=== PATIENT | male | born 1940 | race Caucasian/White ===

== ENCOUNTER 2020-03-17 08:19 | Outpatient (REF) | payer MEDICARE, SELFPAY ==
--- NOTE | 2020-03-17 08:36 | XR_ITS ---
EXAMINATION: XR CHEST CLINICAL INFORMATION: R06.02 - Shortness of breath COMPARISON: Chest radiographs 06/03/2009; CT chest noncontrast 06/09/2009 TECHNIQUE: 2 views of the chest were obtained. FINDINGS: There are interval new bilateral streaky opacities, scattered diffuse left and perihilar right. There is chronic right apical scarring similar to CT. Lung volumes are decreased. The heart is normal in size. The vascularity is normal. There is no definite effusion. There is no lobar or segmental airspace consolidation. Visualized bony structures are unremarkable. XR/XR chest 2V IMPRESSION: Bilateral streaky opacities, greater on left with decreased lung volumes. Findings likely related to interval chronic interstitial fibrotic change. Superimposed acute infectious/inflammatory airspace disease cannot be excluded. No lobar or segmental airspace consolidation or effusion.
[2020-03-17 09:02] LABS: Hematocrit 48.3 % (42-52); Hemoglobin 16.3 g/dl (14.0-18.0); Mean Corpuscular HGB Conc 33.7 g/dl (31.0-36.0); Mean Corpuscular Hemoglobin 29.9 pg (27.0-33.0); Mean Corpuscular Volume 88.5 fL (80-98); Mean Platelet Volume 10.8 fL (9.4-12.4); Platelet Count 189 X10*3/uL (160-400); Red Blood Count 5.46 X10*6/uL (4.60-5.80); Red Cell Distribution Width 13.9 % (11.0-16.0); White Blood Count 8.4 X10*3/uL (4.8-10.8)
[2020-03-17 09:30] LABS: Alanine Aminotransferase 50 U/L (0-40); Albumin Level 4.2 g/dL (3.5-5.0); Alkaline Phosphatase 114 U/L (39-117); Anion Gap 14 (12-20); Aspartate Amino Transferase 34 U/L (5-37); Bilirubin Total 2.5 mg/dL (0.0-1.0); Blood Urea Nitrogen 13 mg/dL (9-16); Calcium 8.9 mg/dL (8.4-10.2); Carbon Dioxide 24 mmol/L (22-29); Chloride 108 mmol/L (96-108); Cholesterol 186 mg/dL; Estimated Glomerular Filt Rate > 60; Glucose Fasting 172 mg/dL (60-99); HDL Cholesterol 33 mg/dL; LDL Cholesterol Calculated 132 mg/dl; Potassium 4.1 mmol/l (3.3-5.1); Sodium 142 mmol/L (135-145); Total Protein 6.7 g/dL (6.5-8.0); Triglycerides 108 mg/dL
[2020-03-17 09:37] LABS: Creatinine Urine 184.46 mg/dL; Microalbum/Creatinine Ratio Ur 11.3 ug/mg cr
[2020-03-17 10:56] LABS: Prostate Specific Antigen Scr 4.94 ng/mL (<0.05-4.0)
== END 2020-03-17 08:20 | disposition home or self-care (01) ==
LOC: HO.LAB 08:19
PROVIDERS: PCP Physician Assistant; Visit Provider Physician Assistant
DX: R06.02 Shortness of breath (principal); I25.10 Atherosclerotic heart disease of native coronary artery without angina pectoris; E78.5 Hyperlipidemia, unspecified; I10 Essential (primary) hypertension; Z79.82 Long term (current) use of aspirin; Z13.1 Encounter for screening for diabetes mellitus; Z12.5 Encounter for screening for malignant neoplasm of prostate
CPT/HCPCS: 36415; 71046; 80053; 80061; 82043; 84153; 85027; 93005; 99202

== ENCOUNTER → 2020-03-29 07:25 | Outpatient (REF) | payer MEDICARE, SELFPAY ==
--- NOTE | 2020-03-29 | CA_ITS ---
Transthoracic Echocardiogram Patient (Last, First, Middle): Marc Sandoval L Gender: Male Date of : 1940 Age: 79 Procedure Date: 03/29/2020 Procedure Type: Transthoracic Echocardiogram Location: OP Height: 175.26 cm Weight: 75.75 kg BSA: 1.91 m2 Heart Rate: bpm BP: 122 / 60 mmHg Lease Picker: [email or web address] Referring MD: Christopher Erwin MD Symptoms: R06.02 - Shortness of breath Study Quality: Fair ECG Rhythm: Sinus Conclusions: - The left ventricular systolic function is normal. The visually estimated ejection fraction is between 55-60%. - No obvious valvular pathology seen on this study. Findings Left Ventricle Normal left ventricular cavity size. There is mildly increased left ventricular wall thickness. The left ventricular systolic function is normal. The visually estimated ejection fraction is between 55-60%. There is no evidence of regional wall motion abnormalities. E/E prime ratio is between 8 and 15 consistent with indeterminate filling pressures. Evidence suggests grade I (mild) diastolic dysfunction. Right Ventricle Normal right ventricular cavity size and systolic function. Atria The left atrium is normal in size. The right atrium is normal in size. Aortic Valve There is a normal trileaflet aortic valve. There is mild calcification of the aortic valve. There is no aortic valve stenosis. There is trace (trivial) aortic valve regurgitation. Mitral Valve The mitral valve appears normal. There is trace mitral valve regurgitation. There is no mitral valve stenosis. Pulmonic Valve The pulmonic valve was not well visualized. There is trace pulmonic valve regurgitation. Tricuspid Valve Normal tricuspid valve structure. There is trace tricuspid valve regurgitation. The pulmonary artery systolic pressure is normal. Great Vessels The aortic annulus, sinuses of valsalva, and asc aorta are normal in size. Venous The inferior vena cava was not well visualized. Pericardium/Pleural There is no evidence of pericardial effusion. Prior Study Comparison No prior study available for comparison. Recommendations, Care & Conclusions No obvious valvular pathology seen on this study. Measurements 2D Linear Measurements IVSd: 1.23 0.6-0.9/0.6-1.0 cm LVIDd: 2.70 3.9-5.3/4.2-5.9 cm LVIDd Index: 1.41 2.4-3.2/2.2-3.1 cm/m2 LVIDs: 1.84 2.0-3.6 cm LVPWd: 1.25 0.7-1.1 cm Ao Root: 3.50 2.1-3.5 cm LA Diam: 3.30 2.7-3.8/3.0-4.0 cm LAIDs Index: 1.73 1.5-2.3 cm/m2 LV Mass: 124.08 67-162/88-224 g LV Mass Index: 64.96 43-95/49-115 g/m2 LVOT Diam: 2.10 3.0+(-)1.3 cm 2D Systolic Function EF 4C: 60.50 >55% EF 2C: 57.80 >55% EF BiP: 58.50 >55% Mitral Valve MV Pk E: 0.60 MV PK A: 1.11 MV Decel Time: 274.00 E/A: 0.50 E'Lateral: 4.84 E'Medial: 5.80 E/E' Med: 10.30 E/E' Lat: 12.30 PHT: 80.00 MVA PHT: 2.75 Decel Dare: 2.17 Aortic Valve AoV Pk Arnold: 1.26 AoV Mn Arnold: 0.84 AoV VTI: 0.28 AoV Pk Grad: 6.00 Aov Mn Grad: 3.00 SARAHY Cont.VTI: 2.60 LVOT LVOT Pk Arnold: 0.85 LVOT Mn Arnold: 0.62 LVOT VTI: 0.21 LVOT Pk Grad: 3.00 LVOT Mn Grad: 2.00 LVOT Diam: 2.10 LVOT Area: 3.46 Diastolic Function MV Pk E: 0.60 MV Pk A: 1.11 E/A: 0.50 E'Medial: 5.80 E/E' Med: 10.30 E' Laterial: 4.84 E/E' Lat: 12.30 Tricuspid Valve TR Pk Arnold: 1.58 TR Pk Grad: 10.00 RA Press: 3.00 RVSP: 13.00 Great Vessels Aorta Ao Root-2D: 3.50 2.0-3.7 cm Ao Asc: 3.30 2.1-3.4 cm Pulmonary Valve PV Pk Arnold: 0.84 Peak PV Grad: 3.00 Updated in Other Vendor System with Status of Final Abdulaziz Farley MD electronically signed on 03/30/2020 1:21:54 PM with status of Final
--- NOTE | ~2020-03-29 | NM_ITS ---
Exercise Myocardial perfusion study Indication: Atherosclerotic heart disease to evaluate for myocardial ischemia Technique: The patient was brought in for an exercise perfusion study on 03/29/2020. Patient performed exercise as per Garrick protocol and was injected 25 mCi of sestamibi was given intravenously one target HR was achieved. Images were obtained using the SPECT gamma camera interlaced with the gating device. Images were obtained in supine position. Resting perfusion study was performed on 03/30/2020. Patient was administered 25 mCi of sestamibi intravenously at rest. Images were then obtained in supine position. Images obtained with and without CT attenuation. Total DLP 69 mGy-cm. Images were processed with the software and compared side to side in short axis, horizontal long axis and vertical long axis views. Findings: The stress perfusion study showed non attenuated images show mildly reduced uptake in the basal inferior wall of the LV myocardium. Attenuation corrected images show normal uptake of radiotracer in all segments of LV myocardium. The gated study shows normal LV systolic function with calculated LVEF of greater than 70 %. LV cavity is normal in size. The gated study shows normal systolic wall thickening and contraction of all segments. There is no transient ischemic dilation. Resting study shows mildly reduced uptake in the distal anterior and apex of the LV myocardium on attenuation corrected images. Gating at rest reveals normal systolic wall motion with ejection fraction at 73%. The findings are consistent with normal myocardial perfusion. NM/NM cardiolite stress test Impression: 1. Normal myocardial perfusion 2. Gated LVEF is greater than 70% 3. Transient ischemic dilatation not present Stress EKG is equivocal for ischemia
--- NOTE | 2020-03-29 07:29 | CA_ITS ---
Acquisition Time: 2020-03-29 10:26:57 Total Exercise Time: 00:04:28 Test Indications: ASHD, SOB Medications: Protocol: SHEBA Max HR: 130 BPM 92% of Pred: 141 BPM Max BP: 184/078 mmHG Max Work Load: 4.6 METS Exercise nuclear stress test using Sheba protocol, with walking on treadmill for 3 min. 15 sec. Pt asked to terminate the test. TAPHR up to 87 %. Pt denies any anginal sx. EKG wiyh occ. PVC's , T wave inversions seen inferiorly and laterally. Nuclear images to follow. Hypertensive response to exercise. Test reviewed with Dr. Farley. Referred By: Royal Garcia Overread By: Betty Ramos
== END ==
LOC: HO.CARD 07:25
PROVIDERS: Visit Provider Internal Medicine Cardiovascular Disease
DX: I25.10 Atherosclerotic heart disease of native coronary artery without angina pectoris (principal); R06.02 Shortness of breath
CPT/HCPCS: 78452; 93017; 93306; A9500

== ENCOUNTER → 2020-04-14 11:13 | Outpatient (BNVA) | payer MEDICARE, SELFPAY | PROVIDERS: Visit Provider Nurse Practitioner Family | DX: R06.02 Shortness of breath (principal); I25.10 Atherosclerotic heart disease of native coronary artery without angina pectoris; E78.5 Hyperlipidemia, unspecified; Z95.5 Presence of coronary angioplasty implant and graft | CPT/HCPCS: 99212 ==

== ENCOUNTER 2020-04-19 09:48 | Outpatient (REF) | payer MEDICARE, SELFPAY ==
--- NOTE | 2020-04-19 17:06 | PFT_ITS ---
INDICATION: Shortness of breath. SPIROMETRY: The FEV1 to FVC 79% with an FEV1 of 2.2 L, which is 79% predicted; and FVC of 2.79 L which is 71% predicted. No significant response to bronchodilators noted. Maximum voluntary ventilation 84% predicted. LUNG VOLUMES: Total lung capacity 73% predicted with an expiratory reserve volume of 73% predicted. DIFFUSION CAPACITY: DLCO 19% predicted. COMPARISONS: None. INTERPRETATION: No obstructive ventilatory defect. No significant response to bronchodilators noted. Normal maximum voluntary ventilation; however, there is some mild restrictive ventilatory defect. In addition to that, the patient has a very severe diffusion impairment out of proportion to the restriction noted above. Therefore, need to consider underlying interstitial lung disease in addition to pulmonary vascular disease. The patient should have a 6-minute walk test and Pulmonary consultation. Clinical correlation warranted. MD SEAN Springer/URSULA / [id number]
== END 2020-04-19 09:49 | disposition home or self-care (01) ==
LOC: HO.RESP 09:48
PROVIDERS: Visit Provider Nurse Practitioner Family
DX: I25.10 Atherosclerotic heart disease of native coronary artery without angina pectoris (principal); R06.02 Shortness of breath; Z87.891 Personal history of nicotine dependence
CPT/HCPCS: 94060; 94727; 94729; 99202

== ENCOUNTER → 2020-04-26 09:45 | Outpatient (BNVA) | payer MEDICARE, SELFPAY | PROVIDERS: PCP Physician Assistant; Visit Provider Nurse Practitioner Family | DX: Z13.89 Encounter for screening for other disorder (principal) | CPT/HCPCS: 99212 ==

== ENCOUNTER 2020-05-04 08:19 | Outpatient (REF) | payer MEDICARE, SELFPAY ==
--- NOTE | ~2020-05-04 | CT_ITS ---
EXAMINATION: CT CHEST WITHOUT CONTRAST CLINICAL INFORMATION: Interstitial lung disease COMPARISON: Previous chest x-ray February [address] May 2009 and abdominal and pelvic CT scan from 2013 TECHNIQUE: Multidetector volumetric CT imaging of the chest was done. Axial MIP volume rendering provided. Sagittal and coronal reformatted images were obtained. This CT examination was performed using dose optimization techniques as appropriate, variously including the following: *Automated exposure control *Adjustment of mA and/or kV according to patient size (this includes techniques or standardized protocols for targeted exams where dose is matched to indication/reason for exam; i.e. extremities or head) *Use of iterative reconstruction technique DLP: 193 mGy-cm FINDINGS: SCREENING NURSE: Low lung volumes and increased interstitial markings suggestive of interstitial lung disease. LUNGS: There is biapical pleural and parenchymal scarring, left greater than right. This appears increased from previous CT scan. There is evidence of a emphysema. There is increasing volume loss to the left upper lobe. There is abnormal parenchymal density and traction bronchiectasis adjacent to a cystic area seen in the apical segment of the right upper lobe that is new, for example axial image 44 series 6. There is an abnormal parenchymal density and traction bronchiectasis adjacent to cystic area seen in the left upper lobe for example axial image 37 series 6 that is new. There is a 5 mm right upper lobe nodule axial image 72 series 6. This is increased from 2 mm on May 2009 exam. There are increased interstitial markings with increased peripheral reticulation, traction bronchiolectasis and extensive cystic change or honeycombing seen in the inferior segment of the lingula and the bilateral lower lobes that is new or increased from 2010. There is peripheral or subpleural triangular-shaped parenchymal consolidation seen in the left lateral lower lobe adjacent to the fissure axial image 120 series 6 that is new. There is a new peripheral or subpleural left lower lobe nodule adjacent to the fissure that measures 6 x 10 mm axial image 19 series 6 that is new. No endobronchial or endotracheal lesion is seen. MEDIASTINUM: There are small mediastinal lymph nodes. No enlarged lymph nodes are seen. The heart does not appear enlarged. There is moderate to severe coronary artery calcification. There is no pericardial effusion. The thoracic aorta is calcified but normal in caliber. The pulmonary arteries are upper normal in size, main pulmonary artery measuring 3 cm. PLEURA: There is mild bilateral pleural thickening at the lung bases. There is no pleural effusion. AXILLA: No lymphadenopathy. UPPER ABDOMEN: There are calcifications in the gallbladder questionable for gallbladder wall calcification versus gallstones. This is increased from previous exams. OSSEOUS STRUCTURES: There are degenerative changes of the spine. CT/CT chest wo con IMPRESSION: Severe emphysema. New interstitial lung disease with increased peripheral reticular markings, traction bronchiolectasis and honeycombing. This is seen diffusely throughout the lungs but greatest at the lung bases and inferior segment of the lingula. There is also progression of bilateral apical pleural and parenchymal scarring and abnormal bilateral apical parenchymal densities and associated traction bronchiectasis. There are also several new abnormal parenchymal densities in the left lower lobe, increasing right upper lobe nodule and new left lower lobe nodule. PET CT scan or continued chest CT scan follow-up should be considered. Moderate to severe coronary artery calcification. Gallbladder calcification questionable for gallbladder wall calcifications versus gallstones increased from previous exams.
== END 2020-05-04 08:20 | disposition home or self-care (01) ==
LOC: HO.CT 08:19
PROVIDERS: Visit Provider Internal Medicine Pulmonary Disease
DX: J84.9 Interstitial pulmonary disease, unspecified (principal)
CPT/HCPCS: 71250

== ENCOUNTER 2020-05-18 09:09 | Outpatient (REF) | payer MEDICARE, SELFPAY ==
[2020-05-18 09:55] LABS: PLT CLUMP 1
[2020-05-18 09:57] LABS: Hematocrit 39.6 % (42-52); Hemoglobin 12.9 g/dl (14.0-18.0); Mean Corpuscular HGB Conc 32.6 g/dl (31.0-36.0); Mean Corpuscular Hemoglobin 28.8 pg (27.0-33.0); Mean Corpuscular Volume 88.4 fL (80-98); Mean Platelet Volume 10.6 fL (9.4-12.4); Platelet Count 145 X10*3/uL (160-400); Red Blood Count 4.48 X10*6/uL (4.60-5.80); Red Cell Distribution Width 13.6 % (11.0-16.0)
[2020-05-18 10:15] LABS: Alanine Aminotransferase 18 U/L (0-40); Albumin Level 3.6 g/dL (3.5-5.0); Alkaline Phosphatase 112 U/L (39-117); Anion Gap 12 (12-20); Aspartate Amino Transferase 18 U/L (5-37); Blood Urea Nitrogen 11 mg/dL (9-16); Calcium 7.8 mg/dL (8.4-10.2); Carbon Dioxide 31 mmol/L (22-29); Chloride 108 mmol/L (96-108); Estimated Glomerular Filt Rate > 60; Glucose Fasting 160 mg/dL (60-99); Potassium 3.9 mmol/L (3.3-5.1); Sodium 147 mmol/L (135-145); Total Protein 5.9 g/dL (6.5-8.0)
[2020-05-18 10:29] LABS: Estimated Average Glucose 154 mg/dL
[2020-05-19 07:32] LABS: Immunoglobulin E 5 kU/L (<OR=114)
== END 2020-05-18 09:10 | disposition home or self-care (01) ==
LOC: HO.LAB 09:09
PROVIDERS: PCP Physician Assistant; Visit Provider Physician Assistant
DX: I10 Essential (primary) hypertension (principal); J30.9 Allergic rhinitis, unspecified; R73.09 Other abnormal glucose; Z95.5 Presence of coronary angioplasty implant and graft
CPT/HCPCS: 36415; 80053; 82785; 83036; 85027

== ENCOUNTER → 2020-06-11 11:04 | Outpatient (BNVA) | payer MEDICARE, SELFPAY | PROVIDERS: PCP Physician Assistant; Visit Provider Nurse Practitioner Family | DX: Z01.810 Encounter for preprocedural cardiovascular examination (principal); R06.02 Shortness of breath; I25.10 Atherosclerotic heart disease of native coronary artery without angina pectoris; E78.5 Hyperlipidemia, unspecified; Z95.5 Presence of coronary angioplasty implant and graft | CPT/HCPCS: 93005; 99212 ==

== ENCOUNTER 2020-07-07 08:57 | Outpatient (REF) | payer MEDICARE, SELFPAY ==
[2020-07-07 10:36] LABS: Hemoglobin 12.5 g/dl (14.0-18.0); Mean Corpuscular HGB Conc 32.9 g/dl (31.0-36.0); Mean Corpuscular Hemoglobin 28.7 pg (27.0-33.0); Mean Corpuscular Volume 87.4 fL (80-98); Mean Platelet Volume 10.9 fL (9.4-12.4); Platelet Count 177 X10*3/uL (160-400); Red Blood Count 4.35 X10*6/uL (4.60-5.80); Red Cell Distribution Width 14.1 % (11.0-16.0); White Blood Count 8.6 X10*3/uL (4.8-10.8)
== END 2020-07-07 08:58 | disposition home or self-care (01) ==
LOC: HO.LAB 08:57
PROVIDERS: PCP Physician Assistant; Visit Provider Physician Assistant
DX: D64.9 Anemia, unspecified (principal); I10 Essential (primary) hypertension
CPT/HCPCS: 36415; 85027

== ENCOUNTER → 2020-07-27 09:32 | Outpatient (BNVA) | payer MEDICARE, SELFPAY | PROVIDERS: PCP Physician Assistant; Visit Provider Internal Medicine Pulmonary Disease | DX: J44.9 Chronic obstructive pulmonary disease, unspecified (principal); J84.112 Idiopathic pulmonary fibrosis; R91.8 Other nonspecific abnormal finding of lung field; Z99.81 Dependence on supplemental oxygen | CPT/HCPCS: 99212 ==

== ENCOUNTER 2020-08-09 08:55 | Outpatient (REF) | payer MEDICARE, SELFPAY ==
--- NOTE | ~2020-08-09 | CT_ITS ---
EXAMINATION: CT CHEST WITHOUT CONTRAST CLINICAL INFORMATION: Interstitial lung disease COMPARISON: Previous chest CT scan most recent April 2020 and chest x-ray February 2020 TECHNIQUE: Multidetector volumetric CT imaging of the chest was done. Axial MIP volume rendering provided. Sagittal and coronal reformatted images were obtained. This CT examination was performed using dose optimization techniques as appropriate, variously including the following: *Automated exposure control *Adjustment of mA and/or kV according to patient size (this includes techniques or standardized protocols for targeted exams where dose is matched to indication/reason for exam; i.e. extremities or head) *Use of iterative reconstruction technique DLP: 194 mGy-cm FINDINGS: LUNGS: There is evidence of severe emphysema. There is biapical pleural thickening. There is some volume loss to the left hemithorax/left lower lobe with shift of the central mediastinal structures to the left. There is evidence of severe interstitial lung disease with increased peripheral reticulation, increased peripheral attenuation, traction bronchiolectasis and honeycombing. This is greatest in the lingula and left lower lobe. This does not appear appreciably changed from most recent exam April 2020. This is again significantly increased from older exam May 2009. There is a 4 mm right upper lobe nodule axial image 24 series 3 that is stable. There is a 3 mm left lower lobe nodule axial image 33 series 3 that is stable. There is a small 2 mm calcified left lower lobe nodule axial image 38 series 3. No new pulmonary nodule is seen. MEDIASTINUM: The visualized thyroid gland is unremarkable. There are small mediastinal lymph nodes. The heart does not appear enlarged. There is coronary artery calcification. There is no pericardial effusion. The thoracic aorta is normal in caliber. The esophagus is unremarkable. PLEURA: No pleural effusion. AXILLA: No chest wall mass or enlarged axillary nodes. UPPER ABDOMEN: There is irregular appearing gallbladder calcification questionable for gallbladder wall calcification as opposed to gallstones. Gallbladder wall calcification has increased risk of developing gallbladder cancer. Follow-up ultrasound recommended. There is diverticulosis of the colon. The spleen may be prominent. OSSEOUS STRUCTURES: There are degenerative changes of the spine. CT/CT chest wo con IMPRESSION: Severe emphysema and interstitial lung disease. This is not appear appreciably changed from most recent exam April 2020. Small stable pulmonary nodules. Coronary artery calcification. Gallbladder calcification, question related representing gallbladder wall calcification as opposed to stones which has increased risk of developing gallbladder cancer. Follow-up gallbladder ultrasound recommended.
== END 2020-08-09 08:56 | disposition home or self-care (01) ==
LOC: HO.CT 08:55
PROVIDERS: Visit Provider Internal Medicine Pulmonary Disease
DX: R91.8 Other nonspecific abnormal finding of lung field (principal)
CPT/HCPCS: 71250

== ENCOUNTER → 2020-08-26 15:05 | Outpatient (BNVA) | payer MEDICARE, SELFPAY | PROVIDERS: PCP Physician Assistant; Visit Provider Internal Medicine Pulmonary Disease | DX: J44.9 Chronic obstructive pulmonary disease, unspecified (principal); J84.112 Idiopathic pulmonary fibrosis; R91.8 Other nonspecific abnormal finding of lung field; I25.10 Atherosclerotic heart disease of native coronary artery without angina pectoris; E78.5 Hyperlipidemia, unspecified; R06.02 Shortness of breath; Z87.891 Personal history of nicotine dependence; Z99.81 Dependence on supplemental oxygen | CPT/HCPCS: 99212 ==

== ENCOUNTER 2020-09-06 09:07 | Outpatient (REF) | payer MEDICARE, SELFPAY ==
[2020-09-06 10:22] LABS: Estimated Average Glucose 160 mg/dL; Hemoglobin A1c % 7.2 %
[2020-09-06 10:39] LABS: B Type Natriuretic Peptide 20 pg/mL (<100)
[2020-09-06 10:41] LABS: Alanine Aminotransferase 22 U/L (0-40); Albumin Level 4.1 g/dL (3.5-5.0); Alkaline Phosphatase 106 U/L (39-117); Anion Gap 13 (12-20); Aspartate Amino Transferase 22 U/L (5-37); Bilirubin Total 2.3 mg/dL (0.0-1.0); Blood Urea Nitrogen 13 mg/dL (9-16); Calcium 9.1 mg/dL (8.4-10.2); Carbon Dioxide 27 mmol/L (22-29); Chloride 110 mmol/L (96-108); Cholesterol 114 mg/dL; Estimated Glomerular Filt Rate > 60; Glucose Fasting 191 mg/dL (60-99); HDL Cholesterol 36 mg/dL; Iron 61 mcg/dL (45-160); LDL Cholesterol Calculated 53 mg/dl; Percent Iron Saturation 21 % (15-50); Potassium 3.9 mmol/L (3.3-5.1); Sodium 146 mmol/L (135-145); Total Iron Binding Capacity 288 mcg/dL (228-428); Total Protein 6.7 g/dL (6.5-8.0); Triglycerides 126 mg/dL; Unsaturated Iron Binding 227 ug/dL
== END 2020-09-06 09:08 | disposition home or self-care (01) ==
LOC: HO.LAB 09:07
PROVIDERS: Nurse Practitioner Family; PCP Physician Assistant; Visit Provider Physician Assistant
DX: E78.5 Hyperlipidemia, unspecified (principal); I25.10 Atherosclerotic heart disease of native coronary artery without angina pectoris; R06.02 Shortness of breath; R73.09 Other abnormal glucose; D50.9 Iron deficiency anemia, unspecified; D64.9 Anemia, unspecified
CPT/HCPCS: 36415; 80053; 80061; 83036; 83540; 83880

== ENCOUNTER → 2020-12-07 09:00 | Outpatient (BNVA) | payer MEDICARE, SELFPAY | PROVIDERS: PCP Physician Assistant; Referring Provider Physician Assistant; Visit Provider Internal Medicine Cardiovascular Disease | DX: I25.10 Atherosclerotic heart disease of native coronary artery without angina pectoris (principal); E78.5 Hyperlipidemia, unspecified | CPT/HCPCS: 99212 ==

== ENCOUNTER 2020-12-15 11:12 | Emergency (ER) | payer MEDICARE, SELFPAY ==
--- NOTE | ~2020-12-15 | XR_ITS ---
EXAMINATION: XR CHEST CLINICAL INFORMATION: Cough with chest discomfort COMPARISON: CT scan of August 09, 2020 and studies dating back to June 03, 2009 TECHNIQUE: 2 views of the chest were obtained. FINDINGS: There are again noted to be chronic regions of scarring with more prominent interstitial disease seen within the left lung. No new focus of confluent parenchymal disease is identified. Heart normal size. No evidence of pulmonary edema. No pneumothorax or pleural effusion. XR/XR chest 2V IMPRESSION: No acute parenchymal disease. Chronic disease as described.
[2020-12-15 11:31] VITALS: BP 146/65; PULSE 78; RESP 19; TEMP 36.9; O2SAT 98
[2020-12-15 12:38] LABS: Influenza A PCR NEGATIVE (Negative); Influenza B PCR NEGATIVE (Negative); Resp Syncy Virus RNA Qual PCR POSITIVE (Negative); SARS COV2 PCR INHOUSE NEGATIVE (Negative)
--- NOTE | 2020-12-15 12:40 | ED_ITS ---
HPI - URI/Sore Throat General Chief Complaint: Upper Respiratory Symptoms Stated Complaint: covid symptoms Time Seen by Provider: 12/15/20 11:41 Source: patient Mode of arrival: ambulatory Limitations: no limitations History of Present Illness HPI Narrative: 80-year-old male with a past medical history of pulmonary fibrosis on 6 L of oxygen at baseline, diabetes, anemia, coronary artery disease, hyperlipidemia here with complaints of runny nose, sore throat and cough since yesterday. Daughter was sick at home with RSV this week. Patient denies any shortness of breath or chest pain from baseline. No fevers or leg swelling or pain. Has not required any increase in his supplemental oxygen Related Data Previous Rx's Medication Instructions Recorded aspirin 81 mg tablet,delayed 81 mg PO DAILY #30 tab 03/17/20 release (Ecotrin Low Strength) lisinopril 5 mg tablet 5 mg PO DAILY 90 Days #90 tab 07/14/20 loperamide 2 mg capsule (Imodium 2 mg PO QID PRN 10 Days #30 cap 07/15/20 A-D) albuterol sulfate 90 mcg/actuation 2 puff INHALATION Q4-6H PRN 30 07/27/20 aerosol inhaler Days #1 ea tiotropium 2.5 mcg-olodaterol 2.5 2 puff INHALATION DAILY 30 Days #1 08/26/20 mcg/actuation mist for inhalation ea (Stiolto Respimat) ipratropium bromide 21 mcg (0.03 2 spray INTRANASAL BID 90 Days #60 10/27/20 %) nasal spray ml pioglitazone 15 mg tablet (Actos) 15 mg PO DAILY 90 Days #90 tab 10/27/20 atorvastatin 40 mg tablet 40 mg PO DAILY #90 tab 12/06/20 metoprolol succinate 25 mg 25 mg PO DAILY #90 tab 12/06/20 tablet,extended release 24 hr Allergies Allergy/AdvReac Type Severity Reaction Status Date / Time No Known Allergies Allergy Verified 12/15/20 11:31 Review of Systems Review of Systems: Yes all other systems are reviewed and are negative Constitutional: Constitutional: Reports no additional constitutional complaints, Denies body ache(s), Denies chills, Denies fever(s), Denies headache(s) and Denies weakness Eyes: Eyes: Reports no additional eye complaints and Denies change in vision ENT: Reports system reviewed and no additional complaints, except as documented, Denies dizziness, Denies headache(s), Denies nasal congestion, Reports nasal discharge, Denies neck pain and Reports sore throat Cardiovascular: Cardiovascular: Reports no additional cardiovascular complaints, Denies chest pain, Denies leg edema and Denies dyspnea Respiratory: Respiratory: Reports no additional respiratory complaints, Reports cough and Denies dyspnea Gastrointestinal: Gastrointestinal: Reports no additional gastrointestinal complaints, Denies abdominal pain, Denies diarrhea, Denies nausea and Denies vomiting Genitourinary: Genitourinary: Denies urinary incontinence Musculoskeletal: Musculoskeletal: Reports no additional musculoskeletal complaints, Denies back pain, Denies arthralgias, Denies joint swelling, Denies neck pain, Denies numbness and Denies tingling Integumentary/Breasts: Skin/Breast: Reports system reviewed and no additional complaints, except as docu and Denies rash Neurologic: Reports system reviewed and no additional complaints, except as documented, Denies Abnormal speech present, Denies dizziness, Denies headache(s), Denies numbness, Denies tingling and Denies weakness PMFSH Past Medical History Attestation statement: The following information was validated with the patient. Source: old records reviewed and nursing notes reviewed Medical History CAD (coronary artery disease) Hyperlipidemia Impaired glucose metabolism SOB (shortness of breath) on exertion Surgical History S/P right coronary artery (RCA) stent placement Family History Family History Mother No problems noted. Father No problems noted. Social History Social History Housing: House Alcohol intake: current Alcohol intake frequency: a few times a month Patient Tobacco Use Status: Former Tobacco user Advance Directives: No Advance Directives Information Provided: No Current occupational status: retired Physical Exam Vital Signs: Vital Signs: Last Vital Signs Temp 98.5 F 12/15/20 11:31 Pulse 78 12/15/20 11:31 Resp 19 12/15/20 11:31 BP 146/65 H 10/27/21 11:31 Pulse Ox 98 12/15/20 11:31 Oxygen Flow Rate 4 12/15/20 11:31 Body Mass Index 0.2 Const: General: cooperative, healthy appearing, comfortable and no acute distress Orientation/consciousness: patient oriented x3 Limitations: no limitations HENMT: Head: Yes normal to inspection Ears: hearing grossly normal bilaterally General nose exam: Normal external nose present Face and sinus: Yes normal facial exam Mouth: Normal oral and palatal mucosa present Throat: Yes posterior oropharynx normal Eyes: General: appearance normal, both eyes and all related structures Pupi ls: Equal, round and reactive pupils present Neck: Neck: Yes normal visual inspection Chest: Chest palpation & inspection: normal inspection of the chest Resp: Other: Mild expiratory wheezing No tachypnea, accessory muscle use noted Effort & Inspection: normal respiratory effort Cardio: Rate: regular rate Rhythm: regular rhythm Peripheral pulses: Peripheral pulses 2+ throughout GI: Inspection: Yes normal to inspection Palpation (GI): Soft to palpation and nontender Auscultation: normal bowel sounds Back/Spine/Pelvis: Thoracic/Lumbar Spine: thoracic and lumbar spine normal to inspection Skin: General skin exam: no rashes or lesions noted Neuro: General: patient oriented x3, no focal motor deficits and normal sensation to monofilament Cranial nerves: Yes Equal, round and reactive pupils present Cognition (Neuro): normal cognition Speech: No Abnormal speech present Gait exam (Neuro): Normal gait present Motor exam (neuro): 5/5 motor strength present throughout Extrem: General: Yes normal to inspection, Yes no pedal edema and Yes no calf tenderness Course Course Course Narrative: 80-year-old male oxygen dependent here with complaints of sore throat, runny nose and cough with exposure to RSV this week. He is fully vaccinated for COVID. No shortness of breath or chest pain. Afebrile. Will check COVID/RSV swab. Check chest x-ray. 1250-chest x-ray shows no acute finding. RSV swab is positive. Patient is speaking full sentences. His vitals are stable. No increase in supplemental oxygen. I did discuss this with both him and his daughter. Plan is for discharge home with observation at home and return for any worrisome signs or symptoms. Comfortable with plan for discharge MDM - URI/Sore Throat Medical Records Attestation: I reviewed the patient's medical records. Lab Data Attestation: I reviewed the patient's lab results. Labs: Lab Results 12/15/20 Range/Units 11:50 Coronavirus (PCR) NEGATIVE (Negative) Influenza Type A (PCR) NEGATIVE (Negative) Influenza Type B (PCR) NEGATIVE (Negative) RSV RNA Qual (PCR) POSITIVE A (Negative) Imaging Data Chest x-ray: Attestation: I personally reviewed and interpreted this imaging study as follows: Radiologist's impression: INDINGS: There are again noted to be chronic regions of scarring with more prominent interstitial disease seen within the left lung. No new focus of confluent parenchymal disease is identified. Heart normal size. No evidence of pulmonary edema. No pneumothorax or pleural effusion. XR/XR chest 2V IMPRESSION: No acute parenchymal disease. ? Chronic disease as described. Discharge Plan Discharge Clinical Impression: Respiratory syncytial virus (RSV) Patient Disposition: Home, Self-Care Instructions: Respiratory Syncytial Virus (ED) Additional Instructions: Your COVID test is negative Your positive for RSV which is a virus which causes respiratory symptoms Seek care in the emergency department for shortness of breath, chest pain, fever greater than 100.4, weakness or increase in supplemental oxygen requirements. Take Motrin or Tylenol if able as needed Prescriptions: No Action atorvastatin 40 mg tablet 40 mg PO DAILY Qty: 90 RF: 3 metoprolol succinate 25 mg tablet extended release 24 hr 25 mg PO DAILY Qty: 90 RF: 3 pioglitazone [Actos] 15 mg tablet 15 mg PO DAILY 90 Days Qty: 90 RF: 1 ipratropium bromide 21 mcg (0.03 %) spray,non-aerosol 2 spray intranasal BID 90 Days Qty: 60 RF: 2 lisinopril 5 mg tablet 5 mg PO DAILY 90 Days Qty: 90 RF: 1 loperamide [Imodium A-D] 2 mg capsule 2 mg PO QID PRN (Reason: loose stool) 10 Days Qty: 30 RF: 0 Stiolto Respimat 2.5-2.5 mcg/actuation mist 2 puff inhalation DAILY 30 Days Qty: 1 RF: 6 aspirin [Ecotrin Low Strength] 81 mg tablet,delayed release (DR/EC) 81 mg PO DAILY Qty: 30 RF: 0 albuterol sulfate 90 mcg/actuation HFA aerosol inhaler 2 puff inhalation Q4-6H PRN (Reason: shortness of breath or wheezing) 30 Days Qty: 1 RF: 6 Referrals: Royal Garcia PA-C [Primary Care Provider] - 2 days
== END 2020-12-15 12:59 | disposition home or self-care (01) ==
PROVIDERS: Nurse Practitioner Family; Emergency Provider Emergency Medicine; PCP Physician Assistant
DX: J02.9 Acute pharyngitis, unspecified (principal); B97.4 Respiratory syncytial virus as the cause of diseases classified elsewhere; J84.10 Pulmonary fibrosis, unspecified; E11.9 Type 2 diabetes mellitus without complications; Z99.81 Dependence on supplemental oxygen; Z20.822 Contact with and (suspected) exposure to COVID-19
CPT/HCPCS: 0241U; 36415; 71046; 99283

== ENCOUNTER → 2020-12-21 13:45 | Outpatient (BNVA) | payer MEDICARE, SELFPAY | PROVIDERS: PCP Physician Assistant; Visit Provider Internal Medicine Pulmonary Disease | DX: J44.9 Chronic obstructive pulmonary disease, unspecified (principal); J84.112 Idiopathic pulmonary fibrosis; Z99.81 Dependence on supplemental oxygen | CPT/HCPCS: 99212 ==

== ENCOUNTER 2020-12-24 11:42 | Outpatient (REF) | payer MEDICARE, SELFPAY ==
[2020-12-24 12:24] LABS: Hematocrit 40.6 % (42.0-52.0); Hemoglobin 13.7 g/dl (14.0-18.0); Mean Corpuscular HGB Conc 33.7 g/dl (31.0-36.0); Mean Corpuscular Hemoglobin 28.7 pg (27.0-33.0); Mean Corpuscular Volume 84.9 fL (80.0-98.0); Mean Platelet Volume 11.3 fL (9.4-12.4); Platelet Count 243 X10*3/uL (160-400); Red Blood Count 4.78 X10*6/uL (4.60-5.80); Red Cell Distribution Width 13.7 % (11.0-16.0); White Blood Count 16.6 X10*3/uL (4.8-10.8)
[2020-12-24 13:09] LABS: Prostate Specific Antigen Scr 6.93 ng/mL (<0.05-4.0)
[2020-12-24 13:42] LABS: Estimated Average Glucose 163 mg/dL; Hemoglobin A1c % 7.3 %
[2020-12-24 14:03] LABS: Anion Gap 16 (12-20); Blood Urea Nitrogen 20 mg/dL (9-16); Calcium 8.5 mg/dL (8.4-10.2); Carbon Dioxide 27 mmol/L (22-29); Chloride 102 mmol/L (96-108); Estimated Glomerular Filt Rate > 60; Glucose Random 226 mg/dL (60-115); Iron 26 mcg/dL (45-160); Percent Iron Saturation 11 % (15-50); Potassium 2.7 mmol/L (3.3-5.1); Sodium 142 mmol/L (135-145); Total Iron Binding Capacity 241 mcg/dL (228-428); Unsaturated Iron Binding 215 ug/dL
== END 2020-12-24 11:43 | disposition home or self-care (01) ==
LOC: HO.LAB 11:42
PROVIDERS: PCP Physician Assistant; Visit Provider Physician Assistant
DX: R41.82 Altered mental status, unspecified (principal); E11.9 Type 2 diabetes mellitus without complications; D50.9 Iron deficiency anemia, unspecified; I25.10 Atherosclerotic heart disease of native coronary artery without angina pectoris; Z12.5 Encounter for screening for malignant neoplasm of prostate
CPT/HCPCS: 36415; 80048; 83036; 83540; 84153; 85027

== ENCOUNTER 2020-12-24 16:28 | Inpatient (IN) | payer MEDICARE, SELFPAY ==
--- NOTE | ~2020-12-24 | CT_ITS ---
EXAMINATION: CT HEAD WITHOUT CONTRAST CLINICAL INFORMATION: Confusion. Altered mental status. Evaluate for stroke, bleed. COMPARISON: None TECHNIQUE: Contiguous axial imaging was performed from the skull base to vertex without intravenous administration of contrast. This CT examination was performed using dose optimization techniques as appropriate, variously including the following: *Automated exposure control *Adjustment of mA and/or kV according to patient size (this includes techniques or standardized protocols for targeted exams where dose is matched to indication/reason for exam; i.e. extremities or head) *Use of iterative reconstruction technique DLP: 689 mGy-cm FINDINGS: There is no evidence of acute intracranial hemorrhage or territorial infarction. No abnormal mass effect or midline shift is seen. Mooney to white matter differentiation is well preserved. No extra-axial fluid collections are identified. The ventricles are normal in size. There is no abnormal attenuation within the brain parenchyma. The osseous structures and soft tissues are normal. Near-complete opacification of the maxillary sinuses, ethmoid air cells, and sphenoid sinuses, consistent with sinusitis. CT/CT head/brain wo con IMPRESSION: 1. No acute intracranial hemorrhage or mass effect. 2. Findings consistent with pansinusitis.
--- NOTE | ~2020-12-24 | CT_ITS ---
EXAMINATION: CT ANGIOGRAM OF THE CHEST WITH AND WITHOUT CONTRAST (CT PULMONARY ANGIOGRAM FOR PE) CLINICAL INFORMATION: Reason for Exam hypoxia COMPARISON: Previous chest x-ray from earlier the same day and chest CT most recent July 2020 TECHNIQUE: Prior to contrast administration, noncontrast localization images were obtained. Subsequently, multidetector volumetric imaging was performed from the thoracic inlet to below the diaphragms following the administration of 65 mL Omnipaque 350 intravenous contrast. No contrast reaction reported Sagittal, coronal, and MIP oblique sagittal reformatted images were obtained on the CT workstation, uploaded to PACS, and reviewed. This CT examination was performed using dose optimization techniques as appropriate, variously including the following: *Automated exposure control *Adjustment of mA and/or kV according to patient size (this includes techniques or standardized protocols for targeted exams where dose is matched to indication/reason for exam; i.e. extremities or head) *Use of iterative reconstruction technique Total exam dose-length product 1 7 mGy-cm FINDINGS: QUALITY OF STUDY/CONTRAST BOLUS: Satisfactory. PULMONARY ARTERIES: No central or segmental pulmonary emboli. Pulmonary arteries are slightly prominent. Main pulmonary artery measures 3.3 cm in diameter. THORACIC AORTA: No aneurysm or dissection. LUNG: There is evidence of emphysema. There is volume loss to the left hemithorax similar to previous exam. There is evidence of interstitial lung disease with increased peripheral reticulation. There is traction bronchiolectasis. There is interval increase in peripheral groundglass attenuation. This may represent acute alveolitis related interstitial lung disease. Differential would include pneumonia and pulmonary edema. The is identified small pulmonary nodules are difficult to visualize and compare. PLEURA: No pleural effusion or pneumothorax. MEDIASTINUM: Normal heart size. No pericardial effusion. Coronary artery calcification. Small mediastinal and bilateral hilar lymph nodes. No enlarged lymph nodes are seen. No evidence of septal bowing or right heart strain. CHEST WALL/AXILLA: No axillary or internal mammary lymphadenopathy. OSSEOUS STRUCTURES: No acute or suspicious osseous abnormality. There are degenerative changes of the spine. UPPER ABDOMEN: Stable gallbladder calcification, question gallbladder wall calcification versus gallstones. Prominent spleen. No reflux of contrast into the hepatic veins to suggest elevated right heart pressures. CT/CT angio chest PE protocol IMPRESSION: No evidence of pulmonary embolism. Pulmonary arteries are upper normal in size. Emphysema and interstitial lung disease. There is increased peripheral groundglass attenuation. This may represent acute alveolitis related interstitial lung disease. Differential would include pneumonia and pulmonary edema. Coronary artery calcification. Gallbladder calcification, question representing gallbladder wall calcification versus gallstone. VTE: negative
--- NOTE | ~2020-12-24 | XR_ITS ---
EXAMINATION: XR CHEST CLINICAL INFORMATION: Hypoxia COMPARISON: Previous chest x-ray 12/24/[address] most recent July 2020 TECHNIQUE: Frontal view of the chest was obtained. FINDINGS: The lung volumes are low. There is prominence of the left pulmonary hilum. This is unchanged from prior exams and is likely related to left lung volume loss and enlarged pulmonary arteries when compared with previous chest CT scan. Hilar and mediastinal contours are otherwise unremarkable. There are increased interstitial markings compatible with interstitial lung disease. There is increased attenuation at the left lung base and in the peripheral right mid lung that is new or increased from prior exams questionable for acute alveolitis or pneumonia or less likely pulmonary edema. There is no pleural effusion or pneumothorax. There are degenerative changes of the spine and left shoulder. XR/XR chest 1V IMPRESSION: Low lung volumes and evidence of chronic interstitial lung disease. There is increasing attenuation of the left lung base and right peripheral mid lung. Differential would include acute alveolitis related interstitial lung disease, pneumonia and less likely pulmonary edema.
--- NOTE | ~2020-12-24 | XR_ITS ---
EXAMINATION: XR CHEST CLINICAL INFORMATION: Hypoxem respiratory failure COMPARISON: Chest 01/04/2021 TECHNIQUE: Frontal view of the chest was obtained. FINDINGS: Lungs are hypoexpanded with patchy interstitial lung disease. In addition there are patchy bibasilar infiltrates. Heart size and pulmonary vascularity is normal. No gross bony abnormality seen. XR/XR chest 1V IMPRESSION: Hypoexpanded lungs with interstitial lung disease. Suspect bilateral lower lobe infiltrates, similar to previous study 01/04/2021.
--- NOTE | ~2020-12-24 | XR_ITS ---
EXAMINATION: XR CHEST CLINICAL INFORMATION: Shortness of breath, cough, confusion, rule out pneumonia. COMPARISON: Chest radiograph dated from 12/15/2020. TECHNIQUE: AP view of the chest was obtained. FINDINGS: There is redemonstration of extensive chronic parenchymal distortion and reticular opacities. However, there are new superimposed patchy opacities in the left lower lobe and periphery of the left lung. No large pleural effusion. No definite pneumothorax. Unchanged appearance of the cardiomediastinal silhouette. No acute osseous abnormalities. XR/XR chest 1V IMPRESSION: New patchy opacities in the left lung superimposed within a background of extensive chronic interstitial changes. Findings are concerning for an acute infection. Correlate clinically and follow-up to ensure resolution.
--- NOTE | ~2020-12-24 | XR_ITS ---
EXAMINATION: XR CHEST CLINICAL INFORMATION: Follow-up pneumonia COMPARISON: Previous chest x-ray and chest CTA 12/29/2020 TECHNIQUE: Frontal view of the chest was obtained. FINDINGS: The cardiac and mediastinal contours are stable. The lung volumes are low. There is evidence of interstitial lung disease. There are bilateral infiltrates, left greater than right. This is unchanged from 12/29/2020 exam. There is no pleural effusion or pneumothorax. There are degenerative changes of the spine. XR/XR chest 1V IMPRESSION: Low lung volumes and interstitial lung disease. Bilateral infiltrates, left greater than right. Findings are similar to 12/29/2020 chest x-ray.
--- NOTE | ~2020-12-24 | XR_ITS ---
EXAMINATION: XR CHEST CLINICAL INFORMATION: Pneumonia COMPARISON: 01/06/2021 and 12/29/2020 TECHNIQUE: Frontal view of the chest was obtained. FINDINGS: Chronic lung markings redemonstrated with biapical pleural-parenchymal scarring. There are stable patchy opacities at the left lung base. In correlating with the prior CT examination, subsegmental atelectasis was present in the lower lobes bilaterally and right upper lobe inferolaterally. No pleural effusion or pneumothorax. Normal heart size. Aorta is atherosclerotic. XR/XR chest 1V IMPRESSION: Stable exam demonstrating chronic interstitial lung disease. There are superimposed patchy opacities within the left lower lung and right midlung which corresponded to groundglass opacities on the prior CT from 12/29/2020. These patchy opacities could represent areas of represent atelectasis or mild alveolitis/pneumonitis.
--- NOTE | ~2020-12-24 | CT_ITS ---
EXAMINATION: CT CHEST WITHOUT CONTRAST CLINICAL INFORMATION: Hypoxia COMPARISON: 12/29/2020 TECHNIQUE: Multidetector volumetric CT imaging of the chest was done. Axial MIP volume rendering provided. Sagittal and coronal reformatted images were obtained. This CT examination was performed using dose optimization techniques as appropriate, variously including the following: *Automated exposure control *Adjustment of mA and/or kV according to patient size (this includes techniques or standardized protocols for targeted exams where dose is matched to indication/reason for exam; i.e. extremities or head) *Use of iterative reconstruction technique DLP: 303 mGy-cm FINDINGS: LUNGS/PLEURA: Severe emphysema. Scattered pneumatoceles. Biapical pleural-parenchymal scarring. Honeycombing present within the lower lungs bilaterally with accompanying architectural distortion and traction bronchiectasis. Platelike atelectasis present within the superior segment of the right lower lobe along the major fissure, and within the left lower lobe along major fissure. No evidence of superimposed pneumonitis. No pleural effusion. MEDIASTINUM: Normal heart size. Triple vessel coronary calcifications. No pericardial effusion. Esophagus is patulous. There is apparently edematous wall thickening of the distal thoracic esophagus. Mild stranding of the fat within the superior mediastinum and surrounding the esophagus. AXILLA: No lymphadenopathy. UPPER ABDOMEN: Cholelithiasis versus segmental porcelain gallbladder involving the fundus. OSSEOUS STRUCTURES: No acute or suspicious osseous abnormalities. CT/CT chest wo con IMPRESSION: * Severe combined pulmonary fibrosis and emphysema. * No evidence of superimposed pneumonitis or parenchymal consolidation. * Findings suggestive of esophagitis, which may be severe. This is suggested paraesophageal fat stranding. * Cholelithiasis and/or porcelain gallbladder.
[2020-12-24 16:46] VITALS: BP 154/70; PULSE 90; RESP 20; TEMP 36.9; O2SAT 97; BMI 24.3
[2020-12-24 19:35] LABS: Appearance Urine HAZY; Color Urine DK YELLOW; Glucose Urine UA 250 MG/DL (NEG); Leukocyte Esterase Urine NEG (NEG); Nitrite Urine NEG (NEG); Specific Gravity - Urine >= 1.030 (1.005-1.025); UACC Culture Trigger NO; Urine Blood NEG (NEG); Urine Ketones NEG (NEG); Urine Protein 2+ MG/DL (NEG-TRACE)
[2020-12-24 20:03] LABS: Hyaline Casts Urine 0-2 /LPF; RBC Urine 0-2 /HPF (0); WBC Urine 0-2 /HPF (0-4)
[2020-12-24 20:04] LABS: Granular Casts Urine 0-2 /LPF; Mucus Urine 1+ /LPF
[2020-12-24 20:29] VITALS: BP 186/76; PULSE 104; RESP 23; TEMP 36.4; O2SAT 68
--- NOTE | 2020-12-24 20:59 | ECG_ITS ---
Test Reason : SOB Blood Pressure : / mmHG Vent. Rate : 089 BPM Atrial Rate : 089 BPM P-R Int : 140 ms QRS Dur : 102 ms QT Int : 374 ms P-R-T Axes : 043 005 012 degrees QTc Int : 455 ms Sinus rhythm with Premature atrial complexes with Aberrant conduction Possible Left atrial enlargement Minimal voltage criteria for LVH, may be normal variant ( R in aVL ) Nonspecific ST abnormality Abnormal ECG When compared with ECG of 21-JAN-2014 09:21, Aberrant conduction is now Present Non-specific change in ST segment in Inferior leads Lateral leads ST now depressed in Anterior leads Referred By: Blaine Soto Electronically Signed By:TANNER ALARCON MD
--- NOTE | 2020-12-24 21:47 | ED.GENADULT ---
HPI - General Adult General Chief complaint: Altered Mental Status Stated complaint: dehydration,weakness,coughing Time Seen by Provider: 12/24/20 20:42 Source: patient and family (Daughter, Cathy) Mode of arrival: ambulatory Limitations: no limitations History of Present Illness HPI narrative: 80-year-old male who is brought emergency department by his daughter for evaluation of weakness, cough productive of thick yellow sputum, left-sided chest pain with coughing, rhinorrhea, fatigue, weakness, loss of appetite and intermittent episodes of confusion. The patient has been sick since 12/15/2020. He states that he developed rhinorrhea and a cough which is productive of thick sputum. He is also having intermittent left-sided pleuritic chest pain which is worse with coughing and worse with breathing. He states that he feels very fatigued in weak. He has had increased shortness of breath. The patient has idiopathic interstitial fibrosis and usually is on 6 L of oxygen via nasal cannula and he states that despite wearing this much oxygen he still feels more winded than usual especially when he walks around. He has had no appetite but he has been drinking fluid. He states he feels very fatigued and weak. Patient has been constipated with no diarrhea. He denied myalgias or arthralgias. He denied fever or shaking chills. The patient had a SARS screen on 12/15/2020 and he was positive for RSV virus. The screen was negative for influenza and COVID-19. He had blood work which was done today by his PCP [place] [address] and a low potassium of 2.2. Patient's glucose was elevated 226. The daughter states that his symptoms were getting worse, he was having intermittent episodes of confusion therefore she brought the patient to the emergency department for evaluation. The patient has received the COVID-19 visor 2 dose vaccine in he received his booster vaccine on 11/22/2020. He also received his influenza vaccine at this time as well. Related Data Home Medications Medication Instructions Recorded Confirmed umeclidinium 62.5 mcg-vilanterol 1 puff INHALATION DAILY 12/24/20 12/24/20 25 mcg/actuation powdr for inhalation (Anoro Ellipta) Previous Rx's Medication Instructions Recorded aspirin 81 mg tablet,delayed 81 mg PO DAILY #30 tab 03/17/20 release (Ecotrin Low Strength) lisinopril 5 mg tablet 5 mg PO DAILY 90 Days #90 tab 07/14/20 albuterol sulfate 90 mcg/actuation 2 puff INHALATION Q4-6H PRN 30 07/27/20 aerosol inhaler Days #1 ea ipratropium bromide 21 mcg (0.03 2 spray INTRANASAL BID 90 Days #60 10/27/20 %) nasal spray ml pioglitazone 15 mg tablet (Actos) 15 mg PO DAILY 90 Days #90 tab 10/27/20 atorvastatin 40 mg tablet 40 mg PO DAILY #90 tab 12/06/20 metoprolol succinate 25 mg 25 mg PO DAILY #90 tab 12/06/20 tablet,extended release 24 hr Allergies Allergy/AdvReac Type Severity Reaction Status Date / Time No Known Allergies Allergy Verified 12/21/20 13:52 Review of Systems Review of Systems: Yes all other systems are reviewed and are negative [facility] Past Medical History [facility] Narrative: Social history: The patient lives with his daughter Cathy who is here in the emergency department. The patient denies tobacco use he states that he was a former smoker but quit more than 20 years ago. He denies alcohol use. He denies drug use. Medical History CAD (coronary artery disease) Hyperlipidemia Impaired glucose metabolism SOB (shortness of breath) on exertion Surgical History S/P right coronary artery (RCA) stent placement Family History Family History Mother No problems noted. Father No problems noted. Social History Social History Housing: House Alcohol intake: never Patient Tobacco Use Status: Former Tobacco user Smoked in Last 30 Days: No Use of substances other than those prescribed or required for medical reasons: No Advance Directives: No Advance Directives Information Provided: No Current occupational status: retired Physical Exam Vital Signs: Vital Signs: Last Vital Signs Temp 97.6 F 12/24/20 20:29 Pulse 95 12/25/20 00:00 Resp 14 12/25/20 00:00 BP 186/76 H 12/24/20 20:29 Pulse Ox 95 12/25/20 00:00 Oxygen Flow Rate 6 12/24/20 16:46 Body Mass Index 24.3 Const: Other: Very pleasant and cooperative elderly male, answers all questions appropriately, does not appear to be confused, in no acute distress Orientation/consciousness: oriented to person and oriented to place Limitations: no limitations HENMT: Head: Yes normal to inspection, Yes normocephalic and Yes atraumatic Ears: external ears normal General nose exam: Normal external nose present Face and sinus: Yes normal facial exam Mouth: Normal oral and palatal mucosa present Throat: Yes posterior oropharynx normal Eyes: General: appearance normal, both eyes and all related structures Pupils: Equal, round and reactive pupils present Neck: Neck: Yes normal visual inspection, Yes no lymphadenopathy, Yes trachea midline and Yes supple Chest: Chest palpation & inspection: normal inspection of the chest and normal palpation of entire chest wall Resp: Other: Patient has diffuse expiratory wheezing and diffuse rales, the rales are increased at the left lung base compared to the right, breath sounds are symmetric bilaterally Cardio: Rate: tachycardic Rhythm: regular rhythm Heart sounds: S1 normal heart sound present, S2 normal heart sound present and no murmurs GI: Inspection: Yes normal to inspection Palpation (GI): Soft to palpation, nontender and no guarding Auscultation: normal bowel sounds : General: Yes no CVA tenderness Back/Spine/Pelvis: Back: no CVA tenderness Skin: General skin exam: no rashes or lesions noted Neuro: General: oriented to person and oriented to place Cranial nerves: Yes CN's II-XII intact bilaterally and Yes Equal, round and reactive pupils present Cognition (Neuro): normal cognition Motor exam (neuro): 5/5 motor strength present throughout Extrem: General: Yes normal to inspection Psych: Appearance: grossly normal Speech and movement: Normal speech and movement present Affect: normal affect Attitude: cooperative Thought process: Normal thought process present Thought content: Normal thought content present Course Course Course Narrative: 80-year-old male who presents emergency department for evaluation of increased shortness of breath above his baseline, left-sided pleuritic chest pain with productive cough, rhinorrhea, fatigue, decreased appetite intermittent confusion since 12/15/2020. The patient did have a SARS screen as an outpatient and he is positive for RSV virus which could explain some of his symptoms. The patient's however has been getting progressively worse, given his idiopathic pulmonary fibrosis of his lungs, I am concerned that he may now have bacterial pneumonia. Patient did have blood work earlier today and he was also found to be hypokalemic. I did order repeat blood work to include CBC, CMP, lipase, lactate, troponin, blood cultures x2, 12 EKG, chest x-ray one view, repeat SARS test. Patient was ordered to get potassium chloride 40 mEq orally, normal saline x1 L , ceftriaxone 1 g IV and azithromycin 500 mg IV. 2250: Laboratory evaluation: WBC was elevated 12,000, H&H was 12.6 and 36, slightly lower than values earlier in the day. Urinalysis and microscopic were unremarkable with no evidence for urinary tract infection. One-view chest x-ray reveals new left lower lobe infiltrate compared to previous x-ray on 12/14/2020 suggesting possible new bacterial pneumonia versus viral pneumonia. High sensitivity troponin I was detectable but not elevated at 12.5. Twelve EKG was unremarkable. I do not think that he has coronary artery disease is the cause was symptoms. The patient's repeat SARS testing revealed RSV positive only with negative influenza and COVID-19 similar to previous testing. CT of the head revealed no acute explanation for his confusion, most likely related to his hypoxia. Patient has pansinusitis but I do not think that this is acute. I will discuss this patient's presentation with the covering hospitalist, the patient will need to be admitted for IV antibiotics, potassium replaced and oxygen therapy. 2354: I did discuss the patient's presentation with the covering hospitalist, Dr. Lycnh and patient will be managed on the hospital service. Given his oxygen requirement, the patient will be managed [facility]. Medical Decision Making Lab Data Result diagrams: 12/24/20 22:17 12/24/20 22:17 Labs: Lab Results 12/24/20 12/24/20 12/24/20 Range/Units 19:21 20:39 21:20 WBC (4.8-10.8) X10*3/uL RBC (4.60-5.80) X10*6/uL Hgb (14.0-18.0) g/dl Hct (42.0-52.0) % MCV (80.0-98.0) fL MCH (27.0-33.0) pg MCHC (31.0-36.0) g/dl RDW (11.0-16.0) % Plt Count (160-400) X10*3/uL MPV (9.4-12.4) fL Immature Gran % (Auto) (0.0-0.4) % Neut % (Auto) (45-73) % Lymph % (Auto) (20-40) % [place] % (Auto) (2-11) % Eos % (Auto) (0-4) % Baso % (Auto) (0-2) % Lymph # (Auto) (1.2-4.9) X10*3/uL [place] # (Auto) (0.1-1.2) X10*3/uL Eos # (Auto) (0.0-0.4) X10*3/uL Baso # (Auto) (0.0-0.2) X10*3/uL Abs Immat Gran (auto) (0.00-0.03) X10*3/uL Absolute Neuts (auto) (2.0-8.3) x10*3/uL Absolute Nucleated RBC (0.0-0.012) X10*3/uL Nucleated RBC % (auto) (0.0-0.2) /100WBC Sodium (135-145) mmol/L Potassium (3.3-5.1) mmol/L Chloride (96-108) mmol/L Carbon Dioxide (22-29) mmol/L Anion Gap (12-20) BUN (9-16) mg/dL Creatinine (0.5-1.4) mg/dL Estim Creat Clear Calc Estimated GFR Random Glucose (60-115) mg/dL Lactic Acid 2.0 (0.5-2.0) mmol/L Calcium (8.4-10.2) mg/dL Total Bilirubin (0.0-1.0) mg/dL AST (5-37) U/L ALT (0-40) U/L Alkaline Phosphatase (39-117) U/L Troponin I High Sens (<3.5-35.0) ng/L Total Protein (6.5-8.0) g/dL Albumin (3.5-5.0) g/dL Lipase (8-78) U/L Urine Color DK YELLOW Urine Appearance HAZY Urine pH 6.0 (5.0-8.0) Ur Specific [place] >= 1.030 H (1.005-1.025) Urine Protein 2+ H (NEG-TRACE) MG/DL Urine Glucose (UA) 250 H (NEG) MG/DL Urine Ketones NEG (NEG) MG/DL Urine Blood NEG (NEG) Urine Nitrite NEG (NEG) Ur Leukocyte Esterase NEG (NEG) Urine RBC 0-2 (0) /HPF Urine WBC 0-2 (0-4) /HPF Ur Squamous Epith Cells NONE /LPF Urine Bacteria NONE /LPF Hyaline Casts 0-2 /LPF Granular Casts 0-2 /LPF Urine Mucus 1+ /LPF Influenza Type A (PCR) NEGATIVE (Negative) Influenza Type B (PCR) NEGATIVE (Negative) RSV RNA Qual (PCR) POSITIVE A (Negative) SARS-CoV-2 RNA (RT-PCR) NEGATIVE (Negative) 12/24/20 12/24/20 12/24/20 Range/Units 22:17 22:17 22:17 WBC 12.2 H (4.8-10.8) X10*3/uL RBC 4.31 L (4.60-5.80) X10*6/uL Hgb 12.6 L (14.0-18.0) g/dl Hct 36.8 L (42.0-52.0) % MCV 85.4 (80.0-98.0) fL MCH 29.2 (27.0-33.0) pg MCHC 34.2 (31.0-36.0) g/dl RDW 13.6 (11.0-16.0) % Plt Count 185 (160-400) X10*3/uL MPV 10.6 (9.4-12.4) fL Immature Gran % (Auto) 1.4 H (0.0-0.4) % Neut % (Auto) 80.1 H (45-73) % Lymph % (Auto) 13.8 L (20-40) % [place] % (Auto) 4.4 (2-11) % Eos % (Auto) 0.1 (0-4) % Baso % (Auto) 0.2 (0-2) % Lymph # (Auto) 1.7 (1.2-4.9) X10*3/uL [place] # (Auto) 0.5 (0.1-1.2) X10*3/uL Eos # (Auto) 0.0 (0.0-0.4) X10*3/uL Baso # (Auto) 0.0 (0.0-0.2) X10*3/uL Abs Immat Gran (auto) 0.17 H (0.00-0.03) X10*3/uL Absolute Neuts (auto) 9.8 H (2.0-8.3) x10*3/uL Absolute Nucleated RBC 0.000 (0.0-0.012) X10*3/uL Nucleated RBC % (auto) 0.0 (0.0-0.2) /100WBC Sodium 144 (135-145) mmol/L Potassium 2.9 L (3.3-5.1) mmol/L Chloride 105 (96-108) mmol/L Carbon Dioxide 28 (22-29) mmol/L Anion Gap 14 (12-20) BUN 22 H (9-16) mg/dL Creatinine 0.99 (0.5-1.4) mg/dL Estim Creat Clear Calc 59.5 Estimated GFR > 60 Random Glucose 206 H (60-115) mg/dL Lactic Acid (0.5-2.0) mmol/L Calcium 8.2 L (8.4-10.2) mg/dL Total Bilirubin 2.6 H (0.0-1.0) mg/dL AST 17 (5-37) U/L ALT 23 (0-40) U/L Alkaline Phosphatase 117 (39-117) U/L Troponin I High Sens 12.5 (<3.5-35.0) ng/L Total Protein 6.1 L (6.5-8.0) g/dL Albumin 3.4 L (3.5-5.0) g/dL Lipase 25 (8-78) U/L Urine Color Urine Appearance Urine pH (5.0-8.0) Ur Specific [place] (1.005-1.025) Urine Protein (NEG-TRACE) MG/DL Urine Glucose (UA) (NEG) MG/DL Urine Ketones (NEG) MG/DL Urine Blood (NEG) Urine Nitrite (NEG) Ur Leukocyte Esterase (NEG) Urine RBC (0) /HPF Urine WBC (0-4) /HPF Ur Squamous Epith Cells /LPF Urine Bacteria /LPF Hyaline Casts /LPF Granular Casts /LPF Urine Mucus /LPF Influenza Type A (PCR) (Negative) Influenza Type B (PCR) (Negative) RSV RNA Qual (PCR) (Negative) SARS-CoV-2 RNA (RT-PCR) (Negative) ECG Data Attestation: I personally reviewed and interpreted this ECG as follows: Interpretation: 03/10/2023: Sinus rhythm with a rate of 89, normal VT interval, prolonged QRS duration of 102 milliseconds, normal QTC interval 455, no ST segment elevation, no ST segment depression, occasional PVC, no significant T-wave abnormalities. Critical Care Time Critical Care Time Critical Care Time: Yes Total Critical Care Time: 30 Attestation: Critical Care: The patient was critically ill with a high probability of imminent or life threatening deterioration. I spent greater than 30 minutes of discontinuous time evaluating the patient,delivering critical care at the bedside, discussing and evaluating pertinent data with consultants. Critical care time does not include time spent performing separately billable procedures or teaching. Total time spent performing critical care was 30 minutes. Discharge Plan Discharge Clinical Impression: Hypoxia, Acute hypokalemia Pneumonia Qualifiers: Pneumonia type: due to unspecified organism Laterality: left Lung location: lower lobe of lung Qualified Code(s): J18.9 - Pneumonia, unspecified organism Patient Disposition: Admitted As Inpatient
[2020-12-24 22:00] VITALS: PULSE 93; RESP 20; O2SAT 96
[2020-12-24] MEDS: cefTRIAXone sodium 1 GM in 0.9 % Sodium Chloride 50 ML IV (22:18)
[2020-12-24] MEDS: Potassium Chloride Packet 20 MEQ PACKET 40 MEQ PO (22:18)
[2020-12-24] MEDS: 0.9 % Sodium Chloride 1,000 ML 999 ML IV (22:18)
[2020-12-24 22:24] LABS: Influenza A PCR NEGATIVE (Negative); Influenza B PCR NEGATIVE (Negative); Resp Syncy Virus RNA Qual PCR POSITIVE (Negative); SARS COV2 PCR INHOUSE NEGATIVE (Negative)
[2020-12-24 22:26] LABS: MANUAL DIFF FLAG NO
[2020-12-24 22:28] LABS: Basophils Percent Auto 0.2 % (0-2); Eosinophils Percent Auto 0.1 % (0-4); Hematocrit 36.8 % (42.0-52.0); Hemoglobin 12.6 g/dl (14.0-18.0); Imm Gran Abs Auto 0.17 X10*3/uL (0.00-0.03); Imm Gran Pct Auto 1.4 % (0.0-0.4); Lymphocytes Absolute Auto 1.7 X10*3/uL (1.2-4.9); Lymphocytes Percent Auto 13.8 % (20-40); Mean Corpuscular HGB Conc 34.2 g/dl (31.0-36.0); Mean Corpuscular Hemoglobin 29.2 pg (27.0-33.0); Mean Corpuscular Volume 85.4 fL (80.0-98.0); Mean Platelet Volume 10.6 fL (9.4-12.4); Monocytes Absolute Auto 0.5 X10*3/uL (0.1-1.2); Monocytes Percent Auto 4.4 % (2-11); Neutrophils Absolute Auto 9.8 x10*3/uL (2.0-8.3); Neutrophils Percent Auto 80.1 % (45-73); Platelet Count 185 X10*3/uL (160-400); Red Blood Count 4.31 X10*6/uL (4.60-5.80); Red Cell Distribution Width 13.6 % (11.0-16.0); White Blood Count 12.2 X10*3/uL (4.8-10.8)
[2020-12-24 22:48] LABS: Troponin-I High Sensitivity 12.5 ng/L (<3.5-35.0)
[2020-12-24 22:52] LABS: Alanine Aminotransferase 23 U/L (0-40); Albumin Level 3.4 g/dL (3.5-5.0); Alkaline Phosphatase 117 U/L (39-117); Anion Gap 14 (12-20); Aspartate Amino Transferase 17 U/L (5-37); Bilirubin Total 2.6 mg/dL (0.0-1.0); Blood Urea Nitrogen 22 mg/dL (9-16); Calcium 8.2 mg/dL (8.4-10.2); Carbon Dioxide 28 mmol/L (22-29); Chloride 105 mmol/L (96-108); Creatinine Clr Calc Pharmacy 59.5; Estimated Glomerular Filt Rate > 60; Glucose Random 206 mg/dL (60-115); Lipase 25 U/L (8-78); Potassium 2.9 mmol/L (3.3-5.1); Sodium 144 mmol/L (135-145); Total Protein 6.1 g/dL (6.5-8.0)
[2020-12-24] MEDS: Azithromycin 500 MG in 0.9 % Sodium Chloride 250 ML 125 MG IV (23:35)
[2020-12-25] VITALS (10 sets, daily range): BP systolic 159–176; BP diastolic 66–73; PULSE 80–95; RESP 14–24; TEMP 37.1–37.8; O2SAT 89–95
--- NOTE | 2020-12-25 00:03 | PC.NURSE ---
patient resting comfortably on stretcher asking for the lights to be dimmed. patient is alert and oriented x3 stating feeling better while on the venti mask. stating he normally is on 6l of o2 via nasal cannula at home. no distress noted at thjis time, breathing is even and unlabored. skin is dry and warm. patient is awaiting to be seen by hospitalist for admission.
--- NOTE | 2020-12-25 05:56 | P.HPHOSP_ITS ---
History of Present Illness Date of Service: 12/25/20 Chief Complaint: Shortness of breath This is an 80-year-old male past medical history of idiopathic pulmonary fibrosis, COPD on 6 L of oxygen at home, diabetes, CAD status post stent who presents to the hospital with complaints of shortness of breath. He reports that his symptoms started about 2 weeks ago, he is complaining of progressively worsening shortness of breath, cough, sputum production rhinorrhea, upper respiratory congestion, as well as left-sided pleuritic chest pain worse with coughing, and generalized fatigue. He was seen by his doctor no labs were drawn, he was found to have low potassium and therefore he was asked to come to the hospital. Patient was also tested for COVID-19 and other viral panels about 10 days ago and was found to have RSV with negative COVID-19. On arrival to the ED patient was found to be hypoxic satting 60% on 6 L of oxygen, currently on Venturi mask 10 L satting 94% Labs are significant for WBC count 12.2, hemoglobin of 12.6 with a hematocrit 36.8, potassium of 2.9, BUN of 22, total bili of 2.6 which is chronically elevated, UA negative, RVP positive for RSV Chest x-ray shows new patchy opacity in the left lung superimposed with a background of extensive chronic dose-will change Patient will be admitted for further management Review of Systems 2 Review of Systems: Yes all other systems are reviewed and are negative [facility] Medical History CAD (coronary artery disease) Hyperlipidemia Impaired glucose metabolism SOB (shortness of breath) on exertion Family History Mother No problems noted. Father No problems noted. Pertinent family history: A no other past medical history Surgical History S/P right coronary artery (RCA) stent placement Social History Housing: House Alcohol intake: never Patient Tobacco Use Status: Former Tobacco user Smoked in Last 30 Days: No Use of substances other than those prescribed or required for medical reasons: No Advance Directives: No Advance Directives Information Provided: No Current occupational status: retired [employer] Allergies Allergy/AdvReac Type Severity Reaction Status Date / Time No Known Allergies Allergy Verified 12/21/20 13:52 Active Medications: Current Medications Acetaminophen (Acetaminophen 325 Mg Tablet) 650 mg PO Q6H PRN PRN Reason: Pain, Mild (Pain Scale 1-3) Albuterol/Ipratropium (Albuterol/Iprat 2.5/0.5mg 3 Ml Ampul.Neb) 3 ml INHALE RQ4H PRN PRN Reason: Shortness of Breath/Wheezing Aspirin (Aspirin Enteric Coated 81 Mg Tablet.Dr) 81 mg PO DAILY [facility] Atorvastatin Calcium (Atorvastatin Calcium 40 Mg Tablet) 40 mg PO DAILY [facility] Dextrose (Dextrose 50 % 25 Gm/50 Ml Vial) 25 gm IVPUSH Q15M PRN; Protocol PRN Reason: per Hypoglycemia Standing Ord. Docusate Sodium (Docusate Sodium 100 Mg Capsule) 100 mg PO DAILY PRN PRN Reason: Constipation Enoxaparin Sodium (Enoxaparin Sodium 40 Mg/0.4 Ml Syringe) 40 mg SUBCUT Q24H [facility] Glucose (Glucose Gel 15 Gm Gel..Gram.) 15 gm PO Q15M PRN; Protocol PRN Reason: per Hypoglycemia Standing Ord. Ceftriaxone Sodium 1 gm/ (Sodium Chloride) 50 mls @ 100 mls/hr IV Q24H [facility] Azithromycin 500 mg/ Sodium (Chloride) 250 mls @ 125 mls/hr IV Q24H [facility] Insulin Human Lispro (Insulin Lispro 100 Unit/Ml 3 Ml Vial) 0 unit SUBCUT QIDACHS [facility]; Protocol Ipratropium [place] (Ipratropium [place] Marko 0.03 % 30 Ml [place]) 2 spray NOSTRIL-B BID [facility] Lisinopril (Lisinopril 5 Mg Tablet) 5 mg PO DAILY [facility]; Protocol Metoprolol Succinate (Metoprolol Succinate Er 25 Mg Tab.Er.24h) 25 mg PO DAILY [facility]; Protocol Non-Formulary Medication (Umeclidinium-Vilanterol [Anoro Ellipta]) 1 puff INHALE DAILY [facility] Ondansetron HCl (Ondansetron Hcl 4 Mg/2 Ml Vial) 4 mg IVPUSH Q8H PRN PRN Reason: Nausea and Vomiting Sodium Chloride (0.9 % Sodium Chloride Flush 3 Ml Syringe) 3 ml IVFLUSH QSHIFT [facility] Home Medications Medication Instructions Recorded Confirmed Last Taken Type umeclidinium 62.5 mcg-vilanterol 1 puff INHALATION DAILY 12/24/20 12/24/20 Unknown History 25 mcg/actuation powdr for inhalation (Anoro Ellipta) Physical Exam 2 Vital Signs and Narrative: Vital Signs: Last Vital Signs Temp 97.6 F 12/24/20 20:29 Pulse 88 12/25/20 03:13 Resp 24 H 12/25/20 03:13 BP 173/67 H 12/25/20 03:13 Pulse Ox 95 12/25/20 03:13 Oxygen Flow Rate 6 12/24/20 16:46 Body Mass Index 24.3 Const: General: cooperative and no acute distress Orientation/consciousness: patient oriented x3 Eyes: Other: Ill-appearing, coughing General: appearance normal, both eyes and all related structures Resp: Other: Rales throughout the lungs, worse at the left lower base Effort & Inspection: normal respiratory effort Auscultation: clear to auscultation bilaterally Cardio: Rate: regular rate Rhythm: regular rhythm GI: Palpation (GI): Soft to palpation Auscultation: normal bowel sounds Skin: General skin exam: no rashes or lesions noted Neuro: General: patient oriented x3 Cognition (Neuro): normal cognition Extrem: General: Yes normal to inspection and Yes no pedal edema Results Labs CBC and Chem 7: 12/24/20 22:17 12/24/20 22:17 Labs: Laboratory Results - last 24 hr 12/24/20 12/24/20 12/24/20 19:21 20:39 21:20 MCV MCH MCHC RDW Plt Count MPV Immature Gran % (Auto) Neut % (Auto) Lymph % (Auto) [place] % (Auto) Eos % (Auto) Baso % (Auto) Lymph # (Auto) [place] # (Auto) Eos # (Auto) Baso # (Auto) Abs Immat Gran (auto) Absolute Neuts (auto) Absolute Nucleated RBC Nucleated RBC % (auto) Anion Gap Estim Creat Clear Calc Estimated GFR Random Glucose Lactic Acid 2.0 Calcium Total Bilirubin AST ALT Alkaline Phosphatase Troponin I High Sens Total Protein Albumin Lipase Urine Color DK YELLOW Urine Appearance HAZY Urine pH 6.0 Ur Specific [place] >= 1.030 H Urine Protein 2+ H Urine Glucose (UA) 250 H Urine Ketones NEG Urine Blood NEG Urine Nitrite NEG Ur Leukocyte Esterase NEG Urine RBC 0-2 Urine WBC 0-2 Ur Squamous Epith Cells NONE Urine Bacteria NONE Hyaline Casts 0-2 Granular Casts 0-2 Urine Mucus 1+ Influenza Type A (PCR) NEGATIVE Influenza Type B (PCR) NEGATIVE RSV RNA Qual (PCR) POSITIVE A SARS-CoV-2 RNA (RT-PCR) NEGATIVE 12/24/20 12/24/20 12/24/20 22:17 22:17 22:17 MCV 85.4 MCH 29.2 MCHC 34.2 RDW 13.6 Plt Count 185 MPV 10.6 Immature Gran % (Auto) 1.4 H Neut % (Auto) 80.1 H Lymph % (Auto) 13.8 L [place] % (Auto) 4.4 Eos % (Auto) 0.1 Baso % (Auto) 0.2 Lymph # (Auto) 1.7 [place] # (Auto) 0.5 Eos # (Auto) 0.0 Baso # (Auto) 0.0 Abs Immat Gran (auto) 0.17 H Absolute Neuts (auto) 9.8 H Absolute Nucleated RBC 0.000 Nucleated RBC % (auto) 0.0 Anion Gap 14 Estim Creat Clear Calc 59.5 Estimated GFR > 60 Random Glucose 206 H Lactic Acid Calcium 8.2 L Total Bilirubin 2.6 H AST 17 ALT 23 Alkaline Phosphatase 117 Troponin I High Sens 12.5 Total Protein 6.1 L Albumin 3.4 L Lipase 25 Urine Color Urine Appearance Urine pH Ur Specific [place] Urine Protein Urine Glucose (UA) Urine Ketones Urine Blood Urine Nitrite Ur Leukocyte Esterase Urine RBC Urine WBC Ur Squamous Epith Cells Urine Bacteria Hyaline Casts Granular Casts Urine Mucus Influenza Type A (PCR) Influenza Type B (PCR) RSV RNA Qual (PCR) SARS-CoV-2 RNA (RT-PCR) Imaging Radiologist's Impressions: Impressions Head CT 12/24/20 20:59 IMPRESSION: 1. No acute intracranial hemorrhage or mass effect. 2. Findings consistent with pansinusitis. Chest X-Ray 12/24/20 21:08 IMPRESSION: New patchy opacities in the left lung superimposed within a background of extensive chronic interstitial changes. Findings are concerning for an acute infection. Correlate clinically and follow-up to ensure resolution. Assessment and Plan (1) Pneumonia: Qualifiers: Laterality: left Lung location: lower lobe of lung Pneumonia type: due to unspecified organism Qualified Code(s): J18.9 - Pneumonia, unspecified organism Status: Acute (2) Acute respiratory failure with hypoxia: Status: Acute (3) Acute hypokalemia: Status: Acute 80-year-old male with past medical history of idiopathic pulmonary fibrosis as well as COPD presents to the hospital with complaints of cough, and have progressively worsening shortness of breath found to have an O2 of 65% on his baseline 6 L of oxygen # acute hypoxic respiratory failure - most likely multifactorial secondary to pneumonia as well as COPD exacerbation - RSV positive, COVID-19 negative, most likely has superimposed infection as his symptoms started about 10 days ago and have only worsened - patient on baseline of 6 L of oxygen, increased to 10 L - whole treat pneumonia, COPD exacerbation - titrate oxygen down as tolerated # pneumonia - RSV positive, COVID-19 negative - most likely some component of superimposed bacterial infection - will start patient on IV antibiotics - follow cultures # acute hypokalemia - patient reports poor oral intake - repleted - follow BMP # diabetes - hold oral antihyperglycemics - will add low-dose sliding scale insulin - diabetic diet # history of coronary artery disease - complaining of pleuritic chest pain worse with coughing with no typical cardiac pain - initial troponin of 12.5 pending repeat - no EKG changes suggestive of ACS -continue metoprolol, aspirin, and statin # hypertension - stable - continue lisinopril DVT prophylaxis: Lovenox Quality Stroke Does the patient have a stroke diagnosis?: No VTE Prior VTE?: No VTE Risk Level:: Medical - moderate - high VTE Device Contraindication: Treatment Not Indicated VTE Drug Contraindication: N/A - Med Ordered
[2020-12-25 07:18] LABS: MANUAL DIFF FLAG NO
[2020-12-25 07:26] LABS: Basophils Percent Auto 0.1 % (0-2); Eosinophils Percent Auto 0.1 % (0-4); Hematocrit 32.3 % (42.0-52.0); Hemoglobin 11.2 g/dl (14.0-18.0); Imm Gran Abs Auto 0.12 X10*3/uL (0.00-0.03); Imm Gran Pct Auto 1.2 % (0.0-0.4); Lymphocytes Absolute Auto 1.7 X10*3/uL (1.2-4.9); Lymphocytes Percent Auto 16.4 % (20-40); Mean Corpuscular HGB Conc 34.7 g/dl (31.0-36.0); Mean Corpuscular Hemoglobin 29.3 pg (27.0-33.0); Mean Corpuscular Volume 84.6 fL (80.0-98.0); Mean Platelet Volume 11.2 fL (9.4-12.4); Monocytes Absolute Auto 0.5 X10*3/uL (0.1-1.2); Monocytes Percent Auto 4.7 % (2-11); Neutrophils Absolute Auto 7.9 x10*3/uL (2.0-8.3); Neutrophils Percent Auto 77.5 % (45-73); Platelet Count 170 X10*3/uL (160-400); Red Blood Count 3.82 X10*6/uL (4.60-5.80); Red Cell Distribution Width 13.5 % (11.0-16.0); White Blood Count 10.2 X10*3/uL (4.8-10.8)
[2020-12-25] MEDS: Insulin Lispro 100 UNIT/ML 3 ML VIAL SUBCUT ×3 (07:32→21:09)
[2020-12-25] MEDS: Enoxaparin Sodium 40 MG/0.4 ML SYRINGE SUBCUT (07:32)
[2020-12-25 07:35] LABS: Glucose, Whole Blood 172 mg/dL (60-115)
[2020-12-25 07:38] LABS: Anion Gap 13 (12-20); Blood Urea Nitrogen 17 mg/dL (9-16); Calcium 7.5 mg/dL (8.4-10.2); Carbon Dioxide 25 mmol/L (22-29); Chloride 109 mmol/L (96-108); Creatinine Clr Calc Pharmacy 73.6; Estimated Glomerular Filt Rate > 60; Glucose Random 185 mg/dL (60-115); Sodium 144 mmol/L (135-145)
[2020-12-25 07:48] LABS: Troponin-I High Sensitivity 21.1 ng/L (<3.5-35.0)
[2020-12-25] MEDS: 0.9 % Sodium Chloride Flush 3 ML SYRINGE IVFLUSH (08:24)
[2020-12-25] MEDS: lisinopriL 5 MG TABLET PO (10:09)
[2020-12-25] MEDS: Aspirin Enteric Coated 81 MG TABLET.DR PO (10:10)
[2020-12-25] MEDS: Metoprolol Succinate ER 25 MG TAB.ER.24H PO (10:10)
[2020-12-25] MEDS: Atorvastatin Calcium 40 MG TABLET PO (10:10)
[2020-12-25] MEDS: Albuterol/Iprat 2.5/0.5MG 3 ML AMPUL.NEB INHALE ×2 (10:23→15:38)
--- NOTE | 2020-12-25 11:00 | PC.NURSE ---
The pt is resting in bed, )2 at 11LPM and 35% FiO2 via venti mask. O2 sats are mostly in the vicinity of 90% on this oxygen therapy with regular episodes of desaturation to mid 80's that corrects when pt encouraged to take deep breaths. he remains alert and oriented x 3, has no complaints at this time, he is taking PO food and i without difficulty. He denies chest pain., RR 20-24, non-labored, no cyanosis, speaking in full sentences. Will continue to monitor.
[2020-12-25 12:44] LABS: Glucose, Whole Blood 130 mg/dL (60-115)
--- NOTE | 2020-12-25 15:05 | PM.EVENT ---
Event Note Date of Service: 12/25/20 Event Note: Chart reviewed patient examined. Agree with H&P is outlined exam unchanged. Will replete potassium and follow up labs in a.m.
[2020-12-25] MEDS: Potassium Chloride/H20 10 MEQ/100 ML PIGGYBACK 100 MEQ IV ×3 (16:20→22:18)
[2020-12-25 16:33] LABS: Glucose, Whole Blood 177 mg/dL (60-115)
[2020-12-25] MEDS: Potassium Chloride/H20 10 MEQ/100 ML PIGGYBACK 50 MEQ IV (18:14)
[2020-12-25 20:59] LABS: Glucose, Whole Blood 214 mg/dL (60-115)
--- NOTE | 2020-12-25 21:57 | PC.NURSE ---
Pharmacy contacted for nasal spray, pharmacy to bring to ED.
[2020-12-25] MEDS: Ipratropium Bromide Nas 0.03 % 30 ML SPRAY 2 SPRAY NOSTRIL-B (22:16)
[2020-12-25] MEDS: Acetaminophen 325 MG TABLET 650 MG PO (22:31)
--- NOTE | 2020-12-25 22:43 | PC.NURSE ---
PT medicated per APR. Resting comfortably in bed with no complaints. PT's vitals reassessed and found to have elevated temp at 100.1 orally. PT medictated with PRN Tylenol.
[2020-12-25] MEDS: cefTRIAXone sodium 1 GM in 0.9 % Sodium Chloride 50 ML IV (23:19)
[2020-12-25] MEDS: Azithromycin 500 MG in 0.9 % Sodium Chloride 250 ML 125 MG IV (23:38)
[2020-12-26] VITALS (11 sets, daily range): BP systolic 128–184; BP diastolic 47–89; PULSE 79–98; RESP 18–24; TEMP 36.6–37.3; O2SAT 85–96
--- NOTE | 2020-12-26 06:25 | PC.NURSE ---
Pt wakes in bed, while on venti @ 35%, satting @ 85. RT called for UPD. Pt denies SOB at this time, resting in bed, offers complaints.
[2020-12-26] MEDS: Albuterol/Iprat 2.5/0.5MG 3 ML AMPUL.NEB INHALE ×2 (06:26→18:34)
--- NOTE | 2020-12-26 06:29 | PC.NURSE ---
This RN entered PT room to find PT satting 79% on a venturi mask at 45%. PT denies SOB. PT assisted into upright postion. RT at bed side to administer UPD. VSS. PT aware of plan, awaiting room assignment.
[2020-12-26] MEDS: Enoxaparin Sodium 40 MG/0.4 ML SYRINGE SUBCUT (06:36)
[2020-12-26 07:00] LABS: Glucose, Whole Blood 141 mg/dL (60-115)
[2020-12-26 07:02] LABS: Hematocrit 33.1 % (42.0-52.0); Hemoglobin 11.6 g/dl (14.0-18.0); Imm Gran Abs Auto 0.05 X10*3/uL (0.00-0.03); Imm Gran Pct Auto 0.6 % (0.0-0.4); Lymphocytes Absolute Auto 2.6 X10*3/uL (1.2-4.9); Lymphocytes Percent Auto 30.2 % (20-40); MANUAL DIFF FLAG NO; Mean Corpuscular Hemoglobin 29.4 pg (27.0-33.0); Mean Platelet Volume 10.5 fL (9.4-12.4); Monocytes Absolute Auto 0.4 X10*3/uL (0.1-1.2); Neutrophils Absolute Auto 5.7 x10*3/uL (2.0-8.3); Neutrophils Percent Auto 65.2 % (45-73); Platelet Count 164 X10*3/uL (160-400); Red Blood Count 3.94 X10*6/uL (4.60-5.80); Red Cell Distribution Width 13.6 % (11.0-16.0); White Blood Count 8.7 X10*3/uL (4.8-10.8)
--- NOTE | 2020-12-26 07:19 | PC.NURSE ---
Alert, sitting upright. 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 sao2 drops as low as 84% on 10L with minimal exertion (sitting forward for LS). LS fine crackles in bases. moderate airmovement. pt able to speak in full sentences. moist hacking cough.
--- NOTE | 2020-12-26 08:23 | PC.NURSE ---
[place] [facility] [place] Victoria is RN. Will call back.
[2020-12-26] MEDS: Atorvastatin Calcium 40 MG TABLET PO (09:09)
[2020-12-26] MEDS: Metoprolol Succinate ER 25 MG TAB.ER.24H PO (09:09)
[2020-12-26] MEDS: Ipratropium Bromide Nas 0.03 % 30 ML SPRAY 2 SPRAY NOSTRIL-B ×2 (09:10→21:41)
[2020-12-26] MEDS: Aspirin Enteric Coated 81 MG TABLET.DR PO (09:10)
[2020-12-26] MEDS: lisinopriL 5 MG TABLET PO (09:10)
--- NOTE | 2020-12-26 09:38 | PC.NURSE ---
Rn to RN with Victoria on IMC. Pt just stood at the bedside for aprox 4-5 minutes. He did so safely w/o a great increase in work of breathing. NRB at 100% applied just before standing. SaO2 maintained at 100% throughout time standing. RR INCREASED slightly to 28. Once patient was seated on side of bed and RR was nearer to 20 NRB was removed. SaO2 dropped to 77% when getting legs up into bed. Pt back to mid 90's on 10L NC after aprox 7-8 minutes.
--- NOTE | 2020-12-26 10:42 | HO.PM.IMPN ---
Subjective Subjective Date of Service: 12/26/20 Interval History: Remains disproportionately short of breath as relates to his sats with any movement or talking. Sats maintained in the 90s without focal complaints Review of Systems Denies chest pain Admit to shortness of breath Denies nausea vomiting diarrhea Physical Exam Vital Signs: Vital Signs: Last Vital Signs Temp 98.0 F 12/26/20 07:18 Pulse 98 12/26/20 09:10 Resp 18 12/26/20 07:18 BP 148/61 H 12/26/20 09:10 Pulse Ox 95 12/26/20 07:18 Oxygen Flow Rate 6 12/24/20 16:46 Body Mass Index 24.3 Const: Other: Awake alert oriented x3 no acute distress when laying still. With minimal movement including conversation sats dropped to the 70s but to recover 1 still HENMT: Other: Membranes moist Resp: Other: Diminished all givens with end inspiratory crackles bilaterally at bases. There are scant background expiratory wheezes noted Cardio: Other: No S4; positive S1-S2; no S3 murmurs of gallops GI: Other: Soft nontender nondistended with normoactive bowel sounds. Neuro: Other: Cranial nerves 2-12 is grossly intact as tested. Motor is 5/5 all extremities. Sensation is intact. Cognition is appropriate Extrem: Other: No edema bilateral Objective Data Active Medications Acetaminophen (Acetaminophen 325 Mg Tablet) 650 mg PO Q6H PRN PRN Reason: Pain, Mild (Pain Scale 1-3) Last Admin: 12/25/20 22:31 Dose: 650 mg Documented by: CHRISTOPHER Albuterol/Ipratropium (Albuterol/Iprat 2.5/0.5mg 3 Ml Ampul.Neb) 3 ml INHALE RQ4H PRN PRN Reason: Shortness of Breath/Wheezing Last Admin: 12/26/20 06:26 Dose: 3 ml Documented by: ROME Aspirin (Aspirin Enteric Coated 81 Mg Tablet.) 81 mg PO DAILY [facility] Last Admin: 12/26/20 09:10 Dose: 81 mg Documented by: GRACIELA Atorvastatin Calcium (Atorvastatin Calcium 40 Mg Tablet) 40 mg PO DAILY [facility] Last Admin: 12/26/20 09:09 Dose: 40 mg Documented by: GRACIELA Dextrose (Dextrose 50 % 25 Gm/50 Ml Vial) 25 gm IVPUSH Q15M PRN; Protocol PRN Reason: per Hypoglycemia Standing Ord. Docusate Sodium (Docusate Sodium 100 Mg Capsule) 100 mg PO DAILY PRN PRN Reason: Constipation Enoxaparin Sodium (Enoxaparin Sodium 40 Mg/0.4 Ml Syringe) 40 mg SUBCUT Q24H [facility] Last Admin: 12/26/20 06:36 Dose: 40 mg Documented by: CHRISTOPHER Glucose (Glucose Gel 15 Gm Gel..Gram.) 15 gm PO Q15M PRN; Protocol PRN Reason: per Hypoglycemia Standing Ord. Ceftriaxone Sodium 1 gm/ (Sodium Chloride) 50 mls @ 100 mls/hr IV Q24H [facility] Last Infusion: 12/25/20 23:40 Dose: 0 mls/hr Documented by: CHRISTOPHER Azithromycin 500 mg/ Sodium (Chloride) 250 mls @ 125 mls/hr IV Q24H [facility] Last Infusion: 12/26/20 01:02 EST Dose: 0 mls/hr Documented by: CHRISTOPHER Insulin Human Lispro (Insulin Lispro 100 Unit/Ml 3 Ml Vial) 0 unit SUBCUT QIDACHS [facility]; Protocol Last Admin: 12/26/20 07:50 Dose: Not Given Documented by: GRACIELA Non-Admin Reason: No Insulin Coverage Ipratropium [place] (Ipratropium [place] Marko 0.03 % 30 Ml [place]) 2 spray NOSTRIL-B BID [facility] Last Admin: 12/26/20 09:10 Dose: 2 spray Documented by: GRACIELA Lisinopril (Lisinopril 5 Mg Tablet) 5 mg PO DAILY [facility]; Protocol Last Admin: 12/26/20 09:10 Dose: 5 mg Documented by: GRACIELA Metoprolol Succinate (Metoprolol Succinate Er 25 Mg Tab.Er.24h) 25 mg PO DAILY [facility]; Protocol Last Admin: 12/26/20 09:09 Dose: 25 mg Documented by: GRACIELA Non-Formulary Medication (Umeclidinium-Vilanterol [Anoro Ellipta]) 1 puff INHALE DAILY [facility] Ondansetron HCl (Ondansetron Hcl 4 Mg/2 Ml Vial) 4 mg IVPUSH Q8H PRN PRN Reason: Nausea and Vomiting Sodium Chloride (0.9 % Sodium Chloride Flush 3 Ml Syringe) 3 ml IVFLUSH QSHIFT [facility] Last Admin: 12/26/20 07:50 Dose: Not Given Documented by: GRACIELA Non-Admin Reason: Med Not Available Labs CBC & Chem 7: 12/26/20 06:53 12/25/20 06:55 Labs: Laboratory Results - last 24 hr 12/25/20 12/25/20 12/25/20 12:33 16:29 20:55 MCV MCH MCHC RDW Plt Count MPV Immature Gran % (Auto) Neut % (Auto) Lymph % (Auto) [place] % (Auto) Eos % (Auto) Baso % (Auto) Lymph # (Auto) [place] # (Auto) Eos # (Auto) Baso # (Auto) Abs Immat Gran (auto) Absolute Neuts (auto) Absolute Nucleated RBC Nucleated RBC % (auto) POC Glucose 130 H 177 H 214 H 12/26/20 12/26/20 06:50 06:53 MCV 84.0 MCH 29.4 MCHC 35.0 RDW 13.6 Plt Count 164 MPV 10.5 Immature Gran % (Auto) 0.6 H Neut % (Auto) 65.2 Lymph % (Auto) 30.2 [place] % (Auto) 4.0 Eos % (Auto) 0.0 Baso % (Auto) 0.0 Lymph # (Auto) 2.6 [place] # (Auto) 0.4 Eos # (Auto) 0.0 Baso # (Auto) 0.0 Abs Immat Gran (auto) 0.05 H Absolute Neuts (auto) 5.7 Absolute Nucleated RBC 0.000 Nucleated RBC % (auto) 0.0 POC Glucose 141 H Microbiology Microbiology Results: Microbiology 12/24/20 22:17 Blood Culture - Preliminary Blood - Venous No growth after 24 hours. 12/24/20 20:39 Blood Culture - Preliminary Blood - Venous No growth after 24 hours. Assessment and Plan (1) Acute respiratory failure with hypoxia: Status: Acute Assessment and Plan: 80-year-old male past medical history of idiopathic pulmonary fibrosis, COPD on 6 L of oxygen at home, diabetes, CAD status post stent who presents to the hospital with complaints of shortness of breath.? He reports that his symptoms started about 2 weeks ago, he is complaining of progressively worsening shortness of breath, cough, sputum production rhinorrhea, upper respiratory congestion, as well as left-sided pleuritic chest pain worse with coughing, and generalized fatigue.? ER workup Chest x-ray: New patchy opacities in the left lung superimposed within a background of extensive chronic interstitial changes Given ceftriaxone and azithromycin along with supplemental O2. 1.RSV Bronchiolitis Continue to to be acutely short of breath with minimal conversation; sats dropped to the 70s on 8-10 L on hunting cannula. Rhonchorous cough productive of clear sputum Will continue ceftriaxone and azithromycin to cover bacterial superinfection. Given exam today, will add Solu-Medrol t.i.d. to regimen Goal to titrate O2 to a level at patient can be bed to chair without acute desaturation. Of note during niece desaturations to the 70s patient is asymptomatic 2. CAD Will continue aspirin metoprolol as ordered. Continue telemetry 3. Hyperlipidemia Continue statin outpatient dosing; LFTs unremarkable .4. Impaired fasting glucose Will cover with sliding scale at present. Given the addition of steroids to his regimen, may need long-acting and or oral short term Adjust as indicated Full code/Lovenox (2) RSV (acute bronchiolitis due to respiratory syncytial virus): Status: Acute Quality Stroke Does the patient have a stroke diagnosis?: No VTE Prior VTE?: No VTE Risk Level:: Medical - moderate - high VTE Device Contraindication: Treatment Not Indicated VTE Drug Contraindication: N/A - Med Ordered
--- NOTE | 2020-12-26 11:00 | MHC.CM.PN ---
Attempted to interview patient in person- receiving care. Will connect with indicated NOK telephonically.
--- NOTE | 2020-12-26 11:19 | MHC.CM.PN ---
Patient lives with daughter Vita; previously fully independent (although just recently began using a cane D/T weakness), still drives, no prior VNA, is active with [employer] for home O2. Met with daughter outside patient's room (patient receiving care); plan is home (daughter interested in VNA-nursing and PT) and resumption of [employer]. For transportation home, daughter indicates she does have full tanks available for him when she picks him up. CM to follow.
[2020-12-26 11:37] LABS: Glucose, Whole Blood 162 mg/dL (60-115)
[2020-12-26] MEDS: Insulin Lispro 100 UNIT/ML 3 ML VIAL SUBCUT ×3 (11:51→20:20)
[2020-12-26] MEDS: 0.9 % Sodium Chloride Flush 3 ML SYRINGE IVFLUSH (12:22)
[2020-12-26] MEDS: methylPREDNISolone Sod Succ 125 MG/2 ML VIAL 60 MG IVPUSH ×2 (12:25→17:10)
[2020-12-26 15:59] LABS: Glucose, Whole Blood 217 mg/dL (60-115)
[2020-12-26 19:45] LABS: Glucose, Whole Blood 351 mg/dL (60-115)
[2020-12-26] MEDS: cefTRIAXone sodium 1 GM in 0.9 % Sodium Chloride 50 ML IV (21:10)
[2020-12-26] MEDS: Azithromycin 500 MG in 0.9 % Sodium Chloride 250 ML 125 MG IV (22:30)
[2020-12-27] VITALS (11 sets, daily range): BP systolic 142–168; BP diastolic 66–77; PULSE 80–99; RESP 14–20; TEMP 36.6–37.2; O2SAT 90–96
[2020-12-27] MEDS: methylPREDNISolone Sod Succ 125 MG/2 ML VIAL 60 MG IVPUSH ×3 (00:18→11:48)
[2020-12-27] MEDS: 0.9 % Sodium Chloride Flush 3 ML SYRINGE IVFLUSH ×4 (00:18→22:13)
[2020-12-27] MEDS: Albuterol/Iprat 2.5/0.5MG 3 ML AMPUL.NEB INHALE ×2 (05:02→21:16)
[2020-12-27] MEDS: Enoxaparin Sodium 40 MG/0.4 ML SYRINGE SUBCUT (05:19)
[2020-12-27 07:06] LABS: Glucose, Whole Blood 279 mg/dL (60-115)
[2020-12-27 07:23] LABS: Hematocrit 32.5 % (42.0-52.0); Hemoglobin 11.5 g/dl (14.0-18.0); Imm Gran Abs Auto 0.04 X10*3/uL (0.00-0.03); Imm Gran Pct Auto 0.7 % (0.0-0.4); Lymphocytes Absolute Auto 0.5 X10*3/uL (1.2-4.9); Lymphocytes Percent Auto 7.8 % (20-40); MANUAL DIFF FLAG SCAN; Mean Corpuscular HGB Conc 35.4 g/dl (31.0-36.0); Mean Corpuscular Volume 81.9 fL (80.0-98.0); Mean Platelet Volume 11.4 fL (9.4-12.4); Monocytes Absolute Auto 0.1 X10*3/uL (0.1-1.2); Neutrophils Absolute Auto 5.5 x10*3/uL (2.0-8.3); Neutrophils Percent Auto 90.5 % (45-73); Platelet Count 179 X10*3/uL (160-400); Red Blood Count 3.97 X10*6/uL (4.60-5.80); SCAN SMEAR FLAG 1; White Blood Count 6.1 X10*3/uL (4.8-10.8)
[2020-12-27] MEDS: lisinopriL 5 MG TABLET PO (07:35)
[2020-12-27] MEDS: Metoprolol Succinate ER 25 MG TAB.ER.24H PO (07:35)
[2020-12-27] MEDS: Atorvastatin Calcium 40 MG TABLET PO (07:35)
[2020-12-27] MEDS: Insulin Lispro 100 UNIT/ML 3 ML VIAL SUBCUT ×4 (07:35→20:44)
[2020-12-27] MEDS: Aspirin Enteric Coated 81 MG TABLET.DR PO (07:35)
[2020-12-27] MEDS: Ipratropium Bromide Nas 0.03 % 30 ML SPRAY 2 SPRAY NOSTRIL-B ×2 (07:37→20:47)
[2020-12-27 07:55] LABS: Alanine Aminotransferase 38 U/L (0-40); Albumin Level 2.9 g/dL (3.5-5.0); Alkaline Phosphatase 122 U/L (39-117); Anion Gap 15 (12-20); Aspartate Amino Transferase 26 U/L (5-37); Blood Urea Nitrogen 18 mg/dL (9-16); Calcium 7.9 mg/dL (8.4-10.2); Carbon Dioxide 25 mmol/L (22-29); Chloride 103 mmol/L (96-108); Creatinine Clr Calc Pharmacy 69.3; Estimated Glomerular Filt Rate > 60; Glucose Fasting 321 mg/dL (60-99); Sodium 140 mmol/L (135-145); Total Protein 5.7 g/dL (6.5-8.0)
[2020-12-27 08:18] LABS: SLIDE REVIEW VERIFIED
[2020-12-27 09:22] LABS: Magnesium 1.7 mg/dL (1.6-2.6)
[2020-12-27 10:19] LABS: Procalcitonin 0.12 ng/mL
[2020-12-27] MEDS: Potassium Chloride ER 20 MEQ TAB.ER.PRT 40 MEQ PO (10:32)
[2020-12-27 11:19] LABS: Glucose, Whole Blood 324 mg/dL (60-115)
--- NOTE | 2020-12-27 11:46 | MHC.CM.PN ---
Per [facility]OUNDS discussion, Patient is not yet medically cleared for dc (9L O2 (HOME O2 @ 6L), IV Solu Medrol, IV Azithromycin, IV Ceftriaxone). Home is the goal for dc and CM will follow for possible need to adjust the dc plan.
[2020-12-27] MEDS: Lidocaine 4 % Patch ADH..PATCH 1 PATCH TRANSDERMA (11:48)
--- NOTE | 2020-12-27 12:04 | HO.PM.IMPN ---
Subjective Subjective Date of Service: 12/27/20 Interval History: Feels slightly better, though still requiring O2 8-10L via NC and short of breath with exertion Some cough No fever L chest wall pain with coughing Review of Systems Review of Systems: Yes all other systems are reviewed and are negative Physical Exam Vital Signs: Vital Signs: Last Vital Signs Temp 98 F 12/27/20 11:16 Pulse 94 12/27/20 11:22 Resp 14 12/27/20 11:16 BP 142/68 H 12/27/20 11:22 Pulse Ox 90 L 12/27/20 11:22 Oxygen Flow Rate 6 12/24/20 16:46 Body Mass Index 24.3 Gen: dyspneic with exertion HEENT: sclera anicteric, moist mucus membranes Neck: supple Lungs: diminished throughout, inspiratory crackles, expiratory wheezes; tender L sternal border Heart: regular rate and rhythm, no murmurs Abd: soft, non-tender, non-distended Ext: no edema Skin: warm/well-perfused Neuro: alert and oriented x3, no focal findings Psych: appropriate affect Objective Data Active Medications Acetaminophen (Acetaminophen 325 Mg Tablet) 650 mg PO Q6H PRN PRN Reason: Pain, Mild (Pain Scale 1-3) Last Admin: 12/25/20 22:31 Dose: 650 mg Documented by: CHRISTOPHER Albuterol/Ipratropium (Albuterol/Iprat 2.5/0.5mg 3 Ml Ampul.Neb) 3 ml INHALE RQ4H PRN PRN Reason: Shortness of Breath/Wheezing Last Admin: 12/27/20 05:02 Dose: 3 ml Documented by: YUSUF Aspirin (Aspirin Enteric Coated 81 Mg Tablet.) 81 mg PO DAILY [facility] Last Admin: 12/27/20 07:35 Dose: 81 mg Documented by: JOANIE Atorvastatin Calcium (Atorvastatin Calcium 40 Mg Tablet) 40 mg PO DAILY [facility] Last Admin: 12/27/20 07:35 Dose: 40 mg Documented by: JOANIE Dextrose (Dextrose 50 % 25 Gm/50 Ml Vial) 25 gm IVPUSH Q15M PRN; Protocol PRN Reason: per Hypoglycemia Standing Ord. Docusate Sodium (Docusate Sodium 100 Mg Capsule) 100 mg PO DAILY PRN PRN Reason: Constipation Enoxaparin Sodium (Enoxaparin Sodium 40 Mg/0.4 Ml Syringe) 40 mg SUBCUT Q24H [facility] Last Admin: 12/27/20 05:19 Dose: 40 mg Documented by: CECILIO Glucose (Glucose Gel 15 Gm Gel..Gram.) 15 gm PO Q15M PRN; Protocol PRN Reason: per Hypoglycemia Standing Ord. Ceftriaxone Sodium 1 gm/ (Sodium Chloride) 50 mls @ 100 mls/hr IV Q24H [facility] Last Infusion: 12/26/20 21:41 Dose: 0 mls/hr Documented by: NUZHAT Azithromycin 500 mg/ Sodium (Chloride) 250 mls @ 125 mls/hr IV Q24H [facility] Last Infusion: 12/27/20 00:46 Dose: 0 mls/hr Documented by: CECILIO Insulin Human Lispro (Insulin Lispro 100 Unit/Ml 3 Ml Vial) 0 unit SUBCUT QIDACHS [facility]; Protocol Last Admin: 12/27/20 11:48 Dose: 8 unit Documented by: JOANIE Ipratropium [place] (Ipratropium [place] 0.03 % 30 Ml [place]) 2 spray NOSTRIL-B BID [facility] Last Admin: 12/27/20 07:37 Dose: 2 spray Documented by: JOANIE Lidocaine (Lidocaine 4 % Patch Adh..Patch) 1 patch TRANSDERMA DAILY [facility]; Protocol Last Admin: 12/27/20 11:48 Dose: 1 patch Documented by: JOANIE Lisinopril (Lisinopril 5 Mg Tablet) 5 mg PO DAILY [facility]; Protocol Last Admin: 12/27/20 07:35 Dose: 5 mg Documented by: JOANIE Methylprednisolone Sodium Succinate (Methylprednisolone Sod Succ 125 Mg/2 Ml Vial) 60 mg IVPUSH Q6H [facility] Last Admin: 12/27/20 11:48 Dose: 60 mg Documented by: JOANIE Metoprolol Succinate (Metoprolol Succinate Er 25 Mg Tab.Er.24h) 25 mg PO DAILY [facility]; Protocol Last Admin: 12/27/20 07:35 Dose: 25 mg Documented by: JOANIE Non-Formulary Medication (Umeclidinium-Vilanterol [Anoro Ellipta]) 1 puff INHALE RDAILY [facility] Last Admin: 12/27/20 11:02 Dose: 1 puff Documented by: JOANIE Ondansetron HCl (Ondansetron Hcl 4 Mg/2 Ml Vial) 4 mg IVPUSH Q8H PRN PRN Reason: Nausea and Vomiting Pioglitazone HCl (Pioglitazone Hcl 15 Mg Tablet) 15 mg PO DAILY [facility] Last Admin: 12/27/20 10:33 Dose: 15 mg Documented by: JOANIE Sodium Chloride (0.9 % Sodium Chloride Flush 3 Ml Syringe) 3 ml IVFLUSH QSHIFT [facility] Last Admin: 12/27/20 07:35 Dose: 3 ml Documented by: JOANIE Labs CBC & Chem 7: 12/27/20 06:25 12/27/20 06:25 Labs: Laboratory Results - last 24 hr 12/26/20 12/26/20 12/27/20 15:56 19:41 06:25 MCV 81.9 MCH 29.0 MCHC 35.4 RDW 13.0 Plt Count 179 MPV 11.4 Immature Gran % (Auto) 0.7 H Neut % (Auto) 90.5 H Lymph % (Auto) 7.8 L [place] % (Auto) 1.0 L Eos % (Auto) 0.0 Baso % (Auto) 0.0 Lymph # (Auto) 0.5 L [place] # (Auto) 0.1 Eos # (Auto) 0.0 Baso # (Auto) 0.0 Abs Immat Gran (auto) 0.04 H Absolute Neuts (auto) 5.5 Absolute Nucleated RBC 0.000 Nucleated RBC % (auto) 0.0 Smear Tech's Comments VERIFIED Anion Gap Estim Creat Clear Calc Estimated GFR POC Glucose 217 H 351 H* Fasting Glucose Calcium Magnesium Total Bilirubin AST ALT Alkaline Phosphatase Total Protein Albumin Procalcitonin 12/27/20 12/27/20 12/27/20 06:25 06:25 07:03 MCV MCH MCHC RDW Plt Count MPV Immature Gran % (Auto) Neut % (Auto) Lymph % (Auto) [place] % (Auto) Eos % (Auto) Baso % (Auto) Lymph # (Auto) [place] # (Auto) Eos # (Auto) Baso # (Auto) Abs Immat Gran (auto) Absolute Neuts (auto) Absolute Nucleated RBC Nucleated RBC % (auto) Smear Tech's Comments Anion Gap 15 Estim Creat Clear Calc 69.3 Estimated GFR > 60 POC Glucose 279 H Fasting Glucose 321 H D Calcium 7.9 L Magnesium 1.7 Total Bilirubin 2.0 H AST 26 D ALT 38 Alkaline Phosphatase 122 H Total Protein 5.7 L Albumin 2.9 L Procalcitonin 0.12 12/27/20 11:11 MCV MCH MCHC RDW Plt Count MPV Immature Gran % (Auto) Neut % (Auto) Lymph % (Auto) [place] % (Auto) Eos % (Auto) Baso % (Auto) Lymph # (Auto) [place] # (Auto) Eos # (Auto) Baso # (Auto) Abs Immat Gran (auto) Absolute Neuts (auto) Absolute Nucleated RBC Nucleated RBC % (auto) Smear Tech's Comments Anion Gap Estim Creat Clear Calc Estimated GFR POC Glucose 324 H Fasting Glucose Calcium Magnesium Total Bilirubin AST ALT Alkaline Phosphatase Total Protein Albumin Procalcitonin Microbiology Microbiology Results: Microbiology 12/24/20 22:17 Blood Culture - Preliminary Blood - Venous No growth after 48 hours. 12/24/20 20:39 Blood Culture - Preliminary Blood - Venous No growth after 48 hours. Assessment and Plan (1) Acute respiratory failure with hypoxia: Status: Acute Assessment and Plan: hospital d#3 80yo M with IPF, COPD, chronic hypoxic RF on 6L O2, DM2, CAD s/p PCI presenting with subacute progressive dyspnea + productive cough admitted for hypoxia with pneumonia, RSV positive # acute/chronic hypoxia - supplemental O2, wean as tolerated, baseline 6L O2 via NC # chest wall pain - from coughing; place lidocaine patch # CAP - continue ceftriaxone + azithromycin d#3. BCx negative. trend PCT. # RSV bronchiolitis/pneumonia - droplet isolation # COPD exacerbation - IV methylprednisolone- wean, nebs # hypoK - replete PO, recheck in am # CAD - continue ASA + metoprolol + statin + SAM-I # DM2, A1c 7.3 - correction-dose lispro, continue pioglitazone # VTE ppx - LMWH (2) RSV (acute bronchiolitis due to respiratory syncytial virus): Status: Acute Quality Stroke Does the patient have a stroke diagnosis?: No VTE Prior VTE?: No VTE Risk Level:: Medical - moderate - high VTE Device Contraindication: Treatment Not Indicated VTE Drug Contraindication: N/A - Med Ordered
[2020-12-27 16:23] LABS: Glucose, Whole Blood 344 mg/dL (60-115)
[2020-12-27] MEDS: methylPREDNISolone Sod Succ 40 MG/ML VIAL IVPUSH (16:29)
[2020-12-27 20:23] LABS: Glucose, Whole Blood 350 mg/dL (60-115)
[2020-12-27] MEDS: cefTRIAXone sodium 1 GM in 0.9 % Sodium Chloride 50 ML IV (20:43)
[2020-12-27] MEDS: Azithromycin 500 MG in 0.9 % Sodium Chloride 250 ML 125 MG IV (22:09)
[2020-12-28] VITALS (14 sets, daily range): BP systolic 135–171; BP diastolic 67–81; PULSE 68–91; RESP 16–20; TEMP 36.3–37.2; O2SAT 89–96
[2020-12-28] MEDS: methylPREDNISolone Sod Succ 40 MG/ML VIAL IVPUSH ×3 (03:58→16:31)
[2020-12-28] MEDS: Enoxaparin Sodium 40 MG/0.4 ML SYRINGE SUBCUT (06:27)
[2020-12-28 06:41] LABS: Basophils Percent Auto 0.1 % (0-2); Hematocrit 29.8 % (42.0-52.0); Hemoglobin 10.3 g/dl (14.0-18.0); Imm Gran Abs Auto 0.07 X10*3/uL (0.00-0.03); Imm Gran Pct Auto 0.6 % (0.0-0.4); Lymphocytes Absolute Auto 0.6 X10*3/uL (1.2-4.9); MANUAL DIFF FLAG SCAN; Mean Corpuscular HGB Conc 34.6 g/dl (31.0-36.0); Mean Corpuscular Hemoglobin 29.3 pg (27.0-33.0); Mean Corpuscular Volume 84.9 fL (80.0-98.0); Mean Platelet Volume 11.1 fL (9.4-12.4); Monocytes Absolute Auto 0.2 X10*3/uL (0.1-1.2); Monocytes Percent Auto 2.1 % (2-11); Neutrophils Absolute Auto 10.3 x10*3/uL (2.0-8.3); Neutrophils Percent Auto 92.2 % (45-73); Platelet Count 174 X10*3/uL (160-400); Red Blood Count 3.51 X10*6/uL (4.60-5.80); Red Cell Distribution Width 13.2 % (11.0-16.0); SCAN SMEAR FLAG 1; White Blood Count 11.2 X10*3/uL (4.8-10.8)
[2020-12-28 07:06] LABS: Alanine Aminotransferase 51 U/L (0-40); Albumin Level 2.9 g/dL (3.5-5.0); Alkaline Phosphatase 116 U/L (39-117); Anion Gap 9 (12-20); Aspartate Amino Transferase 31 U/L (5-37); Bilirubin Total 1.1 mg/dL (0.0-1.0); Blood Urea Nitrogen 25 mg/dL (9-16); Calcium 7.8 mg/dL (8.4-10.2); Carbon Dioxide 30 mmol/L (22-29); Chloride 106 mmol/L (96-108); Creatinine Clr Calc Pharmacy 59.5; Estimated Glomerular Filt Rate > 60; Glucose Fasting 339 mg/dL (60-99); Magnesium 1.9 mg/dL (1.6-2.6); Potassium 3.6 mmol/L (3.3-5.1); Sodium 141 mmol/L (135-145); Total Protein 5.3 g/dL (6.5-8.0)
[2020-12-28 07:19] LABS: SLIDE REVIEW VERIFIED
[2020-12-28 07:24] LABS: Glucose, Whole Blood 309 mg/dL (60-115)
[2020-12-28] MEDS: Insulin Lispro 100 UNIT/ML 3 ML VIAL SUBCUT ×4 (08:12→21:13)
[2020-12-28] MEDS: Atorvastatin Calcium 40 MG TABLET PO (08:14)
[2020-12-28] MEDS: Aspirin Enteric Coated 81 MG TABLET.DR PO (08:14)
[2020-12-28] MEDS: Metoprolol Succinate ER 25 MG TAB.ER.24H PO (08:14)
[2020-12-28] MEDS: lisinopriL 5 MG TABLET PO (08:15)
[2020-12-28] MEDS: Lidocaine 4 % Patch ADH..PATCH 1 PATCH TRANSDERMA (08:17)
[2020-12-28] MEDS: 0.9 % Sodium Chloride Flush 3 ML SYRINGE IVFLUSH ×2 (08:19→21:13)
[2020-12-28] MEDS: Ipratropium Bromide Nas 0.03 % 30 ML SPRAY 2 SPRAY NOSTRIL-B ×2 (08:22→21:15)
[2020-12-28] MEDS: Albuterol/Iprat 2.5/0.5MG 3 ML AMPUL.NEB INHALE (10:12)
[2020-12-28 11:20] LABS: Glucose, Whole Blood 325 mg/dL (60-115)
[2020-12-28] MEDS: Doxycycline Hyclate 100 MG in 0.9 % Sodium Chloride 250 ML 166.67 MG IV ×2 (11:34→21:55)
--- NOTE | 2020-12-28 13:45 | HO.PM.IMPN ---
Subjective Subjective Date of Service: 12/28/20 Interval History: Still quite dyspneic + requiring 11L O2 via [place] cannula. Chest wall pain improved with lidocaine patch. No fever. Review of Systems Review of Systems: Yes all other systems are reviewed and are negative Physical Exam Vital Signs: Vital Signs: Last Vital Signs Temp 97.7 F 12/28/20 11:17 Pulse 91 12/28/20 13:31 Resp 18 12/28/20 12:55 BP 152/67 H 12/28/20 13:31 Pulse Ox 90 L 12/28/20 13:31 Oxygen Flow Rate 6 12/24/20 16:46 Body Mass Index 24.3 Objective Data Active Medications Acetaminophen (Acetaminophen 325 Mg Tablet) 650 mg PO Q6H PRN PRN Reason: Pain, Mild (Pain Scale 1-3) Last Admin: 12/25/20 22:31 Dose: 650 mg Documented by: CHRISTOPHER Albuterol/Ipratropium (Albuterol/Iprat 2.5/0.5mg 3 Ml Ampul.Neb) 3 ml INHALE RQ4H PRN PRN Reason: Shortness of Breath/Wheezing Last Admin: 12/28/20 10:12 Dose: 3 ml Documented by: TOMMY Aspirin (Aspirin Enteric Coated 81 Mg Tablet.) 81 mg PO DAILY [facility] Last Admin: 12/28/20 08:14 Dose: 81 mg Documented by: JOANIE Atorvastatin Calcium (Atorvastatin Calcium 40 Mg Tablet) 40 mg PO DAILY [facility] Last Admin: 12/28/20 08:14 Dose: 40 mg Documented by: JOANIE Dextrose (Dextrose 50 % 25 Gm/50 Ml Vial) 25 gm IVPUSH Q15M PRN; Protocol PRN Reason: per Hypoglycemia Standing Ord. Docusate Sodium (Docusate Sodium 100 Mg Capsule) 100 mg PO DAILY PRN PRN Reason: Constipation Enoxaparin Sodium (Enoxaparin Sodium 40 Mg/0.4 Ml Syringe) 40 mg SUBCUT Q24H [facility] Last Admin: 12/28/20 06:27 Dose: 40 mg Documented by: CECILIO Glucose (Glucose Gel 15 Gm Gel..Gram.) 15 gm PO Q15M PRN; Protocol PRN Reason: per Hypoglycemia Standing Ord. Ceftriaxone Sodium 1 gm/ (Sodium Chloride) 50 mls @ 100 mls/hr IV Q24H [facility] Last Infusion: 12/27/20 21:33 Dose: 0 mls/hr Documented by: VIJAYA Azithromycin 500 mg/ Sodium (Chloride) 250 mls @ 125 mls/hr IV Q24H [facility] Last Infusion: 12/28/20 00:29 Dose: 0 mls/hr Documented by: CECILIO Doxycycline Hyclate 100 mg/ (Sodium Chloride) 250 mls @ 166.67 mls/hr IV Q12H [facility] Last Infusion: 12/28/20 13:07 Dose: 0 mls/hr Documented by: JOANIE Insulin Human Lispro (Insulin Lispro 100 Unit/Ml 3 Ml Vial) 0 unit SUBCUT QIDACHS [facility]; Protocol Last Admin: 12/28/20 11:34 Dose: 10 unit Documented by: JOANIE Ipratropium [place] (Ipratropium [place] Marko 0.03 % 30 Ml [place]) 2 spray NOSTRIL-B BID [facility] Last Admin: 12/28/20 08:22 Dose: 2 spray Documented by: JOANIE Lidocaine (Lidocaine 4 % Patch Adh..Patch) 1 patch TRANSDERMA DAILY [facility]; Protocol Last Admin: 12/28/20 08:17 Dose: 1 patch Documented by: JOANIE Lisinopril (Lisinopril 5 Mg Tablet) 5 mg PO DAILY [facility]; Protocol Last Admin: 12/28/20 08:15 Dose: 5 mg Documented by: JOANIE Methylprednisolone Sodium Succinate (Methylprednisolone Sod Succ 40 Mg/Ml Vial) 40 mg IVPUSH Q8H [facility] Last Admin: 12/28/20 08:18 Dose: 40 mg Documented by: JOANIE Metoprolol Succinate (Metoprolol Succinate Er 25 Mg Tab.Er.24h) 25 mg PO DAILY [facility]; Protocol Last Admin: 12/28/20 08:14 Dose: 25 mg Documented by: JOANIE Non-Formulary Medication (Umeclidinium-Vilanterol [Anoro Ellipta]) 1 puff INHALE RDAILY [facility] Last Admin: 12/28/20 08:22 Dose: 1 puff Documented by: JOANIE Ondansetron HCl (Ondansetron Hcl 4 Mg/2 Ml Vial) 4 mg IVPUSH Q8H PRN PRN Reason: Nausea and Vomiting Pioglitazone HCl (Pioglitazone Hcl 15 Mg Tablet) 15 mg PO DAILY [facility] Last Admin: 12/28/20 08:14 Dose: 15 mg Documented by: JOANIE Sodium Chloride (0.9 % Sodium Chloride Flush 3 Ml Syringe) 3 ml IVFLUSH QSHIFT [facility] Last Admin: 12/28/20 08:19 Dose: 3 ml Documented by: JOANIE Labs CBC & Chem 7: 12/28/20 06:04 12/28/20 06:04 Labs: Laboratory Results - last 24 hr 12/27/20 12/27/20 12/28/20 16:19 20:20 06:04 MCV 84.9 MCH 29.3 MCHC 34.6 RDW 13.2 Plt Count 174 MPV 11.1 Immature Gran % (Auto) 0.6 H Neut % (Auto) 92.2 H Lymph % (Auto) 5.0 L [place] % (Auto) 2.1 Eos % (Auto) 0.0 Baso % (Auto) 0.1 Lymph # (Auto) 0.6 L [place] # (Auto) 0.2 Eos # (Auto) 0.0 Baso # (Auto) 0.0 Abs Immat Gran (auto) 0.07 H Absolute Neuts (auto) 10.3 H Absolute Nucleated RBC 0.000 Nucleated RBC % (auto) 0.0 Smear Tech's Comments VERIFIED Anion Gap Estim Creat Clear Calc Estimated GFR POC Glucose 344 H 350 H* Random Glucose Fasting Glucose Calcium Magnesium Total Bilirubin AST ALT Alkaline Phosphatase Total Protein Albumin 12/28/20 12/28/20 12/28/20 06:04 07:14 11:11 MCV MCH MCHC RDW Plt Count MPV Immature Gran % (Auto) Neut % (Auto) Lymph % (Auto) [place] % (Auto) Eos % (Auto) Baso % (Auto) Lymph # (Auto) [place] # (Auto) Eos # (Auto) Baso # (Auto) Abs Immat Gran (auto) Absolute Neuts (auto) Absolute Nucleated RBC Nucleated RBC % (auto) Smear Tech's Comments Anion Gap 9 L Estim Creat Clear Calc 59.5 Estimated GFR > 60 POC Glucose 309 H 325 H Random Glucose TNP Fasting Glucose 339 H Calcium 7.8 L Magnesium 1.9 Total Bilirubin 1.1 H AST 31 ALT 51 H Alkaline Phosphatase 116 Total Protein 5.3 L Albumin 2.9 L Assessment and Plan (1) Acute respiratory failure with hypoxia: Status: Acute Assessment and Plan: hospital d#3\4 80yo M with IPF, COPD, 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 BCx negative. trend PCT. # RSV bronchiolitis/pneumonia - droplet isolation # COPD exacerbation # IPF - IV methylprednisolone- wean, nebs - will consult Pulmonology # hypoK - repleted # CAD - continue ASA + metoprolol + statin + SAM-I # DM2, A1c 7.3 - correction-dose lispro, continue pioglitazone # VTE ppx - LMWH (2) RSV (acute bronchiolitis due to respiratory syncytial virus): Status: Acute Quality Stroke Does the patient have a stroke diagnosis?: No VTE Prior VTE?: No VTE Risk Level:: Medical - moderate - high VTE Device Contraindication: Treatment Not Indicated VTE Drug Contraindication: N/A - Med Ordered
[2020-12-28 16:30] LABS: Glucose, Whole Blood 329 mg/dL (60-115)
--- NOTE | 2020-12-28 18:39 | P.CONPL_ITS ---
History of Present Illness History of Present Illness Consult date: 12/28/20 Chief complaint: Hypoxic Resp Failure, PNA Narrative: This is an inpatient pulmonary consultation. This is an 80-year-old male past medical history of idiopathic pulmonary fibrosis, COPD on 6 L of oxygen at home, diabetes, CAD status post stent who presents to the hospital with complaints of shortness of breath.? He reports that his symptoms started about 2 weeks ago, he is complaining of progressively worsening shortness of breath, cough, sputum production rhinorrhea, upper respiratory congestion, as well as left-sided pleuritic chest pain worse with coughing, and generalized fatigue.? He was seen by his doctor no labs were drawn, he was found to have low potassium and therefore he was asked to come to the hospital.? Patient was also tested for COVID-19 and other viral panels about 10 days ago and was found to have RSV with negative COVID-19. On arrival to the ED patient was on a Venturi mask 10 L satting 94% Labs are significant for WBC count 12.2, hemoglobin of 12.6 with a hematocrit 36.8, potassium of 2.9, BUN of 22, total bili of 2.6 which is chronically elevated, UA negative, RVP positive for RSV. Chest x-ray shows new patchy opacity in the left lung superimposed with a background of extensive chronic dose-will change. the patient is admitted to the hospital placed on IV antibiotics in addition to steroids. He continues to have increased oxygen requirements. He desaturates very quickly if he goes to a coughing spell. The patient was switched over to high-flow seems to be more effective for him. Hopefully help him expectorate more. Review of Systems Constitutional: Constitutional: Reports fatigue and Denies night sweats ENT: Denies change in voice, Denies lip swelling, Denies mouth pain, Reports nasal congestion, Reports nasal discharge and Denies tongue swelling Cardiovascular: Cardiovascular: Denies chest pain, Reports dyspnea and Reports dyspnea on exertion Respiratory: Respiratory: Reports cough, Denies excessive phlegm production, Denies pain on inspiration, Reports dyspnea and Reports dyspnea on exertion Gastrointestinal: Gastrointestinal: Denies abdominal pain Musculoskeletal: Musculoskeletal: Denies no additional musculoskeletal complaints Neurologic: Denies Neuro-related abnormal movements Psychiatric: Psychiatric: Denies no additional psychiatric complaints Endocrine: Endocrine: Reports fatigue Hematologic/Lymphatic: Hematologic/Lymphatic: Denies easy bleeding and Denies lymphadenopathy Allergic/Immunologic: Allergic/Immunologic: Denies lip swelling and Denies tongue swelling PMFSH Past Medical History Medical History CAD (coronary artery disease) Hyperlipidemia Impaired glucose metabolism SOB (shortness of breath) on exertion Family History Family History Mother No problems noted. Father No problems noted. Surgical History Surgical History S/P right coronary artery (RCA) stent placement Social History Social History Household Members: Children Housing: House Do you presently have visiting nurse or other home services: No Alcohol intake: never Patient Tobacco Use Status: Former Tobacco user Current occupational status: retired [employer] Allergies Allergy/AdvReac Type Severity Reaction Status Date / Time No Known Allergies Allergy Verified 12/21/20 13:52 Active Medications: Current Medications Acetaminophen (Acetaminophen 325 Mg Tablet) 650 mg PO Q6H PRN PRN Reason: Pain, Mild (Pain Scale 1-3) Last Admin: 12/25/20 22:31 Dose: 650 mg Documented by: Albuterol/Ipratropium (Albuterol/Iprat 2.5/0.5mg 3 Ml Ampul.Neb) 3 ml INHALE RQ4H PRN PRN Reason: Shortness of Breath/Wheezing Last Admin: 12/28/20 10:12 Dose: 3 ml Documented by: Aspirin (Aspirin Enteric Coated 81 Mg Tablet.) 81 mg PO DAILY [facility] Last Admin: 12/28/20 08:14 Dose: 81 mg Documented by: Atorvastatin Calcium (Atorvastatin Calcium 40 Mg Tablet) 40 mg PO DAILY [facility] Last Admin: 12/28/20 08:14 Dose: 40 mg Documented by: Dextrose (Dextrose 50 % 25 Gm/50 Ml Vial) 25 gm IVPUSH Q15M PRN; Protocol PRN Reason: per Hypoglycemia Standing Ord. Docusate Sodium (Docusate Sodium 100 Mg Capsule) 100 mg PO DAILY PRN PRN Reason: Constipation Enoxaparin Sodium (Enoxaparin Sodium 40 Mg/0.4 Ml Syringe) 40 mg SUBCUT Q24H [facility] Last Admin: 12/28/20 06:27 Dose: 40 mg Documented by: Glucose (Glucose Gel 15 Gm Gel..Gram.) 15 gm PO Q15M PRN; Protocol PRN Reason: per Hypoglycemia Standing Ord. Ceftriaxone Sodium 1 gm/ (Sodium Chloride) 50 mls @ 100 mls/hr IV Q24H [facility] Last Infusion: 12/27/20 21:33 Dose: Infused Documented by: Azithromycin 500 mg/ Sodium (Chloride) 250 mls @ 125 mls/hr IV Q24H [facility] Last Infusion: 12/28/20 00:29 Dose: Infused Documented by: Doxycycline Hyclate 100 mg/ (Sodium Chloride) 250 mls @ 166.67 mls/hr IV Q12H [facility] Last Infusion: 12/28/20 13:07 Dose: Infused Documented by: Insulin Human Lispro (Insulin Lispro 100 Unit/Ml 3 Ml Vial) 0 unit SUBCUT QIDACHS [facility]; Protocol Last Admin: 12/28/20 16:31 Dose: 10 unit Documented by: Ipratropium Adams (Ipratropium Adams Marko 0.03 % 30 Ml [place]) 2 spray NOSTRIL-B BID [facility] Last Admin: 12/28/20 08:22 Dose: 2 spray Documented by: Lidocaine (Lidocaine 4 % Patch Adh..Patch) 1 patch TRANSDERMA DAILY [facility]; Protocol Last Admin: 12/28/20 08:17 Dose: 1 patch Documented by: Lisinopril (Lisinopril 5 Mg Tablet) 5 mg PO DAILY [facility]; Protocol Last Admin: 12/28/20 08:15 Dose: 5 mg Documented by: Methylprednisolone Sodium Succinate (Methylprednisolone Sod Succ 40 Mg/Ml Vial) 40 mg IVPUSH Q8H [facility] Last Admin: 12/28/20 16:31 Dose: 40 mg Documented by: Metoprolol Succinate (Metoprolol Succinate Er 25 Mg Tab.Er.24h) 25 mg PO DAILY [facility]; Protocol Last Admin: 12/28/20 08:14 Dose: 25 mg Documented by: Non-Formulary Medication (Umeclidinium-Vilanterol [Anoro Ellipta]) 1 puff INHALE RDAILY [facility] Last Admin: 12/28/20 08:22 Dose: 1 puff Documented by: Ondansetron HCl (Ondansetron Hcl 4 Mg/2 Ml Vial) 4 mg IVPUSH Q8H PRN PRN Reason: Nausea and Vomiting Pioglitazone HCl (Pioglitazone Hcl 15 Mg Tablet) 15 mg PO DAILY [facility] Last Admin: 12/28/20 08:14 Dose: 15 mg Documented by: Sodium Chloride (0.9 % Sodium Chloride Flush 3 Ml Syringe) 3 ml IVFLUSH QSHIFT [facility] Last Admin: 12/28/20 17:33 Dose: Not Given Documented by: Home Medications Medication Instructions Recorded Confirmed Last Taken Type umeclidinium 62.5 mcg-vilanterol 1 puff INHALATION DAILY 12/24/20 12/24/20 Unknown History 25 mcg/actuation powdr for inhalation (Anoro Ellipta) Physical Exam Vital Signs: Vital Signs: Last Vital Signs Temp 99.0 F 12/28/20 15:09 Pulse 85 12/28/20 15:09 Resp 16 12/28/20 15:38 BP 154/70 H 12/28/20 15:09 Pulse Ox 92 12/28/20 15:09 Oxygen Flow Rate 6 12/24/20 16:46 Body Mass Index 24.3 Const: General: alert Neck: Neck: Yes normal visual inspection, Yes full ROM and Yes no lymphadenopathy Chest: Chest palpation & inspection: normal inspection of the chest Resp: Auscultation: rales bilateral 2/[address] up and diminished lung sounds Cardio: Rate: regular rate Rhythm: regular rhythm Heart sounds: S1 normal heart sound present and S2 normal heart sound present GI: Palpation (GI): Soft to palpation and nontender Auscultation: normal bowel sounds Skin: General skin exam: rashes and/or lesions noted Results Laboratory Findings CBC and BMP: 12/28/20 06:04 12/28/20 06:04 Abnormal lab findings: Abnormal Labs 12/24/20 12/24/20 12/24/20 19:21 21:20 22:17 WBC 12.2 H RBC 4.31 L Hgb 12.6 L Hct 36.8 L Immature Gran % (Auto) 1.4 H Neut % (Auto) 80.1 H Lymph % (Auto) 13.8 L [place] % (Auto) Lymph # (Auto) Abs Immat Gran (auto) 0.17 H Absolute Neuts (auto) 9.8 H Potassium Chloride Carbon Dioxide Anion Gap BUN POC Glucose Random Glucose Fasting Glucose Calcium Total Bilirubin ALT Alkaline Phosphatase Total Protein Albumin Ur Specific [place] >= 1.030 H Urine Protein 2+ H Urine Glucose (UA) 250 H RSV RNA Qual (PCR) POSITIVE A 12/24/20 12/25/20 12/25/20 22:17 06:55 06:56 WBC RBC 3.82 L Hgb 11.2 L Hct 32.3 L Immature Gran % (Auto) 1.2 H Neut % (Auto) 77.5 H Lymph % (Auto) 16.4 L [place] % (Auto) Lymph # (Auto) Abs Immat Gran (auto) 0.12 H Absolute Neuts (auto) Potassium 2.9 L 3.0 L Chloride 109 H Carbon Dioxide Anion Gap BUN 22 H 17 H POC Glucose Random Glucose 206 H 185 H Fasting Glucose Calcium 8.2 L 7.5 L D Total Bilirubin 2.6 H ALT Alkaline Phosphatase Total Protein 6.1 L Albumin 3.4 L Ur Specific [place] Urine Protein Urine Glucose (UA) RSV RNA Qual (PCR) 12/25/20 12/25/20 12/25/20 07:28 12:33 16:29 WBC RBC Hgb Hct Immature Gran % (Auto) Neut % (Auto) Lymph % (Auto) [place] % (Auto) Lymph # (Auto) Abs Immat Gran (auto) Absolute Neuts (auto) Potassium Chloride Carbon Dioxide Anion Gap BUN POC Glucose 172 H 130 H 177 H Random Glucose Fasting Glucose Calcium Total Bilirubin ALT Alkaline Phosphatase Total Protein Albumin Ur Specific [place] Urine Protein Urine Glucose (UA) RSV RNA Qual (PCR) 12/25/20 12/26/20 12/26/20 20:55 06:50 06:53 WBC RBC 3.94 L Hgb 11.6 L Hct 33.1 L Immature Gran % (Auto) 0.6 H Neut % (Auto) Lymph % (Auto) [place] % (Auto) Lymph # (Auto) Abs Immat Gran (auto) 0.05 H Absolute Neuts (auto) Potassium Chloride Carbon Dioxide Anion Gap BUN POC Glucose 214 H 141 H Random Glucose Fasting Glucose Calcium Total Bilirubin ALT Alkaline Phosphatase Total Protein Albumin Ur Specific [place] Urine Protein Urine Glucose (UA) RSV RNA Qual (PCR) 12/26/20 12/26/20 12/26/20 11:33 15:56 19:41 WBC RBC Hgb Hct Immature Gran % (Auto) Neut % (Auto) Lymph % (Auto) [place] % (Auto) Lymph # (Auto) Abs Immat Gran (auto) Absolute Neuts (auto) Potassium Chloride Carbon Dioxide Anion Gap BUN POC Glucose 162 H 217 H 351 H* Random Glucose Fasting Glucose Calcium Total Bilirubin ALT Alkaline Phosphatase Total Protein Albumin Ur Specific [place] Urine Protein Urine Glucose (UA) RSV RNA Qual (PCR) 12/27/20 12/27/20 12/27/20 06:25 06:25 07:03 WBC RBC 3.97 L Hgb 11.5 L Hct 32.5 L Immature Gran % (Auto) 0.7 H Neut % (Auto) 90.5 H Lymph % (Auto) 7.8 L [place] % (Auto) 1.0 L Lymph # (Auto) 0.5 L Abs Immat Gran (auto) 0.04 H Absolute Neuts (auto) Potassium 3.0 L Chloride Carbon Dioxide Anion Gap BUN 18 H POC Glucose 279 H Random Glucose Fasting Glucose 321 H D Calcium 7.9 L Total Bilirubin 2.0 H ALT Alkaline Phosphatase 122 H Total Protein 5.7 L Albumin 2.9 L Ur Specific [place] Urine Protein Urine Glucose (UA) RSV RNA Qual (PCR) 12/27/20 12/27/20 12/27/20 11:11 16:19 20:20 WBC RBC Hgb Hct Immature Gran % (Auto) Neut % (Auto) Lymph % (Auto) [place] % (Auto) Lymph # (Auto) Abs Immat Gran (auto) Absolute Neuts (auto) Potassium Chloride Carbon Dioxide Anion Gap BUN POC Glucose 324 H 344 H 350 H* Random Glucose Fasting Glucose Calcium Total Bilirubin ALT Alkaline Phosphatase Total Protein Albumin Ur Specific [place] Urine Protein Urine Glucose (UA) RSV RNA Qual (PCR) 12/28/20 12/28/20 12/28/20 06:04 06:04 07:14 WBC 11.2 H RBC 3.51 L Hgb 10.3 L Hct 29.8 L Immature Gran % (Auto) 0.6 H Neut % (Auto) 92.2 H Lymph % (Auto) 5.0 L [place] % (Auto) Lymph # (Auto) 0.6 L Abs Immat Gran (auto) 0.07 H Absolute Neuts (auto) 10.3 H Potassium Chloride Carbon Dioxide 30 H Anion Gap 9 L BUN 25 H POC Glucose 309 H Random Glucose Fasting Glucose 339 H Calcium 7.8 L Total Bilirubin 1.1 H ALT 51 H Alkaline Phosphatase Total Protein 5.3 L Albumin 2.9 L Ur Specific [place] Urine Protein Urine Glucose (UA) RSV RNA Qual (PCR) 12/28/20 12/28/20 11:11 16:15 WBC RBC Hgb Hct Immature Gran % (Auto) Neut % (Auto) Lymph % (Auto) [place] % (Auto) Lymph # (Auto) Abs Immat Gran (auto) Absolute Neuts (auto) Potassium Chloride Carbon Dioxide Anion Gap BUN POC Glucose 325 H 329 H Random Glucose Fasting Glucose Calcium Total Bilirubin ALT Alkaline Phosphatase Total Protein Albumin Ur Specific [place] Urine Protein Urine Glucose (UA) RSV RNA Qual (PCR) Microbiology: Microbiology 12/24/20 22:17 Blood - Venous Blood Culture - Preliminary No growth after 48 hours. 12/24/20 20:39 Blood - Venous Blood Culture - Preliminary No growth after 48 hours. Assessment and Plan (1) RSV (acute bronchiolitis due to respiratory syncytial virus): Status: Acute (2) Acute and chronic respiratory failure with hypoxia: Status: Acute (3) IPF (idiopathic pulmonary fibrosis): Status: Acute (4) COPD (chronic obstructive pulmonary disease): Status: Acute start doxycycline stop azithromycin continue ceftriaxone for total of 8 days continue Solu-Medrol switch over to high-flow CPT with incentive spirometer and Acapella valve start Mucinex out of bed to chair repeat chest x-ray in the morning guarded condition Procedures Date of Service Date of Service: 12/28/20
[2020-12-28 21:07] LABS: Glucose, Whole Blood 267 mg/dL (60-115)
[2020-12-28] MEDS: cefTRIAXone sodium 1 GM in 0.9 % Sodium Chloride 50 ML IV (21:13)
[2020-12-28] MEDS: Azithromycin 500 MG in 0.9 % Sodium Chloride 250 ML 125 MG IV (23:59)
[2020-12-29] VITALS (13 sets, daily range): BP systolic 145–180; BP diastolic 65–81; PULSE 67–101; RESP 18–20; TEMP 36.4–36.9; O2SAT 88–96
[2020-12-29] MEDS: methylPREDNISolone Sod Succ 40 MG/ML VIAL IVPUSH ×2 (02:05→08:41)
[2020-12-29] MEDS: Enoxaparin Sodium 40 MG/0.4 ML SYRINGE SUBCUT (05:28)
[2020-12-29 06:47] LABS: Basophils Percent Auto 0.1 % (0-2); Hematocrit 29.8 % (42.0-52.0); Hemoglobin 10.1 g/dl (14.0-18.0); Imm Gran Abs Auto 0.13 X10*3/uL (0.00-0.03); Imm Gran Pct Auto 1.4 % (0.0-0.4); Lymphocytes Absolute Auto 0.5 X10*3/uL (1.2-4.9); Lymphocytes Percent Auto 5.4 % (20-40); MANUAL DIFF FLAG SCAN; Mean Corpuscular HGB Conc 33.9 g/dl (31.0-36.0); Mean Corpuscular Hemoglobin 28.9 pg (27.0-33.0); Mean Corpuscular Volume 85.4 fL (80.0-98.0); Mean Platelet Volume 10.9 fL (9.4-12.4); Monocytes Absolute Auto 0.1 X10*3/uL (0.1-1.2); Monocytes Percent Auto 1.4 % (2-11); Neutrophils Absolute Auto 8.8 x10*3/uL (2.0-8.3); Neutrophils Percent Auto 91.7 % (45-73); Platelet Count 146 X10*3/uL (160-400); Red Blood Count 3.49 X10*6/uL (4.60-5.80); Red Cell Distribution Width 13.2 % (11.0-16.0); SCAN SMEAR FLAG 1; White Blood Count 9.6 X10*3/uL (4.8-10.8)
[2020-12-29 07:04] LABS: Alanine Aminotransferase 54 U/L (0-40); Albumin Level 2.8 g/dL (3.5-5.0); Alkaline Phosphatase 111 U/L (39-117); Anion Gap 11 (12-20); Aspartate Amino Transferase 27 U/L (5-37); Bilirubin Total 1.2 mg/dL (0.0-1.0); Blood Urea Nitrogen 27 mg/dL (9-16); Calcium 7.8 mg/dL (8.4-10.2); Carbon Dioxide 29 mmol/L (22-29); Chloride 107 mmol/L (96-108); Creatinine Clr Calc Pharmacy 64.7; Estimated Glomerular Filt Rate > 60; Glucose Fasting 282 mg/dL (60-99); Potassium 4.1 mmol/L (3.3-5.1); Sodium 143 mmol/L (135-145); Total Protein 5.1 g/dL (6.5-8.0)
[2020-12-29 07:22] LABS: Glucose, Whole Blood 266 mg/dL (60-115)
[2020-12-29 07:27] LABS: SLIDE REVIEW VERIFIED
[2020-12-29] MEDS: Lidocaine 4 % Patch ADH..PATCH 1 PATCH TRANSDERMA (08:33)
[2020-12-29] MEDS: Insulin Lispro 100 UNIT/ML 3 ML VIAL SUBCUT ×4 (08:34→20:45)
[2020-12-29] MEDS: Atorvastatin Calcium 40 MG TABLET PO (08:35)
[2020-12-29] MEDS: Metoprolol Succinate ER 25 MG TAB.ER.24H PO (08:35)
[2020-12-29] MEDS: Aspirin Enteric Coated 81 MG TABLET.DR PO (08:35)
[2020-12-29] MEDS: lisinopriL 5 MG TABLET PO (08:37)
[2020-12-29] MEDS: Ipratropium Bromide Nas 0.03 % 30 ML SPRAY 2 SPRAY NOSTRIL-B ×2 (08:40→20:46)
[2020-12-29 08:51] LABS: Procalcitonin 0.08 ng/mL
[2020-12-29] MEDS: 0.9 % Sodium Chloride Flush 3 ML SYRINGE IVFLUSH ×3 (09:02→19:48)
--- NOTE | 2020-12-29 09:34 | P.PNPL_ITS ---
Subjective Subjective Date of Service: 12/29/20 Interval history: Patient was seen on exam. He is currently on high-flow 55 L 60%. He still desaturates when talking. His lungs still demonstrates significant crackles and also increasing rhonchi. He is currently on ceftriaxone and doxycycline. Continues on Solu-Medrol. Objective Data Labs CBC & Chem 7: 12/29/20 06:12 12/29/20 06:12 Labs: Laboratory Results - last 24 hr 12/28/20 12/28/20 12/28/20 11:11 16:15 21:03 WBC RBC Hgb Hct MCV MCH MCHC RDW Plt Count MPV Immature Gran % (Auto) Neut % (Auto) Lymph % (Auto) [place] % (Auto) Eos % (Auto) Baso % (Auto) Lymph # (Auto) [place] # (Auto) Eos # (Auto) Baso # (Auto) Abs Immat Gran (auto) Absolute Neuts (auto) Absolute Nucleated RBC Nucleated RBC % (auto) Smear Tech's Comments Sodium Potassium Chloride Carbon Dioxide Anion Gap BUN Creatinine Estim Creat Clear Calc Estimated GFR POC Glucose 325 H 329 H 267 H Fasting Glucose Calcium Total Bilirubin AST ALT Alkaline Phosphatase Total Protein Albumin Procalcitonin 12/29/20 12/29/20 12/29/20 06:12 06:12 06:12 WBC 9.6 RBC 3.49 L Hgb 10.1 L Hct 29.8 L MCV 85.4 MCH 28.9 MCHC 33.9 RDW 13.2 Plt Count 146 L MPV 10.9 Immature Gran % (Auto) 1.4 H Neut % (Auto) 91.7 H Lymph % (Auto) 5.4 L [place] % (Auto) 1.4 L Eos % (Auto) 0.0 Baso % (Auto) 0.1 Lymph # (Auto) 0.5 L [place] # (Auto) 0.1 Eos # (Auto) 0.0 Baso # (Auto) 0.0 Abs Immat Gran (auto) 0.13 H Absolute Neuts (auto) 8.8 H Absolute Nucleated RBC 0.000 Nucleated RBC % (auto) 0.0 Smear Tech's Comments VERIFIED Sodium 143 Potassium 4.1 Chloride 107 Carbon Dioxide 29 Anion Gap 11 L BUN 27 H Creatinine 0.91 Estim Creat Clear Calc 64.7 Estimated GFR > 60 POC Glucose Fasting Glucose 282 H Calcium 7.8 L Total Bilirubin 1.2 H AST 27 ALT 54 H Alkaline Phosphatase 111 Total Protein 5.1 L Albumin 2.8 L Procalcitonin 0.08 12/29/20 07:12 WBC RBC Hgb Hct MCV MCH MCHC RDW Plt Count MPV Immature Gran % (Auto) Neut % (Auto) Lymph % (Auto) [place] % (Auto) Eos % (Auto) Baso % (Auto) Lymph # (Auto) [place] # (Auto) Eos # (Auto) Baso # (Auto) Abs Immat Gran (auto) Absolute Neuts (auto) Absolute Nucleated RBC Nucleated RBC % (auto) Smear Tech's Comments Sodium Potassium Chloride Carbon Dioxide Anion Gap BUN Creatinine Estim Creat Clear Calc Estimated GFR POC Glucose 266 H Fasting Glucose Calcium Total Bilirubin AST ALT Alkaline Phosphatase Total Protein Albumin Procalcitonin Microbiology Microbiology Results: Microbiology 12/24/20 22:17 Blood - Venous Blood Culture - Preliminary No growth after 48 hours. 12/24/20 20:39 Blood - Venous Blood Culture - Preliminary No growth after 48 hours. Review of Systems Constitutional: Reports fatigue and Denies night sweats Denies change in voice, Denies lip swelling, Denies mouth pain, Reports nasal congestion, Reports nasal discharge and Denies tongue swelling Cardiovascular: Denies chest pain, Reports dyspnea and Reports dyspnea on exertion Respiratory: Reports cough, Denies excessive phlegm production, Denies pain on inspiration, Reports dyspnea and Reports dyspnea on exertion Gastrointestinal: Denies abdominal pain Musculoskeletal: Denies no additional musculoskeletal complaints Denies Neuro-related abnormal movements Psychiatric: Denies no additional psychiatric complaints Endocrine: Reports fatigue Hematologic/Lymphatic: Denies easy bleeding and Denies lymphadenopathy Allergic/Immunologic: Denies lip swelling and Denies tongue swelling Physical Exam Vital Signs: Vital Signs: Last Vital Signs Temp 98.0 F 12/29/20 07:10 Pulse 74 12/29/20 08:37 Resp 20 12/29/20 07:37 BP 180/80 H 12/29/20 08:37 Pulse Ox 91 L 12/29/20 07:10 Oxygen Flow Rate 6 12/24/20 16:46 Body Mass Index 24.3 Const: General: alert Neck: Neck: Yes normal visual inspection, Yes full ROM and Yes no lymphadenopathy Chest: Chest palpation & inspection: normal inspection of the chest Resp: Auscultation: rales, rhonchi and diminished lung sounds Cardio: Rate: regular rate Rhythm: regular rhythm Heart sounds: S1 normal heart sound present and S2 normal heart sound present GI: Palpation (GI): Soft to palpation and nontender Auscultation: normal bowel sounds Procedures Date of Service Date of Service: 12/29/20 Assessment and Plan Assessment and plan (1) Acute and chronic respiratory failure with hypoxia: Status: Acute (2) RSV (acute bronchiolitis due to respiratory syncytial virus): Status: Acute (3) Acute respiratory failure with hypoxia: Status: Acute (4) IPF (idiopathic pulmonary fibrosis): Status: Acute (5) COPD (chronic obstructive pulmonary disease): Status: Acute Assessment and Plan: Continue ceftriaxone and doxycycline Continue high-flow to maintain a pulse ox above 88% Incentive spirometer and Acapella valve requested Start Mucinex Increase Solu-Medrol to 80 mg q.6 Guarded condition Time Spent With Patient Time: Total time spent is greater than 50% in coordination of care (as documented) at patient's floor/unit and/or counseling patient: Time with patient: 25 - 35 minutes Progress Note: Quality Stroke Does the patient have a stroke diagnosis?: No
[2020-12-29 11:13] LABS: Glucose, Whole Blood 339 mg/dL (60-115)
[2020-12-29] MEDS: Doxycycline Hyclate 100 MG in 0.9 % Sodium Chloride 250 ML 166.67 MG IV ×2 (11:41→23:18)
[2020-12-29] MEDS: methylPREDNISolone Sod Succ 40 MG/ML VIAL 80 MG IVPUSH ×2 (11:41→19:48)
[2020-12-29] MEDS: iohexoL 350 MG/ML 100 ML INFUS..BTL IV (13:00)
--- NOTE | 2020-12-29 13:20 | MHC.CM.PN ---
Per ROUNDS discussion, Patient is not yet medically cleared for dc (IV Ceftriaxone, IV Doxycycline, IV Solu Medrol,high flow O2). PT recommends STR and CM will follow for possible need to adjust the dc plan.
--- NOTE | 2020-12-29 14:43 | HO.PM.IMPN ---
Subjective Subjective Date of Service: 12/29/20 Interval History: Worsening hypoxia, now on HFNC No fever No chest pain Review of Systems Review of Systems: Yes all other systems are reviewed and are negative Physical Exam Vital Signs: Vital Signs: Last Vital Signs Temp 98.2 F 12/29/20 11:00 Pulse 79 12/29/20 11:00 Resp 18 12/29/20 11:38 BP 146/67 H 12/29/20 11:00 Pulse Ox 95 12/29/20 11:00 Oxygen Flow Rate 6 12/24/20 16:46 Body Mass Index 24.3 Gen: dyspneic, on HFNC fiO2 90% @ 55 Lpm HEENT: sclera anicteric, moist mucus membranes Neck: supple Lungs: diminished throughout, fine inspiratory crackles Heart: regular rate and rhythm, no murmurs Abd: soft, non-tender, non-distended Ext: no edema Skin: warm/well-perfused Neuro: alert and oriented x3, no focal findings Psych: appropriate affect Objective Data Active Medications Acetaminophen (Acetaminophen 325 Mg Tablet) 650 mg PO Q6H PRN PRN Reason: Pain, Mild (Pain Scale 1-3) Last Admin: 12/25/20 22:31 Dose: 650 mg Documented by: CHRISTOPHER Albuterol/Ipratropium (Albuterol/Iprat 2.5/0.5mg 3 Ml Ampul.Neb) 3 ml INHALE RQ4H PRN PRN Reason: Shortness of Breath/Wheezing Last Admin: 12/28/20 10:12 Dose: 3 ml Documented by: TOMMY Aspirin (Aspirin Enteric Coated 81 Mg Tablet.) 81 mg PO DAILY [facility] Last Admin: 12/29/20 08:35 Dose: 81 mg Documented by: VIKKI Atorvastatin Calcium (Atorvastatin Calcium 40 Mg Tablet) 40 mg PO DAILY [facility] Last Admin: 12/29/20 08:35 Dose: 40 mg Documented by: VIKKI Dextrose (Dextrose 50 % 25 Gm/50 Ml Vial) 25 gm IVPUSH Q15M PRN; Protocol PRN Reason: per Hypoglycemia Standing Ord. Docusate Sodium (Docusate Sodium 100 Mg Capsule) 100 mg PO DAILY PRN PRN Reason: Constipation Enoxaparin Sodium (Enoxaparin Sodium 40 Mg/0.4 Ml Syringe) 40 mg SUBCUT Q24H [facility] Last Admin: 12/29/20 05:28 Dose: 40 mg Documented by: MORRIS Glucose (Glucose Gel 15 Gm Gel..Gram.) 15 gm PO Q15M PRN; Protocol PRN Reason: per Hypoglycemia Standing Ord. Guaifenesin (Guaifenesin La 600 Mg Tab.Er.12h) 1,200 mg PO BID [facility] Ceftriaxone Sodium 1 gm/ (Sodium Chloride) 50 mls @ 100 mls/hr IV Q24H [facility] Last Infusion: 12/28/20 21:53 Dose: 0 mls/hr Documented by: MORRIS Doxycycline Hyclate 100 mg/ (Sodium Chloride) 250 mls @ 166.67 mls/hr IV Q12H [facility] Last Infusion: 12/29/20 14:42 Dose: 0 mls/hr Documented by: VIKKI Insulin Human Lispro (Insulin Lispro 100 Unit/Ml 3 Ml Vial) 0 unit SUBCUT QIDACHS [facility]; Protocol Last Admin: 12/29/20 13:24 Dose: 10 unit Documented by: VIKKI Ipratropium [place] (Ipratropium [place] Marko 0.03 % 30 Ml [place]) 2 spray NOSTRIL-B BID [facility] Last Admin: 12/29/20 08:40 Dose: 2 spray Documented by: VIKKI Lidocaine (Lidocaine 4 % Patch Adh..Patch) 1 patch TRANSDERMA DAILY [facility]; Protocol Last Admin: 12/29/20 08:33 Dose: 1 patch Documented by: VIKKI Lisinopril (Lisinopril 5 Mg Tablet) 5 mg PO DAILY [facility]; Protocol Last Admin: 12/29/20 08:37 Dose: 5 mg Documented by: VIKKI Methylprednisolone Sodium Succinate (Methylprednisolone Sod Succ 40 Mg/Ml Vial) 80 mg IVPUSH Q8H [facility] Last Admin: 12/29/20 11:41 Dose: 80 mg Documented by: VIKKI Metoprolol Succinate (Metoprolol Succinate Er 25 Mg Tab.Er.24h) 25 mg PO DAILY [facility]; Protocol Last Admin: 12/29/20 08:35 Dose: 25 mg Documented by: VIKKI Non-Formulary Medication (Umeclidinium-Vilanterol [Anoro Ellipta]) 1 puff INHALE RDAILY [facility] Last Admin: 12/29/20 08:40 Dose: 1 puff Documented by: VIKKI Ondansetron HCl (Ondansetron Hcl 4 Mg/2 Ml Vial) 4 mg IVPUSH Q8H PRN PRN Reason: Nausea and Vomiting Pioglitazone HCl (Pioglitazone Hcl 15 Mg Tablet) 15 mg PO DAILY [facility] Last Admin: 12/29/20 08:37 Dose: 15 mg Documented by: IVKKI Sodium Chloride (0.9 % Sodium Chloride Flush 3 Ml Syringe) 3 ml IVFLUSH QSHIFT [facility] Last Admin: 12/29/20 09:02 Dose: 3 ml Documented by: VIKKI Labs CBC & Chem 7: 12/29/20 06:12 12/29/20 06:12 Labs: Laboratory Results - last 24 hr 12/28/20 12/28/20 12/29/20 16:15 21:03 06:12 MCV 85.4 MCH 28.9 MCHC 33.9 RDW 13.2 Plt Count 146 L MPV 10.9 Immature Gran % (Auto) 1.4 H Neut % (Auto) 91.7 H Lymph % (Auto) 5.4 L [place] % (Auto) 1.4 L Eos % (Auto) 0.0 Baso % (Auto) 0.1 Lymph # (Auto) 0.5 L [place] # (Auto) 0.1 Eos # (Auto) 0.0 Baso # (Auto) 0.0 Abs Immat Gran (auto) 0.13 H Absolute Neuts (auto) 8.8 H Absolute Nucleated RBC 0.000 Nucleated RBC % (auto) 0.0 Smear Tech's Comments VERIFIED Anion Gap Estim Creat Clear Calc Estimated GFR POC Glucose 329 H 267 H Fasting Glucose Calcium Total Bilirubin AST ALT Alkaline Phosphatase Total Protein Albumin Procalcitonin Ur L.pneumophila Ag 12/29/20 12/29/20 12/29/20 06:12 06:12 07:12 MCV MCH MCHC RDW Plt Count MPV Immature Gran % (Auto) Neut % (Auto) Lymph % (Auto) [place] % (Auto) Eos % (Auto) Baso % (Auto) Lymph # (Auto) [place] # (Auto) Eos # (Auto) Baso # (Auto) Abs Immat Gran (auto) Absolute Neuts (auto) Absolute Nucleated RBC Nucleated RBC % (auto) Smear Tech's Comments Anion Gap 11 L Estim Creat Clear Calc 64.7 Estimated GFR > 60 POC Glucose 266 H Fasting Glucose 282 H Calcium 7.8 L Total Bilirubin 1.2 H AST 27 ALT 54 H Alkaline Phosphatase 111 Total Protein 5.1 L Albumin 2.8 L Procalcitonin 0.08 Ur L.pneumophila Ag 12/29/20 12/29/20 11:01 14:17 MCV MCH MCHC RDW Plt Count MPV Immature Gran % (Auto) Neut % (Auto) Lymph % (Auto) [place] % (Auto) Eos % (Auto) Baso % (Auto) Lymph # (Auto) [place] # (Auto) Eos # (Auto) Baso # (Auto) Abs Immat Gran (auto) Absolute Neuts (auto) Absolute Nucleated RBC Nucleated RBC % (auto) Smear Tech's Comments Anion Gap Estim Creat Clear Calc Estimated GFR POC Glucose 339 H Fasting Glucose Calcium Total Bilirubin AST ALT Alkaline Phosphatase Total Protein Albumin Procalcitonin Ur L.pneumophila Ag Cancelled Assessment and Plan (1) Acute and chronic respiratory failure with hypoxia: Status: Acute Assessment and Plan: hospital d#5 80yo M with IPF, COPD, chronic hypoxic RF on 6L O2, DM2, CAD s/p PCI presenting with subacute progressive dyspnea + productive cough admitted for hypoxia with pneumonia, RSV positive # acute/chronic hypoxia - now on HFNC. Pulm consulted- steroids increased. pt is full code- discussed with him and his daughter # chest wall pain - from coughing; continue lidocaine patch # CAP - continue ceftriaxone d#5, doxycycline d#2. ID consult. BCx negative. Legionella UAg pending. PCT low. # RSV bronchiolitis/pneumonia - droplet isolation # COPD exacerbation # IPF - high-dose IV methylprednisolone, nebs # hypoK - repleted # CAD - continue ASA + metoprolol + statin + SAM-I # DM2, A1c 7.3 - correction-dose lispro, continue pioglitazone # VTE ppx - LMWH Quality Stroke Does the patient have a stroke diagnosis?: No VTE Prior VTE?: No VTE Risk Level:: Medical - moderate - high VTE Device Contraindication: Treatment Not Indicated VTE Drug Contraindication: N/A - Med Ordered
[2020-12-29 16:06] LABS: Glucose, Whole Blood 285 mg/dL (60-115)
[2020-12-29] MEDS: Albuterol/Iprat 2.5/0.5MG 3 ML AMPUL.NEB INHALE (18:00)
[2020-12-29] MEDS: Furosemide 40 MG/4 ML VIAL IVPUSH (19:48)
[2020-12-29 20:12] LABS: Glucose, Whole Blood 298 mg/dL (60-115)
[2020-12-29] MEDS: cefTRIAXone sodium 1 GM in 0.9 % Sodium Chloride 50 ML IV (20:45)
[2020-12-29] MEDS: guaiFENesin LA 600 MG TAB.ER.12H 1200 MG PO (20:45)
--- NOTE | 2020-12-29 21:51 | W.PM.IDCN ---
History of Present Illness Data of Consult Service Date: 12/29/20 Requesting physician: Kat Gabriel Primary Care Provider: REE Foster Reason for consult: shortness of breath He presents with worsening shortness of breath for a week He reports diagnosed with RSV He has no productive sputum Review of Systems Review of Systems: Yes all other systems are reviewed and are negative PMFSH Past Medical History Medical History CAD (coronary artery disease) Hyperlipidemia Impaired glucose metabolism SOB (shortness of breath) on exertion Family History Family History Mother No problems noted. Father No problems noted. Family history: reviewed and not pertinent Surgical History Surgical History S/P right coronary artery (RCA) stent placement Social History Social History Household Members: Children Housing: House Do you presently have visiting nurse or other home services: No Alcohol intake: never Patient Tobacco Use Status: Former Tobacco user Current occupational status: retired [employer] Allergies Allergy/AdvReac Type Severity Reaction Status Date / Time No Known Allergies Allergy Verified 12/21/20 13:52 Active Medications: Current Medications Acetaminophen (Acetaminophen 325 Mg Tablet) 650 mg PO Q6H PRN PRN Reason: Pain, Mild (Pain Scale 1-3) Last Admin: 12/25/20 22:31 Dose: 650 mg Documented by: Albuterol/Ipratropium (Albuterol/Iprat 2.5/0.5mg 3 Ml Ampul.Neb) 3 ml INHALE RQ4H PRN PRN Reason: Shortness of Breath/Wheezing Last Admin: 12/29/20 18:00 Dose: 3 ml Documented by: Aspirin (Aspirin Enteric Coated 81 Mg Tablet.) 81 mg PO DAILY [facility] Last Admin: 12/29/20 08:35 Dose: 81 mg Documented by: Atorvastatin Calcium (Atorvastatin Calcium 40 Mg Tablet) 40 mg PO DAILY [facility] Last Admin: 12/29/20 08:35 Dose: 40 mg Documented by: Dextrose (Dextrose 50 % 25 Gm/50 Ml Vial) 25 gm IVPUSH Q15M PRN; Protocol PRN Reason: per Hypoglycemia Standing Ord. Docusate Sodium (Docusate Sodium 100 Mg Capsule) 100 mg PO DAILY PRN PRN Reason: Constipation Enoxaparin Sodium (Enoxaparin Sodium 40 Mg/0.4 Ml Syringe) 40 mg SUBCUT Q24H [facility] Last Admin: 12/29/20 05:28 Dose: 40 mg Documented by: Furosemide (Furosemide 40 Mg/4 Ml Vial) 40 mg IVPUSH DAILY [facility]; Protocol Glucose (Glucose Gel 15 Gm Gel..Gram.) 15 gm PO Q15M PRN; Protocol PRN Reason: per Hypoglycemia Standing Ord. Guaifenesin (Guaifenesin La 600 Mg Tab.Er.12h) 1,200 mg PO BID [facility] Last Admin: 12/29/20 20:45 Dose: 1,200 mg Documented by: Ceftriaxone Sodium 1 gm/ (Sodium Chloride) 50 mls @ 100 mls/hr IV Q24H [facility] Last Infusion: 12/29/20 21:25 Dose: Infused Documented by: Doxycycline Hyclate 100 mg/ (Sodium Chloride) 250 mls @ 166.67 mls/hr IV Q12H [facility] Last Infusion: 12/29/20 14:42 Dose: Infused Documented by: Insulin Human Lispro (Insulin Lispro 100 Unit/Ml 3 Ml Vial) 0 unit SUBCUT QIDACHS [facility]; Protocol Last Admin: 12/29/20 20:45 Dose: 8 unit Documented by: Ipratropium [place] (Ipratropium [place] Marko 0.03 % 30 Ml [place]) 2 spray NOSTRIL-B BID [facility] Last Admin: 12/29/20 20:46 Dose: 2 spray Documented by: Lidocaine (Lidocaine 4 % Patch Adh..Patch) 1 patch TRANSDERMA DAILY [facility]; Protocol Last Admin: 12/29/20 08:33 Dose: 1 patch Documented by: Lisinopril (Lisinopril 5 Mg Tablet) 5 mg PO DAILY [facility]; Protocol Last Admin: 12/29/20 08:37 Dose: 5 mg Documented by: Methylprednisolone Sodium Succinate (Methylprednisolone Sod Succ 40 Mg/Ml Vial) 80 mg IVPUSH Q8H [facility] Last Admin: 12/29/20 19:48 Dose: 80 mg Documented by: Metoprolol Succinate (Metoprolol Succinate Er 25 Mg Tab.Er.24h) 25 mg PO DAILY [facility]; Protocol Last Admin: 12/29/20 08:35 Dose: 25 mg Documented by: Non-Formulary Medication (Umeclidinium-Vilanterol [Anoro Ellipta]) 1 puff INHALE RDAILY [facility] Last Admin: 12/29/20 08:40 Dose: 1 puff Documented by: Ondansetron HCl (Ondansetron Hcl 4 Mg/2 Ml Vial) 4 mg IVPUSH Q8H PRN PRN Reason: Nausea and Vomiting Pioglitazone HCl (Pioglitazone Hcl 15 Mg Tablet) 15 mg PO DAILY [facility] Last Admin: 12/29/20 08:37 Dose: 15 mg Documented by: Sodium Chloride (0.9 % Sodium Chloride Flush 3 Ml Syringe) 3 ml IVFLUSH QSHIFT [facility] Last Admin: 12/29/20 19:48 Dose: 3 ml Documented by: Home Medications Medication Instructions Recorded Confirmed Last Taken Type umeclidinium 62.5 mcg-vilanterol 1 puff INHALATION DAILY 12/24/20 12/24/20 Unknown History 25 mcg/actuation powdr for inhalation (Anoro Ellipta) Physical Exam Vital Signs: Vital Signs: Last Vital Signs Temp 97.5 F 12/29/20 19:08 Pulse 89 12/29/20 19:08 Resp 20 12/29/20 20:17 BP 160/69 H 12/29/20 19:08 Pulse Ox 91 L 12/29/20 19:08 Oxygen Flow Rate 6 12/24/20 16:46 Body Mass Index 24.3 Const: General: cooperative Eyes: General: appearance normal, both eyes and all related structures Resp: Effort & Inspection: normal respiratory effort Cardio: Rate: regular rate Rhythm: regular rhythm GI: Palpation (GI): Soft to palpation and nontender Skin: General skin exam: no rashes or lesions noted Results Labs CBC & Chem 7: 12/29/20 06:12 12/29/20 06:12 Labs: Short CBC 12/29/20 Range/Units 06:12 WBC 9.6 (4.8-10.8) X10*3/uL Hgb 10.1 L (14.0-18.0) g/dl Hct 29.8 L (42.0-52.0) % Plt Count 146 L (160-400) X10*3/uL BMP 12/29/20 06:12 Sodium 143 Potassium 4.1 Chloride 107 Carbon Dioxide 29 BUN 27 H Creatinine 0.91 Calcium 7.8 L Liver Function 12/29/20 Range/Units 06:12 Total Bilirubin 1.2 H (0.0-1.0) mg/dL AST 27 (5-37) U/L ALT 54 H (0-40) U/L Alkaline Phosphatase 111 (39-117) U/L Albumin 2.8 L (3.5-5.0) g/dL Microbiology Microbiology Results: Microbiology 12/24/20 22:17 Blood - Venous Blood Culture - Preliminary No growth after 48 hours. 12/24/20 20:39 Blood - Venous Blood Culture - Preliminary No growth after 48 hours. Assessment and Plan (1) Acute and chronic respiratory failure with hypoxia: Status: Acute He has some post infectious pneumonia likely after RSV There is possible MRSA or strep pneumonia Suggest Would give Doxycycline and Ceftriaxone 3-5 d IV likely and then po Doxycycline and Ceftin for 10 day (2) RSV (acute bronchiolitis due to respiratory syncytial virus): Status: Acute (3) Pneumonia: Qualifiers: Laterality: left Lung location: lower lobe of lung Pneumonia type: due to unspecified organism Qualified Code(s): J18.9 - Pneumonia, unspecified organism Status: Acute (4) Acute respiratory failure with hypoxia: Status: Acute
[2020-12-30] VITALS (18 sets, daily range): BP systolic 140–180; BP diastolic 65–78; PULSE 69–104; RESP 18–24; TEMP 35.5–36.6; O2SAT 90–99
[2020-12-30] MEDS: methylPREDNISolone Sod Succ 40 MG/ML VIAL 80 MG IVPUSH ×3 (03:35→20:10)
[2020-12-30] MEDS: Enoxaparin Sodium 40 MG/0.4 ML SYRINGE SUBCUT (06:07)
[2020-12-30 07:21] LABS: Glucose, Whole Blood 347 mg/dL (60-115)
[2020-12-30] MEDS: Insulin Lispro 100 UNIT/ML 3 ML VIAL SUBCUT ×4 (07:41→21:31)
[2020-12-30] MEDS: Furosemide 40 MG/4 ML VIAL IVPUSH (07:42)
[2020-12-30] MEDS: lisinopriL 5 MG TABLET PO (07:43)
[2020-12-30] MEDS: Metoprolol Succinate ER 25 MG TAB.ER.24H PO (07:44)
[2020-12-30] MEDS: guaiFENesin LA 600 MG TAB.ER.12H 1200 MG PO ×2 (07:44→20:10)
[2020-12-30] MEDS: Atorvastatin Calcium 40 MG TABLET PO (07:45)
[2020-12-30] MEDS: Aspirin Enteric Coated 81 MG TABLET.DR PO (07:45)
[2020-12-30] MEDS: 0.9 % Sodium Chloride Flush 3 ML SYRINGE IVFLUSH ×3 (07:46→21:32)
[2020-12-30] MEDS: Lidocaine 4 % Patch ADH..PATCH 1 PATCH TRANSDERMA (07:46)
[2020-12-30 08:27] LABS: Hematocrit 33.2 % (42.0-52.0); Hemoglobin 11.5 g/dl (14.0-18.0); Mean Corpuscular HGB Conc 34.6 g/dl (31.0-36.0); Mean Corpuscular Hemoglobin 29.2 pg (27.0-33.0); Mean Corpuscular Volume 84.3 fL (80.0-98.0); Mean Platelet Volume 10.9 fL (9.4-12.4); Platelet Count 180 X10*3/uL (160-400); Red Blood Count 3.94 X10*6/uL (4.60-5.80); Red Cell Distribution Width 13.1 % (11.0-16.0); White Blood Count 11.1 X10*3/uL (4.8-10.8)
--- NOTE | 2020-12-30 08:30 | CA_ITS ---
Transthoracic Echocardiogram Patient (Last, First, Middle): Marc Sandoval L Gender: Male Date of : 1940 Age: 80 Procedure Date: 12/30/2020 Procedure Type: Transthoracic Echocardiogram Location: [facility] [place] Height: 175.26 cm Weight: 74.84 kg BSA: 1.90 m2 Heart Rate: bpm BP: 155 / 70 mmHg Direct Service Worker: AGNEL Referring MD: Kat Gabriel MD Symptoms: hypoxia, r/o CHF Study Quality: Fair ECG Rhythm: Sinus Conclusions: - The left ventricular systolic function is normal. The calculated ejection fraction is 55% by biplane method. - The basal inferior segment is hypokinetic. - There is mild calcification of the aortic valve. - There is mild mitral valve regurgitation. Findings Left Ventricle Normal left ventricular cavity size. There is normal left ventricular wall thickness. The left ventricular systolic function is normal. The calculated ejection fraction is 55% by biplane method. E/E prime ratio is between 8 and 15 consistent with indeterminate filling pressures. Evidence suggests grade I (mild) diastolic dysfunction. Wall Motion Rest Echo Findings The basal inferior segment is hypokinetic. Right Ventricle Normal right ventricular cavity size and systolic function. Atria Both atria are normal in size. Aortic Valve There is a normal trileaflet aortic valve. There is mild calcification of the aortic valve. There is no aortic valve stenosis. There is trace (trivial) aortic valve regurgitation. Mitral Valve The mitral valve appears normal. There is mild mitral valve regurgitation. There is no mitral valve stenosis. Pulmonic Valve The pulmonic valve was not well visualized. Tricuspid Valve Normal tricuspid valve structure. There is no tricuspid valve regurgitation. The pulmonary artery systolic pressure is normal. Great Vessels The aortic annulus, sinuses of valsalva, and asc aorta are normal in size. Venous The inferior vena cava was not well visualized. Pericardium/Pleural There is no evidence of pericardial effusion. Prior Study Comparison No significant change compared to prior study dated: 03/29/2020. Inferior wall motion abnormality noted previously, but image quality suboptimal in that study. Measurements 2D Linear Measurements IVSd: 0.90 0.6-0.9/0.6-1.0 cm LVIDd: 3.37 3.9-5.3/4.2-5.9 cm LVIDd Index: 1.77 2.4-3.2/2.2-3.1 cm/m2 LVIDs: 2.11 2.0-3.6 cm LVPWd: 0.95 0.7-1.1 cm Ao Root: 3.40 2.1-3.5 cm LA Diam: 3.10 2.7-3.8/3.0-4.0 cm LAIDs Index: 1.63 1.5-2.3 cm/m2 LV Mass: 107.78 67-162/88-224 g LV Mass Index: 56.73 43-95/49-115 g/m2 LVOT Diam: 2.10 3.0+(-)1.3 cm 2D Systolic Function EF 4C: 54.60 >55% EF 2C: 55.10 >55% EF BiP: 54.50 >55% Mitral Valve MV Pk E: 0.76 MV PK A: 1.15 MV Decel Time: 204.00 E/A: 0.70 E'Lateral: 5.33 E'Medial: 5.33 E/E' Med: 14.20 E/E' Lat: 14.20 PHT: 60.00 MVA PHT: 3.67 Decel Gentry: 3.70 Aortic Valve AoV Pk Arnold: 1.40 AoV Mn Arnold: 0.88 AoV VTI: 0.28 AoV Pk Grad: 8.00 Aov Mn Grad: 4.00 SARAHY Cont.VTI: 2.20 LVOT LVOT Pk Arnold: 0.86 LVOT Mn Arnold: 0.59 LVOT VTI: 0.18 LVOT Pk Grad: 3.00 LVOT Mn Grad: 2.00 LVOT Diam: 2.10 LVOT Area: 3.46 Diastolic Function MV Pk E: 0.76 MV Pk A: 1.15 E/A: 0.70 E'Medial: 5.33 E/E' Med: 14.20 E' Laterial: 5.33 E/E' Lat: 14.20 Right Ventricle TAPSE (mm): 1.78 TVS' Arnold: 9.79 Tricuspid Valve TR Pk Arnold: 1.85 TR Pk Grad: 14.00 RA Press: 3.00 RVSP: 17.00 Great Vessels Aorta Ao Root-2D: 3.40 2.0-3.7 cm Ao Asc: 3.10 2.1-3.4 cm Updated in Other Vendor System with Status of Final Abdulaziz Farley MD electronically signed on 12/30/2020 4:17:47 PM with status of Final
[2020-12-30 08:39] LABS: MRSA Nasal PCR NEGATIVE (Negative); SA Nasal PCR NEGATIVE (Negative)
[2020-12-30 08:52] LABS: Anion Gap 11 (12-20); Blood Urea Nitrogen 31 mg/dL (9-16); Calcium 8.1 mg/dL (8.4-10.2); Carbon Dioxide 31 mmol/L (22-29); Chloride 99 mmol/L (96-108); Creatinine Clr Calc Pharmacy 52.1; Estimated Average Glucose 171 mg/dL; Estimated Glomerular Filt Rate > 60; Glucose Random 370 mg/dL (60-115); Hemoglobin A1c % 7.6 %; Potassium 4.1 mmol/L (3.3-5.1); Sodium 137 mmol/L (135-145)
[2020-12-30 08:56] LABS: B Type Natriuretic Peptide 87 pg/mL (<100)
[2020-12-30] MEDS: Insulin Glargine,Hum.rec.anlog 100 UNIT/ML 10 ML VIAL 10 UNIT SUBCUT (09:16)
[2020-12-30 11:28] LABS: Glucose, Whole Blood 409 mg/dL (60-115)
[2020-12-30] MEDS: Albuterol/Iprat 2.5/0.5MG 3 ML AMPUL.NEB INHALE ×3 (11:30→19:39)
[2020-12-30] MEDS: Ipratropium Bromide Nas 0.03 % 30 ML SPRAY 2 SPRAY NOSTRIL-B (12:18)
[2020-12-30] MEDS: Doxycycline Hyclate 100 MG in 0.9 % Sodium Chloride 250 ML 166.67 MG IV ×2 (12:21→21:31)
--- NOTE | 2020-12-30 13:18 | P.PNIM_ITS ---
Subjective Subjective Date of Service: 12/30/20 Interval History: feels a little better breathing-licona still on HFNC with fiO2 75% @ 55 Lpm no fever good appetite slept well Review of Systems Review of Systems: Yes all other systems are reviewed and are negative Physical Exam Vital Signs: Vital Signs: Last Vital Signs Temp 98 F 12/30/20 10:57 Pulse 81 12/30/20 10:57 Resp 20 12/30/20 11:19 BP 143/67 H 12/30/20 10:57 Pulse Ox 96 12/30/20 11:27 Oxygen Flow Rate 6 12/24/20 16:46 Body Mass Index 24.3 Gen: comfortable at rest but dyspneic with moving or talking, on HFNC fiO2 75% @ 55 Lpm HEENT: sclera anicteric, moist mucus membranes Neck: supple Lungs: diminished throughout, fine inspiratory crackles Heart: regular rate and rhythm, no murmurs Abd: soft, non-tender, non-distended Ext: no edema Skin: warm/well-perfused Neuro: alert and oriented x3, no focal findings Psych: appropriate affect Objective Data Active Medications Acetaminophen (Acetaminophen 325 Mg Tablet) 650 mg PO Q6H PRN PRN Reason: Pain, Mild (Pain Scale 1-3) Last Admin: 12/25/20 22:31 Dose: 650 mg Documented by: CHRISTOPHER Albuterol Sulfate (Albuterol Sulfate (0.083%) 2.5 Mg/3 Ml Vial.Neb) 2.5 mg INHALE Q2H PRN PRN Reason: shortness of breath/wheezing Albuterol/Ipratropium (Albuterol/Iprat 2.5/0.5mg 3 Ml Ampul.Neb) 3 ml INHALE R Q4H WHILE AWAKE [facility] Last Admin: 12/30/20 11:30 Dose: 3 ml Documented by: REGINALD Aspirin (Aspirin Enteric Coated 81 Mg Tablet.) 81 mg PO DAILY [facility] Last Admin: 12/30/20 07:45 Dose: 81 mg Documented by: DARON Atorvastatin Calcium (Atorvastatin Calcium 40 Mg Tablet) 40 mg PO DAILY [facility] Last Admin: 12/30/20 07:45 Dose: 40 mg Documented by: DARON Dextrose (Dextrose 50 % 25 Gm/50 Ml Vial) 25 gm IVPUSH Q15M PRN; Protocol PRN Reason: per Hypoglycemia Standing Ord. Docusate Sodium (Docusate Sodium 100 Mg Capsule) 100 mg PO DAILY PRN PRN Reason: Constipation Enoxaparin Sodium (Enoxaparin Sodium 40 Mg/0.4 Ml Syringe) 40 mg SUBCUT Q24H [facility] Last Admin: 12/30/20 06:07 Dose: 40 mg Documented by: MORRIS Furosemide (Furosemide 40 Mg/4 Ml Vial) 40 mg IVPUSH DAILY [facility]; Protocol Last Admin: 12/30/20 07:42 Dose: 40 mg Documented by: DARON Glucose (Glucose Gel 15 Gm Gel..Gram.) 15 gm PO Q15M PRN; Protocol PRN Reason: per Hypoglycemia Standing Ord. Guaifenesin (Guaifenesin La 600 Mg Tab.Er.12h) 1,200 mg PO BID [facility] Last Admin: 12/30/20 07:44 Dose: 1,200 mg Documented by: DARON Ceftriaxone Sodium 1 gm/ (Sodium Chloride) 50 mls @ 100 mls/hr IV Q24H [facility] Last Infusion: 12/29/20 21:25 Dose: 0 mls/hr Documented by: MORRIS Doxycycline Hyclate 100 mg/ (Sodium Chloride) 250 mls @ 166.67 mls/hr IV Q12H [facility] Last Admin: 12/30/20 12:21 Dose: 166.67 mls/hr Documented by: DARON Insulin Glargine (Insulin Glargine,Hum.Rec.Anlog 100 Unit/Ml 10 Ml Vial) 10 unit SUBCUT DAILY [facility] Last Admin: 12/30/20 09:16 Dose: 10 unit Documented by: DARON Insulin Human Lispro (Insulin Lispro 100 Unit/Ml 3 Ml Vial) 0 unit SUBCUT QIDACHS [facility]; Protocol Last Admin: 12/30/20 12:22 Dose: 12 unit Documented by: DARON Ipratropium [place] (Ipratropium [place] Marko 0.03 % 30 Ml [place]) 2 spray NOSTRIL-B BID [facility] Last Admin: 12/30/20 12:18 Dose: 2 spray Documented by: DARON Lidocaine (Lidocaine 4 % Patch Adh..Patch) 1 patch TRANSDERMA DAILY [facility]; Protocol Last Admin: 12/30/20 07:46 Dose: 1 patch Documented by: DARON Lisinopril (Lisinopril 5 Mg Tablet) 5 mg PO DAILY [facility]; Protocol Last Admin: 12/30/20 07:43 Dose: 5 mg Documented by: DARON Methylprednisolone Sodium Succinate (Methylprednisolone Sod Succ 40 Mg/Ml Vial) 80 mg IVPUSH Q8H [facility] Last Admin: 12/30/20 12:18 Dose: 80 mg Documented by: DARON Metoprolol Succinate (Metoprolol Succinate Er 25 Mg Tab.Er.24h) 25 mg PO DAILY [facility]; Protocol Last Admin: 12/30/20 07:44 Dose: 25 mg Documented by: DARON Non-Formulary Medication (Umeclidinium-Vilanterol [Anoro Ellipta]) 1 puff INHALE RDAILY [facility] Last Admin: 12/30/20 09:16 Dose: 1 puff Documented by: DARON Ondansetron HCl (Ondansetron Hcl 4 Mg/2 Ml Vial) 4 mg IVPUSH Q8H PRN PRN Reason: Nausea and Vomiting Pioglitazone HCl (Pioglitazone Hcl 15 Mg Tablet) 15 mg PO DAILY [facility] Last Admin: 12/30/20 07:45 Dose: 15 mg Documented by: DARON Sodium Chloride (0.9 % Sodium Chloride Flush 3 Ml Syringe) 3 ml IVFLUSH QSHIFT [facility] Last Admin: 12/30/20 07:46 Dose: 3 ml Documented by: DARON Labs CBC & Chem 7: 12/30/20 08:14 12/30/20 08:14 Labs: Laboratory Results - last 24 hr 12/29/20 12/29/20 12/29/20 14:17 15:55 20:04 MCV MCH MCHC RDW Plt Count MPV Absolute Nucleated RBC Nucleated RBC % (auto) Anion Gap Estim Creat Clear Calc Estimated GFR POC Glucose 285 H 298 H Random Glucose Estimat Average Glucose Hemoglobin A1c % Calcium B-Natriuretic Peptide Nasal Screen MRSA (PCR) Nasal S. aureus Screen Nasal MRSA/S.aureus Interp Ur L.pneumophila Ag Cancelled 12/29/20 12/30/20 12/30/20 20:54 07:06 08:14 MCV 84.3 MCH 29.2 MCHC 34.6 RDW 13.1 Plt Count 180 MPV 10.9 Absolute Nucleated RBC 0.000 Nucleated RBC % (auto) 0.0 Anion Gap Estim Creat Clear Calc Estimated GFR POC Glucose 347 H Random Glucose Estimat Average Glucose Hemoglobin A1c % Calcium B-Natriuretic Peptide Nasal Screen MRSA (PCR) NEGATIVE Nasal S. aureus Screen NEGATIVE Nasal MRSA/S.aureus Interp SEE NOTE Ur L.pneumophila Ag 12/30/20 12/30/20 12/30/20 08:14 08:14 08:14 MCV MCH MCHC RDW Plt Count MPV Absolute Nucleated RBC Nucleated RBC % (auto) Anion Gap 11 L Estim Creat Clear Calc 52.1 Estimated GFR > 60 POC Glucose Random Glucose 370 H* Estimat Average Glucose 171 Hemoglobin A1c % 7.6 Calcium 8.1 L B-Natriuretic Peptide 87 Nasal Screen MRSA (PCR) Nasal S. aureus Screen Nasal MRSA/S.aureus Interp Ur L.pneumophila Ag 12/30/20 10:56 MCV MCH MCHC RDW Plt Count MPV Absolute Nucleated RBC Nucleated RBC % (auto) Anion Gap Estim Creat Clear Calc Estimated GFR POC Glucose 409 H* Random Glucose Estimat Average Glucose Hemoglobin A1c % Calcium B-Natriuretic Peptide Nasal Screen MRSA (PCR) Nasal S. aureus Screen Nasal MRSA/S.aureus Interp Ur L.pneumophila Ag Microbiology Microbiology Results: Microbiology 12/24/20 22:17 Blood Culture - Final Blood - Venous No growth after 5 days. 12/24/20 20:39 Blood Culture - Final Blood - Venous No growth after 5 days. Assessment and Plan (1) Acute and chronic respiratory failure with hypoxia: Status: Acute Assessment and Plan: hospital d#6 80yo M with IPF, COPD, chronic hypoxic RF on 6L O2, DM2, CAD s/p PCI presenting with subacute progressive dyspnea + productive cough admitted for hypoxia with pneumonia, RSV positive # acute/chronic hypoxia - continue HFNC. Pulm consulted- steroids increased. - treat COPD as below - empiric diuresis with furosemide; TTE pending - CTA negative for PE # COPD exacerbation # IPF - high-dose IV methylprednisolone, nebs # RSV bronchiolitis/pneumonia - droplet isolation # CAP - continue ceftriaxone d#6, doxycycline d#3. ID consulted. BCx negative. Legionella UAg pending. PCT low. # chest wall pain - from coughing; continue lidocaine patch # hypoK - repleted # CAD - continue ASA + metoprolol + statin + SAM-I # DM2, A1c 7.3, with steroid-induced hyperglycemia - correction-dose lispro, continue pioglitazone - add Lantus due to hyperglycemia # VTE ppx - LMWH Quality Stroke Does the patient have a stroke diagnosis?: No VTE Prior VTE?: No VTE Risk Level:: Medical - moderate - high VTE Device Contraindication: Treatment Not Indicated VTE Drug Contraindication: N/A - Med Ordered
--- NOTE | 2020-12-30 13:30 | PC.NURSE ---
O2 changed to 55L/60% O2 from 55L/74%. Currently tolerating at 93%
--- NOTE | 2020-12-30 14:51 | PC.NURSE ---
RT decreased o2 to 55L/55%o2. will continue to monitor
[2020-12-30 16:00] LABS: Glucose, Whole Blood 317 mg/dL (60-115)
[2020-12-30 20:33] LABS: Glucose, Whole Blood 336 mg/dL (60-115)
[2020-12-30] MEDS: cefTRIAXone sodium 1 GM in 0.9 % Sodium Chloride 50 ML IV (21:31)
[2020-12-31] VITALS (17 sets, daily range): BP systolic 126–173; BP diastolic 59–72; PULSE 66–97; RESP 17–24; TEMP 36.1–36.7; O2SAT 90–96
[2020-12-31] MEDS: methylPREDNISolone Sod Succ 40 MG/ML VIAL 80 MG IVPUSH ×3 (03:55→20:03)
[2020-12-31] MEDS: Enoxaparin Sodium 40 MG/0.4 ML SYRINGE SUBCUT (04:58)
[2020-12-31 07:13] LABS: Hematocrit 31.5 % (42.0-52.0); Hemoglobin 10.7 g/dl (14.0-18.0); Mean Corpuscular Hemoglobin 28.7 pg (27.0-33.0); Mean Corpuscular Volume 84.5 fL (80.0-98.0); Mean Platelet Volume 11.3 fL (9.4-12.4); Platelet Count 163 X10*3/uL (160-400); Red Blood Count 3.73 X10*6/uL (4.60-5.80); Red Cell Distribution Width 13.1 % (11.0-16.0); White Blood Count 11.2 X10*3/uL (4.8-10.8)
[2020-12-31 07:19] LABS: Glucose, Whole Blood 301 mg/dL (60-115)
[2020-12-31 07:28] LABS: Anion Gap 11 (12-20); Blood Urea Nitrogen 29 mg/dL (9-16); Calcium 7.9 mg/dL (8.4-10.2); Carbon Dioxide 29 mmol/L (22-29); Chloride 100 mmol/L (96-108); Creatinine Clr Calc Pharmacy 67.7; Estimated Glomerular Filt Rate > 60; Glucose Random 307 mg/dL (60-115); Magnesium 1.9 mg/dL (1.6-2.6); Potassium 4.3 mmol/L (3.3-5.1); Sodium 136 mmol/L (135-145)
[2020-12-31 07:35] LABS: B Type Natriuretic Peptide 34 pg/mL (<100)
[2020-12-31] MEDS: Albuterol/Iprat 2.5/0.5MG 3 ML AMPUL.NEB INHALE ×4 (07:47→19:11)
[2020-12-31 07:52] LABS: Procalcitonin 0.05 ng/mL
[2020-12-31] MEDS: Insulin Glargine,Hum.rec.anlog 100 UNIT/ML 10 ML VIAL 14 UNIT SUBCUT (08:50)
[2020-12-31] MEDS: Insulin Lispro 100 UNIT/ML 3 ML VIAL SUBCUT ×4 (08:50→20:04)
[2020-12-31] MEDS: Furosemide 40 MG/4 ML VIAL IVPUSH (08:50)
[2020-12-31] MEDS: guaiFENesin LA 600 MG TAB.ER.12H 1200 MG PO ×2 (08:51→20:04)
[2020-12-31] MEDS: Metoprolol Succinate ER 25 MG TAB.ER.24H PO (08:51)
[2020-12-31] MEDS: lisinopriL 5 MG TABLET PO (08:51)
[2020-12-31] MEDS: Aspirin Enteric Coated 81 MG TABLET.DR PO (08:51)
[2020-12-31] MEDS: Atorvastatin Calcium 40 MG TABLET PO (08:51)
[2020-12-31] MEDS: Doxycycline Hyclate 100 MG in 0.9 % Sodium Chloride 250 ML 166.67 MG IV (08:52)
[2020-12-31] MEDS: 0.9 % Sodium Chloride Flush 3 ML SYRINGE IVFLUSH ×3 (08:52→20:05)
--- NOTE | 2020-12-31 09:46 | P.PNPL_ITS ---
Subjective Subjective Date of Service: 12/31/20 Interval history: The patient was seen on exam. The patient continues to be on high-flow. His oxygen requirements have decreased which is reassuring. He is feeling a little better. Objective Data Labs CBC & Chem 7: 12/31/20 06:33 12/31/20 06:33 Labs: Laboratory Results - last 24 hr 12/30/20 12/30/20 12/30/20 10:56 15:53 20:28 WBC RBC Hgb Hct MCV MCH MCHC RDW Plt Count MPV Absolute Nucleated RBC Nucleated RBC % (auto) Sodium Potassium Chloride Carbon Dioxide Anion Gap BUN Creatinine Estim Creat Clear Calc Estimated GFR POC Glucose 409 H* 317 H 336 H Random Glucose Calcium Magnesium B-Natriuretic Peptide Procalcitonin 12/31/20 12/31/20 12/31/20 06:33 06:33 06:33 WBC 11.2 H RBC 3.73 L Hgb 10.7 L Hct 31.5 L MCV 84.5 MCH 28.7 MCHC 34.0 RDW 13.1 Plt Count 163 MPV 11.3 Absolute Nucleated RBC 0.000 Nucleated RBC % (auto) 0.0 Sodium 136 Potassium 4.3 Chloride 100 Carbon Dioxide 29 Anion Gap 11 L BUN 29 H Creatinine 0.87 Estim Creat Clear Calc 67.7 Estimated GFR > 60 POC Glucose Random Glucose 307 H Calcium 7.9 L Magnesium 1.9 B-Natriuretic Peptide 34 Procalcitonin 12/31/20 12/31/20 06:33 07:15 WBC RBC Hgb Hct MCV MCH MCHC RDW Plt Count MPV Absolute Nucleated RBC Nucleated RBC % (auto) Sodium Potassium Chloride Carbon Dioxide Anion Gap BUN Creatinine Estim Creat Clear Calc Estimated GFR POC Glucose 301 H Random Glucose Calcium Magnesium B-Natriuretic Peptide Procalcitonin 0.05 Microbiology Microbiology Results: Microbiology 12/24/20 22:17 Blood - Venous Blood Culture - Final No growth after 5 days. 12/24/20 20:39 Blood - Venous Blood Culture - Final No growth after 5 days. Review of Systems Constitutional: Reports fatigue and Denies night sweats Denies change in voice, Denies lip swelling, Denies mouth pain, Reports nasal congestion, Reports nasal discharge and Denies tongue swelling Cardiovascular: Denies chest pain, Reports dyspnea and Reports dyspnea on exer tion Respiratory: Reports cough, Denies excessive phlegm production, Denies pain on inspiration, Reports dyspnea and Reports dyspnea on exertion Gastrointestinal: Denies abdominal pain Musculoskeletal: Denies no additional musculoskeletal complaints Denies Neuro-related abnormal movements Psychiatric: Denies no additional psychiatric complaints Endocrine: Reports fatigue Hematologic/Lymphatic: Denies easy bleeding and Denies lymphadenopathy Allergic/Immunologic: Denies lip swelling and Denies tongue swelling Physical Exam Vital Signs: Vital Signs: Last Vital Signs Temp 97.6 F 12/31/20 07:54 Pulse 74 12/31/20 09:36 Resp 18 12/31/20 07:55 BP 149/59 H 12/31/20 09:36 Pulse Ox 93 12/31/20 07:54 Oxygen Flow Rate 6 12/24/20 16:46 Body Mass Index 24.3 Const: General: alert Neck: Neck: Yes normal visual inspection, Yes full ROM and Yes no lymphadenopathy Chest: Chest palpation & inspection: normal inspection of the chest Resp: Auscultation: rales, rhonchi and diminished lung sounds Cardio: Rate: regular rate Rhythm: regular rhythm Heart sounds: S1 normal heart sound present and S2 normal heart sound present GI: Palpation (GI): Soft to palpation and nontender Auscultation: normal bowel sounds Skin: General skin exam: rashes and/or lesions noted Procedures Date of Service Date of Service: 12/31/20 Assessment and Plan Assessment and plan (1) RSV (acute bronchiolitis due to respiratory syncytial virus): Status: Acute (2) Acute and chronic respiratory failure with hypoxia: Status: Acute (3) Pneumonia: Status: Acute (4) Interstitial lung disease: Status: Acute (5) IPF (idiopathic pulmonary fibrosis): Status: Acute (6) COPD (chronic obstructive pulmonary disease): Status: Acute Assessment and Plan: Continue high-flow to maintain a pulse ox above 90% Start decreasing Solu-Medrol tomorrow Start ceftriaxone after 8 days of therapy Okay to switch to oral doxycycline complete 14 days Out of bed to chair CPT with symptoms spirometer and Acapella Time Spent With Patient Time: Total time spent is greater than 50% in coordination of care (as documented) at patient's floor/unit and/or counseling patient: Time with patient: 15 - 24 minutes Progress Note: Quality Stroke Does the patient have a stroke diagnosis?: No
[2020-12-31] MEDS: Ipratropium Bromide Nas 0.03 % 30 ML SPRAY 2 SPRAY NOSTRIL-B ×2 (10:24→22:14)
[2020-12-31 11:27] LABS: Glucose, Whole Blood 394 mg/dL (60-115)
[2020-12-31 12:59] LABS: Glucose, Whole Blood 399 mg/dL (60-115)
--- NOTE | 2020-12-31 13:31 | P.PNIM_ITS ---
Subjective Subjective Date of Service: 12/31/20 Interval History: breathing slightly better FiO2 down from 75 to 55% no fever Review of Systems Review of Systems: Yes all other systems are reviewed and are negative Physical Exam Vital Signs: Vital Signs: Last Vital Signs Temp 97.0 F 12/31/20 11:38 Pulse 95 12/31/20 13:27 Resp 22 H 12/31/20 11:38 BP 128/59 L 12/31/20 13:27 Pulse Ox 91 L 12/31/20 13:27 Oxygen Flow Rate 6 12/24/20 16:46 Body Mass Index 24.3 Gen: comfortable at rest but dyspneic with moving or talking, on HFNC fiO2 55% @ 55 Lpm HEENT: sclera anicteric, moist mucus membranes Neck: supple Lungs: diminished throughout, fine inspiratory crackles Heart: regular rate and rhythm, no murmurs Abd: soft, non-tender, non-distended Ext: no edema Skin: warm/well-perfused Neuro: alert and oriented x3, no focal findings Psych: appropriate affect Objective Data Active Medications Acetaminophen (Acetaminophen 325 Mg Tablet) 650 mg PO Q6H PRN PRN Reason: Pain, Mild (Pain Scale 1-3) Last Admin: 12/25/20 22:31 Dose: 650 mg Documented by: CHRISTOPHER Albuterol Sulfate (Albuterol Sulfate (0.083%) 2.5 Mg/3 Ml Vial.Neb) 2.5 mg INHALE Q2H PRN PRN Reason: shortness of breath/wheezing Albuterol/Ipratropium (Albuterol/Iprat 2.5/0.5mg 3 Ml Ampul.Neb) 3 ml INHALE RQ4H WHILE AWAKE [facility] Last Admin: 12/31/20 11:08 Dose: 3 ml Documented by: ELVIN Aspirin (Aspirin Enteric Coated 81 Mg Tablet.Dr) 81 mg PO DAILY [facility] Last Admin: 12/31/20 08:51 Dose: 81 mg Documented by: RENE Atorvastatin Calcium (Atorvastatin Calcium 40 Mg Tablet) 40 mg PO DAILY [facility] Last Admin: 12/31/20 08:51 Dose: 40 mg Documented by: RENE Dextrose (Dextrose 50 % 25 Gm/50 Ml Vial) 25 gm IVPUSH Q15M PRN; Protocol PRN Reason: per Hypoglycemia Standing Ord. Docusate Sodium (Docusate Sodium 100 Mg Capsule) 100 mg PO DAILY PRN PRN Reason: Constipation Enoxaparin Sodium (Enoxaparin Sodium 40 Mg/0.4 Ml Syringe) 40 mg SUBCUT Q24H [facility] Last Admin: 12/31/20 04:58 Dose: 40 mg Documented by: EMELINA Glucose (Glucose Gel 15 Gm Gel..Gram.) 15 gm PO Q15M PRN; Protocol PRN Reason: per Hypoglycemia Standing Ord. Guaifenesin (Guaifenesin La 600 Mg Tab.Er.12h) 1,200 mg PO BID [facility] Last Admin: 12/31/20 08:51 Dose: 1,200 mg Documented by: RENE Ceftriaxone Sodium 1 gm/ (Sodium Chloride) 50 mls @ 100 mls/hr IV Q24H [facility] Last Infusion: 12/30/20 22:07 Dose: 0 mls/hr Documented by: FREDI Doxycycline Hyclate 100 mg/ (Sodium Chloride) 250 mls @ 166.67 mls/hr IV Q12H [facility] Last Infusion: 12/31/20 10:35 Dose: 0 mls/hr Documented by: RENE Insulin Human Lispro (Insulin Lispro 100 Unit/Ml 3 Ml Vial) 0 unit SUBCUT QIDACHS [facility]; Protocol Last Admin: 12/31/20 12:05 Dose: 12 unit Documented by: RENE Ipratropium [place] (Ipratropium [place] Marko 0.03 % 30 Ml [place]) 2 spray NOSTRIL-B BID [facility] Last Admin: 12/31/20 10:24 Dose: 2 spray Documented by: RENE Lidocaine (Lidocaine 4 % Patch Adh..Patch) 1 patch TRANSDERMA DAILY [facility]; Protocol Last Admin: 12/31/20 08:52 Dose: Not Given Documented by: RENE Non-Admin Reason: Patient Refused Lisinopril (Lisinopril 5 Mg Tablet) 5 mg PO DAILY [facility]; Protocol Last Admin: 12/31/20 08:51 Dose: 5 mg Documented by: RENE Methylprednisolone Sodium Succinate (Methylprednisolone Sod Succ 40 Mg/Ml Vial) 80 mg IVPUSH Q8H [facility] Last Admin: 12/31/20 10:31 Dose: 80 mg Documented by: RENE Metoprolol Succinate (Metoprolol Succinate Er 25 Mg Tab.Er.24h) 25 mg PO DAILY [facility]; Protocol Last Admin: 12/31/20 08:51 Dose: 25 mg Documented by: RENE Non-Formulary Medication (Umeclidinium-Vilanterol [Anoro Ellipta]) 1 puff INHALE RDAILY [facility] Last Admin: 12/31/20 07:47 Dose: 1 puff Documented by: ELVIN Ondansetron HCl (Ondansetron Hcl 4 Mg/2 Ml Vial) 4 mg IVPUSH Q8H PRN PRN Reason: Nausea and Vomiting Pioglitazone HCl (Pioglitazone Hcl 15 Mg Tablet) 15 mg PO DAILY [facility] Last Admin: 12/31/20 08:51 Dose: 15 mg Documented by: RENE Sodium Chloride (0.9 % Sodium Chloride Flush 3 Ml Syringe) 3 ml IVFLUSH QSHIFT [facility] Last Admin: 12/31/20 08:52 Dose: 3 ml Documented by: RENE Labs CBC & Chem 7: 12/31/20 06:33 12/31/20 06:33 Labs: Laboratory Results - last 24 hr 12/30/20 12/30/20 12/31/20 15:53 20:28 06:33 MCV 84.5 MCH 28.7 MCHC 34.0 RDW 13.1 Plt Count 163 MPV 11.3 Absolute Nucleated RBC 0.000 Nucleated RBC % (auto) 0.0 Anion Gap Estim Creat Clear Calc Estimated GFR POC Glucose 317 H 336 H Random Glucose Calcium Magnesium B-Natriuretic Peptide Procalcitonin 12/31/20 12/31/20 12/31/20 06:33 06:33 06:33 MCV MCH MCHC RDW Plt Count MPV Absolute Nucleated RBC Nucleated RBC % (auto) Anion Gap 11 L Estim Creat Clear Calc 67.7 Estimated GFR > 60 POC Glucose Random Glucose 307 H Calcium 7.9 L Magnesium 1.9 B-Natriuretic Peptide 34 Procalcitonin 0.05 12/31/20 12/31/20 12/31/20 07:15 11:12 12:55 MCV MCH MCHC RDW Plt Count MPV Absolute Nucleated RBC Nucleated RBC % (auto) Anion Gap Estim Creat Clear Calc Estimated GFR POC Glucose 301 H 394 H* 399 H* Random Glucose Calcium Magnesium B-Natriuretic Peptide Procalcitonin TTE 12/30/20 - The left ventricular systolic function is normal.? The ? calculated ejection fraction is 55% by biplane method. ? - The basal inferior segment is hypokinetic. ? - There is mild calcification of the aortic valve. ? - There is mild mitral valve regurgitation.? ? Assessment and Plan (1) Acute and chronic respiratory failure with hypoxia: Status: Acute Assessment and Plan: hospital d#7 80yo M with IPF, COPD, chronic hypoxic RF on 6L O2, DM2, CAD s/p PCI presenting with subacute progressive dyspnea + productive cough admitted for hypoxia with pneumonia, RSV positive # acute/chronic hypoxia - continue HFNC, wean as tolerated - CTA negative for PE - treat COPD as below - d/c diuretics; does not appear fluid overloaded # COPD exacerbation # IPF - high-dose IV methylprednisolone- start tapering tomorrow, nebs # RSV bronchiolitis/pneumonia - droplet isolation # CAP - continue ceftriaxone d#08/26, doxycycline d#05/02 [IV to PO]. ID consulted. BCx negative. Legionella UAg pending. PCT low. # chest wall pain - from coughing; continue lidocaine patch # hypoK - repleted # CAD - continue ASA + metoprolol + statin + SAM-I # DM2, A1c 7.3, with steroid-induced hyperglycemia - increase correction-dose lispro, continue pioglitazone - increase Lantus # VTE ppx - LMWH Quality Stroke Does the patient have a stroke diagnosis?: No VTE Prior VTE?: No VTE Risk Level:: Medical - moderate - high VTE Device Contraindication: Treatment Not Indicated VTE Drug Contraindication: N/A - Med Ordered
[2020-12-31 15:59] LABS: Glucose, Whole Blood 413 mg/dL (60-115)
--- NOTE | 2020-12-31 16:32 | MHC.CM.PN ---
DP STR. Per MD rounds pt is not ready to dc today. He has several facilities following. He will transport via BLS.
[2020-12-31 19:30] LABS: Glucose, Whole Blood 381 mg/dL (60-115)
[2020-12-31] MEDS: Nystatin Powder 15 GM BOTTLE 1 APPL TOPICAL (22:14)
[2020-12-31] MEDS: cefTRIAXone sodium 1 GM in 0.9 % Sodium Chloride 50 ML IV (22:14)
[2021-01-01] VITALS (17 sets, daily range): BP systolic 104–132; BP diastolic 53–63; PULSE 70–103; RESP 19–25; TEMP 36.1–36.8; O2SAT 88–97
[2021-01-01] MEDS: methylPREDNISolone Sod Succ 40 MG/ML VIAL 80 MG IVPUSH (02:31)
[2021-01-01] MEDS: Enoxaparin Sodium 40 MG/0.4 ML SYRINGE SUBCUT (06:10)
[2021-01-01 07:40] LABS: Glucose, Whole Blood 421 mg/dL (60-115)
[2021-01-01] MEDS: Albuterol/Iprat 2.5/0.5MG 3 ML AMPUL.NEB INHALE ×4 (07:57→19:30)
[2021-01-01] MEDS: 0.9 % Sodium Chloride Flush 3 ML SYRINGE IVFLUSH ×3 (08:24→21:06)
[2021-01-01] MEDS: Insulin Lispro 100 UNIT/ML 3 ML VIAL SUBCUT ×4 (08:24→20:59)
[2021-01-01] MEDS: methylPREDNISolone Sod Succ 40 MG/ML VIAL 60 MG IVPUSH ×2 (08:24→16:40)
[2021-01-01] MEDS: Insulin Glargine,Hum.rec.anlog 100 UNIT/ML 10 ML VIAL 22 UNIT SUBCUT (08:24)
[2021-01-01] MEDS: Lidocaine 4 % Patch ADH..PATCH 1 PATCH TRANSDERMA (08:25)
[2021-01-01] MEDS: lisinopriL 5 MG TABLET PO (08:25)
[2021-01-01] MEDS: Aspirin Enteric Coated 81 MG TABLET.DR PO (08:25)
[2021-01-01] MEDS: Metoprolol Succinate ER 25 MG TAB.ER.24H PO (08:26)
[2021-01-01] MEDS: guaiFENesin LA 600 MG TAB.ER.12H 1200 MG PO ×2 (08:26→20:58)
[2021-01-01] MEDS: Ipratropium Bromide Nas 0.03 % 30 ML SPRAY 2 SPRAY NOSTRIL-B ×2 (08:26→21:07)
[2021-01-01] MEDS: Nystatin Powder 15 GM BOTTLE 1 APPL TOPICAL ×2 (08:30→21:07)
[2021-01-01] MEDS: Atorvastatin Calcium 40 MG TABLET PO (08:32)
[2021-01-01 11:21] LABS: Glucose, Whole Blood 430 mg/dL (60-115)
--- NOTE | 2021-01-01 12:04 | HO.PM.IMPN ---
Subjective Subjective Date of Service: 01/01/21 Interval History: Breathing slightly better, FiO2 down to 50% Gets very dyspneic with any movement or talking Insomnia Review of Systems Review of Systems: Yes all other systems are reviewed and are negative Physical Exam Vital Signs: Vital Signs: Last Vital Signs Temp 98.2 F 01/01/21 11:23 Pulse 70 01/01/21 11:23 Resp 20 01/01/21 11:23 BP 104/53 L 01/01/21 11:23 Pulse Ox 93 01/01/21 11:23 Oxygen Flow Rate 6 12/24/20 16:46 Body Mass Index 24.3 Gen: comfortable at rest but dyspneic with moving or talking, on HFNC fiO2 50% @ 55 Lpm HEENT: sclera anicteric, moist mucus membranes Neck: supple Lungs: diminished throughout, fine inspiratory crackles Heart: regular rate and rhythm, no murmurs Abd: soft, non-tender, non-distended Ext: no edema Skin: warm/well-perfused Neuro: alert and oriented x3, no focal findings Psych: appropriate affect Objective Data Active Medications Acetaminophen (Acetaminophen 325 Mg Tablet) 650 mg PO Q6H PRN PRN Reason: Pain, Mild (Pain Scale 1-3) Last Admin: 12/25/20 22:31 Dose: 650 mg Documented by: CHRISTOPHER Albuterol Sulfate (Albuterol Sulfate (0.083%) 2.5 Mg/3 Ml Vial.Neb) 2.5 mg INHALE Q2H PRN PRN Reason: shortness of breath/wheezing Albuterol/Ipratropium (Albuterol/Iprat 2.5/0.5mg 3 Ml Ampul.Neb) 3 ml INHALE RQ4H WHILE AWAKE [facility] Last Admin: 01/01/21 07:57 Dose: 3 ml Documented by: TOMMY Aspirin (Aspirin Enteric Coated 81 Mg Tablet.) 81 mg PO DAILY [facility] Last Admin: 01/01/21 08:25 Dose: 81 mg Documented by: JOANIE Atorvastatin Calcium (Atorvastatin Calcium 40 Mg Tablet) 40 mg PO DAILY [facility] Last Admin: 01/01/21 08:32 Dose: 40 mg Documented by: JOANIE Dextrose (Dextrose 50 % 25 Gm/50 Ml Vial) 25 gm IVPUSH Q15M PRN; Protocol PRN Reason: per Hypoglycemia Standing Ord. Docusate Sodium (Docusate Sodium 100 Mg Capsule) 100 mg PO DAILY PRN PRN Reason: Constipation Doxycycline Hyclate (Doxycycline Hyclate 100 Mg Tablet) 100 mg PO Q12H [facility] Last Admin: 01/01/21 08:25 Dose: 100 mg Documented by: JOANIE Enoxaparin Sodium (Enoxaparin Sodium 40 Mg/0.4 Ml Syringe) 40 mg SUBCUT Q24H [facility] Last Admin: 01/01/21 06:10 Dose: 40 mg Documented by: GARRET Glucose (Glucose Gel 15 Gm Gel..Gram.) 15 gm PO Q15M PRN; Protocol PRN Reason: per Hypoglycemia Standing Ord. Guaifenesin (Guaifenesin La 600 Mg Tab.Er.12h) 1,200 mg PO BID [facility] Last Admin: 01/01/21 08:26 Dose: 1,200 mg Documented by: JOANIE Ceftriaxone Sodium 1 gm/ (Sodium Chloride) 50 mls @ 100 mls/hr IV Q24H [facility] Last Infusion: 12/31/20 23:23 Dose: 0 mls/hr Documented by: GARRET Insulin Glargine (Insulin Glargine,Hum.Rec.Anlog 100 Unit/Ml 10 Ml Vial) 22 unit SUBCUT DAILY [facility] Last Admin: 01/01/21 08:24 Dose: 22 unit Documented by: JOANIE Insulin Human Lispro (Insulin Lispro 100 Unit/Ml 3 Ml Vial) 0 unit SUBCUT QIDACHS [facility]; Protocol Last Admin: 01/01/21 08:24 Dose: 20 unit Documented by: JOANIE Ipratropium [place] (Ipratropium [place] Marko 0.03 % 30 Ml [place]) 2 spray NOSTRIL-B BID [facility] Last Admin: 01/01/21 08:26 Dose: 2 spray Documented by: JOANIE Lidocaine (Lidocaine 4 % Patch Adh..Patch) 1 patch TRANSDERMA DAILY [facility]; Protocol Last Admin: 01/01/21 08:25 Dose: 1 patch Documented by: JOANIE Lisinopril (Lisinopril 5 Mg Tablet) 5 mg PO DAILY [facility]; Protocol Last Admin: 01/01/21 08:25 Dose: 5 mg Documented by: JOANIE Methylprednisolone Sodium Succinate (Methylprednisolone Sod Succ 40 Mg/Ml Vial) 60 mg IVPUSH Q8H [facility] Last Admin: 01/01/21 08:24 Dose: 60 mg Documented by: JOANIE Metoprolol Succinate (Metoprolol Succinate Er 25 Mg Tab.Er.24h) 25 mg PO DAILY [facility]; Protocol Last Admin: 01/01/21 08:26 Dose: 25 mg Documented by: JOANIE Non-Formulary Medication (Umeclidinium-Vilanterol [Anoro Ellipta]) 1 puff INHALE RDAILY [facility] Last Admin: 01/01/21 08:30 Dose: 1 puff Documented by: JOANIE Nystatin (Nystatin Powder 15 Gm Bottle) 1 appl TOPICAL BID [facility]; Protocol Last Admin: 01/01/21 08:30 Dose: 1 appl Documented by: JOANIE Ondansetron HCl (Ondansetron Hcl 4 Mg/2 Ml Vial) 4 mg IVPUSH Q8H PRN PRN Reason: Nausea and Vomiting Pioglitazone HCl (Pioglitazone Hcl 15 Mg Tablet) 15 mg PO DAILY [facility] Last Admin: 01/01/21 08:25 Dose: 15 mg Documented by: JOANIE Sodium Chloride (0.9 % Sodium Chloride Flush 3 Ml Syringe) 3 ml IVFLUSH QSHIFT [facility] Last Admin: 01/01/21 08:24 Dose: 3 ml Documented by: JOANIE Labs CBC & Chem 7: 12/31/20 06:33 12/31/20 06:33 Labs: Laboratory Results - last 24 hr 12/31/20 12/31/20 12/31/20 12:55 15:54 19:26 POC Glucose 399 H* 413 H* 381 H* 01/01/21 01/01/21 07:33 11:15 POC Glucose 421 H* 430 H* Assessment and Plan (1) Acute and chronic respiratory failure with hypoxia: Status: Acute Assessment and Plan: hospital d#8 80yo M with IPF, COPD, chronic hypoxic RF on 6L O2, DM2, CAD s/p PCI presenting with subacute progressive dyspnea + productive cough admitted for hypoxia with pneumonia, RSV positive # acute/chronic hypoxia - continue HFNC, wean as tolerated - CTA negative for PE - treat COPD as below - d/c'ed diuretics; does not appear fluid overloaded # COPD exacerbation # IPF - high-dose IV methylprednisolone- start tapering today - standing/prn nebs # RSV bronchiolitis/pneumonia - droplet isolation # CAP - complete ceftriaxone d#09/26, doxycycline d#06/02 [IV to PO]. ID consulted. BCx negative. Legionella + pneumococcal UAg pending. PCT low. # chest wall pain - from coughing; continue lidocaine patch # hypoK - repleted # CAD - continue ASA + metoprolol + statin + SAM-I # DM2, A1c 7.3, with steroid-induced hyperglycemia - increase correction-dose lispro further, continue pioglitazone - increase Lantus further # VTE ppx - LMWH Quality Stroke Does the patient have a stroke diagnosis?: No VTE Prior VTE?: No VTE Risk Level:: Medical - moderate - high VTE Device Contraindication: Treatment Not Indicated VTE Drug Contraindication: N/A - Med Ordered
[2021-01-01 16:14] LABS: Glucose, Whole Blood 444 mg/dL (60-115)
[2021-01-01 19:47] LABS: Glucose, Whole Blood 382 mg/dL (60-115)
[2021-01-01] MEDS: Famotidine 20 MG TABLET PO (20:58)
[2021-01-01] MEDS: cefTRIAXone sodium 1 GM in 0.9 % Sodium Chloride 50 ML IV (20:59)
[2021-01-01] MEDS: Melatonin 3 MG TABLET 6 MG PO (20:59)
[2021-01-02] VITALS (15 sets, daily range): BP systolic 102–147; BP diastolic 47–67; PULSE 76–102; RESP 18–20; TEMP 36.1–36.7; O2SAT 83–98
[2021-01-02] MEDS: methylPREDNISolone Sod Succ 40 MG/ML VIAL 60 MG IVPUSH ×3 (00:17→23:39)
[2021-01-02] MEDS: Enoxaparin Sodium 40 MG/0.4 ML SYRINGE SUBCUT (06:16)
[2021-01-02 07:10] LABS: Hematocrit 32.7 % (42.0-52.0); Hemoglobin 11.2 g/dl (14.0-18.0); Mean Corpuscular HGB Conc 34.3 g/dl (31.0-36.0); Mean Corpuscular Hemoglobin 29.9 pg (27.0-33.0); Mean Corpuscular Volume 87.4 fL (80.0-98.0); Platelet Count 154 X10*3/uL (160-400); Red Blood Count 3.74 X10*6/uL (4.60-5.80); Red Cell Distribution Width 14.2 % (11.0-16.0)
[2021-01-02 08:00] LABS: Glucose, Whole Blood 395 mg/dL (60-115)
[2021-01-02] MEDS: Albuterol/Iprat 2.5/0.5MG 3 ML AMPUL.NEB INHALE ×4 (08:11→19:37)
[2021-01-02] MEDS: Insulin Glargine,Hum.rec.anlog 100 UNIT/ML 10 ML VIAL 25 UNIT SUBCUT (08:26)
[2021-01-02] MEDS: Insulin Lispro 100 UNIT/ML 3 ML VIAL SUBCUT ×4 (08:26→19:48)
[2021-01-02] MEDS: Atorvastatin Calcium 40 MG TABLET PO (08:33)
[2021-01-02] MEDS: lisinopriL 5 MG TABLET PO (08:33)
[2021-01-02] MEDS: Aspirin Enteric Coated 81 MG TABLET.DR PO (08:33)
[2021-01-02] MEDS: guaiFENesin LA 600 MG TAB.ER.12H 1200 MG PO ×2 (08:33→19:48)
[2021-01-02] MEDS: Metoprolol Succinate ER 25 MG TAB.ER.24H PO (08:35)
[2021-01-02] MEDS: Famotidine 20 MG TABLET PO ×2 (08:35→19:48)
[2021-01-02] MEDS: Ipratropium Bromide Nas 0.03 % 30 ML SPRAY 2 SPRAY NOSTRIL-B ×2 (08:37→21:36)
[2021-01-02] MEDS: Nystatin Powder 15 GM BOTTLE 1 APPL TOPICAL ×2 (08:37→21:37)
[2021-01-02 08:38] LABS: Procalcitonin 0.09 ng/mL
[2021-01-02] MEDS: 0.9 % Sodium Chloride Flush 3 ML SYRINGE IVFLUSH ×3 (08:38→19:49)
[2021-01-02 09:07] LABS: Anion Gap 12 (12-20); Blood Urea Nitrogen 39 mg/dL (9-16); C Reactive Protein 0.46 mg/dL (< or = 0.50); Calcium 7.8 mg/dL (8.4-10.2); Carbon Dioxide 30 mmol/L (22-29); Creatinine Clr Calc Pharmacy 49.9; Estimated Glomerular Filt Rate 59; Glucose Random 407 mg/dL (60-115); Potassium 4.3 mmol/L (3.3-5.1); Sodium 138 mmol/L (135-145)
[2021-01-02 10:57] LABS: Legionella Ag Urine Not Detected (Not Detected)
[2021-01-02 11:09] LABS: Glucose, Whole Blood 410 mg/dL (60-115)
--- NOTE | 2021-01-02 11:15 | HO.PM.IMPN ---
Subjective Subjective Date of Service: 01/02/21 Interval History: slightly improved but still gets quite dyspneic with eating/talking/activity no chest pain no fever Review of Systems Review of Systems: Yes all other systems are reviewed and are negative Physical Exam Vital Signs: Vital Signs: Last Vital Signs Temp 98 F 01/02/21 08:00 Pulse 91 01/02/21 08:35 Resp 20 01/02/21 08:14 BP 108/62 01/02/21 08:35 Pulse Ox 93 01/02/21 02:53 Oxygen Flow Rate 6 12/24/20 16:46 Body Mass Index 24.3 Gen: comfortable at rest but dyspneic with moving or talking, on HFNC fiO2 50% @ 45 Lpm HEENT: sclera anicteric, moist mucus membranes Neck: supple Lungs: diminished throughout, fine inspiratory crackles Heart: regular rate and rhythm, no murmurs Abd: soft, non-tender, non-distended Ext: no edema Skin: warm/well-perfused Neuro: alert and oriented x3, no focal findings Psych: appropriate affect Objective Data Active Medications Acetaminophen (Acetaminophen 325 Mg Tablet) 650 mg PO Q6H PRN PRN Reason: Pain, Mild (Pain Scale 1-3) Last Admin: 12/25/20 22:31 Dose: 650 mg Documented by: CHRISTOPHER Albuterol Sulfate (Albuterol Sulfate (0.083%) 2.5 Mg/3 Ml Vial.Neb) 2.5 mg INHALE Q2H PRN PRN Reason: shortness of breath/wheezing Albuterol/Ipratropium (Albuterol/Iprat 2.5/0.5mg 3 Ml Ampul.Neb) 3 ml INHALE RQ4H WHILE AWAKE [facility] Last Admin: 01/02/21 11:15 Dose: 3 ml Documented by: ELVIN Aspirin (Aspirin Enteric Coated 81 Mg Tablet.) 81 mg PO DAILY [facility] Last Admin: 01/02/21 08:33 Dose: 81 mg Documented by: JOANIE Atorvastatin Calcium (Atorvastatin Calcium 40 Mg Tablet) 40 mg PO DAILY [facility] Last Admin: 01/02/21 08:33 Dose: 40 mg Documented by: JOANIE Dextrose (Dextrose 50 % 25 Gm/50 Ml Vial) 25 gm IVPUSH Q15M PRN; Protocol PRN Reason: per Hypoglycemia Standing Ord. Docusate Sodium (Docusate Sodium 100 Mg Capsule) 100 mg PO DAILY PRN PRN Reason: Constipation Doxycycline Hyclate (Doxycycline Hyclate 100 Mg Tablet) 100 mg PO Q12H [facility] Last Admin: 01/02/21 08:35 Dose: 100 mg Documented by: JOANIE Enoxaparin Sodium (Enoxaparin Sodium 40 Mg/0.4 Ml Syringe) 40 mg SUBCUT Q24H [facility] Last Admin: 01/02/21 06:16 Dose: 40 mg Documented by: CECILIO Famotidine (Famotidine 20 Mg Tablet) 20 mg PO BID [facility] Last Admin: 01/02/21 08:35 Dose: 20 mg Documented by: JOANIE Glucose (Glucose Gel 15 Gm Gel..Gram.) 15 gm PO Q15M PRN; Protocol PRN Reason: per Hypoglycemia Standing Ord. Guaifenesin (Guaifenesin [place] 600 Mg Tab.Er.12h) 1,200 mg PO BID [facility] Last Admin: 01/02/21 08:33 Dose: 1,200 mg Documented by: JOANIE Insulin Glargine (Insulin Glargine,Hum.Rec.Anlog 100 Unit/Ml 10 Ml Vial) 25 unit SUBCUT DAILY [facility] Last Admin: 01/02/21 08:26 Dose: 25 unit Documented by: JOANIE Insulin Human Lispro (Insulin Lispro 100 Unit/Ml 3 Ml Vial) 0 unit SUBCUT QIDACHS [facility]; Protocol Last Admin: 01/02/21 08:26 Dose: 22 unit Documented by: JOANIE Ipratropium [place] (Ipratropium [place] 0.03 % 30 Ml [place]) 2 spray NOSTRIL-B BID [facility] Last Admin: 01/02/21 08:37 Dose: 2 spray Documented by: JOANIE Lidocaine (Lidocaine 4 % Patch Adh..Patch) 1 patch TRANSDERMA DAILY [facility]; Protocol Last Admin: 01/02/21 08:38 Dose: Not Given Documented by: JOANIE Non-Admin Reason: Patient Refused Lisinopril (Lisinopril 5 Mg Tablet) 5 mg PO DAILY [facility]; Protocol Last Admin: 01/02/21 08:33 Dose: 5 mg Documented by: JOANIE Melatonin (Melatonin 3 Mg Tablet) 6 mg PO BEDTIME [facility] Last Admin: 01/01/21 20:59 Dose: 6 mg Documented by: CHASTITY Methylprednisolone Sodium Succinate (Methylprednisolone Sod Succ 40 Mg/Ml Vial) 60 mg IVPUSH Q12H [facility] Metoprolol Succinate (Metoprolol Succinate Er 25 Mg Tab.Er.24h) 25 mg PO DAILY [facility]; Protocol Last Admin: 01/02/21 08:35 Dose: 25 mg Documented by: JOANIE Non-Formulary Medication (Umeclidinium-Vilanterol [Anoro Ellipta]) 1 puff INHALE RDAILY [facility] Last Admin: 01/02/21 08:35 Dose: 1 puff Documented by: JOANIE Nystatin (Nystatin Powder 15 Gm Bottle) 1 appl TOPICAL BID [facility]; Protocol Last Admin: 01/02/21 08:37 Dose: 1 appl Documented by: JOANIE Ondansetron HCl (Ondansetron Hcl 4 Mg/2 Ml Vial) 4 mg IVPUSH Q8H PRN PRN Reason: Nausea and Vomiting Pioglitazone HCl (Pioglitazone Hcl 15 Mg Tablet) 15 mg PO DAILY [facility] Last Admin: 01/02/21 08:33 Dose: 15 mg Documented by: JOANIE Sodium Chloride (0.9 % Sodium Chloride Flush 3 Ml Syringe) 3 ml IVFLUSH QSHIFT [facility] Last Admin: 01/02/21 08:38 Dose: 3 ml Documented by: JOANIE Labs CBC & Chem 7: 01/02/21 06:03 01/02/21 06:03 Labs: Laboratory Results - last 24 hr 12/29/20 01/01/21 01/01/21 14:17 11:15 16:09 MCV MCH MCHC RDW Plt Count MPV Absolute Nucleated RBC Nucleated RBC % (auto) Anion Gap Estim Creat Clear Calc Estimated GFR POC Glucose 430 H* 444 H* Random Glucose Calcium C-Reactive Protein Procalcitonin Ur L.pneumophila Ag Not Detected Ur Strep pneumoniae Ag SEE NOTE 01/01/21 01/02/21 01/02/21 19:41 06:03 06:03 MCV 87.4 MCH 29.9 MCHC 34.3 RDW 14.2 Plt Count 154 L MPV 12.0 Absolute Nucleated RBC 0.000 Nucleated RBC % (auto) 0.0 Anion Gap 12 Estim Creat Clear Calc 49.9 Estimated GFR 59 POC Glucose 382 H* Random Glucose 407 H* Calcium 7.8 L C-Reactive Protein 0.46 Procalcitonin Ur L.pneumophila Ag Ur Strep pneumoniae Ag 01/02/21 01/02/21 01/02/21 06:03 07:46 10:55 MCV MCH MCHC RDW Plt Count MPV Absolute Nucleated RBC Nucleated RBC % (auto) Anion Gap Estim Creat Clear Calc Estimated GFR POC Glucose 395 H* 410 H* Random Glucose Calcium C-Reactive Protein Procalcitonin 0.09 Ur L.pneumophila Ag Ur Strep pneumoniae Ag Assessment and Plan (1) Acute and chronic respiratory failure with hypoxia: Status: Acute Assessment and Plan: hospital d#9 80yo M with IPF, COPD, chronic hypoxic RF on 6L O2, DM2, CAD s/p PCI presenting with subacute progressive dyspnea + productive cough admitted for hypoxia with pneumonia, RSV positive # acute/chronic hypoxia - continue HFNC, wean as tolerated - CTA negative for PE - treat COPD as below - d/c'ed diuretics; does not appear fluid overloaded # COPD exacerbation # IPF - high-dose IV methylprednisolone- continue tapering - standing/prn nebs # RSV bronchiolitis/pneumonia - droplet isolation # CAP - completed ceftriaxone d#09/26, continue doxycycline d#07/02 [IV to PO]. ID consulted. BCx negative. Legionella + pneumococcal UAg negative. PCT low. # chest wall pain - from coughing; continue lidocaine patch # hypoK - repleted # CAD - continue ASA + metoprolol + statin + SAM-I # DM2, A1c 7.3, with steroid-induced hyperglycemia - increase correction-dose lispro further, continue pioglitazone - increase Lantus further # VTE ppx - LMWH Quality Stroke Does the patient have a stroke diagnosis?: No VTE Prior VTE?: No VTE Risk Level:: Medical - moderate - high VTE Device Contraindication: Treatment Not Indicated VTE Drug Contraindication: N/A - Med Ordered
[2021-01-02 16:09] LABS: Glucose, Whole Blood 265 mg/dL (60-115)
[2021-01-02 19:39] LABS: Glucose, Whole Blood 352 mg/dL (60-115)
[2021-01-02] MEDS: Melatonin 3 MG TABLET 6 MG PO (19:48)
[2021-01-02 23:19] LABS: Glucose, Whole Blood 271 mg/dL (60-115)
[2021-01-02] MEDS: Albuterol Sulfate (0.083%) 2.5 MG/3 ML VIAL.NEB INHALE (23:57)
[2021-01-03] VITALS (12 sets, daily range): BP systolic 101–143; BP diastolic 39–58; PULSE 78–100; RESP 17–20; TEMP 36.2–36.6; O2SAT 88–97
[2021-01-03] MEDS: Enoxaparin Sodium 40 MG/0.4 ML SYRINGE SUBCUT (05:02)
[2021-01-03 07:16] LABS: Glucose, Whole Blood 401 mg/dL (60-115)
[2021-01-03] MEDS: lisinopriL 5 MG TABLET PO (08:07)
[2021-01-03] MEDS: Atorvastatin Calcium 40 MG TABLET PO (08:07)
[2021-01-03] MEDS: guaiFENesin LA 600 MG TAB.ER.12H 1200 MG PO ×2 (08:07→21:22)
[2021-01-03] MEDS: Aspirin Enteric Coated 81 MG TABLET.DR PO (08:08)
[2021-01-03] MEDS: Metoprolol Succinate ER 25 MG TAB.ER.24H PO (08:08)
[2021-01-03] MEDS: Famotidine 20 MG TABLET PO ×2 (08:08→21:22)
[2021-01-03] MEDS: Insulin Glargine,Hum.rec.anlog 100 UNIT/ML 10 ML VIAL 30 UNIT SUBCUT (08:09)
[2021-01-03] MEDS: Insulin Lispro 100 UNIT/ML 3 ML VIAL SUBCUT ×4 (08:10→21:23)
[2021-01-03] MEDS: Insulin Regular, Human 100 UNIT/ML 3 ML VIAL 10 UNIT IVPUSH (08:11)
[2021-01-03] MEDS: 0.9 % Sodium Chloride Flush 3 ML SYRINGE IVFLUSH ×3 (08:11→22:46)
[2021-01-03] MEDS: Albuterol/Iprat 2.5/0.5MG 3 ML AMPUL.NEB INHALE ×4 (08:15→19:34)
[2021-01-03] MEDS: Ipratropium Bromide Nas 0.03 % 30 ML SPRAY 2 SPRAY NOSTRIL-B ×2 (10:48→21:25)
[2021-01-03] MEDS: Nystatin Powder 15 GM BOTTLE 1 APPL TOPICAL ×2 (10:48→21:25)
[2021-01-03] MEDS: methylPREDNISolone Sod Succ 40 MG/ML VIAL IVPUSH ×2 (10:49→21:23)
--- NOTE | 2021-01-03 10:54 | HO.PM.IMPN ---
Subjective Subjective Date of Service: 01/03/21 Interval History: taken off HFNC yesterday, now on [place] 14L cannula still quite dyspneic with talking/minimal activity urine pneumococcal antigen returned positive Review of Systems Review of Systems: Yes all other systems are reviewed and are negative Physical Exam Vital Signs: Vital Signs: Last Vital Signs Temp 97.8 F 01/03/21 07:40 Pulse 100 01/03/21 08:08 Resp 20 01/03/21 07:40 BP 143/55 H 01/03/21 08:08 Pulse Ox 92 01/03/21 07:40 Oxygen Flow Rate 6 12/24/20 16:46 Body Mass Index 24.3 Gen: comfortable at rest but dyspneic with moving or talking, on 14L O2 via [place] canula HEENT: sclera anicteric, moist mucus membranes Neck: supple Lungs: diminished throughout, fine inspiratory crackles Heart: regular rate and rhythm, no murmurs Abd: soft, non-tender, non-distended Ext: no edema Skin: warm/well-perfused Neuro: alert and oriented x3, no focal findings Psych: appropriate affect Objective Data Active Medications Acetaminophen (Acetaminophen 325 Mg Tablet) 650 mg PO Q6H PRN PRN Reason: Pain, Mild (Pain Scale 1-3) Last Admin: 12/25/20 22:31 Dose: 650 mg Documented by: CHRISTOPHER Albuterol Sulfate (Albuterol Sulfate (0.083%) 2.5 Mg/3 Ml Vial.Neb) 2.5 mg INHALE Q2H PRN PRN Reason: shortness of breath/wheezing Last Admin: 01/02/21 23:57 Dose: 2.5 mg Documented by: NNEKA Albuterol/Ipratropium (Albuterol/Iprat 2.5/0.5mg 3 Ml Ampul.Neb) 3 ml INHALE RQ4H WHILE AWAKE [facility] Last Admin: 01/03/21 08:15 Dose: 3 ml Documented by: TOMMY Aspirin (Aspirin Enteric Coated 81 Mg Tablet.) 81 mg PO DAILY [facility] Last Admin: 01/03/21 08:08 Dose: 81 mg Documented by: TAVO Atorvastatin Calcium (Atorvastatin Calcium 40 Mg Tablet) 40 mg PO DAILY [facility] Last Admin: 01/03/21 08:07 Dose: 40 mg Documented by: TAVO Dextrose (Dextrose 50 % 25 Gm/50 Ml Vial) 25 gm IVPUSH Q15M PRN; Protocol PRN Reason: per Hypoglycemia Standing Ord. Docusate Sodium (Docusate Sodium 100 Mg Capsule) 100 mg PO DAILY PRN PRN Reason: Constipation Doxycycline Hyclate (Doxycycline Hyclate 100 Mg Tablet) 100 mg PO Q12H [facility] Last Admin: 01/03/21 08:07 Dose: 100 mg Documented by: TAVO Enoxaparin Sodium (Enoxaparin Sodium 40 Mg/0.4 Ml Syringe) 40 mg SUBCUT Q24H [facility] Last Admin: 01/03/21 05:02 Dose: 40 mg Documented by: KRISTEN Famotidine (Famotidine 20 Mg Tablet) 20 mg PO BID [facility] Last Admin: 01/03/21 08:08 Dose: 20 mg Documented by: TAVO Glucose (Glucose Gel 15 Gm Gel..Gram.) 15 gm PO Q15M PRN; Protocol PRN Reason: per Hypoglycemia Standing Ord. Guaifenesin (Guaifenesin [place] 600 Mg Tab.Er.12h) 1,200 mg PO BID [facility] Last Admin: 01/03/21 08:07 Dose: 1,200 mg Documented by: TAVO Insulin Glargine (Insulin Glargine,Hum.Rec.Anlog 100 Unit/Ml 10 Ml Vial) 30 unit SUBCUT DAILY [facility] Last Admin: 01/03/21 08:09 Dose: 30 unit Documented by: TAVO Insulin Human Lispro (Insulin Lispro 100 Unit/Ml 3 Ml Vial) 0 unit SUBCUT QIDACHS [facility]; Protocol Last Admin: 01/03/21 08:10 Dose: 22 unit Documented by: TAVO Ipratropium [place] (Ipratropium [place] Marko 0.03 % 30 Ml [place]) 2 spray NOSTRIL-B BID [facility] Last Admin: 01/03/21 10:48 Dose: 2 spray Documented by: TAVO Lidocaine (Lidocaine 4 % Patch Adh..Patch) 1 patch TRANSDERMA DAILY [facility]; Protocol Last Admin: 01/03/21 08:15 Dose: Not Given Documented by: TAVO Non-Admin Reason: Patient Refused Lisinopril (Lisinopril 5 Mg Tablet) 5 mg PO DAILY [facility]; Protocol Last Admin: 01/03/21 08:07 Dose: 5 mg Documented by: TAVO Melatonin (Melatonin 3 Mg Tablet) 6 mg PO BEDTIME [facility] Last Admin: 01/02/21 19:48 Dose: 6 mg Documented by: KRISTEN Methylprednisolone Sodium Succinate (Methylprednisolone Sod Succ 40 Mg/Ml Vial) 40 mg IVPUSH Q12H [facility] Last Admin: 01/03/21 10:49 Dose: 40 mg Documented by: TAVO Metoprolol Succinate (Metoprolol Succinate Er 25 Mg Tab.Er.24h) 25 mg PO DAILY [facility]; Protocol Last Admin: 01/03/21 08:08 Dose: 25 mg Documented by: TAVO Non-Formulary Medication (Umeclidinium-Vilanterol [Anoro Ellipta]) 1 puff INHALE RDAILY [facility] Last Admin: 01/02/21 08:35 Dose: 1 puff Documented by: JOANIE Nystatin (Nystatin Powder 15 Gm Bottle) 1 appl TOPICAL BID [facility]; Protocol Last Admin: 01/03/21 10:48 Dose: 1 appl Documented by: TAVO Ondansetron HCl (Ondansetron Hcl 4 Mg/2 Ml Vial) 4 mg IVPUSH Q8H PRN PRN Reason: Nausea and Vomiting Pioglitazone HCl (Pioglitazone Hcl 15 Mg Tablet) 15 mg PO DAILY [facility] Last Admin: 01/03/21 08:06 Dose: 15 mg Documented by: TAVO Sodium Chloride (0.9 % Sodium Chloride Flush 3 Ml Syringe) 3 ml IVFLUSH QSHIFT [facility] Last Admin: 01/03/21 08:11 Dose: 3 ml Documented by: TAVO Labs CBC & Chem 7: 01/02/21 06:03 01/02/21 06:03 Labs: Laboratory Results - last 24 hr 12/29/20 01/02/21 01/02/21 14:17 10:55 16:04 POC Glucose 410 H* 265 H Ur L.pneumophila Ag Not Detected Ur Strep pneumoniae Ag SEE NOTE 01/02/21 01/02/21 01/03/21 19:35 23:15 07:09 POC Glucose 352 H* 271 H 401 H* Ur L.pneumophila Ag Ur Strep pneumoniae Ag Assessment and Plan (1) Acute and chronic respiratory failure with hypoxia: Status: Acute Assessment and Plan: hospital d#10 80yo M with IPF, COPD, chronic hypoxic RF on 6L O2, DM2, CAD s/p PCI presenting with subacute progressive dyspnea + productive cough admitted for hypoxia with pneumonia, RSV positive # acute/chronic hypoxia - continue supplemental O2, wean as tolerated - CTA negative for PE - treat COPD as below - d/c'ed diuretics; does not appear fluid overloaded # COPD exacerbation # IPF - high-dose IV methylprednisolone- continue tapering daily - standing/prn nebs # RSV bronchiolitis/pneumonia - droplet isolation # CAP - completed ceftriaxone d#09/26, continue doxycycline d#08/02 [IV to PO]. ID consulted. BCx negative. Legionella UAg negative, pneumococcal UAgs positive but already got 8d of ceftriaxone and PCT low. # chest wall pain - from coughing; continue lidocaine patch # hypoK - repleted # CAD - continue ASA + metoprolol + statin + SAM-I # DM2, A1c 7.3, with steroid-induced hyperglycemia - increase correction-dose lispro further, continue pioglitazone - increase Lantus further - will give 1 dose IV insulin # VTE ppx - LMWH Quality Stroke Does the patient have a stroke diagnosis?: No VTE Prior VTE?: No VTE Risk Level:: Medical - moderate - high VTE Device Contraindication: Treatment Not Indicated VTE Drug Contraindication: N/A - Med Ordered
[2021-01-03 11:00] LABS: Glucose, Whole Blood 343 mg/dL (60-115)
--- NOTE | 2021-01-03 11:20 | MHC.CM.PN ---
Per ROUNDS discussion, Patient is not yet medically cleared for dc (taken off HFNC yesterday, on [place] 14L now,IV Solu Medrol);INPATIENT PULMONARY SNF is the goal for dc and CM will continue to follow.
[2021-01-03 16:10] LABS: Glucose, Whole Blood 195 mg/dL (60-115)
[2021-01-03 19:59] LABS: Glucose, Whole Blood 354 mg/dL (60-115)
--- NOTE | 2021-01-03 21:05 | MHC.PIE ---
p; poc 354. i; dr hutchinson notified per protocol. give humalog 24u per sliding scale e; will cont to moniotor
[2021-01-03] MEDS: Melatonin 3 MG TABLET 6 MG PO (21:22)
[2021-01-04] VITALS (14 sets, daily range): BP systolic 100–149; BP diastolic 48–65; PULSE 86–110; RESP 16–22; TEMP 36.1–36.9; O2SAT 88–98
[2021-01-04] MEDS: Albuterol/Iprat 2.5/0.5MG 3 ML AMPUL.NEB INHALE ×5 (02:38→20:21)
--- NOTE | 2021-01-04 02:38 | MHC.PIE ---
p; pt O2 sat 70%. note; pt in bed resting. i; non rebreaather applied. respiratory notifed. O2 adjusted to 8L NC p; O2 sat 84 while pt asleep. i; O2 adjusted to 11 L. pt c/o sob, resp notified, prn upd given e; will cont to monitor
[2021-01-04] MEDS: Enoxaparin Sodium 40 MG/0.4 ML SYRINGE SUBCUT (05:06)
[2021-01-04 06:39] LABS: Hematocrit 31.2 % (42.0-52.0); Hemoglobin 10.3 g/dl (14.0-18.0); Mean Corpuscular Hemoglobin 28.8 pg (27.0-33.0); Mean Corpuscular Volume 87.2 fL (80.0-98.0); Mean Platelet Volume 11.9 fL (9.4-12.4); Platelet Count 137 X10*3/uL (160-400); Red Blood Count 3.58 X10*6/uL (4.60-5.80); Red Cell Distribution Width 14.4 % (11.0-16.0)
[2021-01-04 07:01] LABS: Anion Gap 8 (12-20); Blood Urea Nitrogen 38 mg/dL (9-16); Calcium 7.9 mg/dL (8.4-10.2); Carbon Dioxide 31 mmol/L (22-29); Chloride 101 mmol/L (96-108); Creatinine Clr Calc Pharmacy 60.1; Estimated Glomerular Filt Rate > 60; Glucose Random 356 mg/dL (60-115); Potassium 4.4 mmol/L (3.3-5.1); Sodium 136 mmol/L (135-145)
[2021-01-04 07:40] LABS: Glucose, Whole Blood 301 mg/dL (60-115)
[2021-01-04] MEDS: lisinopriL 5 MG TABLET PO (08:57)
[2021-01-04] MEDS: Atorvastatin Calcium 40 MG TABLET PO (08:57)
[2021-01-04] MEDS: Famotidine 20 MG TABLET PO ×2 (08:58→20:32)
[2021-01-04] MEDS: Metoprolol Succinate ER 25 MG TAB.ER.24H PO (08:58)
[2021-01-04] MEDS: Aspirin Enteric Coated 81 MG TABLET.DR PO (08:58)
[2021-01-04] MEDS: guaiFENesin LA 600 MG TAB.ER.12H 1200 MG PO ×2 (08:58→20:33)
[2021-01-04] MEDS: 0.9 % Sodium Chloride Flush 3 ML SYRINGE IVFLUSH ×2 (08:59→15:35)
[2021-01-04] MEDS: Nystatin Powder 15 GM BOTTLE 1 APPL TOPICAL ×2 (09:00→20:33)
[2021-01-04] MEDS: Ipratropium Bromide Nas 0.03 % 30 ML SPRAY 2 SPRAY NOSTRIL-B ×2 (09:00→20:32)
[2021-01-04] MEDS: Insulin Glargine,Hum.rec.anlog 100 UNIT/ML 10 ML VIAL 30 UNIT SUBCUT (09:02)
[2021-01-04] MEDS: Insulin Lispro 100 UNIT/ML 3 ML VIAL SUBCUT ×4 (09:02→20:33)
[2021-01-04] MEDS: methylPREDNISolone Sod Succ 40 MG/ML VIAL IVPUSH (09:15)
[2021-01-04 11:17] LABS: Glucose, Whole Blood 241 mg/dL (60-115)
[2021-01-04 16:00] LABS: Glucose, Whole Blood 249 mg/dL (60-115)
--- NOTE | 2021-01-04 18:05 | HO.PM.IMPN ---
Subjective Subjective Date of Service: 01/04/21 Interval History: Hypoxia Review of Systems Shortness of breath seems improving as per patient but still has oxygen demand. Denies any chest pain or abdominal pain or nausea or vomiting Leg swelling seems improving Physical Exam Vital Signs: Vital Signs: Last Vital Signs Temp 97.5 F 01/04/21 15:01 Pulse 110 H 01/04/21 15:01 Resp 20 01/04/21 15:01 BP 112/63 01/04/21 15:01 Pulse Ox 90 L 01/04/21 15:01 Oxygen Flow Rate 6 12/24/20 16:46 Body Mass Index 24.3 Gen: comfortable at rest but dyspneic with moving ,flactuatiung 5-7 L O2 via [place] HEENT: sclera anicteric, moist mucus membranes Neck: supple Lungs: diminished throughout, fine inspiratory crackles Heart: regular rate and rhythm, no murmurs Abd: soft, non-tender, non-distended Ext: no edema Skin: warm/well-perfused Neuro: alert and oriented x3, no focal findings Psych: appropriate affect ? Objective Data Active Medications Acetaminophen (Acetaminophen 325 Mg Tablet) 650 mg PO Q6H PRN PRN Reason: Pain, Mild (Pain Scale 1-3) Last Admin: 12/25/20 22:31 Dose: 650 mg Documented by: CHRISTOPHER Albuterol Sulfate (Albuterol Sulfate (0.083%) 2.5 Mg/3 Ml Vial.Neb) 2.5 mg INHALE Q2H PRN PRN Reason: shortness of breath/wheezing Last Admin: 01/02/21 23:57 Dose: 2.5 mg Documented by: NNEKA Albuterol/Ipratropium (Albuterol/Iprat 2.5/0.5mg 3 Ml Ampul.Neb) 3 ml INHALE RQ4H WHILE AWAKE [facility] Last Admin: 01/04/21 14:40 Dose: 3 ml Documented by: CAMILLA Aspirin (Aspirin Enteric Coated 81 Mg Tablet.) 81 mg PO DAILY [facility] Last Admin: 01/04/21 08:58 Dose: 81 mg Documented by: DARON Atorvastatin Calcium (Atorvastatin Calcium 40 Mg Tablet) 40 mg PO DAILY [facility] Last Admin: 01/04/21 08:57 Dose: 40 mg Documented by: DARON Dextrose (Dextrose 50 % 25 Gm/50 Ml Vial) 25 gm IVPUSH Q15M PRN; Protocol PRN Reason: per Hypoglycemia Standing Ord. Docusate Sodium (Docusate Sodium 100 Mg Capsule) 100 mg PO DAILY PRN PRN Reason: Constipation Doxycycline Hyclate (Doxycycline Hyclate 100 Mg Tablet) 100 mg PO Q12H [facility] Last Admin: 01/04/21 08:57 Dose: 100 mg Documented by: DARON Enoxaparin Sodium (Enoxaparin Sodium 40 Mg/0.4 Ml Syringe) 40 mg SUBCUT Q24H [facility] Last Admin: 01/04/21 05:06 Dose: 40 mg Documented by: STEPHANIE Famotidine (Famotidine 20 Mg Tablet) 20 mg PO BID [facility] Last Admin: 01/04/21 08:58 Dose: 20 mg Documented by: DARON Glucose (Glucose Gel 15 Gm Gel..Gram.) 15 gm PO Q15M PRN; Protocol PRN Reason: per Hypoglycemia Standing Ord. Guaifenesin (Guaifenesin [place] 600 Mg Tab.Er.12h) 1,200 mg PO BID [facility] Last Admin: 01/04/21 08:58 Dose: 1,200 mg Documented by: DARON Insulin Glargine (Insulin Glargine,Hum.Rec.Anlog 100 Unit/Ml 10 Ml Vial) 30 unit SUBCUT DAILY [facility] Last Admin: 01/04/21 09:02 Dose: 30 unit Documented by: DARON Insulin Human Lispro (Insulin Lispro 100 Unit/Ml 3 Ml Vial) 0 unit SUBCUT QIDACHS [facility]; Protocol Last Admin: 01/04/21 16:23 Dose: 12 unit Documented by: NUZHAT Ipratropium [place] (Ipratropium [place] 0.03 % 30 Ml [place]) 2 spray NOSTRIL-B BID [facility] Last Admin: 01/04/21 09:00 Dose: 2 spray Documented by: DARON Lidocaine (Lidocaine 4 % Patch Adh..Patch) 1 patch TRANSDERMA DAILY [facility]; Protocol Last Admin: 01/04/21 09:04 Dose: Not Given Documented by: DARON Non-Admin Reason: Patient Refused Lisinopril (Lisinopril 5 Mg Tablet) 5 mg PO DAILY [facility]; Protocol Last Admin: 01/04/21 08:57 Dose: 5 mg Documented by: DARON Melatonin (Melatonin 3 Mg Tablet) 6 mg PO BEDTIME [facility] Last Admin: 01/03/21 21:22 Dose: 6 mg Documented by: STEPHANIE Methylprednisolone Sodium Succinate (Methylprednisolone Sod Succ 40 Mg/Ml Vial) 40 mg IVPUSH DAILY [facility] Last Admin: 01/04/21 09:15 Dose: 40 mg Documented by: DARON Metoprolol Succinate (Metoprolol Succinate Er 25 Mg Tab.Er.24h) 25 mg PO DAILY [facility]; Protocol Last Admin: 01/04/21 08:58 Dose: 25 mg Documented by: DARON Non-Formulary Medication (Umeclidinium-Vilanterol [Anoro Ellipta]) 1 puff INHALE RDAILY [facility] Last Admin: 01/04/21 09:01 Dose: 1 puff Documented by: DARON Nystatin (Nystatin Powder 15 Gm Bottle) 1 appl TOPICAL BID [facility]; Protocol Last Admin: 01/04/21 09:00 Dose: 1 appl Documented by: DARON Ondansetron HCl (Ondansetron Hcl 4 Mg/2 Ml Vial) 4 mg IVPUSH Q8H PRN PRN Reason: Nausea and Vomiting Pioglitazone HCl (Pioglitazone Hcl 15 Mg Tablet) 15 mg PO DAILY [facility] Last Admin: 01/04/21 08:57 Dose: 15 mg Documented by: DARON Sodium Chloride (0.9 % Sodium Chloride Flush 3 Ml Syringe) 3 ml IVFLUSH QSHIFT [facility] Last Admin: 01/04/21 15:35 Dose: 3 ml Documented by: NUZHAT Labs CBC & Chem 7: 01/04/21 06:24 01/04/21 06:24 Labs: Laboratory Results - last 24 hr 01/03/21 01/04/21 01/04/21 19:53 06:24 06:24 MCV 87.2 MCH 28.8 MCHC 33.0 RDW 14.4 Plt Count 137 L MPV 11.9 Absolute Nucleated RBC 0.000 Nucleated RBC % (auto) 0.0 Anion Gap 8 L Estim Creat Clear Calc 60.1 Estimated GFR > 60 POC Glucose 354 H* Random Glucose 356 H* Calcium 7.9 L 01/04/21 01/04/21 01/04/21 07:35 11:13 15:56 MCV MCH MCHC RDW Plt Count MPV Absolute Nucleated RBC Nucleated RBC % (auto) Anion Gap Estim Creat Clear Calc Estimated GFR POC Glucose 301 H 241 H 249 H Random Glucose Calcium Assessment and Plan (1) Acute and chronic respiratory failure with hypoxia: Status: Acute (2) RSV (acute bronchiolitis due to respiratory syncytial virus): Status: Acute (3) Pneumonia: Status: Acute Assessment and Plan: 80yo M with IPF, COPD, chronic hypoxic RF on 6L O2, DM2, CAD s/p PCI presenting with subacute progressive dyspnea + productive cough admitted for hypoxia with pneumonia, RSV positive 1. acute/chronic hypoxia: continue supplemental O2, wean as tolerated,CTA negative for PE, treat COPD as below d/c'ed diuretics; does not appear fluid overloaded 2.COPD exacerbation # IPF - high-dose IV methylprednisolone- continue tapering daily - standing/prn nebs #3.RSV bronchiolitis/pneumonia - droplet isolation 4. CAP - completed ceftriaxone d#09/26, discussed with ID: continue doxycycline d#08/02 [IV to PO].? ID consulted.? BCx negative.? Legionella UAg negative, pneumococcal UAgs positive but already got 8d of ceftriaxone and? PCT low. 5. chest wall pain - from coughing; continue lidocaine patch 6. hypoK - repleted 7. CAD- continue ASA + metoprolol + statin + SAM-I 9.DM2, A1c 7.3, with steroid-induced hyperglycemia - increase correction-dose lispro further, continue pioglitazone - increase Lantus further - will give 1 dose IV insulin # VTE ppx - LMWH ? Quality Stroke Does the patient have a stroke diagnosis?: No VTE Prior VTE?: No VTE Risk Level:: Medical - moderate - high VTE Device Contraindication: Treatment Not Indicated VTE Drug Contraindication: N/A - Med Ordered
[2021-01-04 19:33] LABS: Glucose, Whole Blood 207 mg/dL (60-115)
[2021-01-04] MEDS: Melatonin 3 MG TABLET 6 MG PO (20:33)
[2021-01-05] VITALS (12 sets, daily range): BP systolic 109–168; BP diastolic 50–82; PULSE 78–98; RESP 18–22; TEMP 36.4–36.9; O2SAT 90–100
[2021-01-05] MEDS: 0.9 % Sodium Chloride Flush 3 ML SYRINGE IVFLUSH ×4 (00:42→21:01)
[2021-01-05] MEDS: Enoxaparin Sodium 40 MG/0.4 ML SYRINGE SUBCUT (06:16)
[2021-01-05 07:47] LABS: Glucose, Whole Blood 94 mg/dL (60-115)
[2021-01-05] MEDS: Albuterol/Iprat 2.5/0.5MG 3 ML AMPUL.NEB INHALE ×4 (08:02→19:21)
[2021-01-05] MEDS: Aspirin Enteric Coated 81 MG TABLET.DR PO (10:03)
[2021-01-05] MEDS: lisinopriL 5 MG TABLET PO (10:03)
[2021-01-05] MEDS: methylPREDNISolone Sod Succ 40 MG/ML VIAL IVPUSH ×2 (10:03→21:00)
[2021-01-05] MEDS: guaiFENesin LA 600 MG TAB.ER.12H 1200 MG PO ×2 (10:04→21:01)
[2021-01-05] MEDS: Metoprolol Succinate ER 25 MG TAB.ER.24H PO (10:04)
[2021-01-05] MEDS: Atorvastatin Calcium 40 MG TABLET PO (10:04)
[2021-01-05] MEDS: Insulin Glargine,Hum.rec.anlog 100 UNIT/ML 10 ML VIAL 30 UNIT SUBCUT (10:04)
[2021-01-05] MEDS: Famotidine 20 MG TABLET PO ×2 (10:12→21:01)
[2021-01-05] MEDS: Nystatin Powder 15 GM BOTTLE 1 APPL TOPICAL ×2 (10:26→21:00)
[2021-01-05 11:20] LABS: Glucose, Whole Blood 187 mg/dL (60-115)
[2021-01-05] MEDS: Insulin Lispro 100 UNIT/ML 3 ML VIAL SUBCUT ×3 (11:59→21:00)
--- NOTE | 2021-01-05 12:27 | MHC.CM.PN ---
Per ROUNDS discussion, Patient is not yet medically cleared for dc (responding slowly but stil lSOB).IP Pulmonary Rehab/STR is the goal and CM will continue to follow for possible need to adjust the dc plan.
[2021-01-05 13:07] LABS: VBG Base Excess 4.5 mmol/L; VBG HCO3 31 mmol/L (22-26); VBG pCO2 56 mmHg; VBG pH 7.35 (7.32-7.43); VBG pO2 54 mmHg
[2021-01-05 13:10] LABS: Venous Blood Gas Refer to POC result
[2021-01-05 13:32] LABS: Anion Gap 13 (12-20); Blood Urea Nitrogen 26 mg/dL (9-16); C Reactive Protein 0.48 mg/dL (< or = 0.50); Calcium 8.5 mg/dL (8.4-10.2); Carbon Dioxide 28 mmol/L (22-29); Chloride 104 mmol/L (96-108); Creatinine Clr Calc Pharmacy 60.1; Estimated Glomerular Filt Rate > 60; Glucose Random 167 mg/dL (60-115); Magnesium 1.9 mg/dL (1.6-2.6); Potassium 4.9 mmol/L (3.3-5.1); Sodium 140 mmol/L (135-145)
[2021-01-05 13:50] LABS: Ferritin 525 ng/mL (20-250)
[2021-01-05 16:28] LABS: Glucose, Whole Blood 219 mg/dL (60-115)
--- NOTE | 2021-01-05 16:31 | HO.PM.IMPN ---
Subjective Subjective Date of Service: 01/05/21 Interval History: sob, weak in morningh Review of Systems When seen in the afternoon her his shortness of breath is better in the afternoon Weakness licona also seems better Denies any nausea vomiting Denies any fever or chills. Physical Exam Vital Signs: Vital Signs: Last Vital Signs Temp 97.5 F 01/05/21 15:29 Pulse 85 01/05/21 15:29 Resp 20 01/05/21 15:29 BP 114/50 L 01/05/21 15:29 Pulse Ox 100 01/05/21 15:29 Oxygen Flow Rate 6 12/24/20 16:46 Body Mass Index 24.3 Gen: comfortable at rest but dyspneic with moving ,flactuatiung 7-9 L O2 via [place] HEENT: sclera anicteric, moist mucus membranes Neck: supple Lungs: diminished throughout, fine inspiratory crackles Heart: regular rate and rhythm, no murmurs Abd: soft, non-tender, non-distended Ext: no edema Skin: warm/well-perfused Neuro: alert and oriented x3, no focal findings Psych: appropriate affect Objective Data Active Medications Acetaminophen (Acetaminophen 325 Mg Tablet) 650 mg PO Q6H PRN PRN Reason: Pain, Mild (Pain Scale 1-3) Last Admin: 12/25/20 22:31 Dose: 650 mg Documented by: CHRISTOPHER Albuterol Sulfate (Albuterol Sulfate (0.083%) 2.5 Mg/3 Ml Vial.Neb) 2.5 mg INHALE Q2H PRN PRN Reason: shortness of breath/wheezing Last Admin: 01/02/21 23:57 Dose: 2.5 mg Documented by: NNEKA Albuterol/Ipratropium (Albuterol/Iprat 2.5/0.5mg 3 Ml Ampul.Neb) 3 ml INHALE RQ4H WHILE AWAKE [facility] Last Admin: 01/05/21 15:20 Dose: 3 ml Documented by: ELVIN Aspirin (Aspirin Enteric Coated 81 Mg Tablet.) 81 mg PO DAILY [facility] Last Admin: 01/05/21 10:03 Dose: 81 mg Documented by: HUMBERTO Atorvastatin Calcium (Atorvastatin Calcium 40 Mg Tablet) 40 mg PO DAILY [facility] Last Admin: 01/05/21 10:04 Dose: 40 mg Documented by: HUMBERTO Dextrose (Dextrose 50 % 25 Gm/50 Ml Vial) 25 gm IVPUSH Q15M PRN; Protocol PRN Reason: per Hypoglycemia Standing Ord. Docusate Sodium (Docusate Sodium 100 Mg Capsule) 100 mg PO DAILY PRN PRN Reason: Constipation Doxycycline Hyclate (Doxycycline Hyclate 100 Mg Tablet) 100 mg PO Q12H [facility] Last Admin: 01/05/21 10:04 Dose: 100 mg Documented by: HUMBERTO Enoxaparin Sodium (Enoxaparin Sodium 40 Mg/0.4 Ml Syringe) 40 mg SUBCUT Q24H [facility] Last Admin: 01/05/21 06:16 Dose: 40 mg Documented by: MOISES Famotidine (Famotidine 20 Mg Tablet) 20 mg PO BID [facility] Last Admin: 01/05/21 10:12 Dose: 20 mg Documented by: HUMBERTO Glucose (Glucose Gel 15 Gm Gel..Gram.) 15 gm PO Q15M PRN; Protocol PRN Reason: per Hypoglycemia Standing Ord. Guaifenesin (Guaifenesin La 600 Mg Tab.Er.12h) 1,200 mg PO BID [facility] Last Admin: 01/05/21 10:04 Dose: 1,200 mg Documented by: HUMBERTO Insulin Glargine (Insulin Glargine,Hum.Rec.Anlog 100 Unit/Ml 10 Ml Vial) 30 unit SUBCUT DAILY [facility] Last Admin: 01/05/21 10:04 Dose: 30 unit Documented by: HUMBERTO Insulin Human Lispro (Insulin Lispro 100 Unit/Ml 3 Ml Vial) 0 unit SUBCUT QIDACHS [facility]; Protocol Last Admin: 01/05/21 11:59 Dose: 8 unit Documented by: HUMBERTO Ipratropium [place] (Ipratropium [place] Marko 0.03 % 30 Ml [place]) 2 spray NOSTRIL-B BID [facility] Last Admin: 01/05/21 10:15 Dose: Not Given Documented by: HUMBERTO Non-Admin Reason: n/a Lidocaine (Lidocaine 4 % Patch Adh..Patch) 1 patch TRANSDERMA DAILY [facility]; Protocol Last Admin: 01/05/21 10:27 Dose: Not Given Documented by: HUMBERTO Non-Admin Reason: Patient Refused Lisinopril (Lisinopril 5 Mg Tablet) 5 mg PO DAILY [facility]; Protocol Last Admin: 01/05/21 10:03 Dose: 5 mg Documented by: HUMBERTO Melatonin (Melatonin 3 Mg Tablet) 6 mg PO BEDTIME [facility] Last Admin: 01/04/21 20:33 Dose: 6 mg Documented by: NUZHAT Methylprednisolone Sodium Succinate (Methylprednisolone Sod Succ 40 Mg/Ml Vial) 40 mg IVPUSH BID [facility] Metoprolol Succinate (Metoprolol Succinate Er 25 Mg Tab.Er.24h) 25 mg PO DAILY [facility]; Protocol Last Admin: 01/05/21 10:04 Dose: 25 mg Documented by: HUMBERTO Non-Formulary Medication (Umeclidinium-Vilanterol [Anoro Ellipta]) 1 puff INHALE RDAILY [facility] Last Admin: 01/05/21 08:08 Dose: 1 puff Documented by: ELVIN Nystatin (Nystatin Powder 15 Gm Bottle) 1 appl TOPICAL BID [facility]; Protocol Last Admin: 01/05/21 10:26 Dose: 1 appl Documented by: HUMBERTO Ondansetron HCl (Ondansetron Hcl 4 Mg/2 Ml Vial) 4 mg IVPUSH Q8H PRN PRN Reason: Nausea and Vomiting Pioglitazone HCl (Pioglitazone Hcl 15 Mg Tablet) 15 mg PO DAILY [facility] Last Admin: 01/05/21 10:05 Dose: Not Given Documented by: HUMBERTO Non-Admin Reason: blood suagr low Sodium Chloride (0.9 % Sodium Chloride Flush 3 Ml Syringe) 3 ml IVFLUSH QSHIFT [facility] Last Admin: 01/05/21 10:06 Dose: 3 ml Documented by: HUMBERTO Labs CBC & Chem 7: 01/04/21 06:24 01/05/21 12:54 Labs: Laboratory Results - last 24 hr 01/04/21 01/05/21 01/05/21 19:28 07:35 11:13 VBG pH VBG pCO2 VBG pO2 VBG HCO3 VBG O2 Saturation VBG Base Excess Anion Gap Estim Creat Clear Calc Estimated GFR POC Glucose 207 H 94 187 H Random Glucose Calcium Magnesium Ferritin C-Reactive Protein 01/05/21 01/05/21 01/05/21 12:54 12:54 13:01 VBG pH 7.35 VBG pCO2 56 VBG pO2 54 VBG HCO3 31 H VBG O2 Saturation 80.0 VBG Base Excess 4.5 Anion Gap 13 Estim Creat Clear Calc 60.1 Estimated GFR > 60 POC Glucose Random Glucose 167 H D Calcium 8.5 D Magnesium 1.9 Ferritin 525 H C-Reactive Protein 0.48 01/05/21 16:22 VBG pH VBG pCO2 VBG pO2 VBG HCO3 VBG O2 Saturation VBG Base Excess Anion Gap Estim Creat Clear Calc Estimated GFR POC Glucose 219 H Random Glucose Calcium Magnesium Ferritin C-Reactive Protein Assessment and Plan (1) Acute and chronic respiratory failure with hypoxia: Status: Acute Assessment and Plan: 80yo M with IPF, COPD, chronic hypoxic RF on 6L O2, DM2, CAD s/p PCI presenting with subacute progressive dyspnea + productive cough admitted for hypoxia with pneumonia, RSV positive 1. acute/chronic hypoxia: continue supplemental O2, wean as tolerated,CTA negative for PE, treat COPD as below ?d/c'ed diuretics; does not appear fluid overloaded 2.COPD exacerbatio/ IPF slow response, oxygen demand fluctuating and titrating slightly up Will continue nebs, will adjust steroids back to IV Solu-Medrol b.i.d. s VBG noted-pH is compensated, patient is feeling better in the afternoon. 3.RSV bronchiolitis/pneumonia - droplet isolation 4. CAP - completed ceftriaxone, discussed with ID:? continue doxycycline d#7 [IV to PO].?? BCx negative.? Legionella UAg negative, pneumococcal UAgs positive but already got 8d of ceftriaxone and? PCT low. 5. chest wall pain - from coughing; continue lidocaine patch 6. hypoK - repleted 7. CAD- continue ASA + metoprolol + statin + SAM-I 8.DM2, A1c 7.3, with steroid-induced hyperglycemia continue current insulin regimen. # VTE ppx - LMWH Quality Stroke Does the patient have a stroke diagnosis?: No VTE Prior VTE?: No VTE Risk Level:: Medical - moderate - high VTE Device Contraindication: Treatment Not Indicated VTE Drug Contraindication: N/A - Med Ordered
[2021-01-05] MEDS: Magnesium Oxide 400 MG TABLET 800 MG PO (17:34)
[2021-01-05 20:05] LABS: Glucose, Whole Blood 270 mg/dL (60-115)
[2021-01-05] MEDS: Melatonin 3 MG TABLET 6 MG PO (21:01)
[2021-01-06] VITALS (11 sets, daily range): BP systolic 102–169; BP diastolic 52–70; PULSE 64–91; RESP 15–20; TEMP 36.5–37.2; O2SAT 87–100
[2021-01-06] MEDS: Enoxaparin Sodium 40 MG/0.4 ML SYRINGE SUBCUT (05:55)
[2021-01-06 07:35] LABS: Glucose, Whole Blood 170 mg/dL (60-115)
[2021-01-06] MEDS: methylPREDNISolone Sod Succ 40 MG/ML VIAL IVPUSH ×3 (08:32→20:54)
[2021-01-06] MEDS: Insulin Lispro 100 UNIT/ML 3 ML VIAL SUBCUT ×4 (08:32→21:03)
[2021-01-06] MEDS: Insulin Glargine,Hum.rec.anlog 100 UNIT/ML 10 ML VIAL 30 UNIT SUBCUT (08:33)
[2021-01-06] MEDS: guaiFENesin LA 600 MG TAB.ER.12H 1200 MG PO ×2 (08:35→20:54)
[2021-01-06] MEDS: Metoprolol Succinate ER 25 MG TAB.ER.24H PO (08:35)
[2021-01-06] MEDS: Famotidine 20 MG TABLET PO ×2 (08:36→20:54)
[2021-01-06] MEDS: Albuterol/Iprat 2.5/0.5MG 3 ML AMPUL.NEB INHALE ×3 (08:36→19:39)
[2021-01-06] MEDS: Atorvastatin Calcium 40 MG TABLET PO (08:36)
[2021-01-06] MEDS: Aspirin Enteric Coated 81 MG TABLET.DR PO (08:36)
[2021-01-06] MEDS: lisinopriL 5 MG TABLET PO (08:36)
[2021-01-06] MEDS: 0.9 % Sodium Chloride Flush 3 ML SYRINGE IVFLUSH ×3 (08:36→20:54)
[2021-01-06] MEDS: Magnesium Oxide 400 MG TABLET 800 MG PO (08:36)
[2021-01-06 09:38] LABS: VBG Base Excess 2.5 mmol/L; VBG HCO3 26 mmol/L (22-26); VBG pCO2 39 mmHg; VBG pH 7.44 (7.32-7.43); VBG pO2 45 mmHg
[2021-01-06 09:41] LABS: Venous Blood Gas Refer to POC result
[2021-01-06] MEDS: Nystatin Powder 15 GM BOTTLE 1 APPL TOPICAL ×2 (11:12→21:06)
[2021-01-06] MEDS: Furosemide 20 MG/2 ML VIAL IVPUSH (11:12)
[2021-01-06] MEDS: Ipratropium Bromide Nas 0.03 % 30 ML SPRAY 2 SPRAY NOSTRIL-B ×2 (11:12→21:06)
[2021-01-06 11:23] LABS: Glucose, Whole Blood 250 mg/dL (60-115)
--- NOTE | 2021-01-06 11:31 | PC.NURSE ---
Skin assessment completed today. Patient has rash to bilateral groin and buttocks, nystatin cream applied. Scattered bruising on arms. No other skin issues noted at this time.
--- NOTE | 2021-01-06 13:54 | P.PNPL_ITS ---
Subjective Subjective Date of Service: 01/06/21 Interval history: 80-year-old gentleman with underlying combination of advanced COPD and pulmonary fibrosis on supplemental oxygen 4-6 L admitted with worsening dyspnea secondary to exacerbation of his underlying pulmonary disease secondary to RSV. Now with, hospitalization and slow recovery. Supplemental oxygen now down to 7 L. Objective Data Labs CBC & Chem 7: 01/04/21 06:24 01/05/21 12:54 Labs: Laboratory Results - last 24 hr 01/05/21 01/05/21 01/06/21 16:22 19:55 07:12 VBG pH VBG pCO2 VBG pO2 VBG HCO3 VBG O2 Saturation VBG Base Excess POC Glucose 219 H 270 H 170 H 01/06/21 01/06/21 09:31 11:15 VBG pH 7.44 H VBG pCO2 39 VBG pO2 45 VBG HCO3 26 VBG O2 Saturation 70.0 VBG Base Excess 2.5 POC Glucose 250 H Microbiology Microbiology Results: Microbiology 12/24/20 22:17 Blood - Venous Blood Culture - Final No growth after 5 days. 12/24/20 20:39 Blood - Venous Blood Culture - Final No growth after 5 days. Review of Systems Constitutional: Reports malaise and Reports weakness Cardiovascular: Denies chest pain and Reports dyspnea Respiratory: Reports dyspnea Reports weakness Physical Exam Vital Signs: Vital Signs: Last Vital Signs Temp 98.0 F 01/06/21 11:27 Pulse 64 01/06/21 11:47 Resp 19 01/06/21 11:27 BP 122/60 01/06/21 11:27 Pulse Ox 93 01/06/21 11:27 Oxygen Flow Rate 6 12/24/20 16:46 Body Mass Index 24.3 Const: General: no acute distress, alert, awake and tired appearing Eyes: Sclerae: sclerae normal EOM: EOMs intact bilaterally Neck: Neck: Yes no lymphadenopathy, Yes trachea midline and Yes supple Resp: Effort & Inspection: normal respiratory effort and no respiratory distress Auscultation: clear to auscultation bilaterally Cardio: Rate: regular rate Rhythm: regular rhythm Heart sounds: no gallops, no murmurs and no rubs GI: Palpation (GI): Soft to palpation and Other GI palpation findings present ( Nontender) Auscultation: normal bowel sounds Extrem: General: No clubbing, No cyanosis and Yes pedal edema ( trace bilateral) Procedures Date of Service Date of Service: 01/06/21 Assessment and Plan Assessment and plan (1) Acute and chronic respiratory failure with hypoxia: Status: Acute (2) RSV (acute bronchiolitis due to respiratory syncytial virus): Status: Acute (3) IPF (idiopathic pulmonary fibrosis): Status: Acute (4) COPD (chronic obstructive pulmonary disease): Status: Acute (5) Supplemental oxygen dependent: Status: Acute Assessment and Plan: Impression: Acute on chronic hypoxic respiratory failure secondary to exacerbation of underlying COPD and IPF with RSV. With slow, but incremental recovery. Recommendation: Titrate prednisone down to 40 mg daily. continue with nebulized bronchodilators. No evidence of pneumonia, consider discontinuation of doxycycline. Patient has significant deconditioning, consider aggressive physical therapy. Time Spent With Patient Time: Total time spent is greater than 50% in coordination of care (as document ed) at patient's floor/unit and/or counseling patient: Time with patient: 25 - 35 minutes Progress Note: Quality Stroke Does the patient have a stroke diagnosis?: No
--- NOTE | 2021-01-06 14:00 | HO.PM.IMPN ---
Subjective Subjective Date of Service: 01/06/21 Interval History: sob Review of Systems Shortness of breath seems slightly better than yesterday, still weak but says feels slightly better His sats are is fluctuating Denies any nausea vomiting or abdominal pain or fever chills. Physical Exam Vital Signs: Vital Signs: Last Vital Signs Temp 98.0 F 01/06/21 11:27 Pulse 64 01/06/21 11:47 Resp 19 01/06/21 11:27 BP 122/60 01/06/21 11:27 Pulse Ox 93 01/06/21 11:27 Oxygen Flow Rate 6 12/24/20 16:46 Body Mass Index 24.3 Gen: comfortable at rest but dyspneic with moving ,flactuatiung 7-9 L O2 via [place] canula HEENT: sclera anicteric, moist mucus membranes Neck: supple Lungs: diminished similar to yesterday, few scattered rhonchii Heart: regular rate and rhythm, no murmurs Abd: soft, non-tender, non-distended Ext: no edema Skin: warm/well-perfused Neuro: alert and oriented x3, no focal findings Psych: appropriate affect Objective Data Active Medications Acetaminophen (Acetaminophen 325 Mg Tablet) 650 mg PO Q6H PRN PRN Reason: Pain, Mild (Pain Scale 1-3) Last Admin: 12/25/20 22:31 Dose: 650 mg Documented by: CHRISTOPHER Albuterol Sulfate (Albuterol Sulfate (0.083%) 2.5 Mg/3 Ml Vial.Neb) 2.5 mg INHALE Q2H PRN PRN Reason: shortness of breath/wheezing Last Admin: 01/02/21 23:57 Dose: 2.5 mg Documented by: NNEKA Albuterol/Ipratropium (Albuterol/Iprat 2.5/0.5mg 3 Ml Ampul.Neb) 3 ml INHALE RQ4H WHILE AWAKE [facility] Last Admin: 01/06/21 11:46 Dose: 3 ml Documented by: ANGELA Aspirin (Aspirin Enteric Coated 81 Mg Tablet.) 81 mg PO DAILY [facility] Last Admin: 01/06/21 08:36 Dose: 81 mg Documented by: RENE Atorvastatin Calcium (Atorvastatin Calcium 40 Mg Tablet) 40 mg PO DAILY [facility] Last Admin: 01/06/21 08:36 Dose: 40 mg Documented by: RENE Dextrose (Dextrose 50 % 25 Gm/50 Ml Vial) 25 gm IVPUSH Q15M PRN; Protocol PRN Reason: per Hypoglycemia Standing Ord. Docusate Sodium (Docusate Sodium 100 Mg Capsule) 100 mg PO DAILY PRN PRN Reason: Constipation Doxycycline Hyclate (Doxycycline Hyclate 100 Mg Tablet) 100 mg PO Q12H [facility] Last Admin: 01/06/21 08:35 Dose: 100 mg Documented by: RENE Enoxaparin Sodium (Enoxaparin Sodium 40 Mg/0.4 Ml Syringe) 40 mg SUBCUT Q24H [facility] Last Admin: 01/06/21 05:55 Dose: 40 mg Documented by: NANIKKIEOC Famotidine (Famotidine 20 Mg Tablet) 20 mg PO BID [facility] Last Admin: 01/06/21 08:36 Dose: 20 mg Documented by: RENE Glucose (Glucose Gel 15 Gm Gel..Gram.) 15 gm PO Q15M PRN; Protocol PRN Reason: per Hypoglycemia Standing Ord. Guaifenesin (Guaifenesin La 600 Mg Tab.Er.12h) 1,200 mg PO BID [facility] Last Admin: 01/06/21 08:35 Dose: 1,200 mg Documented by: RENE Insulin Glargine (Insulin Glargine,Hum.Rec.Anlog 100 Unit/Ml 10 Ml Vial) 30 unit SUBCUT DAILY [facility] Last Admin: 01/06/21 08:33 Dose: 30 unit Documented by: RENE Insulin Human Lispro (Insulin Lispro 100 Unit/Ml 3 Ml Vial) 0 unit SUBCUT QIDACHS [facility]; Protocol Last Admin: 01/06/21 12:25 Dose: 12 unit Documented by: RENE Ipratropium Jay (Ipratropium [place] Marko 0.03 % 30 Ml [place]) 2 spray NOSTRIL-B BID [facility] Last Admin: 01/06/21 11:12 Dose: 2 spray Documented by: RENE Lidocaine (Lidocaine 4 % Patch Adh..Patch) 1 patch TRANSDERMA DAILY [facility]; Protocol Last Admin: 01/06/21 08:38 Dose: Not Given Documented by: RENE Non-Admin Reason: Patient Refused Lisinopril (Lisinopril 5 Mg Tablet) 5 mg PO DAILY [facility]; Protocol Last Admin: 01/06/21 08:36 Dose: 5 mg Documented by: RENE Magnesium Oxide (Magnesium Oxide 400 Mg Tablet) 800 mg PO DAILY [facility] Last Admin: 01/06/21 08:36 Dose: 800 mg Documented by: RENE Melatonin (Melatonin 3 Mg Tablet) 6 mg PO BEDTIME [facility] Last Admin: 01/05/21 21:01 Dose: 6 mg Documented by: JOSHUAOC Methylprednisolone Sodium Succinate (Methylprednisolone Sod Succ 40 Mg/Ml Vial) 40 mg IVPUSH TID [facility] Metoprolol Succinate (Metoprolol Succinate Er 25 Mg Tab.Er.24h) 25 mg PO DAILY [facility]; Protocol Last Admin: 01/06/21 08:35 Dose: 25 mg Documented by: RENE Non-Formulary Medication (Umeclidinium-Vilanterol [Anoro Ellipta]) 1 puff INHALE RDAILY [facility] Last Admin: 01/06/21 11:12 Dose: 1 puff Documented by: RENE Nystatin (Nystatin Powder 15 Gm Bottle) 1 appl TOPICAL BID [facility]; Protocol Last Admin: 01/06/21 11:12 Dose: 1 appl Documented by: RENE Ondansetron HCl (Ondansetron Hcl 4 Mg/2 Ml Vial) 4 mg IVPUSH Q8H PRN PRN Reason: Nausea and Vomiting Pioglitazone HCl (Pioglitazone Hcl 15 Mg Tablet) 15 mg PO DAILY [facility] Last Admin: 01/06/21 08:36 Dose: 15 mg Documented by: RENE Sodium Chloride (0.9 % Sodium Chloride Flush 3 Ml Syringe) 3 ml IVFLUSH QSHIFT [facility] Last Admin: 01/06/21 08:36 Dose: 3 ml Documented by: RENE Labs CBC & Chem 7: 01/04/21 06:24 01/05/21 12:54 Labs: Laboratory Results - last 24 hr 01/05/21 01/05/21 01/06/21 16:22 19:55 07:12 VBG pH VBG pCO2 VBG pO2 VBG HCO3 VBG O2 Saturation VBG Base Excess POC Glucose 219 H 270 H 170 H 01/06/21 01/06/21 09:31 11:15 VBG pH 7.44 H VBG pCO2 39 VBG pO2 45 VBG HCO3 26 VBG O2 Saturation 70.0 VBG Base Excess 2.5 POC Glucose 250 H Assessment and Plan (1) Acute and chronic respiratory failure with hypoxia: Status: Acute (2) RSV (acute bronchiolitis due to respiratory syncytial virus): Status: Acute Assessment and Plan: 80yo M with IPF, COPD, chronic hypoxic RF on 6L O2, DM2, CAD s/p PCI presenting with subacute progressive dyspnea + productive cough admitted for hypoxia with pneumonia, RSV positive 1. acute/chronic hypoxia: continue supplemental O2, wean as tolerated,CTA negative for PE, treat COPD as below. echo:on 11/29: left ventricular systolic function is normal.? The ? calculated ejection fraction is 55% by biplane method. ? - The basal inferior segment is hypokinetic. ? - There is mild calcification of the aortic valve. ? - There is mild mitral valve regurgitation.?d/c'ed diuretics; does not appear fluid overloaded 2.COPD exacerbatio/ IPF slow response, oxygen demand fluctuating and titrating slightly up Will continue nebs, will adjust steroids back to IV Solu-Medrol tid VBG noted-pH is compensated, patient is feeling slightly better than yesterday cxr and pulm eval added . 3.RSV bronchiolitis/pneumonia - droplet isolation 4. CAP - completed ceftriaxone, discussed with ID:? continue doxycycline d#11/02 [IV to PO].?? BCx negative.? Legionella UAg negative, pneumococcal UAgs positive but already got 8d of ceftriaxone and? PCT low. 5. chest wall pain - from coughing; continue lidocaine patch 6. hypoK - repleted 7. CAD- continue ASA + metoprolol + statin + SAM-I 8.DM2, A1c 7.3, with steroid-induced hyperglycemia continue current insulin regimen. VTE ppx- LMWH Quality Stroke Does the patient have a stroke diagnosis?: No VTE Prior VTE?: No VTE Risk Level:: Medical - moderate - high VTE Device Contraindication: Treatment Not Indicated VTE Drug Contraindication: N/A - Med Ordered
[2021-01-06 16:47] LABS: Glucose, Whole Blood 235 mg/dL (60-115)
[2021-01-06] MEDS: Melatonin 3 MG TABLET 6 MG PO (20:54)
[2021-01-06 21:11] LABS: Glucose, Whole Blood 197 mg/dL (60-115)
[2021-01-07] VITALS (10 sets, daily range): BP systolic 113–159; BP diastolic 58–89; PULSE 77–101; RESP 18–20; TEMP 36.5–37.2; O2SAT 88–100
[2021-01-07] MEDS: Enoxaparin Sodium 40 MG/0.4 ML SYRINGE SUBCUT (05:19)
[2021-01-07 06:51] LABS: Anion Gap 11 (12-20); Blood Urea Nitrogen 27 mg/dL (9-16); Calcium 8.2 mg/dL (8.4-10.2); Carbon Dioxide 29 mmol/L (22-29); Chloride 101 mmol/L (96-108); Estimated Glomerular Filt Rate > 60; Glucose Random 263 mg/dL (60-115); Potassium 5.5 mmol/L (3.3-5.1); Sodium 135 mmol/L (135-145)
[2021-01-07 07:25] LABS: Glucose, Whole Blood 217 mg/dL (60-115)
[2021-01-07] MEDS: Magnesium Oxide 400 MG TABLET 800 MG PO (07:49)
[2021-01-07] MEDS: Metoprolol Succinate ER 25 MG TAB.ER.24H PO (07:49)
[2021-01-07] MEDS: Famotidine 20 MG TABLET PO ×2 (07:49→19:27)
[2021-01-07] MEDS: Aspirin Enteric Coated 81 MG TABLET.DR PO (07:50)
[2021-01-07] MEDS: Atorvastatin Calcium 40 MG TABLET PO (07:50)
[2021-01-07] MEDS: guaiFENesin LA 600 MG TAB.ER.12H 1200 MG PO ×2 (07:50→19:27)
[2021-01-07] MEDS: lisinopriL 5 MG TABLET PO (07:50)
[2021-01-07] MEDS: Insulin Lispro 100 UNIT/ML 3 ML VIAL SUBCUT ×4 (07:51→20:21)
[2021-01-07] MEDS: Insulin Glargine,Hum.rec.anlog 100 UNIT/ML 10 ML VIAL 30 UNIT SUBCUT (07:51)
[2021-01-07] MEDS: methylPREDNISolone Sod Succ 40 MG/ML VIAL IVPUSH ×3 (07:51→19:27)
[2021-01-07] MEDS: Nystatin Powder 15 GM BOTTLE 1 APPL TOPICAL ×2 (07:53→20:22)
[2021-01-07] MEDS: 0.9 % Sodium Chloride Flush 3 ML SYRINGE IVFLUSH ×3 (07:53→19:27)
[2021-01-07] MEDS: Albuterol/Iprat 2.5/0.5MG 3 ML AMPUL.NEB INHALE ×3 (07:59→15:37)
[2021-01-07] MEDS: Sodium Zirconium Cyclosilicate 10 GM POWD.PACK PO ×2 (09:32→18:24)
--- NOTE | 2021-01-07 11:16 | MHC.CM.PN ---
Per ROUNDS discussion,Patient is not yet medically cleared for dc (11L O2,IV Solu Medrol).STR/IP Pulmonary Rehab is the goal and CM will follow for possible need to adjust the dc plan.
[2021-01-07 11:35] LABS: Glucose, Whole Blood 259 mg/dL (60-115)
[2021-01-07] MEDS: Ipratropium Bromide Nas 0.03 % 30 ML SPRAY 2 SPRAY NOSTRIL-B ×2 (13:04→20:22)
--- NOTE | 2021-01-07 16:19 | HO.PM.IMPN ---
Subjective Subjective Date of Service: 01/07/21 Interval History: Acute hypoxic respiratory failure secondary to copd/ipf/RSV. Review of Systems Shortness of breath seems to be improving slowly he is also put feeling more stent licona better today Denies any nausea vomiting or abdominal pain or cough or phlegm Physical Exam Vital Signs: Vital Signs: Last Vital Signs Temp 98.9 F 01/07/21 15:44 Pulse 94 01/07/21 15:44 Resp 19 01/07/21 15:44 BP 130/89 01/07/21 15:44 Pulse Ox 98 01/07/21 15:44 Oxygen Flow Rate 6 12/24/20 16:46 Body Mass Index 24.3 Gen: comfortable at rest but dyspneic with moving ,7l O2 oxygen HEENT: sclera anicteric, moist mucus membranes Neck: supple Lungs: diminished similar to yesterday, few scattered rhonchii Heart: regular rate and rhythm, no murmurs Abd: soft, non-tender, non-distended Ext: no edema Skin: warm/well-perfused Neuro: alert and oriented x3, no focal findings Psych: appropriate affect Objective Data Active Medications Acetaminophen (Acetaminophen 325 Mg Tablet) 650 mg PO Q6H PRN PRN Reason: Pain, Mild (Pain Scale 1-3) Last Admin: 12/25/20 22:31 Dose: 650 mg Documented by: CHRISTOPHER Albuterol Sulfate (Albuterol Sulfate (0.083%) 2.5 Mg/3 Ml Vial.Neb) 2.5 mg INHALE Q2H PRN PRN Reason: shortness of breath/wheezing Last Admin: 01/02/21 23:57 Dose: 2.5 mg Documented by: NNEKA Albuterol/Ipratropium (Albuterol/Iprat 2.5/0.5mg 3 Ml Ampul.Neb) 3 ml INHALE RQ4H WHILE AWAKE [facility] Last Admin: 01/07/21 15:37 Dose: 3 ml Documented by: REGINALD Aspirin (Aspirin Enteric Coated 81 Mg Tablet.) 81 mg PO DAILY [facility] Last Admin: 01/07/21 07:50 Dose: 81 mg Documented by: SARA Atorvastatin Calcium (Atorvastatin Calcium 40 Mg Tablet) 40 mg PO DAILY [facility] Last Admin: 01/07/21 07:50 Dose: 40 mg Documented by: SARA Dextrose (Dextrose 50 % 25 Gm/50 Ml Vial) 25 gm IVPUSH Q15M PRN; Protocol PRN Reason: per Hypoglycemia Standing Ord. Docusate Sodium (Docusate Sodium 100 Mg Capsule) 100 mg PO DAILY PRN PRN Reason: Constipation Doxycycline Hyclate (Doxycycline Hyclate 100 Mg Tablet) 100 mg PO Q12H [facility] Last Admin: 01/07/21 07:49 Dose: 100 mg Documented by: SARA Enoxaparin Sodium (Enoxaparin Sodium 40 Mg/0.4 Ml Syringe) 40 mg SUBCUT Q24H [facility] Last Admin: 01/07/21 05:19 Dose: 40 mg Documented by: NANIKKIEOC Famotidine (Famotidine 20 Mg Tablet) 20 mg PO BID [facility] Last Admin: 01/07/21 07:49 Dose: 20 mg Documented by: SARA Glucose (Glucose Gel 15 Gm Gel..Gram.) 15 gm PO Q15M PRN; Protocol PRN Reason: per Hypoglycemia Standing Ord. Guaifenesin (Guaifenesin La 600 Mg Tab.Er.12h) 1,200 mg PO BID [facility] Last Admin: 01/07/21 07:50 Dose: 1,200 mg Documented by: SARA Insulin Glargine (Insulin Glargine,Hum.Rec.Anlog 100 Unit/Ml 10 Ml Vial) 30 unit SUBCUT DAILY [facility] Last Admin: 01/07/21 07:51 Dose: 30 unit Documented by: SARA Insulin Human Lispro (Insulin Lispro 100 Unit/Ml 3 Ml Vial) 0 unit SUBCUT QIDACHS [facility]; Protocol Last Admin: 01/07/21 12:28 Dose: 16 unit Documented by: SARA Ipratropium [place] (Ipratropium [place] Marko 0.03 % 30 Ml [place]) 2 spray NOSTRIL-B BID [facility] Last Admin: 01/07/21 13:04 Dose: 2 spray Documented by: SARA Lidocaine (Lidocaine 4 % Patch Adh..Patch) 1 patch TRANSDERMA DAILY [facility]; Protocol Last Admin: 01/07/21 07:53 Dose: Not Given Documented by: SARA Non-Admin Reason: Patient Refused Lisinopril (Lisinopril 5 Mg Tablet) 5 mg PO DAILY [facility]; Protocol Last Admin: 01/07/21 07:50 Dose: 5 mg Documented by: SARA Magnesium Oxide (Magnesium Oxide 400 Mg Tablet) 800 mg PO DAILY [facility] Last Admin: 01/07/21 07:49 Dose: 800 mg Documented by: SARA Melatonin (Melatonin 3 Mg Tablet) 6 mg PO BEDTIME [facility] Last Admin: 01/06/21 20:54 Dose: 6 mg Documented by: GARRET Methylprednisolone Sodium Succinate (Methylprednisolone Sod Succ 40 Mg/Ml Vial) 40 mg IVPUSH TID [facility] Last Admin: 01/07/21 15:49 Dose: 40 mg Documented by: SARA Metoprolol Succinate (Metoprolol Succinate Er 25 Mg Tab.Er.24h) 25 mg PO DAILY [facility]; Protocol Last Admin: 01/07/21 07:49 Dose: 25 mg Documented by: SARA Non-Formulary Medication (Umeclidinium-Vilanterol [Anoro Ellipta]) 1 puff INHALE RDAILY [facility] Last Admin: 01/07/21 13:04 Dose: 1 puff Documented by: SARA Nystatin (Nystatin Powder 15 Gm Bottle) 1 appl TOPICAL BID [facility]; Protocol Last Admin: 01/07/21 07:53 Dose: 1 appl Documented by: SARA Ondansetron HCl (Ondansetron Hcl 4 Mg/2 Ml Vial) 4 mg IVPUSH Q8H PRN PRN Reason: Nausea and Vomiting Pioglitazone HCl (Pioglitazone Hcl 15 Mg Tablet) 15 mg PO DAILY [facility] Last Admin: 01/07/21 07:50 Dose: 15 mg Documented by: SARA Sodium Chloride (0.9 % Sodium Chloride Flush 3 Ml Syringe) 3 ml IVFLUSH QSHIFT [facility] Last Admin: 01/07/21 15:49 Dose: 3 ml Documented by: SARA Labs CBC & Chem 7: 01/04/21 06:24 01/07/21 06:19 Labs: Laboratory Results - last 24 hr 01/06/21 01/06/21 01/07/21 16:29 20:57 06:19 Anion Gap 11 L Estim Creat Clear Calc 62.0 Estimated GFR > 60 POC Glucose 235 H 197 H Random Glucose 263 H D Calcium 8.2 L 01/07/21 01/07/21 07:13 11:22 Anion Gap Estim Creat Clear Calc Estimated GFR POC Glucose 217 H 259 H Random Glucose Calcium Assessment and Plan (1) Acute and chronic respiratory failure with hypoxia: Status: Acute (2) RSV (acute bronchiolitis due to respiratory syncytial virus): Status: Acute (3) Acute respiratory failure with hypoxia: Status: Acute Assessment and Plan: 80yo M with IPF, COPD, chronic hypoxic RF on 6L O2, DM2, CAD s/p PCI presenting with subacute progressive dyspnea + productive cough admitted for hypoxia with pneumonia, RSV positive 1. acute/chronic hypoxia: continue supplemental O2, wean as tolerated,CTA negative for PE, treat COPD as below. echo:on 11/29: left ventricular systolic function is normal.? The ? calculated ejection fraction is 55% by biplane method. ? - The basal inferior segment is hypokinetic. ? - There is mild calcification of the aortic valve. ? - There is mild mitral valve regurgitation.?d/c'ed diuretics; does not appear fluid overloaded 2.COPD exacerbatio/ IPF slow response, oxygen demand fluctuating and titrating slightly up Will continue nebs, will adjust steroids back to IV Solu-Medrol taper slowly VBG noted-pH is compensated, patient is feelingimprovin pulm -taper steriods . 3.RSV bronchiolitis/pneumonia- droplet isolation 4. CAP- completed ceftriaxone, discussed with ID:? continue doxycycline d#/ [IV to PO].?? BCx negative.? Legionella UAg negative, pneumococcal UAgs positive but already got 8d of ceftriaxone and? PCT low. 5. chest wall pain- from coughing; continue lidocaine patch 6. hypoK- repleted 7. CAD- continue ASA + metoprolol + statin + SAM-I. 8.DM2, A1c 7.3, with steroid-induced hyperglycemia continue current insulin regimen. 9. Hyperkalemia :added [facility] Stroke Does the patient have a stroke diagnosis?: No VTE Prior VTE?: No VTE Risk Level:: Medical - moderate - high VTE Device Contraindication: Treatment Not Indicated VTE Drug Contraindication: N/A - Med Ordered
[2021-01-07 16:25] LABS: Glucose, Whole Blood 264 mg/dL (60-115)
[2021-01-07] MEDS: Melatonin 3 MG TABLET 6 MG PO (20:22)
[2021-01-07 20:37] LABS: Glucose, Whole Blood 161 mg/dL (60-115)
[2021-01-07] MEDS: ondansetron HCL 4 MG/2 ML VIAL IVPUSH (20:58)
[2021-01-08] VITALS (14 sets, daily range): BP systolic 120–179; BP diastolic 55–82; PULSE 61–106; RESP 15–20; TEMP 36.6–36.9; O2SAT 90–100
--- NOTE | 2021-01-08 | ECG_ITS ---
Test Reason : chest pain Blood Pressure : / mmHG Vent. Rate : 102 BPM Atrial Rate : 102 BPM P-R Int : 118 ms QRS Dur : 092 ms QT Int : 356 ms P-R-T Axes : 051 008 029 degrees QTc Int : 463 ms Sinus tachycardia Moderate voltage criteria for LVH, may be normal variant Borderline ECG Premature ventricular complexes are no longer Present Referred By: Josef Asif Electronically Signed By:TANNER ALARCON MD
[2021-01-08] MEDS: Enoxaparin Sodium 40 MG/0.4 ML SYRINGE SUBCUT (05:39)
[2021-01-08] MEDS: ondansetron HCL 4 MG/2 ML VIAL IVPUSH ×2 (05:39→09:12)
[2021-01-08] MEDS: Magnesium Hydrox/Alum Hydrox 30 ML ORAL.SUSP 15 ML PO (05:53)
[2021-01-08 07:26] LABS: Glucose, Whole Blood 184 mg/dL (60-115)
[2021-01-08] MEDS: methylPREDNISolone Sod Succ 40 MG/ML VIAL IVPUSH (08:07)
[2021-01-08] MEDS: Insulin Glargine,Hum.rec.anlog 100 UNIT/ML 10 ML VIAL 30 UNIT SUBCUT (08:08)
[2021-01-08] MEDS: 0.9 % Sodium Chloride Flush 3 ML SYRINGE IVFLUSH ×2 (08:08→17:36)
[2021-01-08 08:12] LABS: Anion Gap 11 (12-20); Blood Urea Nitrogen 36 mg/dL (9-16); Calcium 8.4 mg/dL (8.4-10.2); Carbon Dioxide 34 mmol/L (22-29); Chloride 96 mmol/L (96-108); Creatinine Clr Calc Pharmacy 57.2; Estimated Glomerular Filt Rate > 60; Glucose Random 190 mg/dL (60-115); Potassium 4.9 mmol/L (3.3-5.1); Sodium 136 mmol/L (135-145)
[2021-01-08] MEDS: Albuterol/Iprat 2.5/0.5MG 3 ML AMPUL.NEB INHALE ×4 (08:32→19:55)
[2021-01-08] MEDS: Nitroglycerin 0.4 MG TAB.SUBL SUBLINGUAL (09:08)
[2021-01-08] MEDS: Aspirin Enteric Coated 81 MG TABLET.DR PO (09:12)
[2021-01-08 09:13] LABS: Venous Blood Gas Refer to POC result
[2021-01-08 09:13] LABS: VBG Base Excess 9.1 mmol/L; VBG HCO3 33 mmol/L (22-26); VBG pCO2 43 mmHg; VBG pH 7.49 (7.32-7.43); VBG pO2 50 mmHg
[2021-01-08 09:32] LABS: Troponin-I High Sensitivity 10.9 ng/L (<3.5-35.0)
[2021-01-08 11:26] LABS: Glucose, Whole Blood 175 mg/dL (60-115)
--- NOTE | 2021-01-08 11:40 | P.PNIM_ITS ---
Subjective Subjective Date of Service: 01/08/21 Interval History: Worsening acute hypoxemic failure sec to ipf/rsv/copd. Review of Systems Shortness of breath is worsening overnight, patient also nausea vomiting over night Continue on high-flow because of desaturating. Also complained in the morning for some chest tightness. No fever or chills has oral thrush Physical Exam Vital Signs: Vital Signs: Last Vital Signs Temp 98.0 F 01/08/21 11:11 Pulse 100 01/08/21 11:11 Resp 20 01/08/21 11:32 BP 120/55 L 01/08/21 11:11 Pulse Ox 90 L 01/08/21 11:11 Oxygen Flow Rate 6 12/24/20 16:46 Body Mass Index 24.3 Physical exam: Gen: sob -somewhat comfortable on high flow, HEENT: sclera anicteric, moist mucus membranes oral thrush Neck: supple Lungs:still diminshed , few scattered rhonchii Heart: regular rate and rhythm, no murmurs Abd: soft, non-tender, non-distended Ext: no edema Skin: warm/well-perfused Neuro: alert and oriented x3, moves all ext. Psych: appropriate affect Objective Data Active Medications Acetaminophen (Acetaminophen 325 Mg Tablet) 650 mg PO Q6H PRN PRN Reason: Pain, Mild (Pain Scale 1-3) Last Admin: 12/25/20 22:31 Dose: 650 mg Documented by: CHRISTOPHER Al Hydroxide/Mg Hydroxide (Magnesium Hydrox/Alum Hydrox 30 Ml Oral.Susp) 15 ml PO Q6H PRN PRN Reason: Heartburn Last Admin: 01/08/21 05:53 Dose: 15 ml Documented by: BO Albuterol Sulfate (Albuterol Sulfate (0.083%) 2.5 Mg/3 Ml Vial.Neb) 2.5 mg INHALE Q2H PRN PRN Reason: shortness of breath/wheezing Last Admin: 01/02/21 23:57 Dose: 2.5 mg Documented by: NNEKA Albuterol/Ipratropium (Albuterol/Iprat 2.5/0.5mg 3 Ml Ampul.Neb) 3 ml INHALE RQ4H WHILE AWAKE [place] Last Admin: 01/08/21 11:25 Dose: 3 ml Documented by: REGINALD Aspirin (Aspirin Enteric Coated 81 Mg Tablet.) 81 mg PO DAILY [facility] Last Admin: 01/08/21 09:12 Dose: 81 mg Documented by: RENE Atorvastatin Calcium (Atorvastatin Calcium 40 Mg Tablet) 40 mg PO DAILY [facility] Last Admin: 01/07/21 07:50 Dose: 40 mg Documented by: DOBROB Dextrose (Dextrose 50 % 25 Gm/50 Ml Vial) 25 gm IVPUSH Q15M PRN; Protocol PRN Reason: per Hypoglycemia Standing Ord. Docusate Sodium (Docusate Sodium 100 Mg Capsule) 100 mg PO DAILY PRN PRN Reason: Constipation Enoxaparin Sodium (Enoxaparin Sodium 40 Mg/0.4 Ml Syringe) 40 mg SUBCUT Q24H [facility] Last Admin: 01/08/21 05:39 Dose: 40 mg Documented by: BO Famotidine (Famotidine 20 Mg Tablet) 20 mg PO BID [facility] Last Admin: 01/07/21 20:21 Dose: Not Given Documented by: ANTCRISTINA Non-Admin Reason: heartburn resolved from prev dose Glucose (Glucose Gel 15 Gm Gel..Gram.) 15 gm PO Q15M PRN; Protocol PRN Reason: per Hypoglycemia Standing Ord. Guaifenesin (Guaifenesin La 600 Mg Tab.Er.12h) 1,200 mg PO BID [facility] Last Admin: 01/07/21 19:27 Dose: 1,200 mg Documented by: BO Insulin Glargine (Insulin Glargine,Hum.Rec.Anlog 100 Unit/Ml 10 Ml Vial) 30 unit SUBCUT DAILY [facility] Last Admin: 01/08/21 08:08 Dose: 30 unit Documented by: RENE Insulin Human Lispro (Insulin Lispro 100 Unit/Ml 3 Ml Vial) 0 unit SUBCUT QIDACHS [facility]; Protocol Last Admin: 01/08/21 10:12 Dose: Not Given Documented by: RENE Non-Admin Reason: poor PO intake Ipratropium [place] (Ipratropium [place] Marko 0.03 % 30 Ml [place]) 2 spray NOSTRIL-B BID [facility] Last Admin: 01/07/21 20:22 Dose: 2 spray Documented by: BO Lidocaine (Lidocaine 4 % Patch Adh..Patch) 1 patch TRANSDERMA DAILY [facility]; Protocol Last Admin: 01/07/21 07:53 Dose: Not Given Documented by: SARA Non-Admin Reason: Patient Refused Lisinopril (Lisinopril 5 Mg Tablet) 5 mg PO DAILY [facility]; Protocol Last Admin: 01/07/21 07:50 Dose: 5 mg Documented by: SARA Magnesium Oxide (Magnesium Oxide 400 Mg Tablet) 800 mg PO DAILY [facility] Last Admin: 01/07/21 07:49 Dose: 800 mg Documented by: SARA Melatonin (Melatonin 3 Mg Tablet) 6 mg PO BEDTIME [facility] Last Admin: 01/07/21 20:22 Dose: 6 mg Documented by: BO Methylprednisolone Sodium Succinate (Methylprednisolone Sod Succ 40 Mg/Ml Vial) 40 mg IVPUSH DAILY [facility] Metoprolol Succinate (Metoprolol Succinate Er 25 Mg Tab.Er.24h) 25 mg PO DAILY [facility]; Protocol Last Admin: 01/07/21 07:49 Dose: 25 mg Documented by: SARA Nitroglycerin (Nitroglycerin 0.4 Mg Tab.Subl) 0.4 mg SUBLINGUAL Q5MX3 PRN PRN Reason: Chest Pain Last Admin: 01/08/21 09:08 Dose: 0.4 mg Documented by: RENE Non-Formulary Medication (Umeclidinium-Vilanterol [Anoro Ellipta]) 1 puff INHALE RDAILY [facility] Last Admin: 01/08/21 11:24 Dose: Not Given Documented by: REGINALD Non-Admin Reason: Med Not Available Nystatin (Nystatin Powder 15 Gm Bottle) 1 appl TOPICAL BID [facility]; Protocol Last Admin: 01/07/21 20:22 Dose: 1 appl Documented by: ANTCRISTINA Ondansetron HCl (Ondansetron Hcl 4 Mg/2 Ml Vial) 4 mg IVPUSH Q8H PRN PRN Reason: Nausea and Vomiting Last Admin: 01/08/21 05:39 Dose: 4 mg Documented by: ANTCRISTINA Ondansetron HCl (Ondansetron Hcl 4 Mg/2 Ml Vial) 4 mg IVPUSH Q4H PRN PRN Reason: Nausea Last Admin: 01/08/21 09:12 Dose: 4 mg Documented by: RENE Pioglitazone HCl (Pioglitazone Hcl 15 Mg Tablet) 15 mg PO DAILY [facility] Last Admin: 01/07/21 07:50 Dose: 15 mg Documented by: SARA Sodium Chloride (0.9 % Sodium Chloride Flush 3 Ml Syringe) 3 ml IVFLUSH QSHIFT [facility] Last Admin: 01/08/21 08:08 Dose: 3 ml Documented by: RENE Sodium Zirconium Cyclosilicate (Sodium Zirconium Cyclosilicate 10 Gm Powd.Pack) 10 gm PO DAILY [facility] Last Admin: 01/08/21 08:50 Dose: Not Given Documented by: RENE Non-Admin Reason: MD held Labs CBC & Chem 7: 01/04/21 06:24 01/08/21 07:20 Labs: Laboratory Results - last 24 hr 01/07/21 01/07/21 01/08/21 15:42 20:13 07:20 VBG pH VBG pCO2 VBG pO2 VBG HCO3 VBG O2 Saturation VBG Base Excess Anion Gap 11 L Estim Creat Clear Calc 57.2 Estimated GFR > 60 POC Glucose 264 H 161 H Random Glucose 190 H Calcium 8.4 Troponin I High Sens 01/08/21 01/08/21 01/08/21 07:23 08:56 09:07 VBG pH 7.49 H VBG pCO2 43 VBG pO2 50 VBG HCO3 33 H VBG O2 Saturation 77.0 VBG Base Excess 9.1 Anion Gap Estim Creat Clear Calc Estimated GFR POC Glucose 184 H Random Glucose Calcium Troponin I High Sens 10.9 01/08/21 11:10 VBG pH VBG pCO2 VBG pO2 VBG HCO3 VBG O2 Saturation VBG Base Excess Anion Gap Estim Creat Clear Calc Estimated GFR POC Glucose 175 H Random Glucose Calcium Troponin I High Sens Assessment and Plan (1) Acute and chronic respiratory failure with hypoxia: Status: Acute (2) RSV (acute bronchiolitis due to respiratory syncytial virus): Status: Acute (3) Esophagitis: Status: Acute Assessment and Plan: 80yo M with IPF, COPD, chronic hypoxic RF on 6L O2, DM2, CAD s/p PCI presenting with subacute progressive dyspnea + productive cough admitted for hypoxia with pneumonia, RSV positive 1. acute/chronic hypoxia: seems worsening overnight during this admission:CTA negative for PE, echo:on 11/29: left ventricular systolic function is normal.? The ? calculated ejection fraction is 55% by biplane method. ? - The basal inferior segment is hypokinetic. ? - There is mild calcification of the aortic valve. ? - There is mild mitral valve regurgitation.? today checked vbg:seems compensated ,cxr:ild/superimposed patchy opacities within the left lower lung and right midlung which corresponded to groundglass opacities? chest ct: Seems similar pulmonary fibrosis/emphysema, no evidence of for superimposed pneumonitis. Severe esophagitis. Patient currently high-flow adversely hypoxemic respiratory failure d/w ICU-currently patient shortness of breath improving , keep on current high- flow, not candidate for ICU currently. If patient condition worsen -may need ICu.. 2.COPD exacerbatio/ IPF slow response, oxygen demand fluctuating and titrating slightly up continue nebs, IV Solu-Medrol VBG noted-pH is compensated,as above. pulm -continue steriods? . 3.RSV bronchiolitis/pneumonia- droplet isolation 4. CAP- completed ceftriaxone, discussed with ID:received ceftriaxone and doxycycline.?? BCx negative. 5. chest wall pain- from coughing; continue lidocaine patch 6. hypoK- repleted 7. CAD- continue ASA + metoprolol + statin , hold SAM-I since has low po intake. 8.DM2: fs flactuating A1c 7.3, with steroid-induced hyperglycemia adjusted insulin regimen. 9. Hyperkalemia :imrpoved , stop loklema due to nausea/vomiting. Added IV Zofran, and famotidine also switched to IV. 10: Severe esophagitis: Discussed with GI-started IV PPI, since has oral thrush so empiric fluconazole and treatment also recommended by GI. Above management discussed with patient's daughter and patient in detail length Quality Stroke Does the patient have a stroke diagnosis?: No VTE Prior VTE?: No VTE Risk Level:: Medical - moderate - high VTE Device Contraindication: Treatment Not Indicated VTE Drug Contraindication: N/A - Med Ordered
[2021-01-08] MEDS: Magnesium Oxide 400 MG TABLET 800 MG PO (12:25)
[2021-01-08] MEDS: Insulin Lispro 100 UNIT/ML 3 ML VIAL SUBCUT ×2 (12:25→17:35)
[2021-01-08] MEDS: Atorvastatin Calcium 40 MG TABLET PO (12:26)
[2021-01-08] MEDS: guaiFENesin LA 600 MG TAB.ER.12H 1200 MG PO ×2 (12:26→21:53)
[2021-01-08] MEDS: Metoprolol Succinate ER 25 MG TAB.ER.24H PO (12:26)
[2021-01-08] MEDS: Ipratropium Bromide Nas 0.03 % 30 ML SPRAY 2 SPRAY NOSTRIL-B ×2 (12:27→21:54)
[2021-01-08] MEDS: Nystatin Powder 15 GM BOTTLE 1 APPL TOPICAL ×2 (12:27→21:54)
[2021-01-08 12:33] LABS: C Reactive Protein 0.36 mg/dL (< or = 0.50)
[2021-01-08] MEDS: Dextrose 5 % and 0.9 % NaCl 1,000 ML 80 ML IVCONT (12:42)
--- NOTE | 2021-01-08 12:43 | PM.CNCAR ---
History of Present Illness History of Present Illness Date of Service: 01/08/21 Requesting physician: Josef Asif Chief complaint: RSV, CP Narrative: 80-year-old gentleman with background history of COPD and interstitial lung disease as well as coronary disease with right coronary artery stenting at [facility] in 2009 when he presented with dyspnea on exertion. He is presenting now with shortness of breath and RSV infection. Yesterday he developed indigestion like feeling which was persistent. He said this happened after he was given some medication. He had CT chest which is showing changes consistent with esophagitis. His recent echocardiogram from December 30 has shown basal inferior wall motion abnormality with EF of 55%. Discussing with him his symptom for coronary disease were shortness of breath. He did not get any chest discomfort in particular no indigestion like feeling in the past specifically when he presented to [facility] for coronary stenting. [facility] Past Medical History Medical History CAD (coronary artery disease) Hyperlipidemia Impaired glucose metabolism SOB (shortness of breath) on exertion Family History Family History Mother No problems noted. Father No problems noted. Family history: reviewed and not pertinent Surgical History Surgical History S/P right coronary artery (RCA) stent placement Social History Social History Household Members: Children Housing: House Do you presently have visiting nurse or other home services: No Alcohol intake: never Patient Tobacco Use Status: Former Tobacco user Current occupational status: retired [employer] Allergies Allergy/AdvReac Type Severity Reaction Status Date / Time No Known Allergies Allergy Verified 12/21/20 13:52 Active Medications: Current Medications Acetaminophen (Acetaminophen 325 Mg Tablet) 650 mg PO Q6H PRN PRN Reason: Pain, Mild (Pain Scale 1-3) Last Admin: 12/25/20 22:31 Dose: 650 mg Documented by: Al Hydroxide/Mg Hydroxide (Magnesium Hydrox/Alum Hydrox 30 Ml Oral.Susp) 15 ml PO Q6H PRN PRN Reason: Heartburn Last Admin: 01/08/21 05:53 Dose: 15 ml Documented by: Albuterol Sulfate (Albuterol Sulfate (0.083%) 2.5 Mg/3 Ml Vial.Neb) 2.5 mg INHALE Q2H PRN PRN Reason: shortness of breath/wheezing Last Admin: 01/02/21 23:57 Dose: 2.5 mg Documented by: Albuterol/Ipratropium (Albuterol/Iprat 2.5/0.5mg 3 Ml Ampul.Neb) 3 ml INHALE RQ4H WHILE AWAKE COUNTS [facility]CLUDE 234 BEDS AT [facility] Last Admin: 01/08/21 11:25 Dose: 3 ml Documented by: Aspirin (Aspirin Enteric Coated 81 Mg Tablet.) 81 mg PO DAILY [facility] 234 BEDS AT [facility] Last Admin: 01/08/21 09:12 Dose: 81 mg Documented by: Atorvastatin Calcium (Atorvastatin Calcium 40 Mg Tablet) 40 mg PO DAILY [facility]CLUDE 234 BEDS AT [facility] Last Admin: 01/08/21 12:26 Dose: 40 mg Documented by: Dextrose (Dextrose 50 % 25 Gm/50 Ml Vial) 25 gm IVPUSH Q15M PRN; Protocol PRN Reason: per Hypoglycemia Standing Ord. Docusate Sodium (Docusate Sodium 100 Mg Capsule) 100 mg PO DAILY PRN PRN Reason: Constipation Enoxaparin Sodium (Enoxaparin Sodium 40 Mg/0.4 Ml Syringe) 40 mg SUBCUT Q24H [facility]S [facility]CLUDE 234 BEDS AT [facility] Last Admin: 01/08/21 05:39 Dose: 40 mg Documented by: Glucose (Glucose Gel 15 Gm Gel..Gram.) 15 gm PO Q15M PRN; Protocol PRN Reason: per Hypoglycemia Standing Ord. Guaifenesin (Guaifenesin La 600 Mg Tab.Er.12h) 1,200 mg PO BID [facility] 234 BEDS AT [facility] Last Admin: 01/08/21 12:26 Dose: 1,200 mg Documented by: Dextrose/Sodium Chloride (D5ns) 1,000 mls @ 80 mls/hr IVCONT .[id number] COUNTS INCLUDE 234 BEDS AT THE [facility] Last Admin: 01/08/21 12:42 Dose: 80 mls/hr Documented by: Fluconazole (Diflucan) 400 mg in 200 mls @ 100 mls/hr IV ONCE ONE Stop: 01/08/21 14:22 Fluconazole (Diflucan) 200 mg in 100 mls @ 100 mls/hr IV Q24H COUNTS INCLUDE 234 BEDS AT THE [facility] Insulin Glargine (Insulin Glargine,Hum.Rec.Anlog 100 Unit/Ml 10 Ml Vial) 15 unit SUBCUT BEDTIME [facility]S INCLUDE 234 BEDS AT [facility] Insulin Human Lispro (Insulin Lispro 100 Unit/Ml 3 Ml Vial) 0 unit SUBCUT QIDACHS [facility]S [facility]CLUDE 234 BEDS AT [facility]; Protocol Last Admin: 01/08/21 12:25 Dose: 8 unit Documented by: Ipratropium [place] (Ipratropium [place] Marko 0.03 % 30 Ml [place]) 2 spray NOSTRIL-B BID [facility]S [facility]CLUDE 234 BEDS AT [facility] Last Admin: 01/08/21 12:27 Dose: 2 spray Documented by: Lidocaine (Lidocaine 4 % Patch Adh..Patch) 1 patch TRANSDERMA DAILY [facility]CLUDE 234 BEDS AT [facility]; Protocol Last Admin: 01/08/21 12:26 Dose: Not Given Documented by: Lisinopril (Lisinopril 5 Mg Tablet) 5 mg PO DAILY [facility]CLUDE 234 BEDS AT [facility]; Protocol Last Admin: 01/07/21 07:50 Dose: 5 mg Documented by: Magnesium Oxide (Magnesium Oxide 400 Mg Tablet) 800 mg PO DAILY [facility]CLUDE 234 BEDS AT [facility] Last Admin: 01/08/21 12:25 Dose: 800 mg Documented by: Melatonin (Melatonin 3 Mg Tablet) 6 mg PO BEDTIME [facility]S [facility]CLUDE 234 BEDS AT [facility] Last Admin: 01/07/21 20:22 Dose: 6 mg Documented by: Methylprednisolone Sodium Succinate (Methylprednisolone Sod Succ 40 Mg/Ml Vial) 40 mg IVPUSH DAILY [facility]CLUDE 234 BEDS AT [facility] Metoprolol Succinate (Metoprolol Succinate Er 25 Mg Tab.Er.24h) 25 mg PO DAILY [facility]CLUDE 234 BEDS AT [facility]; Protocol Last Admin: 01/08/21 12:26 Dose: 25 mg Documented by: Nitroglycerin (Nitroglycerin 0.4 Mg Tab.Subl) 0.4 mg SUBLINGUAL Q5MX3 PRN PRN Reason: Chest Pain Last Admin: 01/08/21 09:08 Dose: 0.4 mg Documented by: Non-Formulary Medication (Umeclidinium-Vilanterol [Anoro Ellipta]) 1 puff INHALE RDAILY [facility]S [facility]CLUDE 234 BEDS AT [facility] Last Admin: 01/08/21 12:27 Dose: 1 puff Documented by: Nystatin (Nystatin Powder 15 Gm Bottle) 1 appl TOPICAL BID [facility]S INCLUDE 234 BEDS AT [facility]; Protocol Last Admin: 01/08/21 12:27 Dose: 1 appl Documented by: Ondansetron HCl (Ondansetron Hcl 4 Mg/2 Ml Vial) 4 mg IVPUSH Q8H PRN PRN Reason: Nausea and Vomiting Last Admin: 01/08/21 05:39 Dose: 4 mg Documented by: Ondansetron HCl (Ondansetron Hcl 4 Mg/2 Ml Vial) 4 mg IVPUSH Q4H PRN PRN Reason: Nausea Last Admin: 01/08/21 09:12 Dose: 4 mg Documented by: Pantoprazole Sodium (Pantoprazole Sodium 40 Mg/10 Ml Vial) 40 mg IVPUSH BID@0630,1630 COUNTS INCLUDE 234 BEDS AT [facility] Pioglitazone HCl (Pioglitazone Hcl 15 Mg Tablet) 15 mg PO DAILY [facility]CLUDE 234 BEDS AT [facility] Last Admin: 01/08/21 12:26 Dose: 15 mg Documented by: Sodium Chloride (0.9 % Sodium Chloride Flush 3 Ml Syringe) 3 ml IVFLUSH QSHIFT COUNTS INCLUDE 234 BEDS AT THE [facility] Last Admin: 01/08/21 08:08 Dose: 3 ml Documented by: Home Medications Medication Instructions Recorded Confirmed Last Taken Type umeclidinium 62.5 mcg-vilanterol 1 puff INHALATION DAILY 12/24/20 12/24/20 Unknown History 25 mcg/actuation powdr for inhalation (Anoro Ellipta) Physical Exam Vital Signs: Vital Signs: Last Vital Signs Temp 98.0 F 01/08/21 11:11 Pulse 100 01/08/21 12:26 Resp 20 01/08/21 11:32 BP 120/55 L 01/08/21 12:26 Pulse Ox 90 L 01/08/21 11:11 Oxygen Flow Rate 6 12/24/20 16:46 Body Mass Index 24.3 GENERAL APPEARANCE: in no acute distress, pleasant. NECK: no carotid bruit, no obvious jugular venous distention. SKIN: no suspicious lesions, warm and dry. HEART: no murmurs, regular rate and rhythm. LUNGS: Bilateral coarse crackles all over the lung givens. ABDOMEN: soft, nontender. EXTREMITIES: no edema. PERIPHERAL PULSES: equal. NEUROLOGIC: No gross deficits, AAO X 3 Objective Labs and Meds Result diagrams: 01/04/21 06:24 01/08/21 07:20 Lab results: Laboratory Results - last 24 hr 01/07/21 01/07/21 01/08/21 15:42 20:13 07:20 VBG pH VBG pCO2 VBG pO2 VBG HCO3 VBG O2 Saturation VBG Base Excess Sodium 136 Potassium 4.9 Chloride 96 Carbon Dioxide 34 H Anion Gap 11 L BUN 36 H Creatinine 1.03 Estim Creat Clear Calc 57.2 Estimated GFR > 60 POC Glucose 264 H 161 H Random Glucose 190 H Calcium 8.4 Troponin I High Sens C-Reactive Protein 0.36 01/08/21 01/08/21 01/08/21 07:23 08:56 09:07 VBG pH 7.49 H VBG pCO2 43 VBG pO2 50 VBG HCO3 33 H VBG O2 Saturation 77.0 VBG Base Excess 9.1 Sodium Potassium Chloride Carbon Dioxide Anion Gap BUN Creatinine Estim Creat Clear Calc Estimated GFR POC Glucose 184 H Random Glucose Calcium Troponin I High Sens 10.9 C-Reactive Protein 01/08/21 11:10 VBG pH VBG pCO2 VBG pO2 VBG HCO3 VBG O2 Saturation VBG Base Excess Sodium Potassium Chloride Carbon Dioxide Anion Gap BUN Creatinine Estim Creat Clear Calc Estimated GFR POC Glucose 175 H Random Glucose Calcium Troponin I High Sens C-Reactive Protein Imaging Radiologist's impression: Impressions Chest X-Ray 01/08/21 08:50 IMPRESSION: Stable exam demonstrating chronic interstitial lung disease. There are superimposed patchy opacities within the left lower lung and right midlung which corresponded to groundglass opacities on the prior CT from 12/29/2020. These patchy opacities could represent areas of represent atelectasis or mild alveolitis/pneumonitis. Chest CT 01/08/21 10:46 IMPRESSION: * Severe combined pulmonary fibrosis and emphysema. * No evidence of superimposed pneumonitis or parenchymal consolidation. * Findings suggestive of esophagitis, which may be severe. This is suggested paraesophageal fat stranding. * Cholelithiasis and/or porcelain gallbladder. Assessment and Plan (1) Acute and chronic respiratory failure with hypoxia: Status: Acute (2) CAD (coronary artery disease): Qualifiers: Coronary Disease-Associated Artery/Lesion type: [place] artery [place] vs. transplanted heart: [place] heart Associated angina: without angina Qualified Code(s): I25.10 - Atherosclerotic heart disease of [place] coronary artery without angina pectoris Status: Acute (3) Chest pain: Status: Acute 80-year-old gentleman who is presenting for RSV infection and acute on chronic respiratory failure. He has background history of COPD. He had chest discomfort which is likely due to esophagitis. He did not have any chest discomfort in the past from coronary disease. His symptoms were mostly shortness of breath. Right now his shortness of breath is due to hypoxic respiratory failure due to infection. There are no dynamic changes on the EKG. I think right now is presentation is due to respiratory issues and not due to coronary artery disease. No further workup is required inpatient. Thank you for allowing me to participate in the care of your patient. Please feel free to contact me if you have any questions. Procedures Date of Service Date of Service: 01/08/21
[2021-01-08 12:56] LABS: Ferritin 481 ng/mL (20-250)
[2021-01-08 13:04] LABS: Procalcitonin 0.07 ng/mL
--- NOTE | 2021-01-08 13:23 | PC.NURSE ---
This AM, patient was reporting heart burn and intermittent sharp chest pain. Dr. Asif was notified and came to patient room to assess. Two EKG's were obtained during two separate instances of chest pain. EKG WNL. Chest x-ray and chest CT were ordered. VBG's and trop obtained. This nurse administered PRN nitro sublingual. Patient denied chest pain thereafter. Patient also reported nausea this AM and PRN zofran was administered with good effect.
--- NOTE | 2021-01-08 13:41 | PM.GICN ---
History of Present Illness Data of Consult Service Date: 01/08/21 Requesting physician: Josef Asif Primary Care Provider: Royal Garcia PA-C HPI Reason for consult: Abnormal CT scan of esophagus 80 YM with IPF, COPD on 6 L of oxygen at home, diabetes, CAD status post stent admitted to [facility] [place] on 12/25/20 with complaints of shortness of breath, cough, sputum production rhinorrhea, upper respiratory congestion and left-sided pleuritic chest pain and generalized fatigue.? Patient was also tested for COVID-19 and other viral panels few days prior to admission and was found to have RSV with negative COVID-19. Hospital Course: Pt completed ceftriaxone for CAP.?? BCx negative. Pt is being treated with nebs and IV solumedrol for COPD/IPF with a slow response, oxygen demand fluctuating and titrating slightly up He is on high-flow oxygen due to desaturation. Pt gives a hx of heartburn. He states he was given a medication in a powder form yesterday morning and evening followed by nausea and vomiting. He feels better today. He complains of constipation due to decreased PO intake. Patient denies known family history GI malignancy. IMAGING STUDIES: 01/08/[address] SCAN SHOWED: *? Severe combined pulmonary fibrosis and emphysema. *? No evidence of superimposed pneumonitis or parenchymal consolidation. *? Findings suggestive of esophagitis, which may be severe. This is suggested paraesophageal fat stranding. *? Cholelithiasis and/or porcelain gallbladder. PMFSH Past Medical History Medical History Acute and chronic respiratory failure with hypoxia CAD (coronary artery disease) Chest pain COPD (chronic obstructive pulmonary disease) Esophagitis Hyperlipidemia Hypoxia Impaired glucose metabolism Interstitial lung disease IPF (idiopathic pulmonary fibrosis) Pneumonia RSV (acute bronchiolitis due to respiratory syncytial virus) SOB (shortness of breath) on exertion Supplemental oxygen dependent Family History Family History Mother No problems noted. Father No problems noted. Family history: reviewed and not pertinent Surgical History Surgical History S/P right coronary artery (RCA) stent placement Social History Social History Household Members: Children Housing: House Do you presently have visiting nurse or other home services: No Alcohol intake: never Patient Tobacco Use Status: Former Tobacco user Years Smoked: 43 yrs e-Cigarette/Vaping Use: Never Used Current occupational status: retired [employer] Allergies Allergy/AdvReac Type Severity Reaction Status Date / Time No Known Allergies Allergy Verified 05/05/21 13:06 Active Medications: Current Medications Acetaminophen (Acetaminophen 325 Mg Tablet) 650 mg PO Q6H PRN PRN Reason: Pain, Mild (Pain Scale 1-3) Last Admin: 12/25/20 22:31 Dose: 650 mg Documented by: Al Hydroxide/Mg Hydroxide (Magnesium Hydrox/Alum Hydrox 30 Ml Oral.Susp) 15 ml PO Q6H PRN PRN Reason: Heartburn Last Admin: 01/08/21 05:53 Dose: 15 ml Documented by: Albuterol Sulfate (Albuterol Sulfate (0.083%) 2.5 Mg/3 Ml Vial.Neb) 2.5 mg INHALE Q2H PRN PRN Reason: shortness of breath/wheezing Last Admin: 01/02/21 23:57 Dose: 2.5 mg Documented by: Albuterol/Ipratropium (Albuterol/Iprat 2.5/0.5mg 3 Ml Ampul.Neb) 3 ml INHALE RQ4H WHILE AWAKE [facility] Last Admin: 01/08/21 11:25 Dose: 3 ml Documented by: Aspirin (Aspirin Enteric Coated 81 Mg Tablet.) 81 mg PO DAILY [facility] Last Admin: 01/08/21 09:12 Dose: 81 mg Documented by: Atorvastatin Calcium (Atorvastatin Calcium 40 Mg Tablet) 40 mg PO DAILY [facility] Last Admin: 01/08/21 12:26 Dose: 40 mg Documented by: Dextrose (Dextrose 50 % 25 Gm/50 Ml Vial) 25 gm IVPUSH Q15M PRN; Protocol PRN Reason: per Hypoglycemia Standing Ord. Docusate Sodium (Docusate Sodium 100 Mg Capsule) 100 mg PO DAILY PRN PRN Reason: Constipation Enoxaparin Sodium (Enoxaparin Sodium 40 Mg/0.4 Ml Syringe) 40 mg SUBCUT Q24H [facility] Last Admin: 01/08/21 05:39 Dose: 40 mg Documented by: Glucose (Glucose Gel 15 Gm Gel..Gram.) 15 gm PO Q15M PRN; Protocol PRN Reason: per Hypoglycemia Standing Ord. Guaifenesin (Guaifenesin La 600 Mg Tab.Er.12h) 1,200 mg PO BID [facility] Last Admin: 01/08/21 12:26 Dose: 1,200 mg Documented by: Dextrose/Sodium Chloride (D5ns) 1,000 mls @ 80 mls/hr IVCONT .[id number] [facility] Last Admin: 01/08/21 12:42 Dose: 80 mls/hr Documented by: Fluconazole (Diflucan) 400 mg in 200 mls @ 100 mls/hr IV ONCE ONE Stop: 01/08/21 14:22 Fluconazole (Diflucan) 200 mg in 100 mls @ 100 mls/hr IV Q24H [facility] Insulin Glargine (Insulin Glargine,Hum.Rec.Anlog 100 Unit/Ml 10 Ml Vial) 15 unit SUBCUT BEDTIME [place] Insulin Human Lispro (Insulin Lispro 100 Unit/Ml 3 Ml Vial) 0 unit SUBCUT QIDACHS [facility]; Protocol Last Admin: 01/08/21 12:25 Dose: 8 unit Documented by: Ipratropium [place] (Ipratropium [place] Marko 0.03 % 30 Ml [place]) 2 spray NOSTRIL-B BID [facility] Last Admin: 01/08/21 12:27 Dose: 2 spray Documented by: Lidocaine (Lidocaine 4 % Patch Adh..Patch) 1 patch TRANSDERMA DAILY [facility]; Protocol Last Admin: 01/08/21 12:26 Dose: Not Given Documented by: Lisinopril (Lisinopril 5 Mg Tablet) 5 mg PO DAILY [facility]; Protocol Last Admin: 01/07/21 07:50 Dose: 5 mg Documented by: Magnesium Oxide (Magnesium Oxide 400 Mg Tablet) 800 mg PO DAILY [facility] Last Admin: 01/08/21 12:25 Dose: 800 mg Documented by: Melatonin (Melatonin 3 Mg Tablet) 6 mg PO BEDTIME [facility] Last Admin: 01/07/21 20:22 Dose: 6 mg Documented by: Methylprednisolone Sodium Succinate (Methylprednisolone Sod Succ 40 Mg/Ml Vial) 40 mg IVPUSH DAILY [facility] Metoprolol Succinate (Metoprolol Succinate Er 25 Mg Tab.Er.24h) 25 mg PO DAILY [facility]; Protocol Last Admin: 01/08/21 12:26 Dose: 25 mg Documented by: Nitroglycerin (Nitroglycerin 0.4 Mg Tab.Subl) 0.4 mg SUBLINGUAL Q5MX3 PRN PRN Reason: Chest Pain Last Admin: 01/08/21 09:08 Dose: 0.4 mg Documented by: Non-Formulary Medication (Umeclidinium-Vilanterol [Anoro Ellipta]) 1 puff INHALE RDAILY [facility] Last Admin: 01/08/21 12:27 Dose: 1 puff Documented by: Nystatin (Nystatin Powder 15 Gm Bottle) 1 appl TOPICAL BID [facility]; Protocol Last Admin: 01/08/21 12:27 Dose: 1 appl Documented by: Ondansetron HCl (Ondansetron Hcl 4 Mg/2 Ml Vial) 4 mg IVPUSH Q8H PRN PRN Reason: Nausea and Vomiting Last Admin: 01/08/21 05:39 Dose: 4 mg Documented by: Ondansetron HCl (Ondansetron Hcl 4 Mg/2 Ml Vial) 4 mg IVPUSH Q4H PRN PRN Reason: Nausea Last Admin: 01/08/21 09:12 Dose: 4 mg Documented by: Pantoprazole Sodium (Pantoprazole Sodium 40 Mg/10 Ml Vial) 40 mg IVPUSH BID@0630,1630 [facility] Pioglitazone HCl (Pioglitazone Hcl 15 Mg Tablet) 15 mg PO DAILY [facility] Last Admin: 01/08/21 12:26 Dose: 15 mg Documented by: Sodium Chloride (0.9 % Sodium Chloride Flush 3 Ml Syringe) 3 ml IVFLUSH QSHIFT [facility] Last Admin: 01/08/21 08:08 Dose: 3 ml Documented by: Physical Exam Vital Signs: Vital Signs: Last Vital Signs Temp 98.0 F 01/08/21 11:11 Pulse 100 01/08/21 12:26 Resp 20 01/08/21 11:32 BP 120/55 L 01/08/21 12:26 Pulse Ox 90 L 01/08/21 11:11 Oxygen Flow Rate 6 12/24/20 16:46 Body Mass Index 24.3 Const: General: healthy appearing and no acute distress Nutritional Appearance: average body habitus Orientation/consciousness: patient oriented x3 Limitations: no limitations HENMT: Head: Yes normal to inspection Ears: hearing grossly normal bilaterally Mouth: Normal oral and palatal mucosa present Eyes: Sclerae: sclerae normal Pupils: Equal, round and reactive pupils present Neck: Neck: Yes normal visual inspection Chest: Chest palpation & inspection: normal inspection of the chest Resp: Effort & Inspection: uses accessory muscles Auscultation: rhonchi (scattered) and diminished lung sounds Cardio: Palpation: normal PMI Rate: regular rate Rhythm: regular rhythm Heart sounds: S1 normal heart sound present, S2 normal heart sound present and no murmurs GI: Palpation (GI): Soft to palpation, nontender and No hepatosplenomegaly present Auscultation: normal bowel sounds Rectal Exam - Male: Yes deferred Skin: General skin exam: no rashes or lesions noted Neuro: General: patient oriented x3, gait normal and moves all extremities Cranial nerves: Yes Equal, round and reactive pupils present Psych: Appearance: grossly normal Mental Status: mental status grossly normal Results Labs CBC & Chem 7: 01/04/21 06:24 01/09/21 08:23 Labs: BMP 01/08/21 07:20 Sodium 136 Potassium 4.9 Chloride 96 Carbon Dioxide 34 H BUN 36 H Creatinine 1.03 Calcium 8.4 Microbiology Microbiology Results: Microbiology 12/24/20 22:17 Blood - Venous Blood Culture - Final No growth after 5 days. 12/24/20 20:39 Blood - Venous Blood Culture - Final No growth after 5 days. Assessment and Plan (1) Esophagitis: (2) Acute and chronic respiratory failure with hypoxia: (3) IPF (idiopathic pulmonary fibrosis): Status: Acute Plan 80 YM with IPF, COPD on 6 L of oxygen at home, diabetes, CAD status post stent admitted to [facility] [place] on 12/25/20 with complaints of shortness of breath, cough, sputum production rhinorrhea, upper respiratory congestion and left-sided pleuritic chest pain and generalized fatigue and found to have RSV with negative COVID-19. Pt is being treated with nebs and IV solumedrol for COPD/IPF with a slow response, oxygen demand fluctuating and titrating slightly up. He is on high-flow oxygen due to desaturation. Chest CT scan showed findings suggestive of esophagitis, which may be severe and paraesophageal fat stranding. Pt has a hx of chronic heartburn and likely has erosive esophagitis. Given treatment with IV steroids, he is at increased risk for Sheryl esophagitis. Other possiblities include pseudomembranous esophagitis which has been reported in association with severe systemic illness and involves full-thickness ulceration with acute or chronic inflammation. Pt is not a candidate for endoscopic evaluation at present due to respiratory compromise RECOMMENDATIONS: 1. Start IV PPI and empiric Fluconazole for presumptive esophageal candidiasis 2. If no improvement, add sucralfate suspension 1 gram TID. 3. A FU chest CT scan can be obtained in 7 to 10 days to FU on esophagitis if symptoms persist. Procedures Date of Service Date of Service: 01/08/21
[2021-01-08 16:35] LABS: Glucose, Whole Blood 160 mg/dL (60-115)
[2021-01-08] MEDS: Pantoprazole Sodium 40 MG/10 ML VIAL IVPUSH (17:34)
[2021-01-08] MEDS: Fluconazole in NaCl,Iso-Osm 400 MG/200 ML PIGGYBACK 100 MG IV (17:36)
[2021-01-08 20:50] LABS: Glucose, Whole Blood 102 mg/dL (60-115)
[2021-01-08] MEDS: Melatonin 3 MG TABLET 6 MG PO (21:53)
[2021-01-09] VITALS (16 sets, daily range): BP systolic 108–142; BP diastolic 54–65; PULSE 60–114; RESP 18–20; TEMP 36.1–37; O2SAT 92–99
[2021-01-09] MEDS: Dextrose 5 % and 0.9 % NaCl 1,000 ML 80 ML IVCONT ×3 (00:49→21:41)
[2021-01-09] MEDS: Enoxaparin Sodium 40 MG/0.4 ML SYRINGE SUBCUT (05:29)
[2021-01-09] MEDS: Pantoprazole Sodium 40 MG/10 ML VIAL IVPUSH ×2 (05:29→16:43)
[2021-01-09] MEDS: Albuterol/Iprat 2.5/0.5MG 3 ML AMPUL.NEB INHALE ×4 (07:07→19:15)
[2021-01-09 07:54] LABS: Glucose, Whole Blood 99 mg/dL (60-115)
[2021-01-09] MEDS: 0.9 % Sodium Chloride Flush 3 ML SYRINGE IVFLUSH ×3 (08:45→20:08)
[2021-01-09] MEDS: Aspirin Enteric Coated 81 MG TABLET.DR PO (08:45)
[2021-01-09] MEDS: Atorvastatin Calcium 40 MG TABLET PO (08:45)
[2021-01-09] MEDS: methylPREDNISolone Sod Succ 40 MG/ML VIAL IVPUSH (08:45)
[2021-01-09] MEDS: guaiFENesin LA 600 MG TAB.ER.12H 1200 MG PO ×2 (08:45→20:08)
[2021-01-09] MEDS: Metoprolol Succinate ER 25 MG TAB.ER.24H PO (08:45)
[2021-01-09] MEDS: Magnesium Oxide 400 MG TABLET 800 MG PO (08:45)
[2021-01-09] MEDS: Ipratropium Bromide Nas 0.03 % 30 ML SPRAY 2 SPRAY NOSTRIL-B (08:46)
[2021-01-09] MEDS: Nystatin Powder 15 GM BOTTLE 1 APPL TOPICAL ×2 (08:46→20:09)
[2021-01-09 08:50] LABS: Anion Gap 9 (12-20); Blood Urea Nitrogen 23 mg/dL (9-16); Calcium 7.7 mg/dL (8.4-10.2); Carbon Dioxide 30 mmol/L (22-29); Chloride 104 mmol/L (96-108); Creatinine Clr Calc Pharmacy 67.7; Estimated Glomerular Filt Rate > 60; Glucose Random 109 mg/dL (60-115); Sodium 138 mmol/L (135-145)
[2021-01-09 11:31] LABS: Glucose, Whole Blood 185 mg/dL (60-115)
[2021-01-09] MEDS: Insulin Lispro 100 UNIT/ML 3 ML VIAL SUBCUT ×3 (12:34→20:25)
[2021-01-09] MEDS: Fluconazole in NaCl,Iso-Osm 200 MG/100 ML PIGGYBACK 100 MG IV (12:41)
--- NOTE | 2021-01-09 13:03 | P.PNIM_ITS ---
Subjective Subjective Date of Service: 01/09/21 Interval History: Acute hypoxemic respiratory failure secondary to RSV/ILD/ COPD Review of Systems Patient still short of breath but slightly better than yesterday feeling more comfortable nausea licona also. Still has some burning sensation. Physical Exam Vital Signs: Vital Signs: Last Vital Signs Temp 98.2 F 01/09/21 10:48 Pulse 76 01/09/21 10:48 Resp 20 01/09/21 11:47 BP 110/54 L 01/09/21 10:48 Pulse Ox 97 01/09/21 10:48 Oxygen Flow Rate 6 12/24/20 16:46 Body Mass Index 24.3 Gen: sob -somewhat comfortable on high flow, HEENT: sclera anicteric, moist mucus membranes oral thrush Neck: supple Lungs:still diminshed , few scattered rhonchii Heart: regular rate and rhythm, no murmurs Abd: soft, non-tender, non-distended Ext: no edema Skin: warm/well-perfused Neuro: alert and oriented x3, moves all ext. Psych: appropriate affect Objective Data Active Medications Acetaminophen (Acetaminophen 325 Mg Tablet) 650 mg PO Q6H PRN PRN Reason: Pain, Mild (Pain Scale 1-3) Last Admin: 12/25/20 22:31 Dose: 650 mg Documented by: CHRISTOPHER Al Hydroxide/Mg Hydroxide (Magnesium Hydrox/Alum Hydrox 30 Ml Oral.Susp) 15 ml PO Q6H PRN PRN Reason: Heartburn Last Admin: 01/08/21 05:53 Dose: 15 ml Documented by: ANTCRISTINA Albuterol Sulfate (Albuterol Sulfate (0.083%) 2.5 Mg/3 Ml Vial.Neb) 2.5 mg INHALE Q2H PRN PRN Reason: shortness of breath/wheezing Last Admin: 01/02/21 23:57 Dose: 2.5 mg Documented by: CASTBOB Albuterol/Ipratropium (Albuterol/Iprat 2.5/0.5mg 3 Ml Ampul.Neb) 3 ml INHALE RQ4H WHILE AWAKE [facility] Last Admin: 01/09/21 11:46 Dose: 3 ml Documented by: ULRICC Aspirin (Aspirin Enteric Coated 81 Mg Tablet.) 81 mg PO DAILY [facility] Last Admin: 01/09/21 08:45 Dose: 81 mg Documented by: RENE Atorvastatin Calcium (Atorvastatin Calcium 40 Mg Tablet) 40 mg PO DAILY [facility] Last Admin: 01/09/21 08:45 Dose: 40 mg Documented by: RENE Dextrose (Dextrose 50 % 25 Gm/50 Ml Vial) 25 gm IVPUSH Q15M PRN; Protocol PRN Reason: per Hypoglycemia Standing Ord. Docusate Sodium (Docusate Sodium 100 Mg Capsule) 100 mg PO DAILY PRN PRN Reason: Constipation Enoxaparin Sodium (Enoxaparin Sodium 40 Mg/0.4 Ml Syringe) 40 mg SUBCUT Q24H [facility] Last Admin: 01/09/21 05:29 Dose: 40 mg Documented by: FREDI Glucose (Glucose Gel 15 Gm Gel..Gram.) 15 gm PO Q15M PRN; Protocol PRN Reason: per Hypoglycemia Standing Ord. Guaifenesin (Guaifenesin La 600 Mg Tab.Er.12h) 1,200 mg PO BID [facility] Last Admin: 01/09/21 08:45 Dose: 1,200 mg Documented by: RENE Dextrose/Sodium Chloride (D5ns) 1,000 mls @ 80 mls/hr IVCONT .[id number] [facility] Last Admin: 01/09/21 00:49 Dose: 80 mls/hr Documented by: FREDI Fluconazole (Diflucan) 200 mg in 100 mls @ 100 mls/hr IV Q24H [facility] Last Admin: 01/09/21 12:41 Dose: 100 mls/hr Documented by: RENE Insulin Glargine (Insulin Glargine,Hum.Rec.Anlog 100 Unit/Ml 10 Ml Vial) 15 unit SUBCUT BEDTIME [facility] Insulin Human Lispro (Insulin Lispro 100 Unit/Ml 3 Ml Vial) 0 unit SUBCUT QIDACHS [facility]; Protocol Last Admin: 01/09/21 12:34 Dose: 2 unit Documented by: RENE Ipratropium [place] (Ipratropium [place] Marko 0.03 % 30 Ml [place]) 2 spray NOSTRI L-B BID [facility] Last Admin: 01/09/21 08:46 Dose: 2 spray Documented by: RENE Lidocaine (Lidocaine 4 % Patch Adh..Patch) 1 patch TRANSDERMA DAILY [facility]; Protocol Last Admin: 01/09/21 08:46 Dose: Not Given Documented by: RENE Non-Admin Reason: Patient Refused Lisinopril (Lisinopril 5 Mg Tablet) 5 mg PO DAILY [facility]; Protocol Last Admin: 01/07/21 07:50 Dose: 5 mg Documented by: SARA Magnesium Oxide (Magnesium Oxide 400 Mg Tablet) 800 mg PO DAILY [facility] Last Admin: 01/09/21 08:45 Dose: 800 mg Documented by: RENE Melatonin (Melatonin 3 Mg Tablet) 6 mg PO BEDTIME [facility] Last Admin: 01/08/21 21:53 Dose: 6 mg Documented by: NUZHAT Methylprednisolone Sodium Succinate (Methylprednisolone Sod Succ 40 Mg/Ml Vial) 40 mg IVPUSH DAILY [facility] [place] Last Admin: 01/09/21 08:45 Dose: 40 mg Documented by: RENE Metoprolol Succinate (Metoprolol Succinate Er 25 Mg Tab.Er.24h) 25 mg PO DAILY [facility]; Protocol Last Admin: 01/09/21 08:45 Dose: 25 mg Documented by: RENE Nitroglycerin (Nitroglycerin 0.4 Mg Tab.Subl) 0.4 mg SUBLINGUAL Q5MX3 PRN PRN Reason: Chest Pain Last Admin: 01/08/21 09:08 Dose: 0.4 mg Documented by: RENE Non-Formulary Medication (Umeclidinium-Vilanterol [Anoro Ellipta]) 1 puff INHALE RDAILY [facility] Last Admin: 01/09/21 08:46 Dose: 1 puff Documented by: RENE Nystatin (Nystatin Powder 15 Gm Bottle) 1 appl TOPICAL BID [facility]; Protocol Last Admin: 01/09/21 08:46 Dose: 1 appl Documented by: RENE Ondansetron HCl (Ondansetron Hcl 4 Mg/2 Ml Vial) 4 mg IVPUSH Q8H PRN PRN Reason: Nausea and Vomiting Last Admin: 01/08/21 05:39 Dose: 4 mg Documented by: ANTCRISTINA Ondansetron HCl (Ondansetron Hcl 4 Mg/2 Ml Vial) 4 mg IVPUSH Q4H PRN PRN Reason: Nausea Last Admin: 01/08/21 09:12 Dose: 4 mg Documented by: RENE Pantoprazole Sodium (Pantoprazole Sodium 40 Mg/10 Ml Vial) 40 mg IVPUSH BI D@0630,1630 [facility] Last Admin: 01/09/21 05:29 Dose: 40 mg Documented by: FREDI Pioglitazone HCl (Pioglitazone Hcl 15 Mg Tablet) 15 mg PO DAILY [facility] Last Admin: 01/09/21 08:45 Dose: 15 mg Documented by: RENE Sodium Chloride (0.9 % Sodium Chloride Flush 3 Ml Syringe) 3 ml IVFLUSH QSHIFT [facility] Last Admin: 01/09/21 08:45 Dose: 3 ml Documented by: RENE Labs CBC & Chem 7: 01/04/21 06:24 01/09/21 08:23 Labs: Laboratory Results - last 24 hr 01/08/21 01/08/21 01/08/21 07:20 16:30 20:47 Anion Gap Estim Creat Clear Calc Estimated GFR POC Glucose 160 H 102 Random Glucose Calcium Procalcitonin 0.07 01/09/21 01/09/21 01/09/21 07:14 08:23 11:16 Anion Gap 9 L Estim Creat Clear Calc 67.7 Estimated GFR > 60 POC Glucose 99 185 H Random Glucose 109 D Calcium 7.7 L D Procalcitonin Assessment and Plan (1) Esophagitis: Status: Acute (2) Acute and chronic respiratory failure with hypoxia: Status: Acute (3) RSV (acute bronchiolitis due to respiratory syncytial virus): Status: Acute Assessment and Plan: 80yo M with IPF, COPD, chronic hypoxic RF on 6L O2, DM2, CAD s/p PCI presenting with subacute progressive dyspnea + productive cough admitted for hypoxia with pneumonia, RSV positive 1. acute/chronic hypoxia: seems worsening overnight during this admission:CTA negative for PE, echo:on 11/29: left ventricular systolic function is normal.? The ? calculated ejection fraction is 55% by biplane method. ? - The basal inferior segment is hypokinetic. ? - There is mild calcification of the aortic valve. ? - There is mild mitral valve regurgitation.? vbg 03/10/20:seems compensated ,cxr:ild/superimposed patchy opacities within the left lower lung and right midlung which corresponded to groundglass opacities? chest ct:? Seems similar pulmonary fibrosis/emphysema, no evidence of for superimposed pneumonitis. Severe esophagitis. Patient currently high-flow adversely hypoxemic respiratory failure sob seems improving,adjust high-flow, not candidate for ICU currently. If patient condition worsen -may need ICu.. 2.COPD exacerbatio/ IPF slow response, oxygen demand fluctuating and titrating slightly up continue nebs, IV Solu-Medrol VBG noted-pH is compensated,as above. pulm -continue steriods? . 3.RSV bronchiolitis/pneumonia- droplet isolation 4. CAP- completed ceftriaxone, discussed with ID:received ceftriaxone and doxycycline.?? BCx negative. 5. chest wall pain- from coughing; continue lidocaine patch 6. hypoK- repleted 7. CAD- continue ASA + metoprolol + statin , hold? SAM-I since has low po intake. 8.DM2: fs flactuating A1c 7.3, with steroid-induced hyperglycemia adjusted insulin regimen. 9. Hyperkalemia :imrpoved , stop loklema due to nausea/vomiting. Added IV Zofran, and famotidine also switched to IV. 10:? Severe esophagitis:? Discussed with GI-started IV PPI, since has oral thrush so empiric fluconazole and treatment also recommended by GI. Above management discussed with patient's daughter and patient in detail length Quality Stroke Does the patient have a stroke diagnosis?: No VTE Prior VTE?: No VTE Risk Level:: Medical - moderate - high VTE Device Contraindication: Treatment Not Indicated VTE Drug Contraindication: N/A - Med Ordered
[2021-01-09 16:18] LABS: Glucose, Whole Blood 357 mg/dL (60-115)
[2021-01-09] MEDS: Melatonin 3 MG TABLET 6 MG PO (20:08)
[2021-01-09 20:16] LABS: Glucose, Whole Blood 270 mg/dL (60-115)
[2021-01-09] MEDS: Insulin Glargine,Hum.rec.anlog 100 UNIT/ML 10 ML VIAL 25 UNIT SUBCUT (20:25)
[2021-01-10] VITALS (14 sets, daily range): BP systolic 101–159; BP diastolic 47–73; PULSE 67–96; RESP 18–24; TEMP 36.2–36.7; O2SAT 90–99
[2021-01-10] MEDS: Pantoprazole Sodium 40 MG/10 ML VIAL IVPUSH ×2 (05:36→17:08)
[2021-01-10] MEDS: Enoxaparin Sodium 40 MG/0.4 ML SYRINGE SUBCUT (05:36)
[2021-01-10 07:37] LABS: Glucose, Whole Blood 124 mg/dL (60-115)
[2021-01-10] MEDS: Albuterol/Iprat 2.5/0.5MG 3 ML AMPUL.NEB INHALE ×4 (08:06→19:10)
[2021-01-10] MEDS: Atorvastatin Calcium 40 MG TABLET PO (10:51)
[2021-01-10] MEDS: Aspirin Enteric Coated 81 MG TABLET.DR PO (10:51)
[2021-01-10] MEDS: methylPREDNISolone Sod Succ 40 MG/ML VIAL IVPUSH (10:51)
[2021-01-10] MEDS: Metoprolol Succinate ER 25 MG TAB.ER.24H PO (10:51)
[2021-01-10] MEDS: guaiFENesin LA 600 MG TAB.ER.12H 1200 MG PO ×2 (10:51→22:18)
[2021-01-10] MEDS: Magnesium Oxide 400 MG TABLET 800 MG PO (10:51)
[2021-01-10] MEDS: Ipratropium Bromide Nas 0.03 % 30 ML SPRAY 2 SPRAY NOSTRIL-B ×2 (10:52→22:21)
[2021-01-10] MEDS: Nystatin Powder 15 GM BOTTLE 1 APPL TOPICAL ×2 (10:52→22:22)
[2021-01-10] MEDS: Dextrose 5 % and 0.9 % NaCl 1,000 ML 80 ML IVCONT (10:55)
[2021-01-10] MEDS: 0.9 % Sodium Chloride Flush 3 ML SYRINGE IVFLUSH ×2 (10:55→17:08)
--- NOTE | 2021-01-10 11:00 | P.PNIM_ITS ---
Subjective Subjective Date of Service: 01/10/21 Interval History: Acute hypoxemic respiratory failure secondary to COVID pneumonia. Review of Systems Pain still is short of breath but improving in comparison to yesterday Denies any cough Still has some is a physical burning but says that getting better Denies any nausea or vomiting Physical Exam Vital Signs: Vital Signs: Last Vital Signs Temp 97.6 F 01/10/21 07:53 Pulse 70 01/10/21 10:51 Resp 20 01/10/21 08:08 BP 138/63 01/10/21 10:51 Pulse Ox 99 01/10/21 07:53 Oxygen Flow Rate 6 12/24/20 16:46 Body Mass Index 24.3 Gen: sob imrpoviing , emily djust high flow to barry if possible. HEENT: sclera anicteric, moist mucus membranes oral thrush Neck: supple Lungs:still diminshed , few scattered rhonchii Heart: regular rate and rhythm, no murmurs Abd: soft, non-tender, non-distended Ext: no edema Skin: warm/well-perfused Neuro: alert and oriented x3, moves all ext. Psych: appropriate affect Objective Data Active Medications Acetaminophen (Acetaminophen 325 Mg Tablet) 650 mg PO Q6H PRN PRN Reason: Pain, Mild (Pain Scale 1-3) Last Admin: 12/25/20 22:31 Dose: 650 mg Documented by: CHRISTOPHER Al Hydroxide/Mg Hydroxide (Magnesium Hydrox/Alum Hydrox 30 Ml Oral.Susp) 15 ml PO Q6H PRN PRN Reason: Heartburn Last Admin: 01/08/21 05:53 Dose: 15 ml Documented by: BO Albuterol Sulfate (Albuterol Sulfate (0.083%) 2.5 Mg/3 Ml Vial.Neb) 2.5 mg INHALE Q2H PRN PRN Reason: shortness of breath/wheezing Last Admin: 01/02/21 23:57 Dose: 2.5 mg Documented by: NNEKA Albuterol/Ipratropium (Albuterol/Iprat 2.5/0.5mg 3 Ml Ampul.Neb) 3 ml INHALE RQ4H WHILE AWAKE [facility] Last Admin: 01/10/21 08:06 Dose: 3 ml Documented by: REGINALD Aspirin (Aspirin Enteric Coated 81 Mg Tablet.Dr) 81 mg PO DAILY [facility] Last Admin: 01/10/21 10:51 Dose: 81 mg Documented by: JOANIE Atorvastatin Calcium (Atorvastatin Calcium 40 Mg Tablet) 40 mg PO DAILY [facility] Last Admin: 01/10/21 10:51 Dose: 40 mg Documented by: JOANIE Dextrose (Dextrose 50 % 25 Gm/50 Ml Vial) 25 gm IVPUSH Q15M PRN; Protocol PRN Reason: per Hypoglycemia Standing Ord. Docusate Sodium (Docusate Sodium 100 Mg Capsule) 100 mg PO DAILY PRN PRN Reason: Constipation Enoxaparin Sodium (Enoxaparin Sodium 40 Mg/0.4 Ml Syringe) 40 mg SUBCUT Q24H [facility] Last Admin: 01/10/21 05:36 Dose: 40 mg Documented by: JERALD Glucose (Glucose Gel 15 Gm Gel..Gram.) 15 gm PO Q15M PRN; Protocol PRN Reason: per Hypoglycemia Standing Ord. Guaifenesin (Guaifenesin La 600 Mg Tab.Er.12h) 1,200 mg PO BID [facility] Last Admin: 01/10/21 10:51 Dose: 1,200 mg Documented by: JOANIE Dextrose/Sodium Chloride (D5ns) 1,000 mls @ 80 mls/hr IVCONT .[id number] [facility] Last Admin: 01/10/21 10:55 Dose: 80 mls/hr Documented by: JOANIE Fluconazole (Diflucan) 200 mg in 100 mls @ 100 mls/hr IV Q24H [facility] Last Infusion: 01/09/21 14:10 Dose: 0 mls/hr Documented by: RENE Insulin Glargine (Insulin Glargine,Hum.Rec.Anlog 100 Unit/Ml 10 Ml Vial) 25 unit SUBCUT BEDTIME [facility] Last Admin: 01/09/21 20:25 Dose: 25 unit Documented by: JERALD Insulin Human Lispro (Insulin Lispro 100 Unit/Ml 3 Ml Vial) 0 unit SUBCUT QIDACHS [facility]; Protocol Last Admin: 01/10/21 07:38 Dose: Not Given Documented by: JOANIE Non-Admin Reason: No Insulin Coverage Ipratropium [place] (Ipratropium [place] Marko 0.03 % 30 Ml [place]) 2 spray NOSTRIL-B BID [facility] Last Admin: 01/10/21 10:52 Dose: 2 spray Documented by: JOANIE Lidocaine (Lidocaine 4 % Patch Adh..Patch) 1 patch TRANSDERMA DAILY [facility]; Protocol Last Admin: 01/10/21 10:52 Dose: Not Given Documented by: JOANIE Non-Admin Reason: Patient Refused Lisinopril (Lisinopril 5 Mg Tablet) 5 mg PO DAILY [facility]; Protocol Last Admin: 01/07/21 07:50 Dose: 5 mg Documented by: SARA Magnesium Oxide (Magnesium Oxide 400 Mg Tablet) 800 mg PO DAILY [facility] Last Admin: 01/10/21 10:51 Dose: 800 mg Documented by: JOANIE Melatonin (Melatonin 3 Mg Tablet) 6 mg PO BEDTIME [facility] Last Admin: 01/09/21 20:08 Dose: 6 mg Documented by: JERALD Methylprednisolone Sodium Succinate (Methylprednisolone Sod Succ 40 Mg/Ml Vial) 40 mg IVPUSH DAILY [facility] Last Admin: 01/10/21 10:51 Dose: 40 mg Documented by: JOANIE Metoprolol Succinate (Metoprolol Succinate Er 25 Mg Tab.Er.24h) 25 mg PO DAILY [facility]; Protocol Last Admin: 01/10/21 10:51 Dose: 25 mg Documented by: JOANIE Nitroglycerin (Nitroglycerin 0.4 Mg Tab.Subl) 0.4 mg SUBLINGUAL Q5MX3 PRN PRN Reason: Chest Pain Last Admin: 01/08/21 09:08 Dose: 0.4 mg Documented by: RENE Non-Formulary Medication (Umeclidinium-Vilanterol [Anoro Ellipta]) 1 puff INHALE RDAILY [facility] Last Admin: 01/09/21 08:46 Dose: 1 puff Documented by: RENE Nystatin (Nystatin Powder 15 Gm Bottle) 1 appl TOPICAL BID [facility]; Protocol Last Admin: 01/10/21 10:52 Dose: 1 appl Documented by: JOANIE Ondansetron HCl (Ondansetron Hcl 4 Mg/2 Ml Vial) 4 mg IVPUSH Q8H PRN PRN Reason: Nausea and Vomiting Last Admin: 01/08/21 05:39 Dose: 4 mg Documented by: BO Ondansetron HCl (Ondansetron Hcl 4 Mg/2 Ml Vial) 4 mg IVPUSH Q4H PRN PRN Reason: Nausea Last Admin: 01/08/21 09:12 Dose: 4 mg Documented by: RENE Pantoprazole Sodium (Pantoprazole Sodium 40 Mg/10 Ml Vial) 40 mg IVPUSH BID@0630,1630 [facility] Last Admin: 01/10/21 05:36 Dose: 40 mg Documented by: JERALD Pioglitazone HCl (Pioglitazone Hcl 15 Mg Tablet) 15 mg PO DAILY [facility] Last Admin: 01/09/21 08:45 Dose: 15 mg Documented by: RENE Sodium Chloride (0.9 % Sodium Chloride Flush 3 Ml Syringe) 3 ml IVFLUSH QSHIFT [facility] Last Admin: 01/10/21 10:55 Dose: 3 ml Documented by: JOANIE Labs CBC & Chem 7: 01/04/21 06:24 01/09/21 08:23 Labs: Laboratory Results - last 24 hr 01/09/21 01/09/21 01/09/21 11:16 15:38 19:33 POC Glucose 185 H 357 H* 270 H 01/10/21 07:16 POC Glucose 124 H Assessment and Plan (1) Esophagitis: Status: Acute (2) Acute and chronic respiratory failure with hypoxia: Status: Acute (3) RSV (acute bronchiolitis due to respiratory syncytial virus): Status: Acute Assessment and Plan: 80yo M with IPF, COPD, chronic hypoxic RF on 6L O2, DM2, CAD s/p PCI presenting with subacute progressive dyspnea + productive cough admitted for hypoxia with pneumonia, RSV positive 1. acute/chronic hypoxia: seems worsening overnight during this admission:CTA negative for PE, echo:on 11/29: left ventricular systolic function is normal.? The ? calculated ejection fraction is 55% by biplane method. ? - The basal inferior segment is hypokinetic. ? - There is mild calcification of the aortic valve. ? - There is mild mitral valve regurgitation.? vbg 03/10/20:seems compensated ,cxr:ild/superimposed patchy opacities within the left lower lung and right midlung which corresponded to groundglass opacities? chest ct01/08:? Seems similar pulmonary fibrosis/emphysema, no evidence of for superimposed pneumonitis. Severe esophagitis. Patient shortness of breath is improving with oxygen supportplan to switch to [place],, steroids, nebs. Continue tapering also steroids. Switched to p.o. prednisone whenSevere esophagitis.gets better. 2.COPD exacerbatio/ IPF slow response, oxygen demand fluctuating and titrating slightly up continue nebs, IV Solu-Medrol VBG noted-pH is compensated,as above. pulm -may switch to po steriods?as per pulm . 3.RSV bronchiolitis/pneumonia- droplet isolation. 4. CAP- completed ceftriaxone, discussed with ID:received ceftriaxone and doxycycline.off as per pulm.?? BCx negative. 5. chest wall pain- from coughing; continue lidocaine patch 6. hypoK- repleted 7. CAD- continue ASA + metoprolol + statin , hold? SAM-I since has low po intake. 8.DM2: fs flactuating A1c 7.3, with steroid-induced hyperglycemia adjusted insulin regimen. 9. Hyperkalemia :imrpoved , stop loklema due to nausea/vomiting. Added IV Zofran, and famotidine also switched to IV. 10:? Severe esophagitis:? Discussed with GI-started IV PPI, since has oral thrush so empiric fluconazole day5 and treatment also recommended by GI. Above management discussed with patient's daughter and patient in detail length Quality Stroke Does the patient have a stroke diagnosis?: No VTE Prior VTE?: No VTE Risk Level:: Medical - moderate - high VTE Device Contraindication: Treatment Not Indicated VTE Drug Contraindication: N/A - Med Ordered
[2021-01-10 11:18] LABS: Glucose, Whole Blood 232 mg/dL (60-115)
[2021-01-10] MEDS: Insulin Lispro 100 UNIT/ML 3 ML VIAL SUBCUT ×3 (12:10→22:18)
[2021-01-10] MEDS: Fluconazole in NaCl,Iso-Osm 200 MG/100 ML PIGGYBACK 100 MG IV (12:15)
[2021-01-10 16:43] LABS: Glucose, Whole Blood 371 mg/dL (60-115)
[2021-01-10 20:30] LABS: Glucose, Whole Blood 386 mg/dL (60-115)
[2021-01-10] MEDS: Insulin Glargine,Hum.rec.anlog 100 UNIT/ML 10 ML VIAL 25 UNIT SUBCUT (22:17)
[2021-01-10] MEDS: Melatonin 3 MG TABLET 6 MG PO (22:19)
--- NOTE | 2021-01-10 22:56 | PC.NURSE ---
P: Elevated HS blood sugar 386. Patient denies any symptoms. I: medicated with 14 unit lispro per protocol & [address] Hunter made aware - order to retest blood sugar in 3-4 hours.
[2021-01-11] VITALS (14 sets, daily range): BP systolic 102–165; BP diastolic 50–70; PULSE 73–88; RESP 15–20; TEMP 36.2–36.8; O2SAT 90–100
[2021-01-11] MEDS: Dextrose 5 % and 0.9 % NaCl 1,000 ML 80 ML IVCONT (00:25)
--- NOTE | 2021-01-11 05:21 | PC.NURSE ---
POC RECHECK AT APPROX., 0515 SHOWS A VALUE OF 184. PT OFFERS NO COMPLAINTS .
[2021-01-11 05:22] LABS: Glucose, Whole Blood 184 mg/dL (60-115)
[2021-01-11] MEDS: Pantoprazole Sodium 40 MG/10 ML VIAL IVPUSH (05:51)
[2021-01-11] MEDS: Enoxaparin Sodium 40 MG/0.4 ML SYRINGE SUBCUT (05:51)
[2021-01-11 07:28] LABS: Glucose, Whole Blood 177 mg/dL (60-115)
[2021-01-11] MEDS: Albuterol/Iprat 2.5/0.5MG 3 ML AMPUL.NEB INHALE ×4 (07:50→19:44)
--- NOTE | 2021-01-11 08:40 | MHC.CM.PN ---
at this time dc plan is for patient to go to pulmonary rehab. cm to cont. to follow.
[2021-01-11] MEDS: Insulin Lispro 100 UNIT/ML 3 ML VIAL SUBCUT ×4 (08:54→20:54)
[2021-01-11] MEDS: Aspirin Enteric Coated 81 MG TABLET.DR PO (08:55)
[2021-01-11] MEDS: Ipratropium Bromide Nas 0.03 % 30 ML SPRAY 2 SPRAY NOSTRIL-B ×2 (08:55→20:55)
[2021-01-11] MEDS: Magnesium Oxide 400 MG TABLET 800 MG PO (08:55)
[2021-01-11] MEDS: predniSONE 20 MG TABLET PO (08:55)
[2021-01-11] MEDS: Metoprolol Succinate ER 25 MG TAB.ER.24H PO (08:55)
[2021-01-11] MEDS: guaiFENesin LA 600 MG TAB.ER.12H 1200 MG PO ×2 (08:55→20:54)
[2021-01-11] MEDS: Nystatin Powder 15 GM BOTTLE 1 APPL TOPICAL ×2 (08:55→20:55)
[2021-01-11] MEDS: Atorvastatin Calcium 40 MG TABLET PO (08:55)
[2021-01-11] MEDS: 0.9 % Sodium Chloride Flush 3 ML SYRINGE IVFLUSH ×3 (08:57→20:55)
[2021-01-11 11:46] LABS: Glucose, Whole Blood 277 mg/dL (60-115)
[2021-01-11] MEDS: Fluconazole in NaCl,Iso-Osm 200 MG/100 ML PIGGYBACK 100 MG IV (12:58)
--- NOTE | 2021-01-11 14:33 | HO.PM.IMPN ---
Subjective Subjective Date of Service: 01/11/21 Interval History: seen in f/u for acute on chronic hypoxic resp failure, persistent high O2 requirement on high flow Review of Systems feels comfortable, denies sob, no fever Physical Exam Vital Signs: Vital Signs: Last Vital Signs Temp 97.7 F 01/11/21 11:11 Pulse 75 01/11/21 11:22 Resp 18 01/11/21 11:11 BP 102/65 01/11/21 11:11 Pulse Ox 97 01/11/21 11:11 Oxygen Flow Rate 6 12/24/20 16:46 Body Mass Index 24.3 Const: Other: General: AO X 3, no acute distress Resp: CTA bilateral CVS: S1,S2,RRR GI: +BS, NT, no distention Skin: No rash Neuro: motor grossly intact Psych: appropriate affect Objective Data Active Medications Acetaminophen (Acetaminophen 325 Mg Tablet) 650 mg PO Q6H PRN PRN Reason: Pain, Mild (Pain Scale 1-3) Last Admin: 12/25/20 22:31 Dose: 650 mg Documented by: CHRISTOPHER Al Hydroxide/Mg Hydroxide (Magnesium Hydrox/Alum Hydrox 30 Ml Oral.Susp) 15 ml PO Q6H PRN PRN Reason: Heartburn Last Admin: 01/08/21 05:53 Dose: 15 ml Documented by: ANTCRISTINA Albuterol Sulfate (Albuterol Sulfate (0.083%) 2.5 Mg/3 Ml Vial.Neb) 2.5 mg INHALE Q2H PRN PRN Reason: shortness of breath/wheezing Last Admin: 01/02/21 23:57 Dose: 2.5 mg Documented by: NNEKA Albuterol/Ipratropium (Albuterol/Iprat 2.5/0.5mg 3 Ml Ampul.Neb) 3 ml INHALE RQ4H WHILE AWAKE [facility] Last Admin: 01/11/21 11:21 Dose: 3 ml Documented by: ELVIN Aspirin (Aspirin Enteric Coated 81 Mg Tablet.) 81 mg PO DAILY [facility] Last Admin: 01/11/21 08:55 Dose: 81 mg Documented by: JOANIE Atorvastatin Calcium (Atorvastatin Calcium 40 Mg Tablet) 40 mg PO DAILY [facility] Last Admin: 01/11/21 08:55 Dose: 40 mg Documented by: JOANIE Dextrose (Dextrose 50 % 25 Gm/50 Ml Vial) 25 gm IVPUSH Q15M PRN; Protocol PRN Reason: per Hypoglycemia Standing Ord. Docusate Sodium (Docusate Sodium 100 Mg Capsule) 100 mg PO DAILY PRN PRN Reason: Constipation Enoxaparin Sodium (Enoxaparin Sodium 40 Mg/0.4 Ml Syringe) 40 mg SUBCUT Q24H [facility] Last Admin: 01/11/21 05:51 Dose: 40 mg Documented by: CORBIN Glucose (Glucose Gel 15 Gm Gel..Gram.) 15 gm PO Q15M PRN; Protocol PRN Reason: per Hypoglycemia Standing Ord. Guaifenesin (Guaifenesin [place] 600 Mg Tab.Er.12h) 1,200 mg PO BID [facility] Last Admin: 01/11/21 08:55 Dose: 1,200 mg Documented by: JOANIE Fluconazole (Diflucan) 200 mg in 100 mls @ 100 mls/hr IV Q24H [facility] Last Admin: 01/11/21 12:58 Dose: 100 mls/hr Documented by: JOANIE Insulin Glargine (Insulin Glargine,Hum.Rec.Anlog 100 Unit/Ml 10 Ml Vial) 25 unit SUBCUT BEDTIME [facility] Last Admin: 01/10/21 22:17 Dose: 25 unit Documented by: EMELINA Insulin Human Lispro (Insulin Lispro 100 Unit/Ml 3 Ml Vial) 0 unit SUBCUT QIDACHS [facility]; Protocol Last Admin: 01/11/21 12:57 Dose: 6 unit Documented by: JOANIE Ipratropium [place] (Ipratropium [place] Marko 0.03 % 30 Ml [place]) 2 spray NOSTRIL-B BID [facility] Last Admin: 01/11/21 08:55 Dose: 2 spray Documented by: JOANIE Lidocaine (Lidocaine 4 % Patch Adh..Patch) 1 patch TRANSDERMA DAILY [facility]; Protocol Last Admin: 01/11/21 08:58 Dose: Not Given Documented by: JOANIE Non-Admin Reason: Patient Refused Lisinopril (Lisinopril 5 Mg Tablet) 5 mg PO DAILY [facility]; Protocol Last Admin: 01/07/21 07:50 Dose: 5 mg Documented by: BROJose Magnesium Oxide (Magnesium Oxide 400 Mg Tablet) 800 mg PO DAILY [facility] Last Admin: 01/11/21 08:55 Dose: 800 mg Documented by: JOANIE Melatonin (Melatonin 3 Mg Tablet) 6 mg PO BEDTIME [facility] Last Admin: 01/10/21 22:19 Dose: 6 mg Documented by: EMELINA Metoprolol Succinate (Metoprolol Succinate Er 25 Mg Tab.Er.24h) 25 mg PO DAILY [facility]; Protocol Last Admin: 01/11/21 08:55 Dose: 25 mg Documented by: JOANIE Nitroglycerin (Nitroglycerin 0.4 Mg Tab.Subl) 0.4 mg SUBLINGUAL Q5MX3 PRN PRN Reason: Chest Pain Last Admin: 01/08/21 09:08 Dose: 0.4 mg Documented by: RENE Non-Formulary Medication (Umeclidinium-Vilanterol [Anoro Ellipta]) 1 puff INHALE RDAILY [facility] Last Admin: 01/11/21 12:58 Dose: 1 puff Documented by: JOANIE Nystatin (Nystatin Powder 15 Gm Bottle) 1 appl TOPICAL BID [facility]; Protocol Last Admin: 01/11/21 08:55 Dose: 1 appl Documented by: JOANIE Ondansetron HCl (Ondansetron Hcl 4 Mg/2 Ml Vial) 4 mg IVPUSH Q8H PRN PRN Reason: Nausea and Vomiting Last Admin: 01/08/21 05:39 Dose: 4 mg Documented by: BO Ondansetron HCl (Ondansetron Hcl 4 Mg/2 Ml Vial) 4 mg IVPUSH Q4H PRN PRN Reason: Nausea Last Admin: 01/08/21 09:12 Dose: 4 mg Documented by: RENE Pantoprazole Sodium (Pantoprazole Sodium 40 Mg/10 Ml Vial) 40 mg IVPUSH BID@0630,1630 [facility] Last Admin: 01/11/21 05:51 Dose: 40 mg Documented by: CORBIN Pioglitazone HCl (Pioglitazone Hcl 15 Mg Tablet) 15 mg PO DAILY [facility] Last Admin: 01/09/21 08:45 Dose: 15 mg Documented by: RENE Prednisone (Prednisone 20 Mg Tablet) 20 mg PO DAILY [facility] Last Admin: 01/11/21 08:55 Dose: 20 mg Documented by: JOANIE Sodium Chloride (0.9 % Sodium Chloride Flush 3 Ml Syringe) 3 ml IVFLUSH QSHIFT [facility] Last Admin: 01/11/21 08:57 Dose: 3 ml Documented by: JOANIE Labs CBC & Chem 7: 01/04/21 06:24 01/09/21 08:23 Labs: Laboratory Results - last 24 hr 01/10/21 01/10/21 01/11/21 16:29 20:19 05:19 POC Glucose 371 H* 386 H* 184 H 01/11/21 01/11/21 07:07 11:10 POC Glucose 177 H 277 H Assessment and Plan (1) Esophagitis: Status: Acute (2) Acute and chronic respiratory failure with hypoxia: Status: Acute Assessment and Plan: 80yo M with IPF, COPD, chronic hypoxic RF on 6L O2, DM2, CAD s/p PCI presenting with subacute progressive dyspnea + productive cough admitted for hypoxia with pneumonia, RSV positive # acute/chronic hypoxia- - continue supplemental O2 via high flow and wean as carlene - CTA negative for PE x2 - treat COPD as below -tyson steroid # COPD exacerbation # IPF - was on high dose IV solumedrol, now being tapperoed - standing/prn nebs #Severe esophagitis--IV Diflucan # RSV bronchiolitis/pneumonia - droplet isolation # CAP - completed ceftriaxone and Doxy.? ID consulted.? BCx negative.? Legionella UAg negative, pneumococcal UAgs positive, covered by Ceftriaone # chest wall pain - from coughing; continue lidocaine patch # hypoK--resolved # CAD - continue ASA + metoprolol + statin + SAM-I # DM2, A1c 7.3, with steroid-induced hyperglycemia - continue Lantus and SSI # VTE ppx - LMWH Quality Stroke Does the patient have a stroke diagnosis?: No VTE Prior VTE?: No VTE Risk Level:: Medical - moderate - high VTE Device Contraindication: Treatment Not Indicated VTE Drug Contraindication: N/A - Med Ordered
[2021-01-11 16:30] LABS: Glucose, Whole Blood 306 mg/dL (60-115)
[2021-01-11 20:17] LABS: Glucose, Whole Blood 322 mg/dL (60-115)
[2021-01-11] MEDS: Melatonin 3 MG TABLET 6 MG PO (20:54)
[2021-01-11] MEDS: Insulin Glargine,Hum.rec.anlog 100 UNIT/ML 10 ML VIAL 25 UNIT SUBCUT (20:54)
[2021-01-12] VITALS (13 sets, daily range): BP systolic 119–158; BP diastolic 52–70; PULSE 77–96; RESP 16–20; TEMP 35.5–36.8; O2SAT 88–99
[2021-01-12] MEDS: Enoxaparin Sodium 40 MG/0.4 ML SYRINGE SUBCUT (05:32)
[2021-01-12 07:24] LABS: Glucose, Whole Blood 79 mg/dL (60-115)
[2021-01-12] MEDS: Albuterol/Iprat 2.5/0.5MG 3 ML AMPUL.NEB INHALE ×4 (08:02→19:56)
[2021-01-12] MEDS: Metoprolol Succinate ER 25 MG TAB.ER.24H PO (09:49)
[2021-01-12] MEDS: Magnesium Oxide 400 MG TABLET 800 MG PO (09:49)
[2021-01-12] MEDS: predniSONE 20 MG TABLET PO (09:49)
[2021-01-12] MEDS: Aspirin Enteric Coated 81 MG TABLET.DR PO (09:50)
[2021-01-12] MEDS: guaiFENesin LA 600 MG TAB.ER.12H 1200 MG PO ×2 (09:50→20:14)
[2021-01-12] MEDS: Atorvastatin Calcium 40 MG TABLET PO (09:50)
[2021-01-12] MEDS: 0.9 % Sodium Chloride Flush 3 ML SYRINGE IVFLUSH ×2 (09:52→16:36)
[2021-01-12] MEDS: Ipratropium Bromide Nas 0.03 % 30 ML SPRAY 2 SPRAY NOSTRIL-B ×2 (09:53→20:15)
[2021-01-12] MEDS: Nystatin Powder 15 GM BOTTLE 1 APPL TOPICAL ×2 (09:53→20:15)
[2021-01-12 11:25] LABS: Glucose, Whole Blood 268 mg/dL (60-115)
[2021-01-12] MEDS: Insulin Lispro 100 UNIT/ML 3 ML VIAL SUBCUT ×3 (11:47→20:14)
[2021-01-12] MEDS: Fluconazole in NaCl,Iso-Osm 200 MG/100 ML PIGGYBACK 100 MG IV (13:21)
[2021-01-12 16:02] LABS: Glucose, Whole Blood 318 mg/dL (60-115)
--- NOTE | 2021-01-12 16:49 | HO.PM.IMPN ---
Subjective Subjective Date of Service: 01/12/21 Interval History: seen in f/u for acute on chronic hypoxic resp failure, improved O2 requirement, off high flow and on nasal cannula Review of Systems feels comfortable, denies sob, no fever Physical Exam Vital Signs: Vital Signs: Last Vital Signs Temp 97.9 F 01/12/21 15:02 Pulse 96 01/12/21 15:02 Resp 19 01/12/21 11:00 BP 119/52 L 01/12/21 15:02 Pulse Ox 94 01/12/21 15:02 Oxygen Flow Rate 6 12/24/20 16:46 Body Mass Index 24.3 Const: Other: General: AO X 3, no acute distress Resp: CTA bilateral CVS: S1,S2,RRR GI: +BS, NT, no distention Skin: No rash Neuro: motor grossly intact Psych: appropriate affect Objective Data Active Medications Acetaminophen (Acetaminophen 325 Mg Tablet) 650 mg PO Q6H PRN PRN Reason: Pain, Mild (Pain Scale 1-3) Last Admin: 12/25/20 22:31 Dose: 650 mg Documented by: CHRISTOPHER Al Hydroxide/Mg Hydroxide (Magnesium Hydrox/Alum Hydrox 30 Ml Oral.Susp) 15 ml PO Q6H PRN PRN Reason: Heartburn Last Admin: 01/08/21 05:53 Dose: 15 ml Documented by: BO Albuterol Sulfate (Albuterol Sulfate (0.083%) 2.5 Mg/3 Ml Vial.Neb) 2.5 mg INHALE Q2H PRN PRN Reason: shortness of breath/wheezing Last Admin: 01/02/21 23:57 Dose: 2.5 mg Documented by: CASTBOB Albuterol/Ipratropium (Albuterol/Iprat 2.5/0.5mg 3 Ml Ampul.Neb) 3 ml INHALE RQ4H WHILE AWAKE [facility] Last Admin: 01/12/21 14:36 Dose: 3 ml Documented by: REGINALD Aspirin (Aspirin Enteric Coated 81 Mg Tablet.) 81 mg PO DAILY [facility] Last Admin: 01/12/21 09:50 Dose: 81 mg Documented by: EUNICE Atorvastatin Calcium (Atorvastatin Calcium 40 Mg Tablet) 40 mg PO DAILY [facility] Last Admin: 01/12/21 09:50 Dose: 40 mg Documented by: EUNICE Dextrose (Dextrose 50 % 25 Gm/50 Ml Vial) 25 gm IVPUSH Q15M PRN; Protocol PRN Reason: per Hypoglycemia Standing Ord. Docusate Sodium (Docusate Sodium 100 Mg Capsule) 100 mg PO DAILY PRN PRN Reason: Constipation Enoxaparin Sodium (Enoxaparin Sodium 40 Mg/0.4 Ml Syringe) 40 mg SUBCUT Q24H [facility] Last Admin: 01/12/21 05:32 Dose: 40 mg Documented by: BESSY Glucose (Glucose Gel 15 Gm Gel..Gram.) 15 gm PO Q15M PRN; Protocol PRN Reason: per Hypoglycemia Standing Ord. Guaifenesin (Guaifenesin [place] 600 Mg Tab.Er.12h) 1,200 mg PO BID [facility] Last Admin: 01/12/21 09:50 Dose: 1,200 mg Documented by: EUNICE Fluconazole (Diflucan) 200 mg in 100 mls @ 100 mls/hr IV Q24H [facility] Last Infusion: 01/12/21 15:38 Dose: 0 mls/hr Documented by: EUNICE Insulin Glargine (Insulin Glargine,Hum.Rec.Anlog 100 Unit/Ml 10 Ml Vial) 25 unit SUBCUT BEDTIME [facility] Last Admin: 01/11/21 20:54 Dose: 25 unit Documented by: BESSY Insulin Human Lispro (Insulin Lispro 100 Unit/Ml 3 Ml Vial) 0 unit SUBCUT QIDACHS [facility]; Protocol Last Admin: 01/12/21 16:36 Dose: 10 unit Documented by: EUNICE Ipratropium [place] (Ipratropium [place] Marko 0.03 % 30 Ml [place]) 2 spray NOSTRIL-B BID [facility] Last Admin: 01/12/21 09:53 Dose: 2 spray Documented by: EUNICE Lidocaine (Lidocaine 4 % Patch Adh..Patch) 1 patch TRANSDERMA DAILY [facility]; Protocol Last Admin: 01/12/21 09:55 Dose: Not Given Documented by: EUNICE Non-Admin Reason: Patient Refused Lisinopril (Lisinopril 5 Mg Tablet) 5 mg PO DAILY [facility]; Protocol Last Admin: 01/07/21 07:50 Dose: 5 mg Documented by: BROJose Magnesium Oxide (Magnesium Oxide 400 Mg Tablet) 800 mg PO DAILY [facility] Last Admin: 01/12/21 09:49 Dose: 800 mg Documented by: EUNICE Melatonin (Melatonin 3 Mg Tablet) 6 mg PO BEDTIME [facility] Last Admin: 01/11/21 20:54 Dose: 6 mg Documented by: BESSY Metoprolol Succinate (Metoprolol Succinate Er 25 Mg Tab.Er.24h) 25 mg PO DAILY [facility]; Protocol Last Admin: 01/12/21 09:49 Dose: 25 mg Documented by: EUNICE Nitroglycerin (Nitroglycerin 0.4 Mg Tab.Subl) 0.4 mg SUBLINGUAL Q5MX3 PRN PRN Reason: Chest Pain Last Admin: 01/08/21 09:08 Dose: 0.4 mg Documented by: RENE Non-Formulary Medication (Umeclidinium-Vilanterol [Anoro Ellipta]) 1 puff INHALE RDAILY [facility] Last Admin: 01/12/21 09:53 Dose: 1 puff Documented by: EUNICE Nystatin (Nystatin Powder 15 Gm Bottle) 1 appl TOPICAL BID [facility]; Protocol Last Admin: 01/12/21 09:53 Dose: 1 appl Documented by: EUNICE Ondansetron HCl (Ondansetron Hcl 4 Mg/2 Ml Vial) 4 mg IVPUSH Q8H PRN PRN Reason: Nausea and Vomiting Last Admin: 01/08/21 05:39 Dose: 4 mg Documented by: BO Ondansetron HCl (Ondansetron Hcl 4 Mg/2 Ml Vial) 4 mg IVPUSH Q4H PRN PRN Reason: Nausea Last Admin: 01/08/21 09:12 Dose: 4 mg Documented by: RENE Pioglitazone HCl (Pioglitazone Hcl 15 Mg Tablet) 15 mg PO DAILY [facility] Last Admin: 01/09/21 08:45 Dose: 15 mg Documented by: RENE Prednisone (Prednisone 20 Mg Tablet) 20 mg PO DAILY [facility] Last Admin: 01/12/21 09:49 Dose: 20 mg Documented by: EUNICE Sodium Chloride (0.9 % Sodium Chloride Flush 3 Ml Syringe) 3 ml IVFLUSH QSHIFT [facility] Last Admin: 01/12/21 16:36 Dose: 3 ml Documented by: EUNICE Labs CBC & Chem 7: 01/04/21 06:24 01/09/21 08:23 Labs: Laboratory Results - last 24 hr 01/11/21 01/12/21 01/12/21 20:08 07:03 10:59 POC Glucose 322 H 79 268 H 01/12/21 15:56 POC Glucose 318 H Assessment and Plan (1) Esophagitis: Status: Acute (2) Acute and chronic respiratory failure with hypoxia: Status: Acute Assessment and Plan: 80yo M with IPF, COPD, chronic hypoxic RF on 6L O2, DM2, CAD s/p PCI presenting with subacute progressive dyspnea + productive cough admitted for hypoxia with pneumonia, RSV positive # acute/chronic hypoxia--is doing better, - continue supplemental via nasal cannula, presently 6 liters and satting 96%, on 6 liters at home - CTA negative for PE x2 - treat COPD as below -tyson steroid # COPD exacerbation # IPF - was on high dose IV solumedrol, now prednsine 20 daily with long tyson - standing/prn nebs #Severe esophagitis--IV Diflucan for 10 days, started on 01/09, change to PO in a day # RSV bronchiolitis/pneumonia - droplet isolation # CAP - completed ceftriaxone and Doxy.? ID consulted.? BCx negative.? Legionella UAg negative, pneumococcal UAgs positive, covered by Ceftriaone # chest wall pain - from coughing; continue lidocaine patch # hypoK--resolved # CAD - continue ASA + metoprolol + statin + SAM-I # DM2, A1c 7.3, with steroid-induced hyperglycemia - continue Lantus and SSI # VTE ppx - LMWH PT is recommending pulmonary rehab as he desats alot with minimal effort Quality Stroke Does the patient have a stroke diagnosis?: No VTE Prior VTE?: No VTE Risk Level:: Medical - moderate - high VTE Device Contraindication: Treatment Not Indicated VTE Drug Contraindication: N/A - Med Ordered
[2021-01-12 19:59] LABS: Glucose, Whole Blood 317 mg/dL (60-115)
[2021-01-12] MEDS: Melatonin 3 MG TABLET 6 MG PO (20:14)
[2021-01-12] MEDS: Insulin Glargine,Hum.rec.anlog 100 UNIT/ML 10 ML VIAL 25 UNIT SUBCUT (20:14)
[2021-01-13] MEDS: 0.9 % Sodium Chloride Flush 3 ML SYRINGE IVFLUSH ×2 (02:41→08:03)
[2021-01-13 03:24] VITALS: BP 150/66; PULSE 79; RESP 12; TEMP 36.3; O2SAT 96
[2021-01-13] MEDS: Enoxaparin Sodium 40 MG/0.4 ML SYRINGE SUBCUT (05:38)
[2021-01-13] MEDS: Albuterol/Iprat 2.5/0.5MG 3 ML AMPUL.NEB INHALE (07:24)
[2021-01-13 07:26] VITALS: PULSE 72; O2SAT 97
[2021-01-13 07:43] VITALS: BP 140/63; PULSE 78; RESP 18; TEMP 36.2; O2SAT 94
[2021-01-13 07:55] LABS: Glucose, Whole Blood 106 mg/dL (60-115)
[2021-01-13 08:02] VITALS: BP 140/63; PULSE 78
[2021-01-13] MEDS: predniSONE 20 MG TABLET PO (08:02)
[2021-01-13] MEDS: Magnesium Oxide 400 MG TABLET 800 MG PO (08:02)
[2021-01-13] MEDS: Metoprolol Succinate ER 25 MG TAB.ER.24H PO (08:02)
[2021-01-13] MEDS: guaiFENesin LA 600 MG TAB.ER.12H 1200 MG PO (08:02)
[2021-01-13] MEDS: Aspirin Enteric Coated 81 MG TABLET.DR PO (08:02)
[2021-01-13] MEDS: Atorvastatin Calcium 40 MG TABLET PO (08:02)
[2021-01-13] MEDS: Ipratropium Bromide Nas 0.03 % 30 ML SPRAY 2 SPRAY NOSTRIL-B (08:03)
[2021-01-13] MEDS: Nystatin Powder 15 GM BOTTLE 1 APPL TOPICAL (08:03)
[2021-01-13 11:45] VITALS: BP 130/60; PULSE 77; RESP 18; TEMP 36.5; O2SAT 95
[2021-01-13 11:46] LABS: Glucose, Whole Blood 297 mg/dL (60-115)
[2021-01-13] MEDS: Insulin Lispro 100 UNIT/ML 3 ML VIAL SUBCUT (11:50)
--- NOTE | 2021-01-13 13:51 | P.DS_ITS ---
DS: Providers Provider Date of Service: 01/13/21 Date of admission: 12/25/20 00:29 Date of discharge: 01/13/21 Primary care physician: Royal Garcia PA-C Consults: 12/28/20 07:56 Consult to Pulmonology Routine Consulting Provider: [facility] Pul[facility]ology Services Reason for consultation: IPF] 12/29/20 10:55 Consult to Infectious Diseases Routine Consulting Provider: Olivia Mcbride Reason for consultation: worsening PNA 01/06/21 09:13 Consult to Pulmonology Routine Consulting Provider: Papo Hayward Reason for consultation: worsening acute hypoxxemic respiratory failure /rsv infection Has provider been notified: No 01/08/21 08:53 Consult to Cardiology Routine Consulting Provider: Gianluca Ho Reason for consultation: chest pain Has provider been notified: No 01/08/21 11:59 Consult to Gastroenterology Routine Consulting Provider: Zahraa Herrera Reason for consultation: severe esopagitis /mediastential stranding Has provider been notified: No DS: Diagnosis Discharge Diagnosis (1) Esophagitis: Status: Acute (2) Acute and chronic respiratory failure with hypoxia: Status: Acute DS: Summary Hospital Course Hospital Course: This is an 80-year-old male past medical history of idiopathic pulmonary fibrosis, COPD on 6 L of oxygen at home, diabetes, CAD status post stent who presents to the hospital with complaints of shortness of breath.?? patient was found to have COPD exacerbation as well as community-acquired pneumonia. Patient completed course of IV antibiotics with azithromycin as well as ceftriax one. Patient also treated for COPD with IV Solu-Medrol, switch to prednisone as well as breathing treatments . Patient found to have severe esophagitis, started on Diflucan, will need 10 day completion of Diflucan course. Has 6 more days of treatment with diflucan- Scripts provided. Patient will also be discharged home on prednisone taper starting with 20 mg for 5 days followed by 10 mg for the following 5 days followed by 5 mg daily to complete the taper. Patient is now back to his baseline oxygen requirement of 6 L. Time Spent with Patient Time attestation: Total time spent providing and/or coordinating discharge services: Discharge coordination time: Greater than 30 minutes Quality: Stroke Does the patient have a stroke diagnosis?: No Physical Exam Vital Signs: Vital Signs: Last Vital Signs Temp 97.7 F 01/13/21 11:45 Pulse 77 01/13/21 11:45 Resp 18 01/13/21 11:45 BP 130/60 01/13/21 11:45 Pulse Ox 95 01/13/21 11:45 Oxygen Flow Rate 6 12/24/20 16:46 Body Mass Index 24.3 Const: General: cooperative and no acute distress Resp: Effort & Inspection: normal respiratory effort Auscultation: clear to auscultation bilaterally Cardio: Rate: regular rate Rhythm: regular rhythm GI: Palpation (GI): Soft to palpation Auscultation: normal bowel sounds Extrem: General: Yes normal to inspection and Yes no pedal edema DS: Data Data Completed and Pending Labs on day of discharge: Laboratory Results - last 24 hr 01/12/21 01/12/21 01/13/21 15:56 19:54 07:42 POC Glucose 318 H 317 H 106 01/13/21 11:42 POC Glucose 297 H Discharge Plan Discharge Patient Disposition: Home, Self-Care Discharge Diagnosis: COPD exacerbation, Pneumonia Referrals: Royal Garcia PA-C [Primary Care Provider] - 1 Week Discharge Medications: New prednisone 20 mg Tablet 20 mg PO DAILY 5 Days Qty: 5 RF: 0 fluconazole [Diflucan] 200 mg tablet 200 mg PO DAILY 6 Days Qty: 6 RF: 0 prednisone 10 mg tablet 10 mg PO DAILY Qty: 5 RF: 0 prednisone 5 mg tablet 5 mg PO DAILY Qty: 5 RF: 0 Continued atorvastatin 40 mg tablet 40 mg PO DAILY Qty: 90 RF: 3 metoprolol succinate 25 mg tablet extended release 24 hr 25 mg PO DAILY Qty: 90 RF: 3 Anoro Ellipta 62.5-25 mcg/actuation blister with device 1 puff inhalation DAILY RF: 0 pioglitazone [Actos] 15 mg tablet 15 mg PO DAILY 90 Days Qty: 90 RF: 1 ipratropium bromide 21 mcg (0.03 %) spray,non-aerosol 2 spray intranasal BID 90 Days Qty: 60 RF: 2 lisinopril 5 mg tablet 5 mg PO DAILY 90 Days Qty: 90 RF: 1 aspirin [Ecotrin Low Strength] 81 mg tablet,delayed release (DR/EC) 81 mg PO DAILY Qty: 30 RF: 0 albuterol sulfate 90 mcg/actuation HFA aerosol inhaler 2 puff inhalation Q4-6H PRN (Reason: shortness of breath or wheezing) 30 Days Qty: 1 RF: 6 Discharge Orders: Discharge Order (Routine); Ordered 01/13/21 Ordered By: Marisel Briones Diet: advance to usual diet Activity on Discharge: As tolerated Stand Alone Forms: Patient Portal Discharge page Care Plan Goals: admitted and treated for COPD exacerbation as well as pneumonia secondary to RSV.treated with IV antobiotics. oxygen requirement has now decreased to 6 L which is his home O2. Continue prednisone 20 mg daily for 5 days, complete Diflucan for the treatment of esophagitis for 6 days Health Concerns: rehospitalization Plan of Treatment: see above Assessment: see above
--- NOTE | 2021-01-13 14:27 | MHC.CM.PN ---
IMM 01/13/21 Male 80 DX RSV CPAP He is discharged to home today with family assist and transportation. No home services ordered.
== END 2021-01-13 15:30 | disposition home or self-care (01) | DRG 193 ==
LOC: HO.ED 12-25 00:01 → HO.EDOVER 12-25 00:53 → HO.IMC 12-25 19:44 → HO.EDOVER 12-25 20:04 → HO.IMC 12-26 07:36
PROVIDERS: Family Medicine; Hospitalist; Internal Medicine; Admitting Provider Internal Medicine; Emergency Provider Emergency Medicine Emergency Medical Services; PCP Physician Assistant; Visit Provider Internal Medicine
DX: J12.1 Respiratory syncytial virus pneumonia (principal); J96.21 Acute and chronic respiratory failure with hypoxia; J44.1 Chronic obstructive pulmonary disease with (acute) exacerbation; J44.0 Chronic obstructive pulmonary disease with (acute) lower respiratory infection; B37.81 Candidal esophagitis; J20.5 Acute bronchitis due to respiratory syncytial virus; I10 Essential (primary) hypertension; E78.5 Hyperlipidemia, unspecified; E11.65 Type 2 diabetes mellitus with hyperglycemia; E87.6 Hypokalemia; J13 Pneumonia due to Streptococcus pneumoniae; Z99.81 Dependence on supplemental oxygen; Z20.822 Contact with and (suspected) exposure to COVID-19; I25.10 Atherosclerotic heart disease of native coronary artery without angina pectoris; Z87.891 Personal history of nicotine dependence; Z79.82 Long term (current) use of aspirin; Z79.899 Other long term (current) drug therapy
CPT/HCPCS: 0241U; 36415; 70450; 71045; 71250; 71275; 80048; 80053; 81001; 82728; 82803; 82947; 83036; 83605; 83690; 83735; 83880; 84145; 84484; 85025; 85027; 86140; 87040; 87449; 87640; 87641; 87899; 93005; 93306; 94640; 94664; 96361; 96365; 96375; 97110; 97116; 97162; 97530; 99285; J0456; J0696; J1450; J1650; J1940; J2405; J2920; J2930; Q9967

== ENCOUNTER → 2021-02-01 10:25 | Outpatient (BNVA) | payer MEDICARE, SELFPAY | PROVIDERS: PCP Physician Assistant; Visit Provider Internal Medicine Pulmonary Disease | DX: J44.9 Chronic obstructive pulmonary disease, unspecified (principal); J84.112 Idiopathic pulmonary fibrosis; Z99.81 Dependence on supplemental oxygen; Z87.891 Personal history of nicotine dependence | CPT/HCPCS: 99212 ==

== ENCOUNTER 2021-02-17 10:05 | Outpatient (REF) | payer MEDICARE, SELFPAY ==
--- NOTE | ~2021-02-17 | CT_ITS ---
EXAMINATION: CT CHEST WITHOUT CONTRAST CLINICAL INFORMATION: Idiopathic pulmonary fibrosis. COMPARISON: 01/08/2021 TECHNIQUE: Multidetector volumetric CT imaging of the chest was done. Axial MIP volume rendering provided. Sagittal and coronal reformatted images were obtained. This CT examination was performed using dose optimization techniques as appropriate, variously including the following: *Automated exposure control *Adjustment of mA and/or kV according to patient size (this includes techniques or standardized protocols for targeted exams where dose is matched to indication/reason for exam; i.e. extremities or head) *Use of iterative reconstruction technique High-resolution cuts are also obtained here. DLP: 201 mGy-cm FINDINGS: The thoracic inlet is felt to be comparable. The axillary regions are unremarkable. Partially imaged upper abdominal structures once again demonstrate calcification associated with the gallbladder. This could be associated with the gallbladder wall. It is not significantly changed from previous. Also probable stones lower in the gallbladder. Centrally, coronary calcifications are once again seen. Some prominent mediastinal nodes which are showing some mild increase when compared to previous exam. This is a noncontrast study, but the hilar regions are comparable to previous. Imaging of the lung givens. Severe emphysema is once again seen. Scattered pneumatoceles once again seen. Biapical pleural-parenchymal scarring is noted once again. There is some improvement at the left base with decreasing pleural-based opacity extending in the major fissure. There is also some improvement at the right base with decreasing pleural-parenchymal change extending into the major fissure. Importantly, no new finding is seen here. Review of the bony windows demonstrates no suspicion for a lesion. CT/CT chest wo con IMPRESSION: Once again, severe combined pulmonary fibrosis and emphysema. When compared to most recent previous, there are some decreasing basilar opacities and importantly, there is no new finding in the lung givens. Some mildly increasing central adenopathy which may be reactive. Attention to followup.
== END 2021-02-17 10:06 | disposition home or self-care (01) ==
LOC: HO.CT 10:05
PROVIDERS: Visit Provider Internal Medicine Pulmonary Disease
DX: J84.112 Idiopathic pulmonary fibrosis (principal)
CPT/HCPCS: 71250

== ENCOUNTER → 2021-03-03 15:27 | Outpatient (BNVA) | payer MEDICARE, SELFPAY | PROVIDERS: PCP Physician Assistant; Visit Provider Internal Medicine Pulmonary Disease | DX: J84.112 Idiopathic pulmonary fibrosis (principal); J44.9 Chronic obstructive pulmonary disease, unspecified; Z99.81 Dependence on supplemental oxygen | CPT/HCPCS: 99212 ==

== ENCOUNTER 2021-03-07 10:39 | Outpatient (REF) | payer MEDICARE, SELFPAY ==
[2021-03-07 11:29] LABS: Hemoglobin 11.1 g/dl (14.0-18.0); Mean Corpuscular HGB Conc 32.6 g/dl (31.0-36.0); Mean Corpuscular Volume 85.6 fL (80.0-98.0); Mean Platelet Volume 10.6 fL (9.4-12.4); Platelet Count 230 X10*3/uL (160-400); Red Blood Count 3.97 X10*6/uL (4.60-5.80); Red Cell Distribution Width 14.9 % (11.0-16.0); White Blood Count 10.3 X10*3/uL (4.8-10.8)
[2021-03-07 11:37] LABS: Estimated Average Glucose 131 mg/dL; Hemoglobin A1c % 6.2 %
[2021-03-07 12:14] LABS: Alanine Aminotransferase 12 U/L (0-40); Albumin Level 3.6 g/dL (3.5-5.0); Alkaline Phosphatase 93 U/L (39-117); Anion Gap 12 (12-20); Aspartate Amino Transferase 14 U/L (5-37); Bilirubin Total 1.7 mg/dL (0.0-1.0); Blood Urea Nitrogen 17 mg/dL (9-16); Calcium 9.1 mg/dL (8.4-10.2); Carbon Dioxide 27 mmol/L (22-29); Chloride 107 mmol/L (96-108); Cholesterol 110 mg/dL; Estimated Glomerular Filt Rate 58; Glucose Fasting 173 mg/dL (60-99); HDL Cholesterol 33 mg/dL; LDL Cholesterol Calculated 58 mg/dl; Potassium 4.1 mmol/L (3.3-5.1); Sodium 142 mmol/L (135-145); Total Protein 6.3 g/dL (6.5-8.0); Triglycerides 95 mg/dL
== END 2021-03-07 10:40 | disposition home or self-care (01) ==
LOC: HO.LAB 10:39
PROVIDERS: PCP Physician Assistant; Visit Provider Physician Assistant
DX: I10 Essential (primary) hypertension (principal); I25.10 Atherosclerotic heart disease of native coronary artery without angina pectoris; E11.9 Type 2 diabetes mellitus without complications; R30.0 Dysuria; R41.82 Altered mental status, unspecified
CPT/HCPCS: 36415; 80053; 80061; 83036; 85027

== ENCOUNTER → 2021-05-05 12:30 | Outpatient (BNVA) | payer MEDICARE, SELFPAY | PROVIDERS: PCP Physician Assistant; Visit Provider Internal Medicine Pulmonary Disease | DX: J84.112 Idiopathic pulmonary fibrosis (principal); J44.9 Chronic obstructive pulmonary disease, unspecified; Z99.81 Dependence on supplemental oxygen | CPT/HCPCS: 99212 ==

== ENCOUNTER 2021-07-12 11:58 | Inpatient (IN) | payer MEDICARE, SELFPAY ==
[2021-07-12] VITALS (9 sets, daily range): BP systolic 93–130; BP diastolic 41–60; PULSE 85–104; RESP 18–26; TEMP 36.1–36.6; O2SAT 94–100; BMI 21.9
--- NOTE | ~2021-07-12 | XR_ITS ---
EXAMINATION: XR CHEST CLINICAL INFORMATION: Shortness of breath COMPARISON: Previous chest x-ray most recent December [address] most recent January 2021 TECHNIQUE: Frontal view of the chest was obtained. FINDINGS: The cardiac and mediastinal contours are stable. The lung volumes are low. There are increased interstitial markings suggestive of interstitial lung disease. This is greater on the left. This is similar to previous chest x-rays. There are postsurgical changes with staple line at the right lung apex. There is adjacent focal right pleural thickening. There is no pleural effusion or pneumothorax. There are degenerative changes of the spine. XR/XR chest 1V IMPRESSION: Low lung volumes and interstitial lung disease similar to previous chest x-ray and chest CT scans. No evidence for acute disease in the chest.
--- NOTE | 2021-07-12 12:32 | ECG_ITS ---
Test Reason : WEAKNESS Blood Pressure : / mmHG Vent. Rate : 091 BPM Atrial Rate : 091 BPM P-R Int : 160 ms QRS Dur : 094 ms QT Int : 358 ms P-R-T Axes : 054 013 014 degrees QTc Int : 440 ms Normal sinus rhythm Normal ECG When compared with ECG of 08-JAN-2021 09:56, Premature ventricular complexes are no longer Present Referred By: Arabella Herrera Electronically Signed By:Gianluca Ho
--- NOTE | 2021-07-12 12:35 | ED.GENADULT ---
HPI - General Adult General Chief complaint: Weakness Stated complaint: Low blood pressure Time Seen by Provider: 07/12/21 12:20 Source: patient and family Mode of arrival: wheelchair Limitations: no limitations History of Present Illness HPI narrative: Patient comes to the emergency room from pulmonary rehab. When patient arrived, patient's blood pressure for of the pulmonary rehab was in the mid 80s. Patient tried participating in his exercises, but shortly after became very fatigued, short of breath. He was brought to the emergency room. Patient states for the last 2 weeks has been complaining of generalized weakness, denies fever chills, no cough, no URI symptoms, complaining of mild intermittent dysuria, no flank pain. Patient is known to have COPD, uses 6 L of oxygen at home, 8 L on a mask after rehab for recovery. At this time, patient denies chest pain Related Data Previous Rx's Medication Instructions Recorded aspirin 81 mg tablet,delayed 81 mg PO DAILY #30 tab 03/17/20 release (Ecotrin Low Strength) atorvastatin 40 mg tablet 40 mg PO DAILY #90 tab 12/06/20 ipratropium 0.5 mg-albuterol 3 mg 3 ml INHALATION Q4-6H PRN 30 Days 02/01/21 (2.5 mg base)/3 mL nebulization #180 ml soln blood sugar diagnostic (FreeStyle #100 ea 03/03/21 Lite Strips) blood sugar diagnostic (OneTouch #100 ea 03/03/21 Ultra Test) blood-glucose meter (FreeStyle #1 ea 03/03/21 Lite Meter) blood-glucose meter (OneTouch #1 ea 03/03/21 Ultra2 Meter) lancets 30 gauge (OneTouch Delica #100 ea 03/05/21 Lancets) pioglitazone 15 mg tablet (Actos) 15 mg PO DAILY 90 Days #90 tab 04/25/21 Anoro Ellipta 62.5 mcg-25 1 ea PO DAILY #60 ea NS 06/22/21 mcg/actuation powder for inhalation (umeclidinium-vilanterol) mirtazapine 30 mg tablet (Remeron) 30 mg PO BEDTIME #30 tab 07/08/21 Allergies Allergy/AdvReac Type Severity Reaction Status Date / Time No Known Allergies Allergy Verified 07/12/21 12:01 Review of Systems Review of Systems: Constitutional : No Weight loss, No Fever, No Chills, No Night Sweats, complaining fatigue and generalized malaise, worsening over the last few weeks ENT/Mouth : No Hearing loss, No Ear Pain, No Nasal Congestion, No Sinus Pain, No Hoarseness, No sore throat, No Rhinorrhea, No Swallowing Difficulty Eyes: No Eye Pain, No Swelling, No Redness, No Foreign Body, No Discharge, No Vision Changes Cardiovascular : No Chest Pain, No SOB, No Dyspnea on Exertion, No Orthopnea, No Edema, No Palpitations Respiratory : Chronic cough, chronic wheezing, worsening shortness of breath, worse with exertion Gastrointestinal : No Nausea, No Vomiting, No Diarrhea, No Constipation, No abdominal Pain, No Hematochezia, No Melena Genitourinary : no irregular bleeding, No Dysuria, No Urinary Frequency, No Hematuria, No Urinary Incontinence, No Urgency, No Flank Pain, No Urinary Flow Changes, No Hesitancy Musculoskeletal : No joint pain, No Myalgias, No Joint Swelling Skin : No Skin Lesions, No rash Neuro : No Weakness, No Numbness, No Paresthesias, No Loss of Consciousness, No Dizziness, No Headache Psych : No Anxiety/Panic, No Depression, No SI/HI/AH/VH, No Social Issues, Heme/Lymph: No Bruising, No Bleeding,No Lymphadenopathy Endocrine : No Polyuria, No Polydipsia, No Temperature Intolerance [facility] Past Medical History Medical History Acute and chronic respiratory failure with hypoxia CAD (coronary artery disease) Chest pain COPD (chronic obstructive pulmonary disease) Esophagitis Hyperlipidemia Hypoxia Impaired glucose metabolism Interstitial lung disease IPF (idiopathic pulmonary fibrosis) Pneumonia RSV (acute bronchiolitis due to respiratory syncytial virus) SOB (shortness of breath) on exertion Supplemental oxygen dependent Surgical History S/P right coronary artery (RCA) stent placement Family History Family History Mother No problems noted. Father No problems noted. Social History Social History Household Members: Children Housing: House Do you presently have visiting nurse or other home services: No Alcohol intake: never Patient Tobacco Use Status: Former Tobacco user Years Smoked: 43 yrs e-Cigarette/Vaping Use: Never Used Advance Directives: Yes Advance Directives Information Provided: No Advance Directives on File: No Current occupational status: retired Physical Exam ED Vital Signs: Vital Signs - 24 hr 07/12/21 12:02 07/12/21 12:39 07/12/21 14:08 Temperature 96.9 F 97.7 F Pulse Rate 104 H 97 91 Respiratory Rate 22 H 26 H 20 Blood Pressure 100/50 L 115/57 L 120/42 L Pulse Oximetry 100 98 100 07/12/21 16:12 07/12/21 16:13 07/12/21 16:17 Temperature 97.7 F Pulse Rate 90 97 97 Respiratory Rate 18 Blood Pressure 120/54 L 93/41 L 93/41 L Pulse Oximetry 94 BMI result Body Mass Index 21.9 Course Course Course Narrative: Patient was brought to the emergency room for hypertension, however, the patient has not been hypotensive. Lactic acid likely secondary to shortness of breath/chronic hypoxia. Patient's creatinine is slightly bumped, nearly normal. Likely secondary also to dehydration and not to sepsis. The patient's daughter states that she has a hard time trying to get her father to drink any fluids throughout the day. Chest x-ray shows chronic changes, COVID and fluid are negative Lactic acid bumped. Patient is chronically hypoxic, need 6 L of oxygen, uses several breathing treatments every day, contributing to the lactic acid 13:50, urinalysis is still pending. Until now, no source of infection has been identified, if any. After L of fluids, patient's orthostatics were positive. Patient received 1 more L of fluids. The urinalysis resolved until now, 16:24 patient does have a UTI. Sepsis is not suspected. Patient is being given 1 g of ceftriaxone I discussed the patient with Dr. Mar, patient being admitted Medical Decision Making Lab Data Result diagrams: 07/12/21 12:51 07/12/21 15:42 Labs: Lab Results 07/12/21 07/12/21 07/12/21 Range/Units 12:51 12:51 12:51 WBC 9.0 (4.8-10.8) X10*3/uL RBC 3.98 L (4.60-5.80) X10*6/uL Hgb 11.2 L (14.0-18.0) g/dl Hct 34.2 L (42.0-52.0) % MCV 85.9 (80.0-98.0) fL MCH 28.1 (27.0-33.0) pg MCHC 32.7 (31.0-36.0) g/dl RDW 16.6 H (11.0-16.0) % Plt Count 175 (160-400) X10*3/uL MPV 10.4 (9.4-12.4) fL Immature Gran % (Auto) 0.8 H (0.0-0.4) % Neut % (Auto) 80.7 H (45-73) % Lymph % (Auto) 13.3 L (20-40) % [place] % (Auto) 4.9 (2-11) % Eos % (Auto) 0.0 (0-4) % Baso % (Auto) 0.3 (0-2) % Lymph # (Auto) 1.2 (1.2-4.9) X10*3/uL [place] # (Auto) 0.4 (0.1-1.2) X10*3/uL Eos # (Auto) 0.0 (0.0-0.4) X10*3/uL Baso # (Auto) 0.0 (0.0-0.2) X10*3/uL Abs Immat Gran (auto) 0.07 H (0.00-0.03) X10*3/uL Absolute Neuts (auto) 7.2 (2.0-8.3) x10*3/uL Absolute Nucleated RBC 0.000 (0.0-0.012) X10*3/uL Nucleated RBC % (auto) 0.0 (0.0-0.2) /100WBC PT (9.9-13.0) SEC INR (0.9-1.1) Sodium 139 (135-145) mmol/L Potassium 5.2 H D (3.3-5.1) mmol/L Chloride 105 (96-108) mmol/L Carbon Dioxide 25 (22-29) mmol/L Anion Gap 14 (12-20) BUN 28 H D (9-16) mg/dL Creatinine 1.47 H (0.5-1.4) mg/dL Estim Creat Clear Calc 38.3 Estimated GFR 46 Random Glucose 178 H D (60-115) mg/dL Lactic Acid (0.5-2.0) mmol/L Lactic Acid F/U @ 2Hr (0.5-2.0) mmol/L Calcium 9.8 D (8.4-10.2) mg/dL Magnesium 1.7 (1.6-2.6) mg/dL Total Bilirubin 1.9 H (0.0-1.0) mg/dL Direct Bilirubin 0.8 H (0.0-0.5) mg/dL AST 20 D (5-37) U/L ALT 17 (0-40) U/L Alkaline Phosphatase 111 (39-117) U/L Troponin I High Sens < 3.5 (<3.5-35.0) ng/L B-Natriuretic Peptide (<100) pg/mL Total Protein 6.7 (6.5-8.0) g/dL Albumin 4.0 (3.5-5.0) g/dL Urine Color Urine Appearance Urine pH (5.0-8.0) Ur Specific [place] (1.005-1.025) Urine Protein (NEG-TRACE) MG/DL Urine Glucose (UA) (NEG) MG/DL Urine Ketones (NEG) MG/DL Urine Blood (NEG) Urine Nitrite (NEG) Ur Leukocyte Esterase (NEG) Urine RBC (0) /HPF Urine WBC (0-4) /HPF Ur Squamous Epith Cells /LPF Urine Bacteria /LPF COVID-19 (MARLYN) (Negative) COVID-19 Clin Com Influenza Type A (NURIA) (Negative) Influenza Type B (NURIA) (Negative) Influenza A & B Note 07/12/21 07/12/21 07/12/21 Range/Units 12:51 12:51 12:52 WBC (4.8-10.8) X10*3/uL RBC (4.60-5.80) X10*6/uL Hgb (14.0-18.0) g/dl Hct (42.0-52.0) % MCV (80.0-98.0) fL MCH (27.0-33.0) pg MCHC (31.0-36.0) g/dl RDW (11.0-16.0) % Plt Count (160-400) X10*3/uL MPV (9.4-12.4) fL Immature Gran % (Auto) (0.0-0.4) % Neut % (Auto) (45-73) % Lymph % (Auto) (20-40) % [place] % (Auto) (2-11) % Eos % (Auto) (0-4) % Baso % (Auto) (0-2) % Lymph # (Auto) (1.2-4.9) X10*3/uL [place] # (Auto) (0.1-1.2) X10*3/uL Eos # (Auto) (0.0-0.4) X10*3/uL Baso # (Auto) (0.0-0.2) X10*3/uL Abs Immat Gran (auto) (0.00-0.03) X10*3/uL Absolute Neuts (auto) (2.0-8.3) x10*3/uL Absolute Nucleated RBC (0.0-0.012) X10*3/uL Nucleated RBC % (auto) (0.0-0.2) /100WBC PT 13.7 H (9.9-13.0) SEC INR 1.2 H (0.9-1.1) Sodium (135-145) mmol/L Potassium (3.3-5.1) mmol/L Chloride (96-108) mmol/L Carbon Dioxide (22-29) mmol/L Anion Gap (12-20) BUN (9-16) mg/dL Creatinine (0.5-1.4) mg/dL Estim Creat Clear Calc Estimated GFR Random Glucose (60-115) mg/dL Lactic Acid 2.3 H* (0.5-2.0) mmol/L Lactic Acid F/U @ 2Hr (0.5-2.0) mmol/L Calcium (8.4-10.2) mg/dL Magnesium (1.6-2.6) mg/dL Total Bilirubin (0.0-1.0) mg/dL Direct Bilirubin (0.0-0.5) mg/dL AST (5-37) U/L ALT (0-40) U/L Alkaline Phosphatase (39-117) U/L Troponin I High Sens (<3.5-35.0) ng/L B-Natriuretic Peptide 21 (<100) pg/mL Total Protein (6.5-8.0) g/dL Albumin (3.5-5.0) g/dL Urine Color Urine Appearance Urine pH (5.0-8.0) Ur Specific [place] (1.005-1.025) Urine Protein (NEG-TRACE) MG/DL Urine Glucose (UA) (NEG) MG/DL Urine Ketones (NEG) MG/DL Urine Blood (NEG) Urine Nitrite (NEG) Ur Leukocyte Esterase (NEG) Urine RBC (0) /HPF Urine WBC (0-4) /HPF Ur Squamous Epith Cells /LPF Urine Bacteria /LPF COVID-19 (MARLYN) (Negative) COVID-19 Clin Com Influenza Type A (NURIA) (Negative) Influenza Type B (NURIA) (Negative) Influenza A & B Note 07/12/21 07/12/21 07/12/21 Range/Units 12:54 12:54 14:09 WBC (4.8-10.8) X10*3/uL RBC (4.60-5.80) X10*6/uL Hgb (14.0-18.0) g/dl Hct (42.0-52.0) % MCV (80.0-98.0) fL MCH (27.0-33.0) pg MCHC (31.0-36.0) g/dl RDW (11.0-16.0) % Plt Count (160-400) X10*3/uL MPV (9.4-12.4) fL Immature Gran % (Auto) (0.0-0.4) % Neut % (Auto) (45-73) % Lymph % (Auto) (20-40) % [place] % (Auto) (2-11) % Eos % (Auto) (0-4) % Baso % (Auto) (0-2) % Lymph # (Auto) (1.2-4.9) X10*3/uL [place] # (Auto) (0.1-1.2) X10*3/uL Eos # (Auto) (0.0-0.4) X10*3/uL Baso # (Auto) (0.0-0.2) X10*3/uL Abs Immat Gran (auto) (0.00-0.03) X10*3/uL Absolute Neuts (auto) (2.0-8.3) x10*3/uL Absolute Nucleated RBC (0.0-0.012) X10*3/uL Nucleated RBC % (auto) (0.0-0.2) /100WBC PT (9.9-13.0) SEC INR (0.9-1.1) Sodium (135-145) mmol/L Potassium (3.3-5.1) mmol/L Chloride (96-108) mmol/L Carbon Dioxide (22-29) mmol/L Anion Gap (12-20) BUN (9-16) mg/dL Creatinine (0.5-1.4) mg/dL Estim Creat Clear Calc Estimated GFR Random Glucose (60-115) mg/dL Lactic Acid (0.5-2.0) mmol/L Lactic Acid F/U @ 2Hr (0.5-2.0) mmol/L Calcium (8.4-10.2) mg/dL Magnesium (1.6-2.6) mg/dL Total Bilirubin (0.0-1.0) mg/dL Direct Bilirubin (0.0-0.5) mg/dL AST (5-37) U/L ALT (0-40) U/L Alkaline Phosphatase (39-117) U/L Troponin I High Sens (<3.5-35.0) ng/L B-Natriuretic Peptide (<100) pg/mL Total Protein (6.5-8.0) g/dL Albumin (3.5-5.0) g/dL Urine Color YELLOW Urine Appearance CLOUDY Urine pH 6.0 (5.0-8.0) Ur Specific [place] 1.020 (1.005-1.025) Urine Protein NEG (NEG-TRACE) MG/DL Urine Glucose (UA) NEG (NEG) MG/DL Urine Ketones NEG (NEG) MG/DL Urine Blood TRACE (NEG) Urine Nitrite POS H (NEG) Ur Leukocyte Esterase 2+ H (NEG) Urine RBC 0-2 (0) /HPF Urine WBC TNTC H (0-4) /HPF Ur Squamous Epith Cells NONE /LPF Urine Bacteria 4+ /LPF COVID-19 (MARLYN) Negative (Negative) COVID-19 Clin Com See Note Influenza Type A (NURIA) Negative (Negative) Influenza Type B (NURIA) Negative (Negative) Influenza A & B Note See Note 07/12/21 07/12/21 Range/Units 15:42 15:42 WBC (4.8-10.8) X10*3/uL RBC (4.60-5.80) X10*6/uL Hgb (14.0-18.0) g/dl Hct (42.0-52.0) % MCV (80.0-98.0) fL MCH (27.0-33.0) pg MCHC (31.0-36.0) g/dl RDW (11.0-16.0) % Plt Count (160-400) X10*3/uL MPV (9.4-12.4) fL Immature Gran % (Auto) (0.0-0.4) % Neut % (Auto) (45-73) % Lymph % (Auto) (20-40) % [place] % (Auto) (2-11) % Eos % (Auto) (0-4) % Baso % (Auto) (0-2) % Lymph # (Auto) (1.2-4.9) X10*3/uL [place] # (Auto) (0.1-1.2) X10*3/uL Eos # (Auto) (0.0-0.4) X10*3/uL Baso # (Auto) (0.0-0.2) X10*3/uL Abs Immat Gran (auto) (0.00-0.03) X10*3/uL Absolute Neuts (auto) (2.0-8.3) x10*3/uL Absolute Nucleated RBC (0.0-0.012) X10*3/uL Nucleated RBC % (auto) (0.0-0.2) /100WBC PT (9.9-13.0) SEC INR (0.9-1.1) Sodium 139 (135-145) mmol/L Potassium 5.1 (3.3-5.1) mmol/L Chloride 109 H (96-108) mmol/L Carbon Dioxide 23 (22-29) mmol/L Anion Gap 12 (12-20) BUN 26 H (9-16) mg/dL Creatinine 1.21 (0.5-1.4) mg/dL Estim Creat Clear Calc 46.5 Estimated GFR 58 Random Glucose 126 H (60-115) mg/dL Lactic Acid (0.5-2.0) mmol/L Lactic Acid F/U @ 2Hr 0.8 (0.5-2.0) mmol/L Calcium 8.5 D (8.4-10.2) mg/dL Magnesium (1.6-2.6) mg/dL Total Bilirubin (0.0-1.0) mg/dL Direct Bilirubin (0.0-0.5) mg/dL AST (5-37) U/L ALT (0-40) U/L Alkaline Phosphatase (39-117) U/L Troponin I High Sens (<3.5-35.0) ng/L B-Natriuretic Peptide (<100) pg/mL Total Protein (6.5-8.0) g/dL Albumin (3.5-5.0) g/dL Urine Color Urine Appearance Urine pH (5.0-8.0) Ur Specific [place] (1.005-1.025) Urine Protein (NEG-TRACE) MG/DL Urine Glucose (UA) (NEG) MG/DL Urine Ketones (NEG) MG/DL Urine Blood (NEG) Urine Nitrite (NEG) Ur Leukocyte Esterase (NEG) Urine RBC (0) /HPF Urine WBC (0-4) /HPF Ur Squamous Epith Cells /LPF Urine Bacteria /LPF COVID-19 (MARLYN) (Negative) COVID-19 Clin Com Influenza Type A (NURIA) (Negative) Influenza Type B (NURIA) (Negative) Influenza A & B Note Discharge Plan Discharge Clinical Impression: Orthostatic hypotension, Acute UTI Patient Disposition: Admitted As Inpatient
[2021-07-12] MEDS: 0.9 % Sodium Chloride 1,000 ML 999 ML IVCONT ×2 (12:41→16:53)
[2021-07-12 13:13] LABS: MANUAL DIFF FLAG NO
[2021-07-12 13:20] LABS: Basophils Percent Auto 0.3 % (0-2); Hematocrit 34.2 % (42.0-52.0); Hemoglobin 11.2 g/dl (14.0-18.0); Imm Gran Abs Auto 0.07 X10*3/uL (0.00-0.03); Imm Gran Pct Auto 0.8 % (0.0-0.4); Lymphocytes Absolute Auto 1.2 X10*3/uL (1.2-4.9); Lymphocytes Percent Auto 13.3 % (20-40); Mean Corpuscular HGB Conc 32.7 g/dl (31.0-36.0); Mean Corpuscular Hemoglobin 28.1 pg (27.0-33.0); Mean Corpuscular Volume 85.9 fL (80.0-98.0); Mean Platelet Volume 10.4 fL (9.4-12.4); Monocytes Absolute Auto 0.4 X10*3/uL (0.1-1.2); Monocytes Percent Auto 4.9 % (2-11); Neutrophils Absolute Auto 7.2 x10*3/uL (2.0-8.3); Neutrophils Percent Auto 80.7 % (45-73); Platelet Count 175 X10*3/uL (160-400); Red Blood Count 3.98 X10*6/uL (4.60-5.80); Red Cell Distribution Width 16.6 % (11.0-16.0)
[2021-07-12 13:24] LABS: COVID-19 Test Negative (Negative)
[2021-07-12 13:26] LABS: INTERNATIONAL NORM RATIO 1.2 (0.9-1.1); Prothrombin Time 13.7 SEC (9.9-13.0)
[2021-07-12 13:32] LABS: Alanine Aminotransferase 17 U/L (0-40); Alkaline Phosphatase 111 U/L (39-117); Anion Gap 14 (12-20); Aspartate Amino Transferase 20 U/L (5-37); Bilirubin Direct 0.8 mg/dL (0.0-0.5); Bilirubin Total 1.9 mg/dL (0.0-1.0); Blood Urea Nitrogen 28 mg/dL (9-16); Calcium 9.8 mg/dL (8.4-10.2); Carbon Dioxide 25 mmol/L (22-29); Chloride 105 mmol/L (96-108); Creatinine Clr Calc Pharmacy 38.3; Estimated Glomerular Filt Rate 46; Glucose Random 178 mg/dL (60-115); Magnesium 1.7 mg/dL (1.6-2.6); Potassium 5.2 mmol/L (3.3-5.1); Sodium 139 mmol/L (135-145); Total Protein 6.7 g/dL (6.5-8.0)
[2021-07-12 13:36] LABS: Troponin-I High Sensitivity < 3.5 ng/L (<3.5-35.0)
[2021-07-12 13:37] LABS: B Type Natriuretic Peptide 21 pg/mL (<100)
[2021-07-12 13:39] LABS: Lactic Acid 2.3 mmol/L (0.5-2.0)
[2021-07-12 13:48] LABS: IDNOW Serial# 55D5AD1C; Influenza A Negative (Negative); Influenza B2 Negative (Negative)
[2021-07-12 14:22] LABS: Appearance Urine CLOUDY; Color Urine YELLOW; Glucose Urine UA NEG (NEG); Leukocyte Esterase Urine 2+ (NEG); Nitrite Urine POS (NEG); UACC Culture Trigger YES; Urine Blood TRACE (NEG); Urine Ketones NEG (NEG); Urine Protein NEG (NEG-TRACE)
[2021-07-12 14:33] LABS: Bacteria Urine 4+ /LPF; RBC Urine 0-2 /HPF (0); WBC Urine TNTC /HPF (0-4)
[2021-07-12 15:09] LABS: Reflex Lactate? Lactic Acid Added
[2021-07-12 16:02] LABS: ~Lactic Acid-LAB USE ONLY 0.8 mmol/L (0.5-2.0)
[2021-07-12 16:09] LABS: Anion Gap 12 (12-20); Blood Urea Nitrogen 26 mg/dL (9-16); Calcium 8.5 mg/dL (8.4-10.2); Carbon Dioxide 23 mmol/L (22-29); Chloride 109 mmol/L (96-108); Creatinine Clr Calc Pharmacy 46.5; Estimated Glomerular Filt Rate 58; Glucose Random 126 mg/dL (60-115); Potassium 5.1 mmol/L (3.3-5.1); Sodium 139 mmol/L (135-145)
[2021-07-12] MEDS: cefTRIAXone sodium 1 GM in 0.9 % Sodium Chloride 50 ML IV (16:47)
--- NOTE | 2021-07-12 16:47 | PM.IMHP ---
History of Present Illness Date of Service: 07/12/21 <Yanelis Schwartz NP - Last Filed: 07/12/21 17:43> Attending physician on admission: Ede Salas <Yanelis Schwartz NP - Last Filed: 07/12/21 17:43> Chief Complaint: weakness <Yanelis Schwartz NP - Last Filed: 07/12/21 17:43> 80-year-old man presented to the ER with complaints of weakness. He reports over the last 2 weeks he has felt very weak and tired. He was at rehab today and his blood pressure was taken and it was below 90 systolic. His daughter went across the street to his PCPs office was unable to find him smoked some in the office and they told him to come to the ER to be evaluated. He denied any recent illness, fever, chills, nausea, vomiting, diarrhea, recent travel, sick contacts, chest pain. He does have some degree of chronic shortness of breath with COPD history hepatic pulmonary fibrosis. He is on oxygen at home. In the ER urinalysis was noted to be positive, lactic acid 2.3, no fever noted, stable blood pressure. He was given a dose of Rocephin as well as 2 L of IV fluids in the ER. To be admitted for further management and treatment of hypotension likely secondary to urinary tract infection. <Yanelis Schwartz NP - Last Filed: 07/12/21 17:43> Review of Systems Review of Systems: Denies any recent fever chills or decrease in appetite respiratory denies any shortness of breath coverage production cardiovascular denies chest pain gastrointestinal denies any dysphagia abdominal pain nausea vomiting or diarrhea genitourinary denies any dysuria frequency or hematuria musculoskeletal denies any joint pain or swelling neuropsych denies any weakness or seizures all other systems reviewed are negative <Yanelis Schwartz NP - Last Filed: 07/12/21 17:43> [facility] Medical History: Medical History Acute and chronic respiratory failure with hypoxia CAD (coronary artery disease) Chest pain COPD (chronic obstructive pulmonary disease) Esophagitis Hyperlipidemia Hypoxia Impaired glucose metabolism Interstitial lung disease IPF (idiopathic pulmonary fibrosis) Pneumonia RSV (acute bronchiolitis due to respiratory syncytial virus) SOB (shortness of breath) on exertion Supplemental oxygen dependent <Yanelis Schwartz NP - Last Filed: 07/12/21 17:43> Family History: Family History Mother No problems noted. Father No problems noted. <Yanelis Schwartz NP - Last Filed: 07/12/21 17:43> Surgical History: Surgical History S/P right coronary artery (RCA) stent placement <Yanelis Schwartz NP - Last Filed: 07/12/21 17:43> Social History: Social History Household Members: Family Housing: House Do you presently have visiting nurse or other home services: No Alcohol intake: never Patient Tobacco Use Status: Former Tobacco user Years Smoked: 43 yrs Smoked in Last 30 Days: No e-Cigarette/Vaping Use: Never Used Patient Interested in Nicotine Replacement: No Use of substances other than those prescribed or required for medical reasons: No Currently Displaying Signs/Symptoms of Drug Intoxication Withdrawal: No Any prior treatment program specific to substance use: No Have you been hit, kicked, punched, or otherwise hurt by someone within the past year? If so, by whom?: No Do you feel safe in your current relationship?: No Is there a partner from a previous relationship who is making you feel unsafe now?: No Are you made to feel afraid or neglected: No Spiritual Healthcare Practices: NA Taoist Healthcare Practices: NA Cultural Healthcare Practices: NA Advance Directives: Yes Advance Directives Information Provided: No Advance Directives on File: No Advance Directives Date on File: 07/12/21 Do you have thoughts of harming others: None Do you have a plan to hurt others: No Plan Recently lost weight without trying: Yes How much weight loss: 24-33 pounds Eating poorly because of decreased appetite: Yes Nutrition screen score: 6 Nutrition Risks: No Nutritional Risk Poor oral hygiene: Yes Current occupational status: retired <Yanelis Schwartz NP - Last Filed: 07/12/21 17:43> Meds Allergies/Adverse reactions: Allergies Allergy/AdvReac Type Severity Reaction Status Date / Time No Known Allergies Allergy Verified 07/12/21 12:01 <Yanelis Schwartz NP - Last Filed: 07/12/21 17:43> Active Medications: Current Medications Sodium Chloride (Ns) 1,000 mls @ 999 mls/hr IVCONT .Q1H1M ONE Stop: 07/12/21 17:21 Ceftriaxone Sodium 1 gm/ (Sodium Chloride) 50 mls @ 100 mls/hr IV ONCE ONE Stop: 07/12/21 16:53 <Yanelis Schwartz NP - Last Filed: 07/12/21 17:43> Physical Exam Vital Signs and Narrative: Vital Signs: Last Vital Signs Temp 97.7 F 07/12/21 16:17 Pulse 97 07/12/21 16:17 Resp 18 07/12/21 16:17 BP 93/41 L 07/12/21 16:17 Pulse Ox 94 07/12/21 16:17 Oxygen Flow Rate 8 07/12/21 12:02 BMI result Body Mass Index 21.9 <Yanelis Schwartz NP - Last Filed: 07/12/21 17:43> Appearing in no acute distress head is normocephalic atraumatic eyes pupils are PERRLA sclera is anicteric mouth throat mucous membranes are intact and moist neck is supple no lymphadenopathy, no JVD noted lung sounds are clear to auscultation heart regular rate rhythm, clear S1, S2 positive bowel sounds, abdomen is soft, nontender neuro patient is alert x3, no focal deficits <Yanelis Schwartz NP - Last Filed: 07/12/21 17:43> Results Labs CBC and Chem 7: : 07/13/21 05:22 07/13/21 05:22 <Yanelis Schwartz NP - Last Filed: 07/12/21 17:43> Labs: Laboratory Results - last 24 hr 07/12/21 07/12/21 07/12/21 12:51 12:51 12:51 MCV 85.9 MCH 28.1 MCHC 32.7 RDW 16.6 H Plt Count 175 MPV 10.4 Immature Gran % (Auto) 0.8 H Neut % (Auto) 80.7 H Lymph % (Auto) 13.3 L [place] % (Auto) 4.9 Eos % (Auto) 0.0 Baso % (Auto) 0.3 Lymph # (Auto) 1.2 [place] # (Auto) 0.4 Eos # (Auto) 0.0 Baso # (Auto) 0.0 Abs Immat Gran (auto) 0.07 H Absolute Neuts (auto) 7.2 Absolute Nucleated RBC 0.000 Nucleated RBC % (auto) 0.0 PT INR Anion Gap 14 Estim Creat Clear Calc 38.3 Estimated GFR 46 Random Glucose 178 H D Lactic Acid Lactic Acid F/U @ 2Hr Calcium 9.8 D Magnesium 1.7 Total Bilirubin 1.9 H Direct Bilirubin 0.8 H AST 20 D ALT 17 Alkaline Phosphatase 111 Troponin I High Sens < 3.5 B-Natriuretic Peptide Total Protein 6.7 Albumin 4.0 Urine Color Urine Appearance Urine pH Ur Specific [place] Urine Protein Urine Glucose (UA) Urine Ketones Urine Blood Urine Nitrite Ur Leukocyte Esterase Urine RBC Urine WBC Ur Squamous Epith Cells Urine Bacteria COVID-19 (MARLYN) COVID-19 Clin Com Influenza Type A (NURIA) Influenza Type B (NURIA) Influenza A & B Note 07/12/21 07/12/21 07/12/21 12:51 12:51 12:52 MCV MCH MCHC RDW Plt Count MPV Immature Gran % (Auto) Neut % (Auto) Lymph % (Auto) [place] % (Auto) Eos % (Auto) Baso % (Auto) Lymph # (Auto) [place] # (Auto) Eos # (Auto) Baso # (Auto) Abs Immat Gran (auto) Absolute Neuts (auto) Absolute Nucleated RBC Nucleated RBC % (auto) PT 13.7 H INR 1.2 H Anion Gap Estim Creat Clear Calc Estimated GFR Random Glucose Lactic Acid 2.3 H* Lactic Acid F/U @ 2Hr Calcium Magnesium Total Bilirubin Direct Bilirubin AST ALT Alkaline Phosphatase Troponin I High Sens B-Natriuretic Peptide 21 Total Protein Albumin Urine Color Urine Appearance Urine pH Ur Specific [place] Urine Protein Urine Glucose (UA) Urine Ketones Urine Blood Urine Nitrite Ur Leukocyte Esterase Urine RBC Urine WBC Ur Squamous Epith Cells Urine Bacteria COVID-19 (MARLYN) COVID-19 Clin Com Influenza Type A (NURIA) Influenza Type B (NURIA) Influenza A & B Note 07/12/21 07/12/21 07/12/21 12:54 12:54 14:09 MCV MCH MCHC RDW Plt Count MPV Immature Gran % (Auto) Neut % (Auto) Lymph % (Auto) [place] % (Auto) Eos % (Auto) Baso % (Auto) Lymph # (Auto) [place] # (Auto) Eos # (Auto) Baso # (Auto) Abs Immat Gran (auto) Absolute Neuts (auto) Absolute Nucleated RBC Nucleated RBC % (auto) PT INR Anion Gap Estim Creat Clear Calc Estimated GFR Random Glucose Lactic Acid Lactic Acid F/U @ 2Hr Calcium Magnesium Total Bilirubin Direct Bilirubin AST ALT Alkaline Phosphatase Troponin I High Sens B-Natriuretic Peptide Total Protein Albumin Urine Color YELLOW Urine Appearance CLOUDY Urine pH 6.0 Ur Specific [place] 1.020 Urine Protein NEG Urine Glucose (UA) NEG Urine Ketones NEG Urine Blood TRACE Urine Nitrite POS H Ur Leukocyte Esterase 2+ H Urine RBC 0-2 Urine WBC TNTC H Ur Squamous Epith Cells NONE Urine Bacteria 4+ COVID-19 (MARLYN) Negative COVID-19 Clin Com See Note Influenza Type A (NURIA) Negative Influenza Type B (NURIA) Negative Influenza A & B Note See Note 07/12/21 07/12/21 15:42 15:42 MCV MCH MCHC RDW Plt Count MPV Immature Gran % (Auto) Neut % (Auto) Lymph % (Auto) [place] % (Auto) Eos % (Auto) Baso % (Auto) Lymph # (Auto) [place] # (Auto) Eos # (Auto) Baso # (Auto) Abs Immat Gran (auto) Absolute Neuts (auto) Absolute Nucleated RBC Nucleated RBC % (auto) PT INR Anion Gap 12 Estim Creat Clear Calc 46.5 Estimated GFR 58 Random Glucose 126 H Lactic Acid Lactic Acid F/U @ 2Hr 0.8 Calcium 8.5 D Magnesium Total Bilirubin Direct Bilirubin AST ALT Alkaline Phosphatase Troponin I High Sens B-Natriuretic Peptide Total Protein Albumin Urine Color Urine Appearance Urine pH Ur Specific [place] Urine Protein Urine Glucose (UA) Urine Ketones Urine Blood Urine Nitrite Ur Leukocyte Esterase Urine RBC Urine WBC Ur Squamous Epith Cells Urine Bacteria COVID-19 (MARLYN) COVID-19 Clin Com Influenza Type A (NURIA) Influenza Type B (NURIA) Influenza A & B Note <Yanelis Schwartz NP - Last Filed: 07/12/21 17:43> Imaging Radiologist's Impressions: Impressions Chest X-Ray 07/12/21 13:00 IMPRESSION: Low lung volumes and interstitial lung disease similar to previous chest x-ray and chest CT scans. No evidence for acute disease in the chest. <Yanelis Schwartz NP - Last Filed: 07/12/21 17:43> Assessment and Plan (1) Acute UTI: Status: Acute <Yanelis Schwartz NP - Last Filed: 07/12/21 17:43> Plan 80 year old man admitted with weakness secondary to UTI UTI. No sepsis Rocephin follow urine cx Hypotension likely from infection, UTI IV fluids Hold antihypertensive medications for now Check orthostatics Lactic acidosis Likely from sob, COPD no sepsis CAD continue BB, asa and statin Diabetes II SS, ada diet idiopathic pulm fibrosis/COPD duonebs as needed continue home medications Medication reconciliation pending DVT prophylaxis with heparin Full code Attending Dr. Salas <Yanelis Schwartz NP - Last Filed: 07/12/21 17:43> 80 year old man admitted with weakness secondary to UTI UTI. No sepsis Rocephin follow urine cx Hypotension likely from infection, UTI IV fluids Hold antihypertensive medications for now Check orthostatics Lactic acidosis Likely from sob, COPD no sepsis CAD continue BB, asa and statin Diabetes II SS, ada diet idiopathic pulm fibrosis/COPD duonebs as needed continue home medications Medication reconciliation pending DVT prophylaxis with heparin Full code Attending Dr. Salas attending note patient seen examined case discussed with APC patient noted to have tachycardia tachypnea and UTI with mild lactic acidosis will admit for sepsis due to UTI, sepsis focused examination done, will follow urine culture and blood culture continue current IV antibiotics as above, lactic acid improved with IV fluids. <Ede Salas MD - Last Filed: 07/13/21 09:03> Quality Stroke Does the patient have a stroke diagnosis?: No <Yanelis Schwartz NP - Last Filed: 07/12/21 17:43> VTE Prior VTE?: No <Yanelis Schwartz NP - Last Filed: 07/12/21 17:43> VTE Risk Level:: Medical - moderate - high <Yanelis Schwartz NP - Last Filed: 07/12/21 17:43> VTE Device Contraindication: Treatment Not Indicated <Yanelis Schwartz NP - Last Filed: 07/12/21 17:43> VTE Drug Contraindication: N/A - Med Ordered <Yanelis Schwartz NP - Last Filed: 07/12/21 17:43>
[2021-07-12] MEDS: Heparin Sodium,Porcine 5,000 UNIT/ML VIAL 5000 UNIT SUBCUT (17:22)
--- NOTE | 2021-07-12 18:03 | PHA.MEDREC ---
Pharmacy Consult ? Medication Reconciliation Pharmacy has completed the medication reconciliation.
[2021-07-12 20:07] LABS: Glucose, Whole Blood 156 mg/dL (60-115)
[2021-07-12] MEDS: 0.9 % Sodium Chloride Flush 3 ML SYRINGE IVFLUSH (23:54)
[2021-07-13] VITALS (8 sets, daily range): BP systolic 103–119; BP diastolic 50–58; PULSE 82–90; RESP 18–20; TEMP 36.6–37.7; O2SAT 92–100
[2021-07-13] MEDS: Heparin Sodium,Porcine 5,000 UNIT/ML VIAL 5000 UNIT SUBCUT ×2 (06:15→17:23)
[2021-07-13 06:18] LABS: MANUAL DIFF FLAG NO
[2021-07-13 06:41] LABS: Basophils Percent Auto 0.3 % (0-2); Eosinophils Absolute Auto 0.2 X10*3/uL (0.0-0.4); Eosinophils Percent Auto 2.9 % (0-4); Hematocrit 29.5 % (42.0-52.0); Hemoglobin 9.5 g/dl (14.0-18.0); Imm Gran Abs Auto 0.05 X10*3/uL (0.00-0.03); Imm Gran Pct Auto 0.7 % (0.0-0.4); Lymphocytes Absolute Auto 1.5 X10*3/uL (1.2-4.9); Lymphocytes Percent Auto 22.4 % (20-40); Mean Corpuscular HGB Conc 32.2 g/dl (31.0-36.0); Mean Corpuscular Hemoglobin 27.6 pg (27.0-33.0); Mean Corpuscular Volume 85.8 fL (80.0-98.0); Mean Platelet Volume 10.6 fL (9.4-12.4); Monocytes Absolute Auto 0.4 X10*3/uL (0.1-1.2); Monocytes Percent Auto 6.5 % (2-11); Neutrophils Absolute Auto 4.6 x10*3/uL (2.0-8.3); Neutrophils Percent Auto 67.2 % (45-73); Platelet Count 148 X10*3/uL (160-400); Red Blood Count 3.44 X10*6/uL (4.60-5.80); Red Cell Distribution Width 16.5 % (11.0-16.0); White Blood Count 6.8 X10*3/uL (4.8-10.8)
[2021-07-13 06:45] LABS: Anion Gap 11 (12-20); Blood Urea Nitrogen 23 mg/dL (9-16); Calcium 8.3 mg/dL (8.4-10.2); Carbon Dioxide 24 mmol/L (22-29); Chloride 111 mmol/L (96-108); Creatinine Clr Calc Pharmacy 50.2; Estimated Glomerular Filt Rate > 60; Glucose Random 107 mg/dL (60-115); Potassium 4.6 mmol/L (3.3-5.1); Sodium 141 mmol/L (135-145)
[2021-07-13 07:42] LABS: Glucose, Whole Blood 92 mg/dL (60-115)
[2021-07-13] MEDS: 0.9 % Sodium Chloride Flush 3 ML SYRINGE IVFLUSH ×3 (10:20→20:51)
[2021-07-13 11:25] LABS: Glucose, Whole Blood 125 mg/dL (60-115)
--- NOTE | 2021-07-13 11:55 | PC.NURSE ---
Ambriz placed by night RN for urinary retention. Patient states he experienced pubic pain and inability to void prior to ambriz insertion and that he has experienced difficulty voiding and retention prior to hospitalization. Per Dr. Salas: keep ambriz in, Dr will add flomax, and consult to urology. Patient educated on plan of care.
--- NOTE | 2021-07-13 13:40 | HO.PM.IMPN ---
Subjective Subjective Date of Service: 07/13/21 Interval History: Offers no acute complaints, noted to have difficulty with urination therefore Vela catheter placed according to patient noted to have decreased urinary outflow in last few weeks, denies fever chills, no nausea no vomiting. Review of Systems LEAKAGE TESTER no headache no dizziness CVS no chest pain, no palpitation GI no nausea, no vomiting Review of Systems: Yes all other systems are reviewed and are negative Physical Exam Vital Signs: Vital Signs: Last Vital Signs Temp 98.4 F 07/13/21 11:18 Pulse 89 07/13/21 11:18 Resp 18 07/13/21 11:18 BP 119/57 L 07/13/21 11:18 Pulse Ox 98 07/13/21 11:18 Oxygen Flow Rate 8 07/12/21 12:02 BMI result Body Mass Index 21.9 Const: Other: General awake alert,resting comfortably in no acute distress. Neck no JVD. CVS regular rate rhythm, Respiratory lungs clear to auscultation, no respiratory distress, no wheeze, no rhonchi. Gastrointestinal abdomen soft, nontender, bowel sounds audible Extremities no edema. Neuro nonfocal Skin no rash Psych appropriate affect Objective Data Active Medications Acetaminophen (Acetaminophen 325 Mg Tablet) 650 mg PO Q6H PRN PRN Reason: Pain, Mild (Pain Scale 1-3) Albuterol/Ipratropium (Albuterol/Iprat 2.5/0.5mg 3 Ml Ampul.Neb) 3 ml INHALE RQ4H WHILE AWAKE PRN PRN Reason: sob Dextrose (Dextrose 50 % 25 Gm/50 Ml Syringe) 25 gm IVPUSH Q15M PRN; Protocol PRN Reason: per Hypoglycemia Standing Ord. Glucose (Glucose Gel 15 Gm Gel..Gram.) 15 gm PO Q15M PRN; Protocol PRN Reason: per Hypoglycemia Standing Ord. Heparin Sodium (Porcine) (Heparin Sodium,Porcine 5,000 Unit/Ml Vial) 5,000 unit SUBCUT Q12H [facility] Last Admin: 07/13/21 06:15 Dose: 5,000 unit Documented by: CORBIN Ceftriaxone Sodium 1 gm/ (Sodium Chloride) 50 mls @ 100 mls/hr IV Q24H [facility] Vancomycin HCl 1,000 mg/ (Sodium Chloride) 270 mls @ 270 mls/hr IV Q24H [facility] Vancomycin HCl 1,250 mg/ (Sodium Chloride) 250 mls @ 166.667 mls/hr IV ONCE ONE Stop: 07/13/21 14:29 Insulin Human Lispro (Insulin Lispro 100 Unit/Ml 3 Ml Vial) 0 unit SUBCUT QIDACHS [facility]; Protocol Last Admin: 07/13/21 11:30 Dose: Not Given Documented by: PAKO Non-Admin Reason: No Insulin Coverage Ondansetron HCl (Ondansetron Hcl 4 Mg/2 Ml Vial) 4 mg IVPUSH Q8H PRN PRN Reason: Nausea and Vomiting Pharmacy Consult (Consult Rx Perform Med Rec) 1 each MISCELLANE ONCE PRN PRN Reason: Consult order Pharmacy Consult (Consult Rx Vancomycin Dosing) 1 each MISCELLANE DAILY PRN PRN Reason: Consult order Sodium Chloride (0.9 % Sodium Chloride Flush 3 Ml Syringe) 3 ml IVFLUSH [facility] Last Admin: 07/13/21 10:20 Dose: 3 ml Documented by: PAKO Labs CBC & Chem 7: 07/13/21 05:22 07/13/21 05:22 Labs: Laboratory Results - last 24 hr 07/12/21 07/12/21 07/12/21 12:52 12:54 14:09 MCV MCH MCHC RDW Plt Count MPV Immature Gran % (Auto) Neut % (Auto) Lymph % (Auto) [place] % (Auto) Eos % (Auto) Baso % (Auto) Lymph # (Auto) [place] # (Auto) Eos # (Auto) Baso # (Auto) Abs Immat Gran (auto) Absolute Neuts (auto) Absolute Nucleated RBC Nucleated RBC % (auto) Anion Gap Estim Creat Clear Calc Estimated GFR POC Glucose Random Glucose Lactic Acid 2.3 H* Lactic Acid F/U @ 2Hr Calcium Urine Color YELLOW Urine Appearance CLOUDY Urine pH 6.0 Ur Specific [place] 1.020 Urine Protein NEG Urine Glucose (UA) NEG Urine Ketones NEG Urine Blood TRACE Urine Nitrite POS H Ur Leukocyte Esterase 2+ H Urine RBC 0-2 Urine WBC TNTC H Ur Squamous Epith Cells NONE Urine Bacteria 4+ Influenza Type A (NURIA) Negative Influenza Type B (NURIA) Negative Influenza A & B Note See Note 07/12/21 07/12/21 07/12/21 15:42 15:42 20:01 MCV MCH MCHC RDW Plt Count MPV Immature Gran % (Auto) Neut % (Auto) Lymph % (Auto) [place] % (Auto) Eos % (Auto) Baso % (Auto) Lymph # (Auto) [place] # (Auto) Eos # (Auto) Baso # (Auto) Abs Immat Gran (auto) Absolute Neuts (auto) Absolute Nucleated RBC Nucleated RBC % (auto) Anion Gap 12 Estim Creat Clear Calc 46.5 Estimated GFR 58 POC Glucose 156 H Random Glucose 126 H Lactic Acid Lactic Acid F/U @ 2Hr 0.8 Calcium 8.5 D Urine Color Urine Appearance Urine pH Ur Specific [place] Urine Protein Urine Glucose (UA) Urine Ketones Urine Blood Urine Nitrite Ur Leukocyte Esterase Urine RBC Urine WBC Ur Squamous Epith Cells Urine Bacteria Influenza Type A (NURIA) Influenza Type B (NURIA) Influenza A & B Note 07/13/21 07/13/21 07/13/21 05:22 05:22 07:35 MCV 85.8 MCH 27.6 MCHC 32.2 RDW 16.5 H Plt Count 148 L MPV 10.6 Immature Gran % (Auto) 0.7 H Neut % (Auto) 67.2 Lymph % (Auto) 22.4 [place] % (Auto) 6.5 Eos % (Auto) 2.9 Baso % (Auto) 0.3 Lymph # (Auto) 1.5 [place] # (Auto) 0.4 Eos # (Auto) 0.2 Baso # (Auto) 0.0 Abs Immat Gran (auto) 0.05 H Absolute Neuts (auto) 4.6 Absolute Nucleated RBC 0.000 Nucleated RBC % (auto) 0.0 Anion Gap 11 L Estim Creat Clear Calc 50.2 Estimated GFR > 60 POC Glucose 92 Random Glucose 107 Lactic Acid Lactic Acid F/U @ 2Hr Calcium 8.3 L Urine Color Urine Appearance Urine pH Ur Specific [place] Urine Protein Urine Glucose (UA) Urine Ketones Urine Blood Urine Nitrite Ur Leukocyte Esterase Urine RBC Urine WBC Ur Squamous Epith Cells Urine Bacteria Influenza Type A (NURIA) Influenza Type B (NURIA) Influenza A & B Note 07/13/21 11:18 MCV MCH MCHC RDW Plt Count MPV Immature Gran % (Auto) Neut % (Auto) Lymph % (Auto) [place] % (Auto) Eos % (Auto) Baso % (Auto) Lymph # (Auto) [place] # (Auto) Eos # (Auto) Baso # (Auto) Abs Immat Gran (auto) Absolute Neuts (auto) Absolute Nucleated RBC Nucleated RBC % (auto) Anion Gap Estim Creat Clear Calc Estimated GFR POC Glucose 125 H Random Glucose Lactic Acid Lactic Acid F/U @ 2Hr Calcium Urine Color Urine Appearance Urine pH Ur Specific [place] Urine Protein Urine Glucose (UA) Urine Ketones Urine Blood Urine Nitrite Ur Leukocyte Esterase Urine RBC Urine WBC Ur Squamous Epith Cells Urine Bacteria Influenza Type A (NURIA) Influenza Type B (NURIA) Influenza A & B Note Microbiology Microbiology Results: Microbiology 07/12/21 00:00 Urine Culture - Preliminary Urine clean catch - Urine garcia top Gram negative forest 07/12/21 12:55 Blood Culture - Preliminary Blood - Venous Prelim: GPC Gram Stain only Assessment and Plan (1) Acute UTI: Status: Acute (2) COPD (chronic obstructive pulmonary disease): Status: Acute (3) Supplemental oxygen dependent: Status: Acute (4) DMII (diabetes mellitus, type 2): Status: Acute Plan 80 year old man admitted with weakness? secondary to UTI Sepsis due to UTI. Patient noted to have tachypnea, tachycardia and urinary tract infection, all symptoms of sepsis resolved Urine culture growing Gram-negative forest, blood culture 1/2 positive for Gram-positive cocci Continue IV ceftriaxone, added IV vancomycin for will follow final urine and blood cultures G positive bacteremia started on IV vancomycin follow final blood cultures, no skin infection noted question related to Enterococcus UTI Urinary retention Noted to have difficulty voiding last night with high residual greater than 600 therefore Vela catheter placed will start patient on Flomax/uro eval Hypotension likely from infection, blood pressure improved with IV fluid Lactic acidosis Likely from infection resolved with IV hydration CAD continue asa and statin Diabetes II stable blood sugars continue ADA diet insulin sliding scale and resume home dose of Actos Chronic respiratory failure/idiopathic pulm fibrosis/COPD Continue home oxygen 6 L, continue duonebs as needed, no acute COPD exacerbate DVT prophylaxis with heparin Full code Quality Stroke Does the patient have a stroke diagnosis?: No VTE Prior VTE?: No VTE Risk Level:: Medical - moderate - high VTE Device Contraindication: Treatment Not Indicated VTE Drug Contraindication: N/A - Med Ordered
[2021-07-13] MEDS: vancomycin HCL 1,250 MG in 0.9 % Sodium Chloride 250 ML 166.67 MG IV (13:51)
--- NOTE | 2021-07-13 13:55 | MHC.CLN ---
NUTRITION CONSULT FOR WEIGHT LOSS. VISITED WITH PATIENT AND REVIEWED WEIGHT HISTORY. REPORTS DECREASED APPETITE SINCE ACUTE ILLNESS/HOSPITALIZATION 01/09. WEIGHT LOSS X 6 MONTHS=-9.7%. TAKES NUTRITIONAL SUPPLEMENTS AT HOME. WOULD LIKE ENSURE BID. PROVIDES ADDITIONAL 700 KCAL, 40 G PROTEIN.
--- NOTE | 2021-07-13 14:42 | MHC.CM.PN ---
PATIENT LIVES WITH HIS DAUGHTER/NEW HCP ELIZABETH COPY TO BE COMPLETED AND PLACED IN CHART. HE USES A CANE, WALKER, WHEEL CHAIR, AND HOME O2 (6 L [facility]IA [place] [facility] NO VNA SERVICES IN THE HOME PATIENT WAS AT [place]PATIENT REH[place] [facility] [place] TO HIS ADMISSION. HE WOULD LIKE TO RETURN HOME AT DISCHARGE. HE HAS BEEN COVID VACCINATED X 4 WITH LAST DOSE ON Sunday07/08/21. IMM 07/13 IN CHART
[2021-07-13] MEDS: Atorvastatin Calcium 40 MG TABLET PO (15:29)
[2021-07-13] MEDS: cefTRIAXone sodium 1 GM in 0.9 % Sodium Chloride 50 ML IV (15:29)
[2021-07-13] MEDS: Aspirin Enteric Coated 81 MG TABLET.DR PO (15:29)
[2021-07-13 16:03] LABS: Glucose, Whole Blood 123 mg/dL (60-115)
[2021-07-13 19:54] LABS: Glucose, Whole Blood 160 mg/dL (60-115)
[2021-07-13] MEDS: Mirtazapine 30 MG TABLET PO (20:50)
[2021-07-13] MEDS: Tamsulosin HCL 0.4 MG CAPSULE PO (20:51)
[2021-07-14 03:15] VITALS: BP 104/54; PULSE 79; RESP 16; TEMP 37.1; O2SAT 95
[2021-07-14] MEDS: Heparin Sodium,Porcine 5,000 UNIT/ML VIAL 5000 UNIT SUBCUT ×2 (05:33→16:35)
[2021-07-14 07:36] VITALS: BP 109/45; PULSE 75; RESP 18; TEMP 37; O2SAT 93
[2021-07-14 07:42] LABS: Glucose, Whole Blood 104 mg/dL (60-115)
[2021-07-14 08:29] LABS: Creatinine Clr Calc Pharmacy 48.9; Estimated Glomerular Filt Rate > 60
[2021-07-14] MEDS: Atorvastatin Calcium 40 MG TABLET PO (09:59)
[2021-07-14] MEDS: Aspirin Enteric Coated 81 MG TABLET.DR PO (09:59)
[2021-07-14] MEDS: 0.9 % Sodium Chloride Flush 3 ML SYRINGE IVFLUSH ×3 (10:01→21:13)
--- NOTE | 2021-07-14 11:32 | HO.PM.IMPN ---
Subjective Subjective Date of Service: 07/14/21 Interval History: Offers no acute complaints, denies fever chills, no nausea, no vomiting, no other acute events overnight Vela catheter draining clear urine. Review of Systems [employer] no headache no dizziness CVS no chest pain, no palpitation GI no nausea, no vomiting Review of Systems: Yes all other systems are reviewed and are negative Review of Systems: Yes all other systems are reviewed and are negative Physical Exam Vital Signs: Vital Signs: Last Vital Signs Temp 98.6 F 07/14/21 07:36 Pulse 75 07/14/21 07:36 Resp 18 07/14/21 07:36 BP 109/45 L 07/14/21 07:36 Pulse Ox 93 07/14/21 07:36 Oxygen Flow Rate 8 07/12/21 12:02 BMI result Body Mass Index 21.9 Const: Other: General awake alert,resting comfortably in no acute distress.? Neck? no JVD. CVS? regular rate rhythm, Respiratory lungs clear to auscultation, no respiratory distress, no wheeze, no rhonchi. Gastrointestinal abdomen soft, nontender, bowel sounds audible Extremities no edema. Neuro nonfocal Skin no rash Psych appropriate affect Vela catheter with clear urine Objective Data Active Medications Acetaminophen (Acetaminophen 325 Mg Tablet) 650 mg PO Q6H PRN PRN Reason: Pain, Mild (Pain Scale 1-3) Albuterol/Ipratropium (Albuterol/Iprat 2.5/0.5mg 3 Ml Ampul.Neb) 3 ml INHALE Q4H PRN PRN Reason: wheezing Aspirin (Aspirin Enteric Coated 81 Mg Tablet.) 81 mg PO DAILY [facility] Last Admin: 07/14/21 09:59 Dose: 81 mg Documented by: TAYLOR Atorvastatin Calcium (Atorvastatin Calcium 40 Mg Tablet) 40 mg PO DAILY [facility] Last Admin: 07/14/21 09:59 Dose: 40 mg Documented by: TAYLOR Dextrose (Dextrose 50 % 25 Gm/50 Ml Syringe) 25 gm IVPUSH Q15M PRN; Protocol PRN Reason: per Hypoglycemia Standing Ord. Glucose (Glucose Gel 15 Gm Gel..Gram.) 15 gm PO Q15M PRN; Protocol PRN Reason: per Hypoglycemia Standing Ord. Heparin Sodium (Porcine) (Heparin Sodium,Porcine 5,000 Unit/Ml Vial) 5,000 unit SUBCUT Q12H [facility] Last Admin: 07/14/21 05:33 Dose: 5,000 unit Documented by: KRISTINAILDru Ceftriaxone Sodium 1 gm/ (Sodium Chloride) 50 mls @ 100 mls/hr IV Q24H [facility] Last Infusion: 07/13/21 16:02 Dose: 0 mls/hr Documented by: PAKO Vancomycin HCl 1,000 mg/ (Sodium Chloride) 270 mls @ 270 mls/hr IV Q24H [facility] Insulin Human Lispro (Insulin Lispro 100 Unit/Ml 3 Ml Vial) 0 unit SUBCUT QIDACHS [facility]; Protocol Last Admin: 07/14/21 09:59 Dose: Not Given Documented by: TAYLOR Non-Admin Reason: No Insulin Coverage Mirtazapine (Mirtazapine 30 Mg Tablet) 30 mg PO BEDTIME [facility] Last Admin: 07/13/21 20:50 Dose: 30 mg Documented by: CHASTITY Non-Formulary Medication (Umeclidinium-Vilanterol [Anoro Ellipta]) 1 each PO DAILY [facility] Ondansetron HCl (Ondansetron Hcl 4 Mg/2 Ml Vial) 4 mg IVPUSH Q8H PRN PRN Reason: Nausea and Vomiting Pharmacy Consult (Consult Rx Perform Med Rec) 1 each MISCELLANE ONCE PRN PRN Reason: Consult order Pharmacy Consult (Consult Rx Vancomycin Dosing) 1 each MISCELLANE DAILY PRN PRN Reason: Consult order Pioglitazone HCl (Pioglitazone Hcl 15 Mg Tablet) 15 mg PO DAILY [facility] Last Admin: 07/14/21 09:58 Dose: 15 mg Documented by: TAYLOR Sodium Chloride (0.9 % Sodium Chloride Flush 3 Ml Syringe) 3 ml IVFLUSH QSHIFT [facility] Last Admin: 07/14/21 10:01 Dose: 3 ml Documented by: TAYLOR Tamsulosin HCl (Tamsulosin Hcl 0.4 Mg Capsule) 0.4 mg PO BEDTIME [facility] Last Admin: 07/13/21 20:51 Dose: 0.4 mg Documented by: CHASTITY Labs CBC & Chem 7: 07/13/21 05:22 07/14/21 07:49 Labs: Laboratory Results - last 24 hr 07/13/21 07/13/21 07/14/21 15:56 19:33 07:34 Estim Creat Clear Calc Estimated GFR POC Glucose 123 H 160 H 104 07/14/21 07:49 Estim Creat Clear Calc 48.9 Estimated GFR > 60 POC Glucose Microbiology Microbiology Results: Microbiology 07/12/21 12:55 Blood Culture - Final Blood - Venous Coag negative Staphylococcus 07/12/21 00:00 Urine Culture - Final Urine clean catch - Urine garcia top Enterobacter cloacae complex 07/12/21 12:55 Blood Culture - Preliminary Blood - Venous No growth after 24 hours. Assessment and Plan (1) Acute UTI: Status: Acute (2) COPD (chronic obstructive pulmonary disease): Status: Acute (3) Supplemental oxygen dependent: Status: Acute (4) DMII (diabetes mellitus, type 2): Status: Acute Plan 80 year old man admitted with weakness? secondary to UTI Sepsis due to UTI. Patient noted to have tachypnea, tachycardia and urinary tract infection, all symptoms of sepsis resolved Urine culture grew Enterobacter cloaca sensitive to ceftriaxone , blood culture positive for gram-positive cocci On IV ceftriaxone, IV vanco follow final blood culture report will transition to by mouth x 7 days Gram-positive bacteremia on IV vancomycin follow final report Urinary retention Noted to have difficulty voiding with high residual greater than 600 therefore Vela catheter placed continue Flomax/outpatient uro eval Hypotension Resolved was likely from infection, Lactic acidosis Likely from infection resolved with IV hydration CAD continue asa and statin Diabetes II stable blood sugars continue ADA diet insulin sliding scale and resume home dose of Actos Chronic respiratory failure/idiopathic pulm fibrosis/COPD Continue home oxygen 6 L, continue duonebs as needed, no acute COPD exacerbate DVT prophylaxis with heparin Full code Patient will need continued inpatient hospitalization for IV antibiotics due to sepsis with UTI and Gram-positive bacteremia. Quality Stroke Does the patient have a stroke diagnosis?: No VTE Prior VTE?: No VTE Risk Level:: Medical - moderate - high VTE Device Contraindication: Treatment Not Indicated VTE Drug Contraindication: N/A - Med Ordered
[2021-07-14 11:53] LABS: Glucose, Whole Blood 138 mg/dL (60-115)
[2021-07-14 12:00] VITALS: BP 101/46; PULSE 80; RESP 18; TEMP 36.2; O2SAT 98
[2021-07-14] MEDS: vancomycin HCL 1,000 MG in 0.9 % Sodium Chloride 250 ML 270 MG IV (14:14)
[2021-07-14 15:08] VITALS: BP 106/47; PULSE 80; RESP 18; TEMP 36.7; O2SAT 96
[2021-07-14 15:29] LABS: Glucose, Whole Blood 136 mg/dL (60-115)
[2021-07-14] MEDS: cefTRIAXone sodium 1 GM in 0.9 % Sodium Chloride 50 ML IV (16:34)
[2021-07-14 19:23] VITALS: BP 121/56; PULSE 79; RESP 17; TEMP 37.2; O2SAT 98
[2021-07-14 20:16] LABS: Glucose, Whole Blood 167 mg/dL (60-115)
[2021-07-14] MEDS: Mirtazapine 30 MG TABLET PO (21:13)
[2021-07-14] MEDS: Insulin Lispro 100 UNIT/ML 3 ML VIAL SUBCUT (21:13)
[2021-07-14] MEDS: Tamsulosin HCL 0.4 MG CAPSULE PO (21:13)
[2021-07-14 23:57] VITALS: BP 119/56; PULSE 86; RESP 17; TEMP 36.9; O2SAT 97
[2021-07-15 03:36] VITALS: BP 99/50; PULSE 80; RESP 16; TEMP 36.6; O2SAT 100
[2021-07-15] MEDS: Heparin Sodium,Porcine 5,000 UNIT/ML VIAL 5000 UNIT SUBCUT (05:54)
[2021-07-15 07:01] VITALS: BP 121/56; PULSE 78; RESP 18; TEMP 36.6; O2SAT 98
[2021-07-15 07:11] LABS: Glucose, Whole Blood 118 mg/dL (60-115)
[2021-07-15 09:48] VITALS: BP 121/56; PULSE 78; O2SAT 98
[2021-07-15] MEDS: Atorvastatin Calcium 40 MG TABLET PO (10:11)
[2021-07-15] MEDS: Aspirin Enteric Coated 81 MG TABLET.DR PO (10:11)
[2021-07-15] MEDS: 0.9 % Sodium Chloride Flush 3 ML SYRINGE IVFLUSH (10:11)
[2021-07-15 11:19] VITALS: BP 101/54; PULSE 84; RESP 22; TEMP 36.6; O2SAT 98
[2021-07-15 11:43] LABS: Glucose, Whole Blood 140 mg/dL (60-115)
[2021-07-15 12:44] LABS: Vancomycin Trough 9.2 mcg/mL (10.0-20.0)
--- NOTE | 2021-07-15 12:44 | MHC.CM.PN ---
PT MEDICALLY CLEARED FOR D/C, PT REC'S HOME PT FOR PT HOWEVER PT REPORTS HE PREFERS TO RESUME OUPT PT W/[facility] EVERY AND SUN, PT REPORTS HE HAS APPTS SCHEDULED FOR THIS WEEK, PT'S DTR ELIZABETH TO TRANSPORT AT 3PM.
--- NOTE | 2021-07-15 15:16 | PM.DS ---
DS: Providers Provider Date of Service: 07/15/21 Date of admission: 07/12/21 17:05 Primary care physician: Royal Garcia PA-C Consults: 07/12/21 20:32 Consult to Urology Routine Consulting Provider: Pato Gold Reason for consultation: urine retension DS: Diagnosis Discharge Diagnosis (1) Acute UTI: Status: Acute (2) COPD (chronic obstructive pulmonary disease): Status: Acute (3) Supplemental oxygen dependent: Status: Acute (4) DMII (diabetes mellitus, type 2): Status: Acute DS: Summary Hospital Course Hospital Course: History of presenting illness Complaint weakness 80-year-old man presented to the ER with complaints of weakness.? He reports over the last 2 weeks he has felt very weak and tired.? He was at rehab today and his blood pressure was taken and it was below 90 systolic.? His daughter went across the street to his PCPs office was unable to find him smoked some in the office and they told him to come to the ER to be evaluated.? He denied any recent illness, fever, chills, nausea, vomiting, diarrhea, recent travel, sick contacts, chest pain.? He does have some degree of chronic shortness of breath with COPD history hepatic pulmonary fibrosis.? He is on oxygen at home.? In the ER urinalysis was noted to be positive, lactic acid 2.3, no fever noted, stable blood pressure.? He was given a dose of Rocephin as well as 2 L of IV fluids in the ER.? To be admitted for further management and treatment of hypotension likely secondary to urinary tract infection.? Hospital course 80 year old man admitted with weakness secondary to sepsis due to UTI on admission patient has tachycardia tachypnea that resolved with IV fluid and IV antibiotics, urine culture grew Enterobacter cloaca sensitive to ceftriaxone , blood culture grew coagulase-negative Staphylococcus unlikely pathogen, patient treated with IV ceftriaxone now transitioned to by mouth Ceftin for total 7 days patient is asymptomatic with no recurrent fever chills WBC normal. Urinary retention patient noted to have difficulty voiding with high residual greater than 600 therefore Vela catheter placed patient started on Flomax 0.4 mg later Vela discontinued patient is able to void postvoid residual is less than 90 therefore patient is being discharged home and recommended outpatient urology follow-up if noted to have recurrent episodes of retention. Lactic acidosis Likely from infection resolved with IV hydration CAD had no chest pain, continue asa and statin. Diabetes II stable blood sugars continue ADA diet and home dose of Actos. Chronic respiratory failure/idiopathic pulm fibrosis/COPD Continue home oxygen 6 L, continue duonebs as needed, no acute COPD exacerbation noted. Time Spent with Patient Time attestation: Total time spent providing and/or coordinating discharge services: Discharge coordination time: Greater than 30 minutes Quality: Safe Use of Opioids Does Pt have an Active Cancer Diagnosis on the Problem List?: No Quality: Stroke Does the patient have a stroke diagnosis?: No Physical Exam Vital Signs: Vital Signs: Last Vital Signs Temp 97.9 F 07/15/21 11:19 Pulse 84 07/15/21 11:19 Resp 22 H 07/15/21 11:19 BP 101/54 L 07/15/21 11:19 Pulse Ox 98 07/15/21 11:19 Oxygen Flow Rate 8 07/12/21 12:02 BMI result Body Mass Index 21.9 Const: Other: General awake alert,resting comfortably, no acute distress.? Neck? no JVD. CVS? regular rate rhythm, Respiratory lungs clear to auscultation, no respiratory distress, no wheeze, no rhonchi. Gastrointestinal abdomen soft, nontender, bowel sounds audible Extremities no edema. Neuro nonfocal Skin no rash Psych appropriate affect DS: Data Data Completed and Pending Labs on day of discharge: Laboratory Results - last 24 hr 07/14/21 07/14/21 07/15/21 15:09 20:06 07:06 POC Glucose 136 H 167 H 118 H Vancomycin Trough 07/15/21 07/15/21 11:23 11:51 POC Glucose 140 H Vancomycin Trough 9.2 L Preliminary micro results at discharge 07/12/21 12:55 Blood Culture - Preliminary Blood - Venous No growth after 48 hours. Discharge Plan Discharge Patient Disposition: Home Health Service Discharge Diagnosis: Sepsis due to UTI Urinary retention Lactic acidosis Chronic respiratory failure Referrals: [facility] [Other] - 1 Week (TUESDAYS AND THURSDAYS) Royal Garcia PA-C [Primary Care Provider] - 1 Week Discharge Medications: New tamsulosin 0.4 mg Capsule 0.4 mg PO BEDTIME Qty: 30 0RF cefuroxime axetil 250 mg tablet 250 mg PO BID Qty: 6 0RF Continued atorvastatin 40 mg tablet 40 mg PO DAILY Qty: 90 3RF (DME) blood-glucose meter [OneTouch Ultra2 Meter] Kit See Rx Instructions .Route Qty: 1 0RF Rx Instructions: As directed (DME) OneTouch Ultra Test Strip See Rx Instructions .Route Qty: 100 2RF Rx Instructions: As directed (DME) lancets [OneTouch Delica Lancets] 30 gauge misc See Rx Instructions .Route Qty: 100 0RF Rx Instructions: Test daily pioglitazone [Actos] 15 mg tablet 15 mg PO DAILY 90 Days Qty: 90 1RF Anoro Ellipta 62.5-25 mcg/actuation blister with device 1 ea PO DAILY Qty: 60 0RF mirtazapine [Remeron] 30 mg tablet 30 mg PO BEDTIME Qty: 30 1RF (DME) FreeStyle Lite Strips Strip See Rx Instructions .ROUTE .MEDSUPPLY Qty: 100 3RF Rx Instructions: As directed (DME) blood-glucose meter [FreeStyle Lite Meter] Kit See Rx Instructions .Route Qty: 1 0RF Rx Instructions: As directed aspirin [Ecotrin Low Strength] 81 mg tablet,delayed release (DR/EC) 81 mg PO DAILY Qty: 30 0RF ipratropium-albuterol 0.5 mg-3 mg(2.5 mg base)/3 mL solution for nebulization 3 ml inhalation Q4-6H PRN (Reason: wheezing) 30 Days Qty: 180 6RF Discharge Orders: Discharge Order (Routine); Ordered 07/15/21 Ordered By: Ede Salas Diet: diabetic diet Activity on Discharge: As tolerated Stand Alone Forms: Patient Portal Discharge page Care Plan Goals: For UTI take 3 more days of by mouth antibiotic, started on Flomax 0.4 mg daily for urinary retention Health Concerns: Continue home oxygen 6 L as before continue all other home medication Plan of Treatment: Follow-up with primary care physician in 1 week, follow-up with urology if noted to have urinary retention Assessment: As per discharge summary
--- NOTE | 2021-07-15 15:22 | PM.UROCN ---
History of Present Illness Consult details Consult date: 07/15/21 Narrative: Marc is a pleasant male. 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 Currently with indwelling Vela for 600 cc residual Given other findings would leave catheter for minimum 2 weeks Should be treated with antibiotics Would add alpha-julia and finasteride Orders have him on tamsulosin which should be continued after discharge Review of Systems Constitutional: Constitutional: Reports as per HPI and Reports no additional constitutional complaints Cardiovascular: Cardiovascular: Reports as per HPI and Reports no additional cardiovascular complaints Respiratory: Respiratory: Reports as per HPI and Reports no additional respiratory complaints Gastrointestinal: Gastrointestinal: Reports as per HPI and Reports no additional gastrointestinal complaints Genitourinary: Genitourinary: Reports as per HPI Musculoskeletal: Musculoskeletal: Reports no additional musculoskeletal complaints and Reports as per HPI Neurologic: Reports system reviewed and no additional complaints, except as documented and Reports as per HPI [facility] Past Medical History Medical History Acute and chronic respiratory failure with hypoxia CAD (coronary artery disease) Chest pain COPD (chronic obstructive pulmonary disease) Esophagitis Hyperlipidemia Hypoxia Impaired glucose metabolism Interstitial lung disease IPF (idiopathic pulmonary fibrosis) Pneumonia RSV (acute bronchiolitis due to respiratory syncytial virus) SOB (shortness of breath) on exertion Supplemental oxygen dependent Family History Family History Mother No problems noted. Father No problems noted. Surgical History Surgical History S/P right coronary artery (RCA) stent placement Social History Social History Household Members: Family Housing: House Do you presently have visiting nurse or other home services: No Alcohol intake: never Patient Tobacco Use Status: Former Tobacco user Years Smoked: 43 yrs Smoked in Last 30 Days: No e-Cigarette/Vaping Use: Never Used Patient Interested in Nicotine Replacement: No Use of substances other than those prescribed or required for medical reasons: No Currently Displaying Signs/Symptoms of Drug Intoxication Withdrawal: No Any prior treatment program specific to substance use: No Have you been hit, kicked, punched, or otherwise hurt by someone within the past year? If so, by whom?: No Do you feel safe in your current relationship?: No Is there a partner from a previous relationship who is making you feel unsafe now?: No Are you made to feel afraid or neglected: No Spiritual Healthcare Practices: NA [facility] Practices: NA Cultural Healthcare Practices: NA Advance Directives: Yes Advance Directives Information Provided: No Advance Directives on File: No Advance Directives Date on File: 07/12/21 Do you have thoughts of harming others: None Do you have a plan to hurt others: No Plan Recently lost weight without trying: Yes How much weight loss: 24-33 pounds Eating poorly because of decreased appetite: Yes Nutrition screen score: 6 Nutrition Risks: No Nutritional Risk Poor oral hygiene: Yes service: No Current occupational status: retired [employer] Allergies Allergy/AdvReac Type Severity Reaction Status Date / Time No Known Allergies Allergy Verified 07/12/21 12:01 Active Medications: Current Medications Acetaminophen (Acetaminophen 325 Mg Tablet) 650 mg PO Q6H PRN PRN Reason: Pain, Mild (Pain Scale 1-3) Albuterol/Ipratropium (Albuterol/Iprat 2.5/0.5mg 3 Ml Ampul.Neb) 3 ml INHALE Q4H PRN PRN Reason: wheezing Aspirin (Aspirin Enteric Coated 81 Mg Tablet.Dr) 81 mg PO DAILY [facility] Last Admin: 07/15/21 10:11 Dose: 81 mg Documented by: Atorvastatin Calcium (Atorvastatin Calcium 40 Mg Tablet) 40 mg PO DAILY [facility] Last Admin: 07/15/21 10:11 Dose: 40 mg Documented by: Dextrose (Dextrose 50 % 25 Gm/50 Ml Syringe) 25 gm IVPUSH Q15M PRN; Protocol PRN Reason: per Hypoglycemia Standing Ord. Glucose (Glucose Gel 15 Gm Gel..Gram.) 15 gm PO Q15M PRN; Protocol PRN Reason: per Hypoglycemia Standing Ord. Heparin Sodium (Porcine) (Heparin Sodium,Porcine 5,000 Unit/Ml Vial) 5,000 unit SUBCUT Q12H [facility] Last Admin: 07/15/21 05:54 Dose: 5,000 unit Documented by: Ceftriaxone Sodium 1 gm/ (Sodium Chloride) 50 mls @ 100 mls/hr IV Q24H [facility] Last Infusion: 07/14/21 17:26 Dose: Infused Documented by: Insulin Human Lispro (Insulin Lispro 100 Unit/Ml 3 Ml Vial) 0 unit SUBCUT QIDACHS [facility]; Protocol Last Admin: 07/15/21 12:59 Dose: Not Given Documented by: Mirtazapine (Mirtazapine 30 Mg Tablet) 30 mg PO BEDTIME [facility] Last Admin: 07/14/21 21:13 Dose: 30 mg Documented by: Non-Formulary Medication (Umeclidinium-Vilanterol [Anoro Ellipta]) 1 each PO DAILY [facility] Ondansetron HCl (Ondansetron Hcl 4 Mg/2 Ml Vial) 4 mg IVPUSH Q8H PRN PRN Reason: Nausea and Vomiting Pharmacy Consult (Consult Rx Perform Med Rec) 1 each MISCELLANE ONCE PRN PRN Reason: Consult order Pharmacy Consult (Consult Rx Vancomycin Dosing) 1 each MISCELLANE DAILY PRN PRN Reason: Consult order Pioglitazone HCl (Pioglitazone Hcl 15 Mg Tablet) 15 mg PO DAILY [facility] Last Admin: 07/15/21 10:11 Dose: 15 mg Documented by: Sodium Chloride (0.9 % Sodium Chloride Flush 3 Ml Syringe) 3 ml IVFLUSH QSHIFT [facility] Last Admin: 07/15/21 10:11 Dose: 3 ml Documented by: Tamsulosin HCl (Tamsulosin Hcl 0.4 Mg Capsule) 0.4 mg PO BEDTIME [facility] Last Admin: 07/14/21 21:13 Dose: 0.4 mg Documented by: Physical Exam Vital Signs: Vital Signs: Last Vital Signs Temp 97.9 F 07/15/21 11:19 Pulse 84 07/15/21 11:19 Resp 22 H 07/15/21 11:19 BP 101/54 L 07/15/21 11:19 Pulse Ox 98 07/15/21 11:19 Oxygen Flow Rate 8 07/12/21 12:02 BMI result Body Mass Index 21.9 Const: General: cooperative, healthy appearing, comfortable and no acute distress Orientation/consciousness: patient oriented x3 HEENT: Face and sinus: Yes normal facial exam Mouth: moist mucous membranes Neck: Neck: Yes normal visual inspection, Yes full ROM and Yes trachea midline Chest: Chest palpation & inspection: normal inspection of the chest Resp: Effort & Inspection: normal respiratory effort, able to speak in complete sentences and no respiratory distress GI: Inspection: Yes normal to inspection Back/Spine/Pelvis: Cervical Spine: normal cervical lordosis Thoracic/Lumbar Spine: thoracic and lumbar spine normal to inspection Skin: General skin exam: no rashes or lesions noted Neuro: General: patient oriented x3, tone normal and moves all extremities Extrem: General: Yes normal to inspection and Yes capillary refill normal Results Labs Result diagrams: 07/13/21 05:22 07/14/21 07:49 Labs: Abnormal lab results 07/14/21 07/14/21 07/15/21 Range/Units 15:09 20:06 07:06 POC Glucose 136 H 167 H 118 H (60-115) mg/dL Vancomycin Trough (10.0-20.0) mcg/mL 07/15/21 07/15/21 Range/Units 11:23 11:51 POC Glucose 140 H (60-115) mg/dL Vancomycin Trough 9.2 L (10.0-20.0) mcg/mL Urine 07/12/21 Range/Units 14:09 Urine Color YELLOW Urine Appearance CLOUDY Urine pH 6.0 (5.0-8.0) Ur Specific [facility] 1.020 (1.005-1.025) Urine Protein NEG (NEG-TRACE) MG/DL Urine Glucose (UA) NEG (NEG) MG/DL All other labs normal. Assessment and Plan (1) Urinary retention with incomplete bladder emptying: Status: Acute (2) SIRS (systemic inflammatory response syndrome): Status: Acute Plan Alpha-julia and finasteride Voiding trial in 2 weeks Will need minimum 14 days antibiotics Procedures Date of Service Date of Service: 07/15/21
[2021-07-15] MEDS: Finasteride 5 MG TABLET PO (15:48)
== END 2021-07-15 17:10 | disposition home health service (06) | DRG 871 ==
LOC: HO.ED 16:34 → HO.EDOVER 17:10 → HO.S3 17:19
PROVIDERS: Admitting Provider Nurse Practitioner Acute Care; Emergency Provider Emergency Medicine; PCP Physician Assistant; Visit Provider Hospitalist
DX: A41.9 Sepsis, unspecified organism (principal); J96.00 Acute respiratory failure, unspecified whether with hypoxia or hypercapnia; N39.0 Urinary tract infection, site not specified; E87.2 Acidosis; J84.112 Idiopathic pulmonary fibrosis; E11.9 Type 2 diabetes mellitus without complications; I25.10 Atherosclerotic heart disease of native coronary artery without angina pectoris; E86.0 Dehydration; R33.9 Retention of urine, unspecified; I95.9 Hypotension, unspecified; Z99.81 Dependence on supplemental oxygen; J44.9 Chronic obstructive pulmonary disease, unspecified; E78.5 Hyperlipidemia, unspecified; Z20.822 Contact with and (suspected) exposure to COVID-19; Z79.82 Long term (current) use of aspirin; Z79.899 Other long term (current) drug therapy
CPT/HCPCS: 36415; 71045; 80048; 80076; 80202; 81001; 82565; 82947; 83605; 83735; 83880; 84484; 85025; 85610; 87040; 87086; 87088; 87147; 87186; 87205; 87502; 87635; 93005; 96361; 96374; 97162; 99284; 99291; C1758; J0696; J3370

== ENCOUNTER → 2021-07-20 12:54 | Outpatient (BNVA) | payer MEDICARE, SELFPAY | PROVIDERS: PCP Physician Assistant; Visit Provider Internal Medicine Pulmonary Disease | DX: J84.112 Idiopathic pulmonary fibrosis (principal); J44.9 Chronic obstructive pulmonary disease, unspecified; Z99.81 Dependence on supplemental oxygen | CPT/HCPCS: 99212 ==

== ENCOUNTER 2021-08-05 14:39 | Outpatient (REF) | payer MEDICARE, SELFPAY ==
--- NOTE | ~2021-08-05 | CT_ITS ---
EXAMINATION: CT CHEST WITHOUT CONTRAST CLINICAL INFORMATION: Other nonspecific abnormal finding of lung field COMPARISON: Previous chest CT most recent January 2021 and chest x-ray June 2021 TECHNIQUE: Multidetector volumetric CT imaging of the chest was done. Axial MIP volume rendering provided. Sagittal and coronal reformatted images were obtained. This CT examination was performed using dose optimization techniques as appropriate, variously including the following: *Automated exposure control *Adjustment of mA and/or kV according to patient size (this includes techniques or standardized protocols for targeted exams where dose is matched to indication/reason for exam; i.e. extremities or head) *Use of iterative reconstruction technique DLP: 136 mGy-cm FINDINGS: DEVELOPMENT VICE PRESIDENT: Low lung volumes and increased interstitial markings. LUNGS: The lung volumes are low. There is evidence of emphysema. There is evidence of interstitial lung disease with increased peripheral reticulation and attenuation. There is traction bronchiolectasis seen at the lung bases. There may be some honeycombing seen at the lung bases. There is increased peripheral or subpleural parenchymal consolidation seen in the anterior left upper lobe that appears unchanged for example axial image 170 series 5. There are small scattered calcifications in the lungs. The lungs are otherwise clear. No endobronchial or endotracheal lesion. MEDIASTINUM: Coronary artery calcification. Normal heart size. No pericardial effusion. Stable small mediastinal lymph nodes. No enlarged lymph nodes. Upper normal-sized pulmonary arteries, main pulmonary artery measuring 2.8 cm. PLEURA: There is no pleural effusion. No pleural mass or thickening. AXILLA: No lymphadenopathy. UPPER ABDOMEN: Calcification in the fundus of the gallbladder suggestive of gallbladder wall calcification. This is similar to previous. Small left renal stone. OSSEOUS STRUCTURES: There are degenerative changes of the spine. CT/CT chest wo con IMPRESSION: Emphysema and interstitial lung disease. Stable peripheral or subpleural anterior left upper lobe consolidation. Gallbladder wall calcification similar to previous exams. Small left renal stone. Fleischner guidelines were followed.
== END 2021-08-05 14:40 | disposition home or self-care (01) ==
LOC: HO.CT 14:39
PROVIDERS: Visit Provider Internal Medicine Pulmonary Disease
DX: R91.8 Other nonspecific abnormal finding of lung field (principal)
CPT/HCPCS: 71250

== ENCOUNTER 2021-08-15 11:42 | Outpatient (REF) | payer MEDICARE, SELFPAY ==
--- NOTE | 2021-08-15 11:48 | ECG_ITS ---
Test Reason : PREOP Blood Pressure : / mmHG Vent. Rate : 091 BPM Atrial Rate : 091 BPM P-R Int : 132 ms QRS Dur : 096 ms QT Int : 338 ms P-R-T Axes : 059 017 037 degrees QTc Int : 415 ms Sinus rhythm with occasional Premature ventricular complexes Otherwise normal ECG When compared with ECG of 12-JUL-2021 14:05, Premature ventricular complexes are now Present T wave amplitude has increased in Anterior leads Referred By: Royal Garcia Electronically Signed By:EPHRAIM MILLER
[2021-08-15 13:55] LABS: Appearance Urine CLOUDY; Color Urine YELLOW; Glucose Urine UA NEG (NEG); Leukocyte Esterase Urine 2+ (NEG); Nitrite Urine NEG (NEG); PH 6.5 (5.0-8.0); UACC Culture Trigger YES; Urine Blood NEG (NEG); Urine Ketones NEG (NEG); Urine Protein TRACE MG/DL (NEG-TRACE)
[2021-08-15 14:08] LABS: Folate 16.1 ng/mL (> or = 4.0); Vitamin B12 617 pg/mL (200-900)
[2021-08-15 14:44] LABS: Bacteria Urine 4+ /LPF; RBC Urine 0 /HPF (0); WBC Urine 50-75 /HPF (0-4)
[2021-08-15 14:55] LABS: TSH reflex Free T4 1.91 uIU/mL (0.32-4.0)
[2021-08-15 15:02] LABS: Hematocrit 38.2 % (42.0-52.0); Hemoglobin 12.4 g/dl (14.0-18.0); Mean Corpuscular HGB Conc 32.5 g/dl (31.0-36.0); Mean Corpuscular Hemoglobin 29.7 pg (27.0-33.0); Mean Corpuscular Volume 91.4 fL (80.0-98.0); Mean Platelet Volume 11.3 fL (9.4-12.4); Platelet Count 152 X10*3/uL (160-400); Red Blood Count 4.18 X10*6/uL (4.60-5.80)
[2021-08-15 15:36] LABS: Creatinine Urine 142.32 mg/dL; Microalbum/Creatinine Ratio Ur 15.4 ug/mg cr
[2021-08-15 15:53] LABS: Alanine Aminotransferase 36 U/L (0-40); Albumin Level 3.9 g/dL (3.5-5.0); Alkaline Phosphatase 98 U/L (39-117); Anion Gap 18 (12-20); Aspartate Amino Transferase 27 U/L (5-37); Bilirubin Direct 0.6 mg/dL (0.0-0.5); Bilirubin Total 1.8 mg/dL (0.0-1.0); Blood Urea Nitrogen 19 mg/dL (9-16); Carbon Dioxide 24 mmol/L (22-29); Chloride 103 mmol/L (96-108); Cholesterol 144 mg/dL; Estimated Glomerular Filt Rate > 60; Glucose Fasting 179 mg/dL (60-99); HDL Cholesterol 65 mg/dL; LDL Cholesterol Calculated 63 mg/dl; Magnesium 1.9 mg/dL (1.6-2.6); Sodium 140 mmol/L (135-145); Total Protein 6.3 g/dL (6.5-8.0); Triglycerides 84 mg/dL
[2021-08-15 20:20] LABS: Estimated Average Glucose 151 mg/dL; Hemoglobin A1c % 6.9 %
== END 2021-08-15 11:43 | disposition home or self-care (01) ==
LOC: HO.LAB 11:42
PROVIDERS: PCP Physician Assistant; Visit Provider Physician Assistant
DX: Z01.811 Encounter for preprocedural respiratory examination (principal); J44.9 Chronic obstructive pulmonary disease, unspecified; J84.112 Idiopathic pulmonary fibrosis; I25.10 Atherosclerotic heart disease of native coronary artery without angina pectoris; E11.9 Type 2 diabetes mellitus without complications; E53.8 Deficiency of other specified B group vitamins; I95.0 Idiopathic hypotension; R30.0 Dysuria; Z57.5 Occupational exposure to toxic agents in other industries; Z87.891 Personal history of nicotine dependence; Z99.81 Dependence on supplemental oxygen; Z79.899 Other long term (current) drug therapy
CPT/HCPCS: 36415; 80053; 80061; 80076; 81001; 81003; 82043; 82248; 82607; 82746; 83036; 83735; 84443; 85027; 87086; 87088; 87186; 93005; 99212

== ENCOUNTER 2021-11-23 10:33 | Outpatient (REF) | payer MEDICARE, SELFPAY ==
[2021-11-23 11:42] LABS: Hematocrit 35.9 % (42.0-52.0); Hemoglobin 11.7 g/dl (14.0-18.0); Mean Corpuscular HGB Conc 32.6 g/dl (31.0-36.0); Mean Corpuscular Hemoglobin 27.8 pg (27.0-33.0); Mean Corpuscular Volume 85.3 fL (80.0-98.0); Mean Platelet Volume 10.3 fL (9.4-12.4); Platelet Count 171 X10*3/uL (160-400); Red Blood Count 4.21 X10*6/uL (4.60-5.80); Red Cell Distribution Width 15.7 % (11.0-16.0); White Blood Count 10.1 X10*3/uL (4.8-10.8)
[2021-11-23 11:48] LABS: Estimated Average Glucose 140 mg/dL; Hemoglobin A1C 149.6582 umol/L; Hemoglobin A1c % 6.5 %
[2021-11-23 12:08] LABS: Alanine Aminotransferase 33 U/L (0-40); Albumin Level 3.7 g/dL (3.5-5.0); Alkaline Phosphatase 90 U/L (39-117); Anion Gap 16 (12-20); Aspartate Amino Transferase 20 U/L (5-37); Bilirubin Total 1.1 mg/dL (0.0-1.0); Blood Urea Nitrogen 16 mg/dL (9-16); Carbon Dioxide 26 mmol/L (22-29); Chloride 102 mmol/L (96-108); Estimated Glomerular Filt Rate > 60; Glucose Fasting 143 mg/dL (60-99); Potassium 4.2 mmol/L (3.3-5.1); Sodium 140 mmol/L (135-145); Total Protein 5.7 g/dL (6.5-8.0)
[2021-11-23 12:20] LABS: TSH reflex Free T4 2.18 uIU/mL (0.32-4.0)
== END 2021-11-23 10:34 | disposition home or self-care (01) ==
LOC: HO.LAB 10:33
PROVIDERS: PCP Physician Assistant; Visit Provider Physician Assistant
DX: R73.09 Other abnormal glucose (principal); J43.2 Centrilobular emphysema; J84.112 Idiopathic pulmonary fibrosis; Z99.81 Dependence on supplemental oxygen
CPT/HCPCS: 36415; 80053; 83036; 84443; 85027; 99212

== ENCOUNTER → 2022-01-30 12:53 | Outpatient (BNVA) | payer MEDICARE, SELFPAY | PROVIDERS: PCP Physician Assistant; Visit Provider Internal Medicine Pulmonary Disease | DX: J43.2 Centrilobular emphysema (principal); J84.112 Idiopathic pulmonary fibrosis; I25.10 Atherosclerotic heart disease of native coronary artery without angina pectoris; Z79.52 Long term (current) use of systemic steroids; Z79.82 Long term (current) use of aspirin; Z79.899 Other long term (current) drug therapy; Z99.81 Dependence on supplemental oxygen | CPT/HCPCS: 99212 ==

== ENCOUNTER 2022-03-03 10:53 | Outpatient (REF) | payer MEDICARE, SELFPAY ==
[2022-03-03 12:30] LABS: Hematocrit 38.8 % (42.0-52.0); Hemoglobin 12.6 g/dl (14.0-18.0); Mean Corpuscular HGB Conc 32.5 g/dl (31.0-36.0); Mean Corpuscular Hemoglobin 28.4 pg (27.0-33.0); Mean Corpuscular Volume 87.6 fL (80.0-98.0); Mean Platelet Volume 10.2 fL (9.4-12.4); Platelet Count 165 X10*3/uL (160-400); Red Blood Count 4.43 X10*6/uL (4.60-5.80); Red Cell Distribution Width 15.8 % (11.0-16.0); White Blood Count 9.5 X10*3/uL (4.8-10.8)
[2022-03-03 12:49] LABS: Creatinine Urine 130.08 mg/dL; Microalbum/Creatinine Ratio Ur 11.5 ug/mg cr
[2022-03-03 13:03] LABS: Alanine Aminotransferase 33 U/L (0-40); Albumin Level 3.7 g/dL (3.5-5.0); Alkaline Phosphatase 88 U/L (39-117); Anion Gap 15 (12-20); Aspartate Amino Transferase 23 U/L (5-37); Bilirubin Total 1.5 mg/dL (0.0-1.0); Blood Urea Nitrogen 14 mg/dL (9-16); Calcium 9.2 mg/dL (8.4-10.2); Carbon Dioxide 28 mmol/L (22-29); Chloride 104 mmol/L (96-108); Cholesterol 129 mg/dL; Estimated Glomerular Filt Rate > 60; Glucose Fasting 132 mg/dL (60-99); HDL Cholesterol 50 mg/dL; LDL Cholesterol Calculated 60 mg/dl; Potassium 4.5 mmol/L (3.3-5.1); Sodium 142 mmol/L (135-145); Total Protein 5.7 g/dL (6.5-8.0); Triglycerides 97 mg/dL
[2022-03-03 13:09] LABS: TSH reflex Free T4 2.08 uIU/mL (0.32-4.0)
== END 2022-03-03 10:54 | disposition home or self-care (01) ==
LOC: HO.LAB 10:53
PROVIDERS: PCP Physician Assistant; Visit Provider Physician Assistant
DX: Z12.5 Encounter for screening for malignant neoplasm of prostate (principal); I25.10 Atherosclerotic heart disease of native coronary artery without angina pectoris
CPT/HCPCS: 36415; 80053; 80061; 82043; 84153; 84443; 85027

== ENCOUNTER → 2022-05-16 09:47 | Outpatient (BNVA) | payer MEDICARE, SELFPAY | PROVIDERS: PCP Physician Assistant; Visit Provider Internal Medicine Pulmonary Disease | DX: J96.21 Acute and chronic respiratory failure with hypoxia (principal); J43.2 Centrilobular emphysema; I25.10 Atherosclerotic heart disease of native coronary artery without angina pectoris; Z87.891 Personal history of nicotine dependence; Z57.5 Occupational exposure to toxic agents in other industries; Z99.81 Dependence on supplemental oxygen | CPT/HCPCS: 99212 ==

== ENCOUNTER → 2022-08-15 10:19 | Outpatient (BNVA) | payer MEDICARE, SELFPAY | PROVIDERS: PCP Physician Assistant; Visit Provider Internal Medicine Pulmonary Disease | DX: J84.112 Idiopathic pulmonary fibrosis (principal); J43.2 Centrilobular emphysema; Z79.52 Long term (current) use of systemic steroids; Z79.899 Other long term (current) drug therapy; Z99.81 Dependence on supplemental oxygen | CPT/HCPCS: 99212 ==

== ENCOUNTER 2022-10-25 20:36 | Inpatient (IN) | payer MEDICARE, SELFPAY ==
--- NOTE | ~2022-10-25 | XR_ITS ---
EXAMINATION: XR CHEST CLINICAL INFORMATION: Shortness of breath. COMPARISON: 07/12/2021. TECHNIQUE: Frontal view of the chest was obtained. FINDINGS: The cardiomediastinal silhouette is stable. There is diffuse increased markings/interstitial coarsening as well as patchy diffuse left-sided and right lower lung field opacities similar to previous. There is no new consolidation or evidence for significant pleural effusion. The bony structures are osteopenic. The soft tissues are unremarkable. XR/XR chest 1V IMPRESSION: Diffuse increased markings/initial coarsening with patchy scattered opacities more pronounced on the left. A similar finding was seen previously and appears to be chronic. Recurrent pneumonia or pneumonia superimposed on chronic change should be considered.
[2022-10-25 20:58] VITALS: BP 111/60; PULSE 97; RESP 18; TEMP 36.5; O2SAT 89
[2022-10-25 21:07] VITALS: BP 113/67; PULSE 110; O2SAT 96
[2022-10-25 21:09] VITALS: BP 111/60; RESP 12; O2SAT 86; BMI 22.1
--- NOTE | 2022-10-25 21:16 | PC.NURSE ---
Pt ca&ox4, no signs of distress. Pt denies pain. Pt on 5l of 02 nc. Pt vitals stable Pts daughter at bedside. plan of care ongoing.
[2022-10-25 22:27] VITALS: BP 119/62; PULSE 90; RESP 28; O2SAT 90
--- NOTE | 2022-10-25 23:34 | ECG_ITS ---
Test Reason : SOB Blood Pressure : / mmHG Vent. Rate : 091 BPM Atrial Rate : 091 BPM P-R Int : 164 ms QRS Dur : 094 ms QT Int : 402 ms P-R-T Axes : 055 047 -27 degrees QTc Int : 494 ms Normal sinus rhythm ST & T wave abnormality, consider inferior ischemia ST & T wave abnormality, consider anterior ischemia ST elevation in Lateral leads Prolonged QT Abnormal ECG When compared with ECG of 15-AUG-2021 11:48, Significant changes have occurred Referred By: Erik Pool Electronically Signed By:LISANDRO NOGUERA
--- NOTE | 2022-10-25 23:35 | ED.GENADULT ---
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 No recent travel, no sick contacts, no exposure to sick contact. Related Data Home Medications Medication Instructions Recorded Confirmed omeprazole 20 mg tablet,delayed 20 mg PO DAILY 07/20/21 07/25/22 release Previous Rx's Medication Instructions Recorded aspirin 81 mg tablet,delayed 81 mg PO DAILY #30 tabs 03/17/20 release (Ecotrin Low Strength) miscellaneous medical supply 1 ea miscellaneous DAILY 99 days 10/10/21 #1 ea Anoro Ellipta 62.5 mcg-25 1 ea PO DAILY #60 ea 11/21/21 mcg/actuation powder for inhalation (umeclidinium-vilanterol) miscellaneous medical supply 1 ea miscellaneous DAILY 99 days 12/05/21 #1 ea atorvastatin 40 mg tablet 40 mg PO DAILY #90 tabs 12/12/21 pioglitazone 15 mg tablet (Actos) 15 mg PO DAILY 90 days #90 tabs 02/23/22 fluticasone 55 mcg-salmeterol 14 1 inh inhalation BID #1 insert 05/29/22 mcg/actuation breath activated powder mirtazapine 30 mg tablet 30 mg PO BEDTIME #30 tabs 06/06/22 tamsulosin 0.4 mg capsule 0.4 mg PO DAILY 90 days #90 caps 06/06/22 cholecalciferol (vitamin D3) 50 50 mcg PO DAILY 90 days #90 caps 07/25/22 mcg (2,000 unit) capsule albuterol sulfate 90 mcg/actuation 2 puff inhalation Q4-6H PRN 06/27/23 aerosol inhaler shortness of breath or wheezing 30 days #1 ea cetirizine 10 mg tablet (Zyrtec) 10 mg PO DAILY 90 days #90 tabs 08/15/22 ipratropium 0.5 mg-albuterol 3 mg 3 ml inhalation Q4-6H PRN for 08/15/22 (2.5 mg base)/3 mL nebulization wheezing #270 mL soln ipratropium bromide 21 mcg (0.03 2 spray intranasal BID 30 days #30 08/15/22 %) nasal spray mL prednisone 5 mg tablet 7.5 mg PO DAILY #45 tabs 10/02/22 primidone 50 mg tablet 150 mg PO BEDTIME 30 days #90 tabs 10/03/22 Allergies Allergy/AdvReac Type Severity Reaction Status Date / Time No Known Allergies Allergy Verified 08/15/22 10:31 Review of Systems Review of Systems: All other systems are reviewed and are negative Constitutional: Reports as per HPI and Reports no additional constitutional complaints Eyes: Reports as per HPI and Reports no additional eye complaints Reports system reviewed and no additional complaints, except as documented Cardiovascular: Reports as per HPI and Reports no additional cardiovascular complaints Respiratory: Reports as per HPI and Reports no additional respiratory complaints Gastrointestinal: Reports as per HPI and Reports no additional gastrointestinal complaints Genitourinary: Reports no additional female genitourinary complaints Musculoskeletal: Reports no additional musculoskeletal complaints Skin/Breast: Reports system reviewed and no additional complaints, except as docu Psychiatric: Reports no additional psychiatric complaints Endocrine: Reports no additional endocrine complaints Hematologic/Lymphatic: Reports no additional hematologic/lymphatic complaints Allergic/Immunologic: Reports no additional allergic/immunologic complaints Reports system reviewed and no additional complaints, except as documented and Reports Abnormal speech present [facility] Past Medical History Medical History Acute and chronic respiratory failure with hypoxia Acute UTI CAD (coronary artery disease) Chest pain DMII (diabetes mellitus, type 2) Esophagitis Hyperlipidemia Hypoxia Impaired glucose metabolism Interstitial lung disease IPF (idiopathic pulmonary fibrosis) Pneumonia RSV (acute bronchiolitis due to respiratory syncytial virus) SIRS (systemic inflammatory response syndrome) SOB (shortness of breath) on exertion Urinary retention with incomplete bladder emptying Surgical History S/P right coronary artery (RCA) stent placement Family History Family History Mother No problems noted. Father No problems noted. Social History Social History Household Members: Family Housing: House Do you presently have visiting nurse or other home services: No Alcohol intake: never Patient Tobacco Use Status: Former Tobacco user Years Smoked: 43 yrs Smoked in Last 30 Days: No e-Cigarette/Vaping Use: Never Used Second Hand Smoke Exposure: No Use of substances other than those prescribed or required for medical reasons: No Advance Directives: Yes Advance Directives on File: Yes Advance Directives Date on File: 07/12/21 service: No Current occupational status: retired Cognitive needs: Yes (scotter, walker, wheel chair.) Hearing needs: No Vision needs: No Physical Exam ED Vital Signs: Vital Signs - 24 hr 10/25/22 20:58 10/25/22 21:09 10/25/22 22:27 Temperature 97.7 F Pulse Rate 97 90 Respiratory Rate 18 12 28 H Blood Pressure 111/60 111/60 119/62 Pulse Oximetry 89 L 86 L 90 L Oxygen Delivery Method Nasal Cannula Nasal Cannula Nasal Cannula Oxygen Flow Rate 5 5 10/25/22 23:53 10/26/22 00:33 Temperature Pulse Rate 88 91 Respiratory Rate 22 H 27 H Blood Pressure 134/66 Pulse Oximetry 95 Oxygen Delivery Method Aerosol Mask Oxygen Flow Rate 5 BMI result Body Mass Index 22.1 Vital signs have been reviewed as appeared to be correct. Blood pressure normal. Heart rate normal. Respiration rate normal. Temperature normal. Oxygen saturation normal. Appearance: Alert. Oriented X3. No acute distress. Head: Normal external exam. Normocephalic. Atraumatic. No [place] signs noted. No raccoon eyes noted Eyes: PERRLA. EOMI. Conjunctiva and sclera normal. Eyelids normal. ENT: TM's Normal. Pharynx normal. Uvula midline. Moist mucous membranes. No trismus noted. No drooling noted. No muffled voice noted. Neck: Normal inspection. Neck supple. FROM. No adenopathy. Thyroid Normal. No meningeal signs. No neck mass noted. CVS: Normal heart rate and rhythm. Heart sound normal. No murmurs noted. Pulses normal throughout. Respiratory: No respiratory distress. Painless inspiration. Breath sounds normal. Diffuse expiratory wheezing bilaterally with prolonged expiration.. Chest nontender. No accessory muscle usage noted or decreased air movement noted. Abdomen: Soft and nontender. Bowel sounds normal in all 4 quadrants. No distention noted. No organomegaly noted. No visible injury noted. Back: No CVA tenderness. Full range of motion noted. Skin: Skin warm and dry. Normal skin color. Normal skin turgor. No rashes/lesions/lacerations noted. Extremities: No lower extremity edema. Extremities exhibit normal range of motion. Extremities nontender. Neuro: Oriented X 3. Cranial nerve exam: II-XII are grossly intact No motor deficit. No sensory deficit. Reflexes normal. Course Course Course Narrative: 82-year-old male with COPD history came in with hypoxia despite using 6 L of oxygen and generalized weakness no chest pain in particular labs is consistent with non STEMI, start aspirin and low dose of heparin will obtain Cardiology consult in the morning. Will give doxycycline for COPD exacerbation/possible pneumonia. Medications Administered Discontinued Medications Generic Name Dose Route Start Last Admin Trade Name Fidelq PRN Reason Stop Dose Admin Albuterol Sulfate 7.5 mg 10/25/22 23:32 10/25/22 23:52 Albuterol Sulfate (0.083%) 2.5 Mg/3 Ml Vial.Neb INHALE 10/25/22 23:33 7.5 mg ONCE ONE Administration Albuterol/Ipratropium 3 ml 10/25/22 23:32 10/25/22 23:52 Albuterol/Iprat 2.5/0.5mg 3 Ml Ampul.Neb INHALE 10/25/22 23:33 3 ml ONCE ONE Administration Magnesium Sulfate 2 gm in 50 mls @ 25 mls/hr 10/25/22 23:32 10/26/22 02:10 Magnesium Sulfate/H2o IV 10/26/22 01:31 Infused ONCE ONE Infusion Methylprednisolone Sodium Succinate 125 mg 10/25/22 23:32 10/26/22 00:13 Methylprednisolone Sod Succ 125 Mg/2 Ml Vial IVPUSH 10/25/22 23:33 125 mg ONCE ONE Administration Medical Decision Making Differential Diagnosis Differential Diagnoses: The differential diagnosis associated with the presentation includes (COPD exacerbation, pneumonia, pneumothorax, ACS, electrolyte abnormality, severe anemia.) Admission/Observation Consideration of admission/observation: Escalation of care including admission/observation considered Consult Healthcare Provider Management of the patient was discussed with: Hospitalist (Dr. Lyons) Lab Data MDM Lab Attestation statement: I reviewed the patient's lab results. 10/26/22 00:00 10/26/22 00:00 Labs: Lab Results 10/26/22 10/26/22 10/26/22 Range/Units 00:00 00:00 00:00 WBC 6.2 (4.8-10.8) X10*3/uL RBC 4.52 L (4.60-5.80) X10*6/uL Hgb 13.1 L (14.0-18.0) g/dl Hct 38.3 L (42.0-52.0) % MCV 84.7 (80.0-98.0) fL MCH 29.0 (27.0-33.0) pg MCHC 34.2 (31.0-36.0) g/dl RDW 15.2 (11.0-16.0) % Plt Count 144 L (160-400) X10*3/uL MPV 10.5 (9.4-12.4) fL Immature Gran % (Auto) 0.6 H (0.0-0.4) % Neut % (Auto) 92.8 H (45-73) % Lymph % (Auto) 5.3 L (20-40) % [place] % (Auto) 1.1 L (2-11) % Eos % (Auto) 0.0 (0-4) % Baso % (Auto) 0.2 (0-2) % Lymph # (Auto) 0.3 L (1.2-4.9) X10*3/uL [place] # (Auto) 0.1 (0.1-1.2) X10*3/uL Eos # (Auto) 0.0 (0.0-0.4) X10*3/uL Baso # (Auto) 0.0 (0.0-0.2) X10*3/uL Abs Immat Gran (auto) 0.04 H (0.00-0.03) X10*3/uL Absolute Neuts (auto) 5.7 (2.0-8.3) x10*3/uL Absolute Nucleated RBC 0.000 (0.0-0.012) X10*3/uL Nucleated RBC % (auto) 0.0 (0.0-0.2) /100WBC Smear Tech's Comments VERIFIED Sodium 138 (135-145) mmol/L Potassium 4.7 (3.3-5.1) mmol/L Chloride 104 (96-108) mmol/L Carbon Dioxide 26 (22-29) mmol/L Anion Gap 13 (12-20) BUN 12 (9-16) mg/dL Creatinine 1.05 (0.5-1.4) mg/dL Estim Creat Clear Calc 52.1 Estimated GFR > 60 Random Glucose 239 H (60-115) mg/dL Calcium 9.2 (8.4-10.2) mg/dL Total Bilirubin 1.0 (0.0-1.0) mg/dL Direct Bilirubin 0.5 (0.0-0.5) mg/dL AST 22 (5-37) U/L ALT 25 (0-40) U/L Alkaline Phosphatase 100 (39-117) U/L Troponin I High Sens 276.6 H* (<3.5-35.0) ng/L Total Protein 6.3 L (6.5-8.0) g/dL Albumin 3.8 (3.5-5.0) g/dL Lipase 18 (8-78) U/L Urine Color Urine Appearance Urine pH (5.0-9.0) Ur Specific [place] (1.005-1.025) Urine Protein (Neg-Trace) mg/dL Urine Glucose (UA) (Negative) mg/dL Urine Ketones (Negative) mg/dL Urine Blood (Negative) Urine Nitrite (Negative) Ur Leukocyte Esterase (Negative) Influenza Type A (PCR) (Negative) Influenza Type B (PCR) (Negative) RSV RNA Qual (PCR) (Negative) SARS-CoV-2 RNA (RT-PCR) (Negative) 10/26/22 10/26/22 10/26/22 Range/Units 00:00 00:39 02:08 WBC (4.8-10.8) X10*3/uL RBC (4.60-5.80) X10*6/uL Hgb (14.0-18.0) g/dl Hct (42.0-52.0) % MCV (80.0-98.0) fL MCH (27.0-33.0) pg MCHC (31.0-36.0) g/dl RDW (11.0-16.0) % Plt Count (160-400) X10*3/uL MPV (9.4-12.4) fL Immature Gran % (Auto) (0.0-0.4) % Neut % (Auto) (45-73) % Lymph % (Auto) (20-40) % [place] % (Auto) (2-11) % Eos % (Auto) (0-4) % Baso % (Auto) (0-2) % Lymph # (Auto) (1.2-4.9) X10*3/uL [place] # (Auto) (0.1-1.2) X10*3/uL Eos # (Auto) (0.0-0.4) X10*3/uL Baso # (Auto) (0.0-0.2) X10*3/uL Abs Immat Gran (auto) (0.00-0.03) X10*3/uL Absolute Neuts (auto) (2.0-8.3) x10*3/uL Absolute Nucleated RBC (0.0-0.012) X10*3/uL Nucleated RBC % (auto) (0.0-0.2) /100WBC Smear Tech's Comments Sodium (135-145) mmol/L Potassium (3.3-5.1) mmol/L Chloride (96-108) mmol/L Carbon Dioxide (22-29) mmol/L Anion Gap (12-20) BUN (9-16) mg/dL Creatinine (0.5-1.4) mg/dL Estim Creat Clear Calc Estimated GFR Random Glucose (60-115) mg/dL Calcium (8.4-10.2) mg/dL Total Bilirubin (0.0-1.0) mg/dL Direct Bilirubin (0.0-0.5) mg/dL AST (5-37) U/L ALT (0-40) U/L Alkaline Phosphatase (39-117) U/L Troponin I High Sens 462.7 H* D (<3.5-35.0) ng/L Total Protein (6.5-8.0) g/dL Albumin (3.5-5.0) g/dL Lipase (8-78) U/L Urine Color Yellow Urine Appearance Clear Urine pH 5.5 (5.0-9.0) Ur Specific [place] 1.010 (1.005-1.025) Urine Protein Negative (Neg-Trace) mg/dL Urine Glucose (UA) 250 H (Negative) mg/dL Urine Ketones Negative (Negative) mg/dL Urine Blood Negative (Negative) Urine Nitrite Negative (Negative) Ur Leukocyte Esterase Negative (Negative) Influenza Type A (PCR) NEGATIVE (Negative) Influenza Type B (PCR) NEGATIVE (Negative) RSV RNA Qual (PCR) NEGATIVE (Negative) SARS-CoV-2 RNA (RT-PCR) NEGATIVE (Negative) Independent Interpretation I performed an independent interpretation of an: Plain X-Ray (Diffuse increased markings/initial coarsening with patchy scattered opacities more pronounced on the left. A similar finding was seen previously and appears to be chronic. Recurrent pneumonia or pneumonia superimposed on chronic change should be considered. ) Radiology Impression Discussion of test interpretation with radiology: I have reviewed the radiologist's reading. (Diffuse increased markings/initial coarsening with patchy scattered opacities more pronounced on the left. A similar finding was seen previously and appears to be chronic. Recurrent pneumonia or pneumonia superimposed on chronic change should be considered. ) Chronic Conditions Patient?s care impacted by: Other (COPD) Critical Care Time Critical Care Time Critical Care Time: Yes Total Critical Care Time: 60 Attestation: I spent 60 minutes providing critical care service to the patient, this including time spent at the bedside to evaluate the patient, reassess the patient, monitoring vital signs, review labs, and radiographic studies, counseling the patient/family, discussing the case with consultants, disposition the patient. Discharge Plan Discharge Patient Disposition: Admitted As Inpatient
--- NOTE | 2022-10-25 23:38 | PC.NURSE ---
Provider in with pt. Pts daughter remains at bedside. plan of care ongoing
[2022-10-25] MEDS: Albuterol/Iprat 2.5/0.5MG 3 ML AMPUL.NEB INHALE (23:52)
[2022-10-25] MEDS: Albuterol Sulfate (0.083%) 2.5 MG/3 ML VIAL.NEB 7.5 MG INHALE (23:52)
[2022-10-25 23:53] VITALS: PULSE 88; RESP 22; O2SAT 98
[2022-10-26] VITALS (9 sets, daily range): BP systolic 118–144; BP diastolic 61–68; PULSE 80–91; RESP 20–27; TEMP 36.4–36.7; O2SAT 90–100; BMI 21.9
[2022-10-26] MEDS: Magnesium Sulfate/H2O 2 GM/50 ML PIGGYBACK IV (00:10)
[2022-10-26] MEDS: methylPREDNISolone Sod Succ 125 MG/2 ML VIAL IVPUSH (00:13)
--- NOTE | 2022-10-26 00:19 | PC.NURSE ---
Pt medicated per mar. Pts daughter remains at bedside plan of care ongoing.
[2022-10-26 00:20] LABS: Alanine Aminotransferase 25 U/L (0-40); Albumin Level 3.8 g/dL (3.5-5.0); Alkaline Phosphatase 100 U/L (39-117); Anion Gap 13 (12-20); Aspartate Amino Transferase 22 U/L (5-37); Basophils Percent Auto 0.2 % (0-2); Bilirubin Direct 0.5 mg/dL (0.0-0.5); Blood Urea Nitrogen 12 mg/dL (9-16); Calcium 9.2 mg/dL (8.4-10.2); Carbon Dioxide 26 mmol/L (22-29); Chloride 104 mmol/L (96-108); Creatinine Clr Calc Pharmacy 52.1; Estimated Glomerular Filt Rate > 60; Glucose Random 239 mg/dL (60-115); Hematocrit 38.3 % (42.0-52.0); Hemoglobin 13.1 g/dl (14.0-18.0); Imm Gran Abs Auto 0.04 X10*3/uL (0.00-0.03); Imm Gran Pct Auto 0.6 % (0.0-0.4); Lipase 18 U/L (8-78); Lymphocytes Absolute Auto 0.3 X10*3/uL (1.2-4.9); Lymphocytes Percent Auto 5.3 % (20-40); MANUAL DIFF FLAG SCAN; Mean Corpuscular HGB Conc 34.2 g/dl (31.0-36.0); Mean Corpuscular Volume 84.7 fL (80.0-98.0); Mean Platelet Volume 10.5 fL (9.4-12.4); Monocytes Absolute Auto 0.1 X10*3/uL (0.1-1.2); Monocytes Percent Auto 1.1 % (2-11); Neutrophils Absolute Auto 5.7 x10*3/uL (2.0-8.3); Neutrophils Percent Auto 92.8 % (45-73); Platelet Count 144 X10*3/uL (160-400); Potassium 4.7 mmol/L (3.3-5.1); Red Blood Count 4.52 X10*6/uL (4.60-5.80); Red Cell Distribution Width 15.2 % (11.0-16.0); SCAN SMEAR FLAG 1; Sodium 138 mmol/L (135-145); Total Protein 6.3 g/dL (6.5-8.0); White Blood Count 6.2 X10*3/uL (4.8-10.8)
[2022-10-26 00:37] LABS: Troponin-I High Sensitivity 276.6 ng/L (<3.5-35.0)
[2022-10-26 00:41] LABS: SLIDE REVIEW VERIFIED
--- NOTE | 2022-10-26 00:48 | MHC.EDTECH ---
Pt UA collected and sent.
[2022-10-26 00:49] LABS: Appearance Urine Clear; Color Urine Yellow; Glucose Urine UA 250 mg/dL (Negative); Leukocyte Esterase Urine Negative (Negative); Nitrite Urine Negative (Negative); PH 5.5 (5.0-9.0); Urine Blood Negative (Negative); Urine Ketones Negative (Negative); Urine Protein Negative (Neg-Trace)
[2022-10-26 00:57] LABS: Influenza A PCR NEGATIVE (Negative); Influenza B PCR NEGATIVE (Negative); Resp Syncy Virus RNA Qual PCR NEGATIVE (Negative); SARS COV2 PCR INHOUSE NEGATIVE (Negative)
--- NOTE | 2022-10-26 02:15 | PC.NURSE ---
Pt ca&ox4, no signs of distress. Pt denies pain Pts daughter remains at bedside. Plan of care ongoing.
[2022-10-26 02:44] LABS: Troponin-I High Sensitivity 462.7 ng/L (<3.5-35.0)
[2022-10-26 03:42] LABS: Hematocrit 39.3 % (42.0-52.0); Hemoglobin 13.2 g/dl (14.0-18.0); Mean Corpuscular HGB Conc 33.6 g/dl (31.0-36.0); Mean Corpuscular Hemoglobin 28.8 pg (27.0-33.0); Mean Corpuscular Volume 85.6 fL (80.0-98.0); Mean Platelet Volume 10.1 fL (9.4-12.4); Platelet Count 124 X10*3/uL (160-400); Red Blood Count 4.59 X10*6/uL (4.60-5.80); Red Cell Distribution Width 15.2 % (11.0-16.0); White Blood Count 3.5 X10*3/uL (4.8-10.8)
[2022-10-26 03:45] LABS: B Type Natriuretic Peptide 425 pg/mL (<100)
[2022-10-26 03:47] LABS: INTERNATIONAL NORM RATIO 1.1 (0.9-1.1); Prothrombin Time 12.8 SEC (11.1-13.3)
--- NOTE | 2022-10-26 03:50 | P.HPHOSP_ITS ---
History of Present Illness Date of Service: 10/26/22 Chief Complaint: weakness 82-year-old male past medical history of CAD, diabetes, BPH, history of recurrent UTI, COPD on 6 L of baseline oxygen, essential tremors, IPF, MDD, HLD, comes into the hospital with complaints of generalized weakness. Patient lives at home with his daughter, daughter goes to work and he mainly stays in bed or on the couch. He has very little activity around the house. He states that he has been feeling increasingly weak but worsened since yesterday. Denies any chest pain, no increased shortness of breath or cough or sputum production, denies any abdominal pain, no fever chills, no urinary symptoms and no lower extremity edema Daughter reports that when she got home he was satting 56% on the 6 L of oxygen that he has. He is currently on 6 L of nasal cannula in the ED satting 90-94%. On arrival to the ED patient hemodynamically stable Labs are significant for WBC count of 6.2, hemoglobin of 13.1, hematocrit 38.3, troponin of 276 increased to 462, BNP of 425 UA negative for acute infection, COVID, influenza and RSV negative Chest x-ray shows diffuse increased markings/initial coarsening with patchy scattered opacities more pronounced on the left. Recurrent pneumonia should be considered Review of Systems 2 Review of Systems: Yes all other systems are reviewed and are negative [facility] Medical History SIRS (systemic inflammatory response syndrome) Urinary retention with incomplete bladder emptying Acute UTI Esophagitis Chest pain Acute and chronic respiratory failure with hypoxia RSV (acute bronchiolitis due to respiratory syncytial virus) Hypoxia Pneumonia DMII (diabetes mellitus, type 2) IPF (idiopathic pulmonary fibrosis) Interstitial lung disease Impaired glucose metabolism Hyperlipidemia SOB (shortness of breath) on exertion CAD (coronary artery disease) Family History Mother No problems noted. Father No problems noted. Surgical History S/P right coronary artery (RCA) stent placement Social History Household Members: Family Housing: House Do you presently have visiting nurse or other home services: No Alcohol intake: never Patient Tobacco Use Status: Former Tobacco user Years Smoked: 43 yrs Smoked in Last 30 Days: No e-Cigarette/Vaping Use: Never Used Second Hand Smoke Exposure: No Use of substances other than those prescribed or required for medical reasons: No Advance Directives: Yes Advance Directives on File: Yes Advance Directives Date on File: 07/12/21 service: No Current occupational status: retired Cognitive needs: Yes (scotter, walker, wheel chair.) Hearing needs: No Vision needs: No Meds Allergies Allergy/AdvReac Type Severity Reaction Status Date / Time No Known Allergies Allergy Verified 08/15/22 10:31 Active Medications: Current Medications Acetaminophen (Acetaminophen 325 Mg Tablet) 650 mg PO Q6H PRN PRN Reason: Pain, Mild (Pain Scale 1-3) Albuterol/Ipratropium (Albuterol/Iprat 2.5/0.5mg 3 Ml Ampul.Neb) 3 ml INHALE RQ4H PRN PRN Reason: Shortness of Breath/Wheezing Albuterol/Ipratropium (Albuterol/Iprat 2.5/0.5mg 3 Ml Ampul.Neb) 3 ml INHALE RQ4H WHILE AWAKE [facility] Docusate Sodium (Docusate Sodium 100 Mg Capsule) 100 mg PO DAILY PRN PRN Reason: Constipation Enoxaparin Sodium (Enoxaparin Sodium 40 Mg/0.4 Ml Syringe) 40 mg SUBCUT Q24H [facility] Heparin Sodium (Porcine) (Heparin Sodium,Porcine 5,000 Unit/Ml Vial) 2,700 unit 40 unit/kg (2700 unit) IVPUSH PROTOCOL BOLUS PRN; Protocol PRN Reason: 40 unit/kg - Heparin Protocol Heparin Sodium (Porcine) (Heparin Sodium,Porcine 5,000 Unit/Ml Vial) 5,400 unit 80 unit/kg (5400 unit) IVPUSH PROTOCOL BOLUS PRN; Protocol PRN Reason: 80 unit/kg - Heparin Protocol Heparin Sodium/Sodium Chloride (Heparin Sodium,Porcine/1/2ns) 25,000 unit in 250 mls @ 0 mls/hr IVCONT .Q0M CHANTALE; Protocol Ondansetron HCl (Ondansetron Hcl 4 Mg/2 Ml Vial) 4 mg IVPUSH Q8H PRN PRN Reason: Nausea and Vomiting Sodium Chloride (0.9 % Sodium Chloride Flush 3 Ml Syringe) 3 ml IVFLUSH QSHIFT [facility] Home Medications Medication Instructions Recorded Confirmed Last Taken Type omeprazole 20 mg tablet,delayed 20 mg PO DAILY 07/20/21 07/25/22 Unknown History release Physical Exam 2 Vital Signs and Narrative: Vital Signs: Last Vital Signs Temp 97.7 F 10/25/22 20:58 Pulse 91 10/26/22 00:33 Resp 27 H 10/26/22 00:33 BP 134/66 10/26/22 00:33 Pulse Ox 95 10/26/22 00:33 O2 Del Method Aerosol Mask 10/26/22 00:33 O2 Flow Rate 5 10/26/22 00:33 BMI result Body Mass Index 22.1 Const: General: cooperative and no acute distress O rientation/consciousness: patient oriented x3 Eyes: General: appearance normal, both eyes and all related structures Resp: Other: Crackles bilateral Effort & Inspection: normal respiratory effort Cardio: Rate: regular rate Rhythm: regular rhythm GI: Palpation (GI): Soft to palpation Auscultation: normal bowel sounds Skin: General skin exam: no rashes or lesions noted Neuro: General: patient oriented x3 Cognition (Neuro): normal cognition Extrem: General: Yes normal to inspection and Yes no pedal edema Results Labs 10/26/22 03:38 10/26/22 00:00 Labs: Laboratory Results - last 24 hr 10/26/22 10/26/22 10/26/22 00:00 00:00 00:00 MCV 84.7 MCH 29.0 MCHC 34.2 RDW 15.2 Plt Count 144 L MPV 10.5 Immature Gran % (Auto) 0.6 H Neut % (Auto) 92.8 H Lymph % (Auto) 5.3 L Gila % (Auto) 1.1 L Eos % (Auto) 0.0 Baso % (Auto) 0.2 Lymph # (Auto) 0.3 L Gila # (Auto) 0.1 Eos # (Auto) 0.0 Baso # (Auto) 0.0 Abs Immat Gran (auto) 0.04 H Absolute Neuts (auto) 5.7 Absolute Nucleated RBC 0.000 Nucleated RBC % (auto) 0.0 Smear Tech's Comments VERIFIED PT INR aPTT Heparin Protocol Anion Gap 13 Estim Creat Clear Calc 52.1 Estimated GFR > 60 Random Glucose 239 H Calcium 9.2 Total Bilirubin 1.0 Direct Bilirubin 0.5 AST 22 ALT 25 Alkaline Phosphatase 100 B-Natriuretic Peptide Total Protein 6.3 L Albumin 3.8 Lipase 18 Urine Color Urine Appearance Urine pH Ur Specific [place] Urine Protein Urine Glucose (UA) Urine Ketones Urine Blood Urine Nitrite Ur Leukocyte Esterase Influenza Type A (PCR) NEGATIVE Influenza Type B (PCR) NEGATIVE RSV RNA Qual (PCR) NEGATIVE SARS-CoV-2 RNA (RT-PCR) NEGATIVE 10/26/22 10/26/22 10/26/22 00:00 00:39 03:38 MCV 85.6 MCH 28.8 MCHC 33.6 RDW 15.2 Plt Count 124 L MPV 10.1 Immature Gran % (Auto) Neut % (Auto) Lymph % (Auto) Gila % (Auto) Eos % (Auto) Baso % (Auto) Lymph # (Auto) Gila # (Auto) Eos # (Auto) Baso # (Auto) Abs Immat Gran (auto) Absolute Neuts (auto) Absolute Nucleated RBC 0.000 Nucleated RBC % (auto) 0.0 Smear Tech's Comments PT INR aPTT Heparin Protocol Anion Gap Estim Creat Clear Calc Estimated GFR Random Glucose Calcium Total Bilirubin Direct Bilirubin AST ALT Alkaline Phosphatase B-Natriuretic Peptide 425 H Total Protein Albumin Lipase Urine Color Yellow Urine Appearance Clear Urine pH 5.5 Ur Specific [place] 1.010 Urine Protein Negative Urine Glucose (UA) 250 H Urine Ketones Negative Urine Blood Negative Urine Nitrite Negative Ur Leukocyte Esterase Negative Influenza Type A (PCR) Influenza Type B (PCR) RSV RNA Qual (PCR) SARS-CoV-2 RNA (RT-PCR) 10/26/22 03:38 MCV MCH MCHC RDW Plt Count MPV Immature Gran % (Auto) Neut % (Auto) Lymph % (Auto) Gila % (Auto) Eos % (Auto) Baso % (Auto) Lymph # (Auto) Gila # (Auto) Eos # (Auto) Baso # (Auto) Abs Immat Gran (auto) Absolute Neuts (auto) Absolute Nucleated RBC Nucleated RBC % (auto) Smear Tech's Comments PT 12.8 INR 1.1 aPTT Heparin Protocol 31.0 L Anion Gap Estim Creat Clear Calc Estimated GFR Random Glucose Calcium Total Bilirubin Direct Bilirubin AST ALT Alkaline Phosphatase B-Natriuretic Peptide Total Protein Albumin Lipase Urine Color Urine Appearance Urine pH Ur Specific [place] Urine Protein Urine Glucose (UA) Urine Ketones Urine Blood Urine Nitrite Ur Leukocyte Esterase Influenza Type A (PCR) Influenza Type B (PCR) RSV RNA Qual (PCR) SARS-CoV-2 RNA (RT-PCR) Imaging Radiologist's Impressions: Impressions Chest X-Ray 10/26/22 00:10 IMPRESSION: Diffuse increased markings/initial coarsening with patchy scattered opacities more pronounced on the left. A similar finding was seen previously and appears to be chronic. Recurrent pneumonia or pneumonia superimposed on chronic change should be considered. Assessment and Plan (1) Community acquired pneumonia: Qualifiers: Laterality: left Lung location: lower lobe of lung Qualified Code(s): J18.9 - Pneumonia, unspecified organism Status: Acute (2) NSTEMI (non-ST elevated myocardial infarction): Status: Acute (3) Weakness generalized: Status: Acute Plan 82-year-old male with past medical history of COPD, CAD, diabetes, comes into the hospital with complaints of weakness found to have multiple abnormalities # NSTEMI - no CP - has delta change in trop - Started on heparin by ed physician - echo - cardiology consulted - continue asa, statin # CAP _ as seen on xray - will tx shayne abx - follow cultures # Generalized weakness - likely multifactorial including acute infection as well as deconditioning given his lifestyle - PT /OT - case management # COPD - not in exacerbation - no increased cough, sputum - will continue home inhalers and home prednisone # DM - LDSSI - Diabetic diet DVT ppx: Heparin subq Given pt need for evaluation of NSTEMI and needing IV abx for PNA pt will require min 2 nights hospital stay Time Spent With Patient Time: Total time managing care of this patient today ____ minutes. Quality Stroke Does the patient have a stroke diagnosis?: No VTE Prior VTE?: No VTE Risk Level:: Medical - moderate - high VTE Device Contraindication: Treatment Not Indicated VTE Drug Contraindication: N/A - Med Ordered
[2022-10-26] MEDS: Aspirin Enteric Coated 81 MG TABLET.DR PO (03:57)
[2022-10-26] MEDS: Enoxaparin Sodium 40 MG/0.4 ML SYRINGE SUBCUT (03:57)
[2022-10-26] MEDS: Doxycycline Monohydrate 100 MG CAPSULE PO (03:57)
--- NOTE | 2022-10-26 07:00 | CA_ITS ---
Transthoracic Echocardiogram Patient (Last, First, Middle): Marc Sandovla L Gender: Male Date of : 1940 Age: 82 Procedure Date: 10/26/2022 Procedure Type: Transthoracic Echocardiogram Location: ER Height: 175.26 cm Weight: 67.59 kg BSA: 1.82 m2 Heart Rate: bpm BP: 116 / 58 mmHg Turbine Attendant: SELWYN Referring MD: Marisel Briones MD Search Director: Christopher Erwin MD Symptoms: NSTEMI Study Quality: Adequate with contrast ECG Rhythm: Sinus Conclusions: - 1. Normal LV ejection fraction 60 65% with grade 1 diastolic dysfunction 2. Mild mitral regurgitation 3. No gross pericardial effusion Findings Procedure Information Contrast agent, definity, is being given per protocol without apparent complications. Left Ventricle Normal left ventricular size, thickness, and systolic function. The visually estimated ejection fraction is between 60-65%. Spectral Doppler is indicative of an impaired relaxation filling pattern. E/E prime ratio is <8, consistent with normal filling pressures. Evidence suggests grade I (mild) diastolic dysfunction. Wall Motion Rest Echo Findings The basal inferior segment is hypokinetic. All other scored wall segments showed normal motion. Right Ventricle Mildly increased right ventricular cavity size. There is normal right ventricular systolic function. Atria The left atrium is normal in size. Interatrial shunt cannot be excluded. The right atrium is normal in size. Aortic Valve There is mild calcification of the aortic valve. There is no aortic valve stenosis. There is no aortic valve regurgitation. Mitral Valve There is mild anterior and posterior mitral leaflet thickening. There is mild mitral annular calcification. There is mild mitral valve regurgitation. There is no mitral valve stenosis. Pulmonic Valve The pulmonic valve was not well visualized. Tricuspid Valve Likely normal tricuspid valve structure and function. Tricuspid regurgitation envelope is inadequate for calculation of right ventricular systolic pressure. Normal right atrial pressure. Great Vessels All visible segments of the aorta are normal in size. The pulmonary artery was not well visualized. Venous The inferior vena cava is normal in size and collapses greater than 50% with inspiration. Pericardium/Pleural There is no evidence of pericardial effusion. Prior Study Comparison No significant change compared to prior study dated: 12/30/2020. Measurements 2D Linear Measurements IVSd: 1.15 0.6-0.9/0.6-1.0 cm LVIDd: 2.94 3.9-5.3/4.2-5.9 cm LVIDd Index: 1.62 2.4-3.2/2.2-3.1 cm/m2 LVIDs: 1.87 2.0-3.6 cm LVPWd: 1.08 0.7-1.1 cm LA Diam: 3.30 2.7-3.8/3.0-4.0 cm LAIDs Index: 1.81 1.5-2.3 cm/m2 LV Mass: 117.29 67-162/88-224 g LV Mass Index: 64.44 43-95/49-115 g/m2 LVOT Diam: 2.00 3.0+(-)1.3 cm 2D Systolic Function EF 4C: 66.10 >55% EF 2C: 64.40 >55% EF BiP: 63.90 >55% Mitral Valve MV Pk E: 0.55 MV PK A: 1.03 MV Decel Time: 183.00 E/A: 0.50 E'Lateral: 8.38 E'Medial: 6.53 E/E' Med: 8.50 E/E' Lat: 6.60 PHT: 54.00 MVA PHT: 4.07 Decel Humphreys: 3.02 Aortic Valve AoV Pk Arnold: 1.33 AoV Mn Arnold: 0.91 AoV VTI: 0.25 AoV Pk Grad: 7.00 Aov Mn Grad: 4.00 SARAHY Cont.VTI: 1.97 LVOT LVOT Pk Arnold: 0.92 LVOT Mn Arnold: 0.60 LVOT VTI: 0.15 LVOT Pk Grad: 3.00 LVOT Mn Grad: 2.00 LVOT Diam: 2.00 LVOT Area: 3.14 Diastolic Function MV Pk E: 0.55 MV Pk A: 1.03 E/A: 0.50 E'Medial: 6.53 E/E' Med: 8.50 E' Laterial: 8.38 E/E' Lat: 6.60 Right Ventricle TAPSE (mm): 20.70 TVS' Arnold: 9.03 Great Vessels Aorta Sinus of Valsalva: 3.70 2.0-3.[address] Ridge: 2.83 1.7-3.4 cm Ao Asc: 3.30 2.1-3.4 cm Ao Arch: 2.90 Updated in Other Vendor System with Status of Final Christopher Erwin MD electronically signed on 10/27/2022 8:32:20 AM with status of Final
[2022-10-26 07:11] LABS: Glucose, Whole Blood 301 mg/dL (60-115)
--- NOTE | 2022-10-26 07:40 | MHC.EDTECH ---
EMS blankets removed from underneath the patient. pad placed and pt boosted in the bed, sat upright and given breakfast. call light placed within reach
[2022-10-26] MEDS: Albuterol/Iprat 2.5/0.5MG 3 ML AMPUL.NEB INHALE ×4 (07:48→20:09)
--- NOTE | 2022-10-26 09:07 | PHA.MEDREC ---
Addendum entered by Jenifer Hines RPh 10/26/22 12:33: spoke to daughter richar. pt is confused and stopped anoro due to cost. now on airduo. updated list Original Note: Pharmacy Consult ? Medication Reconciliation Pharmacy has completed the medication reconciliation.
[2022-10-26 09:08] LABS: Basophils Percent Auto 0.2 % (0-2); Imm Gran Abs Auto 0.03 X10*3/uL (0.00-0.03); Imm Gran Pct Auto 0.7 % (0.0-0.4); PLT CLUMP 1; SCAN SMEAR FLAG 1
[2022-10-26 09:10] LABS: Hematocrit 39.3 % (42.0-52.0); Hemoglobin 13.1 g/dl (14.0-18.0); Lymphocytes Absolute Auto 0.4 X10*3/uL (1.2-4.9); Lymphocytes Percent Auto 9.3 % (20-40); Mean Corpuscular HGB Conc 33.3 g/dl (31.0-36.0); Mean Corpuscular Hemoglobin 28.9 pg (27.0-33.0); Mean Corpuscular Volume 86.6 fL (80.0-98.0); Mean Platelet Volume 10.8 fL (9.4-12.4); Monocytes Percent Auto 0.9 % (2-11); Neutrophils Percent Auto 88.9 % (45-73); Red Blood Count 4.54 X10*6/uL (4.60-5.80)
[2022-10-26 09:17] LABS: Platelet Count 138 X10*3/uL (160-400); White Blood Count 4.5 X10*3/uL (4.8-10.8)
[2022-10-26 09:18] LABS: MANUAL DIFF FLAG NO
[2022-10-26] MEDS: Heparin Sodium,Porcine/1/2NS 25,000 UNIT/250 ML IV.SOLN 8.16 UNIT IVCONT (09:29)
[2022-10-26 09:32] LABS: Anion Gap 16 (12-20); Blood Urea Nitrogen 17 mg/dL (9-16); Calcium 9.1 mg/dL (8.4-10.2); Carbon Dioxide 25 mmol/L (22-29); Chloride 100 mmol/L (96-108); Creatinine Clr Calc Pharmacy 46.4; Estimated Glomerular Filt Rate 59; Glucose Random 353 mg/dL (60-115); Potassium 4.3 mmol/L (3.3-5.1); Sodium 137 mmol/L (135-145)
[2022-10-26] MEDS: cefTRIAXone sodium 1 GM in 0.9 % Sodium Chloride 50 ML IV (09:36)
[2022-10-26 09:42] LABS: Troponin-I High Sensitivity 527.8 ng/L (<3.5-35.0)
[2022-10-26] MEDS: Insulin Lispro 100 UNIT/ML 3 ML VIAL SUBCUT ×4 (09:47→21:26)
--- NOTE | 2022-10-26 10:00 | PC.NURSE ---
it was discovered by this RN, that the heparin drip that was ordered for this pt at 0330, was pulled by previous shift RN and placed on the supply cart in the room without being hung, no note written, and never reported to this RN who took over care for this pt. this RN hung the Heparin drip per mar once the heparin bag was found. charge master specialist aware of incident. pt a&o, pleasant, calm, and cooperative with daughter at bedside. vss. call mirza within reach. all pt needs met radha.
--- NOTE | 2022-10-26 10:36 | MHC.CM.PN ---
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
[2022-10-26] MEDS: Azithromycin 500 MG in 0.9 % Sodium Chloride 250 ML 125 MG IV (10:47)
--- NOTE | 2022-10-26 11:14 | P.CONCA_ITS ---
History of Present Illness History of Present Illness Date of Service: 10/26/22 Consult reason: troponin elevation Chief complaint: COPD Exacerbation Narrative: I was consulted to see Marc in cardiology consultation today for elevated troponins. Patient is accompanied by his daughter at bedside. Patient was brought to the hospital because he felt extreme fatigue. Daughter than notice that he was markedly hypoxic at home with oxygen saturation 56%. She then switched him from 6 L of nasal cannula which usually takes 2 of face mask like device but persists with significant hypoxemia and was therefore brought to the emergency room. In emergency room he was noted to be significantly hypoxemic and subsequent troponin was suggestive of myocardial injury. EKG suggestive of T-wave inversion in the precordial and inferior leads. Patient subsequent troponin is further elevated. BNP is elevated. He has no signs or symptoms of heart failure. Chest x-ray possibly suggestive of pneumonia. Patient currently is not hypoxemic and feels better. He denies any chest pain. He has prior history of CAD status post RCA stenting many years ago. 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 Review of Systems 2 Constitutional: Constitutional: Denies body ache(s), Denies chills, Denies fever(s) and Reports weakness Eyes: Eyes: Reports no additional eye complaints Cardiovascular: Cardiovascular: Reports no additional cardiovascular complaints Respiratory: Respiratory: Reports no additional respiratory complaints Gastrointestinal: Gastrointestinal: Reports no additional gastrointestinal complaints Integumentary/Breasts: Skin/Breast: Reports system reviewed and no additional complaints, except as docu Neurologic: Reports weakness Psychiatric: Psychiatric: Reports no additional psychiatric complaints Hematologic/Lymphatic: Hematologic/Lymphatic: Reports no additional hematologic/lymphatic complaints [facility] Past Medical History Medical History SIRS (systemic inflammatory response syndrome) Urinary retention with incomplete bladder emptying Acute UTI Esophagitis Chest pain Acute and chronic respiratory failure with hypoxia RSV (acute bronchiolitis due to respiratory syncytial virus) Hypoxia Pneumonia DMII (diabetes mellitus, type 2) IPF (idiopathic pulmonary fibrosis) Interstitial lung disease Impaired glucose metabolism Hyperlipidemia SOB (shortness of breath) on exertion CAD (coronary artery disease) Family History Family History Mother No problems noted. Father No problems noted. Surgical History Surgical History S/P right coronary artery (RCA) stent placement Social History Social History Household Members: Family Housing: House Do you presently have visiting nurse or other home services: No Alcohol intake: never Patient Tobacco Use Status: Former Tobacco user Years Smoked: 43 yrs Smoked in Last 30 Days: No e-Cigarette/Vaping Use: Never Used Second Hand Smoke Exposure: No Use of substances other than those prescribed or required for medical reasons: No Advance Directives: Yes Advance Directives on File: Yes Advance Directives Date on File: 07/12/21 service: No Current occupational status: retired Cognitive needs: Yes (scotter, walker, wheel chair.) Hearing needs: No Vision needs: No Meds Allergies Allergy/AdvReac Type Severity Reaction Status Date / Time No Known Allergies Allergy Verified 08/15/22 10:31 Active Medications: Current Medications Acetaminophen (Acetaminophen 325 Mg Tablet) 650 mg PO Q6H PRN PRN Reason: Pain, Mild (Pain Scale 1-3) Albuterol/Ipratropium (Albuterol/Iprat 2.5/0.5mg 3 Ml Ampul.Neb) 3 ml INHALE RQ4H PRN PRN Reason: Shortness of Breath/Wheezing Albuterol/Ipratropium (Albuterol/Iprat 2.5/0.5mg 3 Ml Ampul.Neb) 3 ml INHALE RQ4H WHILE AWAKE [facility] Last Admin: 10/26/22 07:48 Dose: 3 ml Dextrose (Dextrose 50 % 25 Gm/50 Ml Syringe) 25 gm IVPUSH Q15M PRN; Protocol PRN Reason: per Hypoglycemia Standing Ord. Docusate Sodium (Docusate Sodium 100 Mg Capsule) 100 mg PO DAILY PRN PRN Reason: Constipation Enoxaparin Sodium (Enoxaparin Sodium 40 Mg/0.4 Ml Syringe) 40 mg SUBCUT Q24H [facility] Last Admin: 10/26/22 09:58 Dose: Not Given Glucose (Glucose Gel 15 Gm Gel..Gram.) 15 gm PO Q15M PRN; Protocol PRN Reason: per Hypoglycemia Standing Ord. Heparin Sodium (Porcine) (Heparin Sodium,Porcine 5,000 Unit/Ml Vial) 2,700 unit 40 unit/kg (2700 unit) IVPUSH PROTOCOL BOLUS PRN; Protocol PRN Reason: 40 unit/kg - Heparin Protocol Heparin Sodium (Porcine) (Heparin Sodium,Porcine 5,000 Unit/Ml Vial) 5,400 unit 80 unit/kg (5400 unit) IVPUSH PROTOCOL BOLUS PRN; Protocol PRN Reason: 80 unit/kg - Heparin Protocol Ceftriaxone Sodium 1 gm/ (Sodium Chloride) 50 mls @ 100 mls/hr IV Q24H [facility] Last Admin: 10/26/22 09:36 Dose: 100 mls/hr Azithromycin 500 mg/ Sodium (Chloride) 250 mls @ 125 mls/hr IV Q24H [facility] Last Admin: 10/26/22 10:47 Dose: 125 mls/hr Heparin Sodium/Sodium Chloride (Heparin Sodium,Porcine/1/2ns) 25,000 unit in 250 mls @ 0 mls/hr IVCONT .Q0M [facility]; Protocol Last Admin: 10/26/22 09:29 Dose: 12 units/kg/hr, 8.16 mls/hr Insulin Human Lispro (Insulin Lispro 100 Unit/Ml 3 Ml Vial) 0 unit SUBCUT QIDACHS [facility]; Protocol Last Admin: 10/26/22 09:47 Dose: 8 unit Ondansetron HCl (Ondansetron Hcl 4 Mg/2 Ml Vial) 4 mg IVPUSH Q8H PRN PRN Reason: Nausea and Vomiting Sodium Chloride (0.9 % Sodium Chloride Flush 3 Ml Syringe) 3 ml IVFLUSH QSHIFT [facility] Last Admin: 10/26/22 09:58 Dose: Not Given Home Medications Medication Instructions Recorded Confirmed Last Taken Type omeprazole 20 mg tablet,delayed 20 mg PO DAILY 07/20/21 10/26/22 10/25/22 History release atorvastatin 40 mg tablet 40 mg PO BEDTIME 10/26/22 10/26/22 10/25/22 History fluticasone 55 mcg-salmeterol 14 1 inh inhalation BID 10/26/22 10/26/22 Unknown History mcg/actuation breath activated powder Physical Exam 2 Vital Signs: Vital Signs: Last Vital Signs Temp 97.5 F 10/26/22 07:17 Pulse 88 10/26/22 07:48 Resp 22 H 10/26/22 07:48 BP 144/68 H 10/26/22 07:17 Pulse Ox 90 L 10/26/22 07:17 O2 Del Method Nasal Cannula 10/26/22 07:17 O2 Flow Rate 5 10/26/22 07:17 BMI result Body Mass Index 22.1 Const: General: cooperative, alert, awake, in distress mild and respiratory and tired appearing Nutritional Appearance: underweight O rientation/consciousness: patient oriented x3 HEENT: Head: Yes normocephalic and Yes atraumatic Neck: Neck: Yes trachea midline, Yes supple and Yes no JVD Resp: Effort & Inspection: normal respiratory effort Auscultation: crackles (coarse) bilateral at the base Cardio: Jugular venous distension: no JVD Rate: regular rate Rhythm: r egular rhythm Heart sounds: S1 normal heart sound present, S2 normal heart sound present, no click, no gallops, no murmurs and no rubs GI: Auscultation: normal bowel sounds Skin: General skin exam: no rashes or lesions noted Neuro: General: patient oriented x3 and no focal motor deficits Extrem: General: Yes no clubbing, cyanosis or edema Objective Labs and Meds 10/26/22 09:00 10/26/22 09:00 Lab results: Laboratory Results - last 24 hr 10/26/22 10/26/22 10/26/22 00:00 00:39 02:08 WBC 6.2 RBC 4.52 L Hgb 13.1 L Hct 38.3 L MCV 84.7 MCH 29.0 MCHC 34.2 RDW 15.2 Plt Count 144 L MPV 10.5 Immature Gran % (Auto) 0.6 H Neut % (Auto) 92.8 H Lymph % (Auto) 5.3 L [place] % (Auto) 1.1 L Eos % (Auto) 0.0 Baso % (Auto) 0.2 Lymph # (Auto) 0.3 L [place] # (Auto) 0.1 Eos # (Auto) 0.0 Baso # (Auto) 0.0 Abs Immat Gran (auto) 0.04 H Absolute Neuts (auto) 5.7 Absolute Nucleated RBC 0.000 Nucleated RBC % (auto) 0.0 Smear Tech's Comments VERIFIED PT INR aPTT Heparin Protocol Sodium 138 Potassium 4.7 Chloride 104 Carbon Dioxide 26 Anion Gap 13 BUN 12 Creatinine 1.05 Estim Creat Clear Calc 52.1 Estimated GFR > 60 POC Glucose Random Glucose 239 H Calcium 9.2 Total Bilirubin 1.0 Direct Bilirubin 0.5 AST 22 ALT 25 Alkaline Phosphatase 100 Troponin I High Sens 276.6 H* 462.7 H* D B-Natriuretic Peptide 425 H Total Protein 6.3 L Albumin 3.8 Lipase 18 Urine Color Yellow Urine Appearance Clear Urine pH 5.5 Ur Specific [place] 1.010 Urine Protein Negative Urine Glucose (UA) 250 H Urine Ketones Negative Urine Blood Negative Urine Nitrite Negative Ur Leukocyte Esterase Negative Influenza Type A (PCR) NEGATIVE Influenza Type B (PCR) NEGATIVE RSV RNA Qual (PCR) NEGATIVE SARS-CoV-2 RNA (RT-PCR) NEGATIVE 10/26/22 10/26/22 10/26/22 03:38 07:07 09:00 WBC 3.5 L 4.5 L RBC 4.59 L 4.54 L Hgb 13.2 L 13.1 L Hct 39.3 L 39.3 L MCV 85.6 86.6 MCH 28.8 28.9 MCHC 33.6 33.3 RDW 15.2 15.0 Plt Count 124 L 138 L MPV 10.1 10.8 Immature Gran % (Auto) 0.7 H Neut % (Auto) 88.9 H Lymph % (Auto) 9.3 L [place] % (Auto) 0.9 L Eos % (Auto) 0.0 Baso % (Auto) 0.2 Lymph # (Auto) 0.4 L [place] # (Auto) 0.0 L Eos # (Auto) 0.0 Baso # (Auto) 0.0 Abs Immat Gran (auto) 0.03 Absolute Neuts (auto) 4.0 Absolute Nucleated RBC 0.000 0.000 Nucleated RBC % (auto) 0.0 0.0 Smear Tech's Comments PT 12.8 INR 1.1 aPTT Heparin Protocol 31.0 L Sodium 137 Potassium 4.3 Chloride 100 Carbon Dioxide 25 Anion Gap 16 BUN 17 H Creatinine 1.18 Estim Creat Clear Calc 46.4 Estimated GFR 59 POC Glucose 301 H Random Glucose 353 H* Calcium 9.1 Total Bilirubin Direct Bilirubin AST ALT Alkaline Phosphatase Troponin I High Sens 527.8 H* B-Natriuretic Peptide Total Protein Albumin Lipase Urine Color Urine Appearance Urine pH Ur Specific [place] Urine Protein Urine Glucose (UA) Urine Ketones Urine Blood Urine Nitrite Ur Leukocyte Esterase Influenza Type A (PCR) Influenza Type B (PCR) RSV RNA Qual (PCR) SARS-CoV-2 RNA (RT-PCR) Imaging Radiologist's impression: Impressions Chest X-Ray 10/26/22 00:10 IMPRESSION: Diffuse increased markings/initial coarsening with patchy scattered opacities more pronounced on the left. A similar finding was seen previously and appears to be chronic. Recurrent pneumonia or pneumonia superimposed on chronic change should be considered. Assessment and Plan (1) NSTEMI (non-ST elevated myocardial infarction): Status: Acute Patient with elevated biomarkers with further rising troponin in the setting of acute hypoxemic respiratory failure in patient with advanced chronic hypoxemic respiratory failure is most suggestive of acute RV strain from significant hypoxemia causing both elevation of troponins as well as BNP. Clinically does appear to be in heart failure. He had no other symptoms suggestive myocardial ischemia. He does have anterior T-wave changes which also can be seen with acute RV strain and acute cor pulmonale. Other possibilities include secondary myocardial infarction related to severe hypoxemia and/or talks about cardiomyopathy. Echocardiogram has been requested. Further treatment based on the finding. Primary treatment is to treat underlying pulmonary condition with supportive care and oxygen supplementation. Overall prognosis is guarded. Can continue IV heparin for total of 48 hours. Aspirin statins to continue as before. Will sign of the case at this point time Time Spent With Patient Time: Total time managing care of this patient today ____ minutes. Procedures Date of Service Date of Service: 10/26/22
--- NOTE | 2022-10-26 12:04 | PM.EVENT ---
Event Note Date of Service: 10/26/22 Event Note: Seen and evaluated this morning Feels more comfortable, reporting cough with no fever or dyspnea Denies chest pain, repeated Trop of 520s Continue IV Heparin pending cardiology evaluation Continue IV Antibiotics Give Lasix Keep on Tele Time Spent With Patient Time: Total time managing care of this patient today ____ minutes.
[2022-10-26 13:09] LABS: Glucose, Whole Blood 188 mg/dL (60-115)
[2022-10-26] MEDS: Furosemide 20 MG/2 ML VIAL IVPUSH (13:49)
[2022-10-26 15:52] LABS: PTT Heparin Drip 102.4 SEC (53-77.9)
--- NOTE | 2022-10-26 16:51 | PC.NURSE ---
PTTHD 102.4 - Heparin drip paused for one hour. will restart and titrate after hour up. wrong time for next PTTHD in heparin titration comment. should actually be drawn for 23:38, not 21:33. put in lab order for 23:38.
[2022-10-26 18:07] LABS: Glucose, Whole Blood 154 mg/dL (60-115)
[2022-10-26 21:09] LABS: Glucose, Whole Blood 152 mg/dL (60-115)
[2022-10-26] MEDS: Mirtazapine 30 MG TABLET PO (21:26)
[2022-10-26] MEDS: Atorvastatin Calcium 40 MG TABLET PO (21:26)
[2022-10-26] MEDS: Primidone 50 MG TABLET 150 MG PO (21:26)
[2022-10-26] MEDS: Ipratropium Bromide Nas 0.03 % 30 ML SPRAY 2 SPRAY NOSTRIL-B (21:27)
--- NOTE | 2022-10-26 22:42 | PC.NURSE ---
attempted to call in report to med surg, RN to call back.
[2022-10-27] VITALS (9 sets, daily range): BP systolic 115–168; BP diastolic 57–82; PULSE 72–92; RESP 16–20; TEMP 36.1–36.6; O2SAT 92–98
[2022-10-27 00:06] LABS: PTT Heparin Drip 59.2 SEC (53-77.9)
[2022-10-27] MEDS: Omeprazole 20 MG CAPSULE.DR PO (05:39)
[2022-10-27 05:47] LABS: Hematocrit 40.4 % (42.0-52.0); Hemoglobin 13.5 g/dl (14.0-18.0); Mean Corpuscular HGB Conc 33.4 g/dl (31.0-36.0); Mean Corpuscular Hemoglobin 29.2 pg (27.0-33.0); Mean Corpuscular Volume 87.4 fL (80.0-98.0); Mean Platelet Volume 10.2 fL (9.4-12.4); Platelet Count 169 X10*3/uL (160-400); Red Blood Count 4.62 X10*6/uL (4.60-5.80); Red Cell Distribution Width 15.7 % (11.0-16.0); White Blood Count 10.1 X10*3/uL (4.8-10.8)
[2022-10-27 06:03] LABS: Anion Gap 15 (12-20); Blood Urea Nitrogen 26 mg/dL (9-16); Calcium 9.5 mg/dL (8.4-10.2); Carbon Dioxide 30 mmol/L (22-29); Chloride 103 mmol/L (96-108); Creatinine Clr Calc Pharmacy 43.4; Estimated Glomerular Filt Rate 55; Glucose Random 107 mg/dL (60-115); Potassium 4.7 mmol/L (3.3-5.1); Sodium 143 mmol/L (135-145)
[2022-10-27] MEDS: cefTRIAXone sodium 1 GM in 0.9 % Sodium Chloride 50 ML IV (07:28)
[2022-10-27 08:02] LABS: Glucose, Whole Blood 110 mg/dL (60-115)
[2022-10-27] MEDS: Albuterol/Iprat 2.5/0.5MG 3 ML AMPUL.NEB INHALE ×4 (08:07→19:50)
[2022-10-27 08:29] LABS: PTT Heparin Drip 46.8 SEC (53-77.9)
[2022-10-27] MEDS: predniSONE 2.5 MG TABLET 7.5 MG PO (08:31)
[2022-10-27] MEDS: Aspirin Enteric Coated 81 MG TABLET.DR PO (08:31)
[2022-10-27] MEDS: Tamsulosin HCL 0.4 MG CAPSULE PO (08:31)
[2022-10-27] MEDS: Azithromycin 500 MG in 0.9 % Sodium Chloride 250 ML 125 MG IV (08:31)
[2022-10-27] MEDS: Enoxaparin Sodium 40 MG/0.4 ML SYRINGE SUBCUT (08:32)
[2022-10-27] MEDS: Heparin Sodium,Porcine 5,000 UNIT/ML VIAL 2700 UNIT IVPUSH (10:20)
--- NOTE | 2022-10-27 11:14 | MHC.CM.PN ---
EMR REVIEWED, PER HOSPITALIST PT TO REMAIN INPR TO CONT IV HEPARIN, ANTIC PT WILL D/C OVER W/E. CM WILL CONT TO FOLLOW D/C NEEDS.
[2022-10-27] MEDS: Heparin Sodium,Porcine/1/2NS 25,000 UNIT/250 ML IV.SOLN 7.48 UNIT IVCONT (11:22)
[2022-10-27 12:01] LABS: Glucose, Whole Blood 198 mg/dL (60-115)
[2022-10-27] MEDS: Insulin Lispro 100 UNIT/ML 3 ML VIAL SUBCUT ×3 (12:15→20:16)
--- NOTE | 2022-10-27 13:48 | HO.PM.IMPN ---
Subjective Subjective Date of Service: 10/27/22 Interval History: Seen and evaluated Feels comfortable, no chest pain Still having cough No fever or chills Heparin drip running Review of Systems Review of Systems: Yes all other systems are reviewed and are negative Physical Exam Vital Signs: Vital Signs: Last Vital Signs Temp 97.0 F 10/27/22 07:35 Pulse 92 10/27/22 13:10 Resp 16 10/27/22 13:10 BP 135/66 10/27/22 07:35 Pulse Ox 95 10/27/22 07:35 O2 Del Method Nasal Cannula 10/27/22 07:35 O2 Flow Rate 5 10/27/22 07:35 BMI result Body Mass Index 21.9 Const: Other: Constitutional : Awake, interactive, not in distress Neck : Normal inspection, Supple Cardiovascular : RRR, no JVP, no lower extremity edema Respiratory : good bilateral air entry, basal fine crackles, fine expiratory wheezes Gastrointestinal: soft, lax, Normal bowel sounds, Non tender Skin : Warm, Dry Neurological : Alert & oriented x3, No focal deficit Objective Data Active Medications Acetaminophen (Acetaminophen 325 Mg Tablet) 650 mg PO Q6H PRN PRN Reason: Pain, Mild (Pain Scale 1-3) Albuterol Sulfate (Albuterol Sulfate 90 Mcg 8 Gm Inhaler) 2 puff INHALE Q4H PRN PRN Reason: shortness of breath or wheezing Albuterol/Ipratropium (Albuterol/Iprat 2.5/0.5mg 3 Ml Ampul.Neb) 3 ml INHALE RQ4H PRN PRN Reason: Shortness of Breath/Wheezing Albuterol/Ipratropium (Albuterol/Iprat 2.5/0.5mg 3 Ml Ampul.Neb) 3 ml INHALE RQ4H WHILE AWAKE [facility] Last Admin: 10/27/22 13:09 Dose: 3 ml Documented By: ANGELA Aspirin (Aspirin Enteric Coated 81 Mg Tablet.) 81 mg PO DAILY [facility] Last Admin: 10/27/22 08:31 Dose: 81 mg Documented By: ISIDRA Atorvastatin Calcium (Atorvastatin Calcium 40 Mg Tablet) 40 mg PO BEDTIME [facility] Last Admin: 10/26/22 21:26 Dose: 40 mg Documented By: RICARDO Dextrose (Dextrose 50 % 25 Gm/50 Ml Syringe) 25 gm IVPUSH Q15M PRN; Protocol PRN Reason: per Hypoglycemia Standing Ord. Docusate Sodium (Docusate Sodium 100 Mg Capsule) 100 mg PO DAILY PRN PRN Reason: Constipation Glucose (Glucose Gel 15 Gm Gel..Gram.) 15 gm PO Q15M PRN; Protocol PRN Reason: per Hypoglycemia Standing Ord. Heparin Sodium (Porcine) (Heparin Sodium,Porcine 5,000 Unit/Ml Vial) 2,700 unit 40 unit/kg (2700 unit) IVPUSH PROTOCOL BOLUS PRN; Protocol PRN Reason: 40 unit/kg - Heparin Protocol Last Admin: 10/27/22 10:20 Dose: 2,700 unit Documented By: ISIDRA Heparin Sodium (Porcine) (Heparin Sodium,Porcine 5,000 Unit/Ml Vial) 5,400 unit 80 unit/kg (5400 unit) IVPUSH PROTOCOL BOLUS PRN; Protocol PRN Reason: 80 unit/kg - Heparin Protocol Ceftriaxone Sodium 1 gm/ (Sodium Chloride) 50 mls @ 100 mls/hr IV Q24H [facility] Last Infusion: 10/27/22 08:42 Dose: Infused Documented By: ISIDRA Azithromycin 500 mg/ Sodium (Chloride) 250 mls @ 125 mls/hr IV Q24H [facility] Last Infusion: 10/27/22 10:44 Dose: Infused Documented By: ISIDRA Heparin Sodium/Sodium Chloride (Heparin Sodium,Porcine/1/2ns) 25,000 unit in 250 mls @ 0 mls/hr IVCONT .Q0M [facility]; Protocol Stop: 10/28/22 07:30 Last Admin: 10/27/22 11:22 Dose: 11 units/kg/hr, 7.48 mls/hr Documented By: ISIDRA Co-signed By: NICOLÁS Insulin Human Lispro (Insulin Lispro 100 Unit/Ml 3 Ml Vial) 0 unit SUBCUT QIDACHS [facility]; Protocol Last Admin: 10/27/22 12:15 Dose: 2 unit Documented By: ISIDRA Ipratropium [place] (Ipratropium [place] Marko 0.03 % 30 Ml [place]) 2 spray NOSTRIL-B BID [facility] Last Admin: 10/26/22 21:27 Dose: 2 spray Documented By: RICARDO Mirtazapine (Mirtazapine 30 Mg Tablet) 30 mg PO BEDTIME [facility] Last Admin: 10/26/22 21:26 Dose: 30 mg Documented By: RICARDO Non-Formulary Medication (Fluticasone Propion-Salmeterol) 1 inhalation INHALE RBID [facility] Omeprazole (Omeprazole 20 Mg Capsule.Dr) 20 mg PO DAILY@0630 [facility] Last Admin: 10/27/22 05:39 Dose: 20 mg Documented By: JOHN Ondansetron HCl (Ondansetron Hcl 4 Mg/2 Ml Vial) 4 mg IVPUSH Q8H PRN PRN Reason: Nausea and Vomiting Pioglitazone HCl (Pioglitazone Hcl 15 Mg Tablet) 15 mg PO DAILY [facility] Prednisone (Prednisone 2.5 Mg Tablet) 7.5 mg PO DAILY [facility] Last Admin: 10/27/22 08:31 Dose: 7.5 mg Documented By: ISIDRA Primidone (Primidone 50 Mg Tablet) 150 mg PO BEDTIME [facility] Last Admin: 10/26/22 21:26 Dose: 150 mg Documented By: RICARDO Sodium Chloride (0.9 % Sodium Chloride Flush 3 Ml Syringe) 3 ml IVFLUSH QSHIFT [facility] Last Admin: 10/27/22 08:31 Dose: Not Given Documented By: ISIDRA Non-Admin Reason: IV Running Tamsulosin HCl (Tamsulosin Hcl 0.4 Mg Capsule) 0.4 mg PO DAILY [facility] Last Admin: 10/27/22 08:31 Dose: 0.4 mg Documented By: ISIDRA Labs 10/27/22 05:14 10/27/22 05:14 Labs: Laboratory Results - last 24 hr 10/26/22 10/26/22 10/26/22 15:33 18:04 21:03 MCV MCH MCHC RDW Plt Count MPV Absolute Nucleated RBC Nucleated RBC % (auto) PT INR aPTT Heparin Protocol 102.4 H D Anion Gap Estim Creat Clear Calc Estimated GFR POC Glucose 154 H 152 H Random Glucose Calcium 10/26/22 10/27/22 10/27/22 23:45 05:14 05:15 MCV 87.4 Cancelled MCH 29.2 Cancelled MCHC 33.4 Cancelled RDW 15.7 Cancelled Plt Count 169 Cancelled MPV 10.2 Cancelled Absolute Nucleated RBC 0.000 Cancelled Nucleated RBC % (auto) 0.0 Cancelled PT 12.0 INR 1.0 aPTT Heparin Protocol 59.2 D Anion Gap 15 Estim Creat Clear Calc 43.4 Estimated GFR 55 POC Glucose Random Glucose 107 Calcium 9.5 10/27/22 10/27/22 10/27/22 07:43 07:58 11:08 MCV MCH MCHC RDW Plt Count MPV Absolute Nucleated RBC Nucleated RBC % (auto) PT INR aPTT Heparin Protocol 46.8 L D Anion Gap Estim Creat Clear Calc Estimated GFR POC Glucose 110 198 H Random Glucose Calcium Microbiology Microbiology Results: Microbiology 10/26/22 09:05 Blood Culture - Preliminary Blood - Venous No growth after 24 hours. 10/26/22 09:00 Blood Culture - Preliminary Blood - Venous No growth after 24 hours. Assessment and Plan (1) NSTEMI (non-ST elevated myocardial infarction): Status: Acute (2) Community acquired pneumonia: Status: Acute (3) Weakness generalized: Status: Acute Plan 82-year-old male with past medical history of COPD, CAD, diabetes, comes into the hospital with complaints of weakness found to have multiple abnormalities # NSTEMI Likely 2/2 acute RV strain from significant hypoxemia causing both elevation of troponins as well as BNP. per cardiology eval Continue heparin for 48 hours echo showing normal EF w no WMA cardiology input appreciated, medical management, guarded prognisis continue asa, statin # CAP seen on xray Continue Azithromycin and Ceftriaxone follow cultures # Physical deconditioning PT /OT # COPD not in exacerbation continue home inhalers and home prednisone # DM LDSSI Diabetic diet DVT ppx: Heparin drip Given pt need for evaluation of NSTEMI and needing IV abx for PNA pt will require overnight hospital stay Time Spent With Patient Time: Total time managing care of this patient today ____ minutes. Quality Stroke Does the patient have a stroke diagnosis?: No VTE Prior VTE?: No VTE Risk Level:: Medical - moderate - high VTE Device Contraindication: Treatment Not Indicated VTE Drug Contraindication: N/A - Med Ordered
[2022-10-27] MEDS: Ipratropium Bromide Nas 0.03 % 30 ML SPRAY 2 SPRAY NOSTRIL-B ×2 (13:51→20:18)
--- NOTE | 2022-10-27 16:07 | MHC.CM.PN ---
CM MET W/PT AND DTR AT BEDSIDE, P.T. RECOMMENDING INPT PULMONARY REHAB, PT REPORTS HIS PREFERRED SNF IS [facility], REFERRAL PLACED, CM WILL CONT TO FOLLOW D/C NEEDS.
[2022-10-27 16:19] LABS: Glucose, Whole Blood 179 mg/dL (60-115)
[2022-10-27 17:10] LABS: PTT Heparin Drip > 200.0 SEC (53-77.9)
[2022-10-27] MEDS: 0.9 % Sodium Chloride Flush 3 ML SYRINGE IVFLUSH (19:21)
[2022-10-27 20:02] LABS: Glucose, Whole Blood 161 mg/dL (60-115)
[2022-10-27] MEDS: Atorvastatin Calcium 40 MG TABLET PO (20:15)
[2022-10-27] MEDS: Primidone 50 MG TABLET 150 MG PO (20:15)
[2022-10-27] MEDS: Mirtazapine 30 MG TABLET PO (20:16)
--- NOTE | 2022-10-27 23:22 | PC.NURSE ---
Care assumed 19:00. Patient seen on S3/med-surg. A&Ox4. Pt continues on heparin gtt, off on assuming care for previous critical PTT. PTT from 19:15 back at 91, gtt restarted at 7units/kg/hr per protocol with next PTT due at 01:30 on 10/28, order in place. Covering Dr. Lynch notified of burises to BUE, soft to palpation and pt denies pain. No new orders advised on the matter. LSCTA/dim bases. Continues on nc, pt reports 6L nc home/baseline o2. Covering made aware with order for o2 in place. Pt denies sob. Breathing is even and unlabored without distress. Voiding cyu. Handoff report given 23:00.
[2022-10-28] VITALS (8 sets, daily range): BP systolic 128–137; BP diastolic 59–72; PULSE 68–82; RESP 16–20; TEMP 35.9–36.9; O2SAT 94–98
[2022-10-28 02:03] LABS: PTT Heparin Drip 56.1 SEC (53-77.9)
--- NOTE | 2022-10-28 02:33 | PC.NURSE ---
PATIENT EASILY AWAKENED, OFFERS NO COMPLAINTS, NO RESP DISTRESS NOTED, VSS, TELE MONITORING IN USE(SEE MD NOTE KEEP TELE FROM 10/26), PER MED-TELE LIVING MANAGER, SR IS CARDIAC RHYTHM. HEPARIN DRIP IN USE AT 7 UNITS/KG/HR FOR A RATE OF 4.76ML/HR. PTT-HD ORDERED FOR 129 AND RESULTS CAME BACK 56.1, THEREFORE, PER PROTOCOL NO RATE CHANGES NEEDED, NO BOLUS, AND NEXT PTT-HD WILL BE DRAWN 0815. PT WITH NO S/SX ACTIVE BLEEDING, BOTH ARMS HAVE SCATTERED BRUISES THAT ARE NOT NEW THIS SHIFT. PT WEARING OXYGEN VIA N/C 5L/M WITH A RESTING SAT OF 95%. WILL CONTINUE TO MONITOR CLOSELY
--- NOTE | 2022-10-28 04:20 | PC.NURSE ---
cardiac rhythm as per [facility] film examiner is SR. continue to monitor, pt with no complaints or discomforts.
[2022-10-28] MEDS: Omeprazole 20 MG CAPSULE.DR PO (06:24)
[2022-10-28 07:43] LABS: Glucose, Whole Blood 119 mg/dL (60-115)
[2022-10-28] MEDS: Albuterol/Iprat 2.5/0.5MG 3 ML AMPUL.NEB INHALE ×4 (08:00→20:01)
[2022-10-28] MEDS: Tamsulosin HCL 0.4 MG CAPSULE PO (08:17)
[2022-10-28] MEDS: 0.9 % Sodium Chloride Flush 3 ML SYRINGE IVFLUSH ×3 (08:17→23:38)
[2022-10-28] MEDS: Aspirin Enteric Coated 81 MG TABLET.DR PO (08:17)
[2022-10-28] MEDS: predniSONE 2.5 MG TABLET 7.5 MG PO (08:17)
[2022-10-28] MEDS: cefTRIAXone sodium 1 GM in 0.9 % Sodium Chloride 50 ML IV (08:17)
[2022-10-28 08:26] LABS: PTT Heparin Drip 46.7 SEC (53-77.9)
[2022-10-28] MEDS: Ipratropium Bromide Nas 0.03 % 30 ML SPRAY 2 SPRAY NOSTRIL-B ×2 (08:26→20:40)
[2022-10-28 08:30] LABS: Anion Gap 8 (12-20); Blood Urea Nitrogen 17 mg/dL (9-16); Calcium 9.1 mg/dL (8.4-10.2); Carbon Dioxide 31 mmol/L (22-29); Chloride 105 mmol/L (96-108); Creatinine Clr Calc Pharmacy 55.4; Estimated Glomerular Filt Rate > 60; Glucose Random 112 mg/dL (60-115); Potassium 4.4 mmol/L (3.3-5.1); Sodium 140 mmol/L (135-145)
[2022-10-28] MEDS: Azithromycin 500 MG in 0.9 % Sodium Chloride 250 ML 125 MG IV (09:07)
[2022-10-28 11:20] LABS: Glucose, Whole Blood 119 mg/dL (60-115)
--- NOTE | 2022-10-28 13:09 | P.PNIM_ITS ---
Subjective Subjective Date of Service: 10/28/22 Interval History: Seen and evaluated Feels comfortable, no chest pain No fever or chills Heparin drip finished Breathing back to baseline Review of Systems Review of Systems: Yes all other systems are reviewed and are negative Physical Exam 2 Vital Signs: Vital Signs: Last Vital Signs Temp 97.1 F 10/28/22 07:26 Pulse 77 10/28/22 11:58 Resp 18 10/28/22 11:58 BP 136/63 10/28/22 07:26 Pulse Ox 95 10/28/22 07:26 O2 Del Method Nasal Cannula 10/28/22 07:26 O2 Flow Rate 5 10/28/22 07:26 BMI result Body Mass Index 21.9 Const: Other: Constitutional : Awake, interactive, not in distress Neck : Normal inspection, Supple Cardiovascular : RRR, no JVP, no lower extremity edema Respiratory : good bilateral air entry, basal fine crackles, no expiratory wheezes Gastrointestinal: soft, lax, Normal bowel sounds, Non tender Skin : Warm, Dry Neurological : Alert & oriented x3, No focal deficit Objective Data Active Medications Acetaminophen (Acetaminophen 325 Mg Tablet) 650 mg PO Q6H PRN PRN Reason: Pain, Mild (Pain Scale 1-3) Albuterol Sulfate (Albuterol Sulfate 90 Mcg 8 Gm Inhaler) 2 puff INHALE Q4H PRN PRN Reason: shortness of breath or wheezing Albuterol/Ipratropium (Albuterol/Iprat 2.5/0.5mg 3 Ml Ampul.Neb) 3 ml INHALE RQ4H PRN PRN Reason: Shortness of Breath/Wheezing Albuterol/Ipratropium (Albuterol/Iprat 2.5/0.5mg 3 Ml Ampul.Neb) 3 ml INHALE RQ4H WHILE AWAKE [facility] Last Admin: 10/28/22 11:58 Dose: 3 ml Documented By: DUSTIN Aspirin (Aspirin Enteric Coated 81 Mg Tablet.Dr) 81 mg PO DAILY [facility] Last Admin: 10/28/22 08:17 Dose: 81 mg Documented By: STACEY Atorvastatin Calcium (Atorvastatin Calcium 40 Mg Tablet) 40 mg PO BEDTIME [facility] Last Admin: 10/27/22 20:15 Dose: 40 mg Documented By: MANAN Dextrose (Dextrose 50 % 25 Gm/50 Ml Syringe) 25 gm IVPUSH Q15M PRN; Protocol PRN Reason: per Hypoglycemia Standing Ord. Docusate Sodium (Docusate Sodium 100 Mg Capsule) 100 mg PO DAILY PRN PRN Reason: Constipation Glucose (Glucose Gel 15 Gm Gel..Gram.) 15 gm PO Q15M PRN; Protocol PRN Reason: per Hypoglycemia Standing Ord. Azithromycin 500 mg/ Sodium (Chloride) 250 mls @ 125 mls/hr IV Q24H [facility] Last Infusion: 10/28/22 11:08 Dose: Infused Documented By: STACEY Ceftriaxone Sodium 1 gm/ (Sodium Chloride) 50 mls @ 100 mls/hr IV Q24H [facility] Last Infusion: 10/28/22 09:00 Dose: Infused Documented By: STACEY Insulin Human Lispro (Insulin Lispro 100 Unit/Ml 3 Ml Vial) 0 unit SUBCUT QIDACHS [facility]; Protocol Last Admin: 10/28/22 12:45 Dose: Not Given Documented By: STACEY Non-Admin Reason: No Insulin Coverage Ipratropium [place] (Ipratropium [place] Marko 0.03 % 30 Ml [place]) 2 spray NOSTRIL-B BID [facility] Last Admin: 10/28/22 08:26 Dose: 2 spray Documented By: STACEY Mirtazapine (Mirtazapine 30 Mg Tablet) 30 mg PO BEDTIME [facility] Last Admin: 10/27/22 20:16 Dose: 30 mg Documented By: MANAN Non-Formulary Medication (Fluticasone Propion-Salmeterol) 1 inhalation INHALE ID [facility] Omeprazole (Omeprazole 20 Mg Capsule.) 20 mg PO DAILY@0630 [facility] Last Admin: 10/28/22 06:24 Dose: 20 mg Documented By: CORBIN Ondansetron HCl (Ondansetron Hcl 4 Mg/2 Ml Vial) 4 mg IVPUSH Q8H PRN PRN Reason: Nausea and Vomiting Pioglitazone HCl (Pioglitazone Hcl 15 Mg Tablet) 15 mg PO DAILY [facility] Last Admin: 10/28/22 09:07 Dose: 15 mg Documented By: STACEY Prednisone (Prednisone 2.5 Mg Tablet) 7.5 mg PO DAILY [facility] Last Admin: 10/28/22 08:17 Dose: 7.5 mg Documented By: STACEY Primidone (Primidone 50 Mg Tablet) 150 mg PO BEDTIME [facility] Last Admin: 10/27/22 20:15 Dose: 150 mg Documented By: MANAN Sodium Chloride (0.9 % Sodium Chloride Flush 3 Ml Syringe) 3 ml IVFLUSH QSHIFT [facility] Last Admin: 10/28/22 08:17 Dose: 3 ml Documented By: STACEY Tamsulosin HCl (Tamsulosin Hcl 0.4 Mg Capsule) 0.4 mg PO DAILY [facility] Last Admin: 10/28/22 08:17 Dose: 0.4 mg Documented By: STACEY Labs 10/27/22 05:14 10/28/22 08:06 Labs: Laboratory Results - last 24 hr 10/27/22 10/27/22 10/27/22 16:12 16:29 18:16 aPTT Heparin Protocol > 200.0 H* D 91.0 H D Anion Gap Estim Creat Clear Calc Estimated GFR POC Glucose 179 H Random Glucose Calcium 10/27/22 10/28/22 10/28/22 19:58 01:35 07:34 aPTT Heparin Protocol 56.1 D Anion Gap Estim Creat Clear Calc Estimated GFR POC Glucose 161 H 119 H Random Glucose Calcium 10/28/22 10/28/22 10/28/22 08:01 08:06 11:00 aPTT Heparin Protocol 46.7 L Anion Gap 8 L Estim Creat Clear Calc 55.4 Estimated GFR > 60 POC Glucose 119 H Random Glucose 112 Calcium 9.1 Microbiology Microbiology Results: Microbiology 10/26/22 09:05 Blood Culture - Preliminary Blood - Venous No growth after 48 hours. 10/26/22 09:00 Blood Culture - Preliminary Blood - Venous No growth after 48 hours. Assessment and Plan (1) Pneumonia: Status: Acute (2) Community acquired pneumonia: Status: Acute (3) Weakness generalized: Status: Acute Plan 82-year-old male with past medical history of COPD, CAD, diabetes, comes into the hospital with complaints of weakness found to have multiple abnormalities # NSTEMI Likely 2/2 acute RV strain from significant hypoxemia causing both elevation of troponins as well as BNP. per cardiology eval Finished heparin for 48 hours echo showing normal EF w no WMA cardiology input appreciated, medical management, guarded prognosis continue asa, statin # CAP seen on xray Continue Azithromycin and Ceftriaxone follow cultures # Physical deconditioning PT /OT # COPD not in exacerbation continue home inhalers and home prednisone # DM LDSSI Diabetic diet DVT ppx: Heparin drip Patient will require overnight hospital stay to continue treatment for pneumonia pending safe discharge plan to SNF Time Spent With Patient Time: Total time managing care of this patient today ____ minutes. Quality Stroke Does the patient have a stroke diagnosis?: No VTE Prior VTE?: No VTE Risk Level:: Medical - moderate - high VTE Device Contraindication: Treatment Not Indicated VTE Drug Contraindication: N/A - Med Ordered
[2022-10-28 16:12] LABS: Glucose, Whole Blood 222 mg/dL (60-115)
[2022-10-28] MEDS: Insulin Lispro 100 UNIT/ML 3 ML VIAL SUBCUT ×2 (16:25→20:39)
[2022-10-28 20:30] LABS: Glucose, Whole Blood 194 mg/dL (60-115)
[2022-10-28] MEDS: Atorvastatin Calcium 40 MG TABLET PO (20:40)
[2022-10-28] MEDS: Primidone 50 MG TABLET 150 MG PO (20:40)
[2022-10-28] MEDS: Mirtazapine 30 MG TABLET PO (20:40)
[2022-10-29] VITALS (8 sets, daily range): BP systolic 124–137; BP diastolic 58–63; PULSE 69–91; RESP 16–18; TEMP 36–36.2; O2SAT 90–98
--- NOTE | 2022-10-29 00:25 | PC.NURSE ---
TELE MONITOR REMAINS IN USE, RHYTHM IS SR PER [facility] [employer]. PT WITH NO PAIN OR DISCOMFORTS, NOTED HEPARIN DRIP DISCONTINUED PREV MORNING.
--- NOTE | 2022-10-29 04:30 | PC.NURSE ---
cardiac rhythm SR as per [employer]
[2022-10-29] MEDS: Omeprazole 20 MG CAPSULE.DR PO (06:00)
[2022-10-29 06:34] LABS: Hematocrit 35.5 % (42.0-52.0); Hemoglobin 11.7 g/dl (14.0-18.0); Mean Corpuscular Hemoglobin 28.3 pg (27.0-33.0); Mean Platelet Volume 10.1 fL (9.4-12.4); Platelet Count 151 X10*3/uL (160-400); Red Blood Count 4.13 X10*6/uL (4.60-5.80); Red Cell Distribution Width 15.5 % (11.0-16.0); White Blood Count 6.2 X10*3/uL (4.8-10.8)
[2022-10-29 06:47] LABS: Anion Gap 9 (12-20); Blood Urea Nitrogen 19 mg/dL (9-16); Carbon Dioxide 28 mmol/L (22-29); Chloride 104 mmol/L (96-108); Creatinine Clr Calc Pharmacy 62.4; Estimated Glomerular Filt Rate > 60; Glucose Random 120 mg/dL (60-115); Potassium 4.4 mmol/L (3.3-5.1); Sodium 137 mmol/L (135-145)
[2022-10-29 07:27] LABS: Glucose, Whole Blood 115 mg/dL (60-115)
[2022-10-29] MEDS: Albuterol/Iprat 2.5/0.5MG 3 ML AMPUL.NEB INHALE ×4 (07:49→18:43)
[2022-10-29] MEDS: predniSONE 2.5 MG TABLET 7.5 MG PO (08:49)
[2022-10-29] MEDS: Aspirin Enteric Coated 81 MG TABLET.DR PO (08:49)
[2022-10-29] MEDS: cefTRIAXone sodium 1 GM in 0.9 % Sodium Chloride 50 ML IV (08:49)
[2022-10-29] MEDS: 0.9 % Sodium Chloride Flush 3 ML SYRINGE IVFLUSH ×2 (08:50→16:32)
[2022-10-29] MEDS: Tamsulosin HCL 0.4 MG CAPSULE PO (08:50)
[2022-10-29] MEDS: Ipratropium Bromide Nas 0.03 % 30 ML SPRAY 2 SPRAY NOSTRIL-B ×2 (08:50→20:30)
[2022-10-29] MEDS: Azithromycin 500 MG in 0.9 % Sodium Chloride 250 ML 125 MG IV (09:43)
[2022-10-29 11:28] LABS: Glucose, Whole Blood 141 mg/dL (60-115)
--- NOTE | 2022-10-29 15:10 | HO.PM.IMPN ---
Subjective Subjective Date of Service: 10/29/22 Interval History: Seen and evaluated Feels comfortable, no chest pain No fever or chills Breathing back to baseline Review of Systems Review of Systems: Yes all other systems are reviewed and are negative Physical Exam Vital Signs: Vital Signs: Last Vital Signs Temp 97.0 F 10/29/22 07:08 Pulse 89 10/29/22 12:07 Resp 16 10/29/22 12:07 BP 133/63 10/29/22 07:08 Pulse Ox 96 10/29/22 07:08 O2 Del Method Nasal Cannula 10/29/22 07:08 O2 Flow Rate 5 10/29/22 07:08 BMI result Body Mass Index 21.9 Const: Other: Constitutional : Awake, interactive, not in distress Neck : Normal inspection, Supple Cardiovascular : RRR, no JVP, no lower extremity edema Respiratory : good bilateral air entry, basal fine crackles, no expiratory wheezes Gastrointestinal: soft, lax, Normal bowel sounds, Non tender Skin : Warm, Dry Neurological : Alert & oriented x3, No focal deficit Objective Data Active Medications Acetaminophen (Acetaminophen 325 Mg Tablet) 650 mg PO Q6H PRN PRN Reason: Pain, Mild (Pain Scale 1-3) Albuterol Sulfate (Albuterol Sulfate 90 Mcg 8 Gm Inhaler) 2 puff INHALE Q4H PRN PRN Reason: shortness of breath or wheezing Albuterol/Ipratropium (Albuterol/Iprat 2.5/0.5mg 3 Ml Ampul.Neb) 3 ml INHALE RQ4H PRN PRN Reason: Shortness of Breath/Wheezing Albuterol/Ipratropium (Albuterol/Iprat 2.5/0.5mg 3 Ml Ampul.Neb) 3 ml INHALE RQ4H WHILE AWAKE [facility] Last Admin: 10/29/22 12:06 Dose: 3 ml Documented By: DUSTIN Aspirin (Aspirin Enteric Coated 81 Mg Tablet.) 81 mg PO DAILY [facility] Last Admin: 10/29/22 08:49 Dose: 81 mg Documented By: STACEY Atorvastatin Calcium (Atorvastatin Calcium 40 Mg Tablet) 40 mg PO BEDTIME [facility] Last Admin: 10/28/22 20:40 Dose: 40 mg Documented By: SHAHNAZ Dextrose (Dextrose 50 % 25 Gm/50 Ml Syringe) 25 gm IVPUSH Q15M PRN; Protocol PRN Reason: per Hypoglycemia Standing Ord. Docusate Sodium (Docusate Sodium 100 Mg Capsule) 100 mg PO DAILY PRN PRN Reason: Constipation Glucose (Glucose Gel 15 Gm Gel..Gram.) 15 gm PO Q15M PRN; Protocol PRN Reason: per Hypoglycemia Standing Ord. Azithromycin 500 mg/ Sodium (Chloride) 250 mls @ 125 mls/hr IV Q24H [facility] Last Infusion: 10/29/22 11:45 Dose: Infused Documented By: STACEY Ceftriaxone Sodium 1 gm/ (Sodium Chloride) 50 mls @ 100 mls/hr IV Q24H [facility] Last Infusion: 10/29/22 09:52 Dose: Infused Documented By: STACEY Insulin Human Lispro (Insulin Lispro 100 Unit/Ml 3 Ml Vial) 0 unit SUBCUT QIDACHS [facility]; Protocol Last Admin: 10/29/22 11:37 Dose: Not Given Documented By: STACEY Non-Admin Reason: No Insulin Coverage Ipratropium [place] (Ipratropium [place] Marko 0.03 % 30 Ml [place]) 2 spray NOSTRIL-B BID [facility] Last Admin: 10/29/22 08:50 Dose: 2 spray Documented By: STACEY Mirtazapine (Mirtazapine 30 Mg Tablet) 30 mg PO BEDTIME [facility] Last Admin: 10/28/22 20:40 Dose: 30 mg Documented By: SHAHNAZ Non-Formulary Medication (Fluticasone Propion-Salmeterol) 1 inhalation INHALE ID [facility] Omeprazole (Omeprazole 20 Mg Capsule.Dr) 20 mg PO DAILY@0630 [facility] Last Admin: 10/29/22 06:00 Dose: 20 mg Documented By: CORBIN Ondansetron HCl (Ondansetron Hcl 4 Mg/2 Ml Vial) 4 mg IVPUSH Q8H PRN PRN Reason: Nausea and Vomiting Pioglitazone HCl (Pioglitazone Hcl 15 Mg Tablet) 15 mg PO DAILY [facility] Last Admin: 10/29/22 08:49 Dose: 15 mg Documented By: STACEY Polyethylene Glycol (Polyethylene Glycol 3350 17 Gm Powd.Pack) 17 gm PO BID [facility] Prednisone (Prednisone 2.5 Mg Tablet) 7.5 mg PO DAILY [facility] Last Admin: 10/29/22 08:49 Dose: 7.5 mg Documented By: STACEY Primidone (Primidone 50 Mg Tablet) 150 mg PO BEDTIME [facility] Last Admin: 10/28/22 20:40 Dose: 150 mg Documented By: SAHHNAZ Sodium Chloride (0.9 % Sodium Chloride Flush 3 Ml Syringe) 3 ml IVFLUSH QSHIFT [facility] Last Admin: 10/29/22 08:50 Dose: 3 ml Documented By: STACEY Tamsulosin HCl (Tamsulosin Hcl 0.4 Mg Capsule) 0.4 mg PO DAILY [facility] Last Admin: 10/29/22 08:50 Dose: 0.4 mg Documented By: STACEY Labs 10/29/22 06:14 10/29/22 06:14 Labs: Laboratory Results - last 24 hr 10/28/22 10/28/22 10/29/22 16:00 20:27 06:14 MCV 86.0 MCH 28.3 MCHC 33.0 RDW 15.5 Plt Count 151 L MPV 10.1 Absolute Nucleated RBC 0.000 Nucleated RBC % (auto) 0.0 Anion Gap 9 L Estim Creat Clear Calc 62.4 Estimated GFR > 60 POC Glucose 222 H 194 H Random Glucose 120 H Calcium 9.0 10/29/22 10/29/22 07:12 11:21 MCV MCH MCHC RDW Plt Count MPV Absolute Nucleated RBC Nucleated RBC % (auto) Anion Gap Estim Creat Clear Calc Estimated GFR POC Glucose 115 141 H Random Glucose Calcium Microbiology Microbiology Results: Microbiology 10/26/22 09:05 Blood Culture - Preliminary Blood - Venous No growth after 48 hours. Assessment and Plan (1) Pneumonia: Status: Acute (2) NSTEMI (non-ST elevated myocardial infarction): Status: Acute Plan 82-year-old male with past medical history of COPD, CAD, diabetes, comes into the hospital with complaints of weakness found to have multiple abnormalities # NSTEMI Likely 2/2 acute RV strain from significant hypoxemia causing both elevation of troponins as well as BNP per cardiology eval Finished heparin for 48 hours echo showing normal EF w no WMA cardiology input appreciated, medical management, guarded prognosis continue asa, statin # CAP seen on xray treated with Azithromycin and Ceftriaxone negative cultures change Abx to [place] and Ceftin PO # Physical deconditioning PT /OT, needs SNF placement # COPD not in exacerbation continue home inhalers and home prednisone # DM LDSSI Diabetic diet DVT ppx: Lovenox Patient will require overnight hospital stay to continue treatment for pneumonia pending safe discharge plan to SNF Time Spent With Patient Time: Total time managing care of this patient today ____ minutes. Quality Stroke Does the patient have a stroke diagnosis?: No VTE Prior VTE?: No VTE Risk Level:: Medical - moderate - high VTE Device Contraindication: Treatment Not Indicated VTE Drug Contraindication: N/A - Med Ordered
[2022-10-29] MEDS: polyethylene glycoL 3350 17 GM POWD.PACK PO ×2 (15:16→20:28)
--- NOTE | 2022-10-29 16:01 | MHC.CM.PN ---
PULMONARY REHAB HAS BEEN RECOMMENDED [facility] ARE THE ONLY LOCAL SNFS THAT OFFER THIS TREATMENT PT/DAUGHTER HAVE INDICATED [facility] WOULD BE THE PREFERRED SNF, HOWEVER THEY HAVE NOT OFFERED A BED AND DO NOT HAVE PULMONARY REHAB. [facility] HAS OFFERED A BED, HOWEVER [facility] WAS UNAVAILABLE THROUGH THE WEEKEND.
[2022-10-29 16:05] LABS: Glucose, Whole Blood 228 mg/dL (60-115)
[2022-10-29] MEDS: Insulin Lispro 100 UNIT/ML 3 ML VIAL SUBCUT ×2 (16:32→20:38)
[2022-10-29] MEDS: Enoxaparin Sodium 40 MG/0.4 ML SYRINGE SUBCUT (18:06)
[2022-10-29] MEDS: Primidone 50 MG TABLET 150 MG PO (20:28)
[2022-10-29] MEDS: Mirtazapine 30 MG TABLET PO (20:29)
[2022-10-29] MEDS: Atorvastatin Calcium 40 MG TABLET PO (20:29)
[2022-10-29 20:32] LABS: Glucose, Whole Blood 212 mg/dL (60-115)
[2022-10-30] MEDS: 0.9 % Sodium Chloride Flush 3 ML SYRINGE IVFLUSH ×2 (00:47→09:42)
[2022-10-30 03:36] VITALS: BP 131/68; PULSE 76; RESP 17; TEMP 36.2; O2SAT 98
[2022-10-30] MEDS: Omeprazole 20 MG CAPSULE.DR PO (07:11)
[2022-10-30] MEDS: Albuterol/Iprat 2.5/0.5MG 3 ML AMPUL.NEB INHALE ×3 (07:30→15:44)
[2022-10-30 07:31] VITALS: BP 126/57; PULSE 80; RESP 18; TEMP 36.2; O2SAT 91
[2022-10-30 07:33] VITALS: PULSE 78; RESP 20; O2SAT 91
[2022-10-30 07:39] LABS: Glucose, Whole Blood 96 mg/dL (60-115)
[2022-10-30] MEDS: Azithromycin 500 MG TABLET PO (09:42)
[2022-10-30] MEDS: polyethylene glycoL 3350 17 GM POWD.PACK PO (09:42)
[2022-10-30] MEDS: predniSONE 2.5 MG TABLET 7.5 MG PO (09:42)
[2022-10-30] MEDS: Tamsulosin HCL 0.4 MG CAPSULE PO (09:43)
[2022-10-30] MEDS: Ipratropium Bromide Nas 0.03 % 30 ML SPRAY 2 SPRAY NOSTRIL-B (09:43)
--- NOTE | 2022-10-30 11:04 | PM.DS ---
DS: Providers Provider Date of Service: 11/04/22 Date of admission: 10/26/22 03:22 Primary care physician: Royal Garcia PA-C Consults: 10/26/22 03:50 Consult to Cardiology Routine Consulting Provider: [facility] [place] [place] Cardiovascular Services Reason for consultation: NSTEMI DS: Diagnosis Discharge Diagnosis (1) NSTEMI (non-ST elevated myocardial infarction): Status: Acute (2) Weakness generalized: Status: Acute (3) Community acquired pneumonia: Status: Acute DS: Summary Hospital Course Hospital Course: Admission note HPI 82-year-old male past medical history of CAD, diabetes, BPH, history of recurrent UTI, COPD on 6 L of baseline oxygen, essential tremors, IPF, MDD, HLD, comes into the hospital with complaints of generalized weakness. Patient lives at home with his daughter, daughter goes to work and he mainly stays in bed or on the couch. He has very little activity around the house. He states that he has been feeling increasingly weak but worsened since yesterday. Denies any chest pain, no increased shortness of breath or cough or sputum production, denies any abdominal pain, no fever chills, no urinary symptoms and no lower extremity edema Daughter reports that when she got home he was satting 56% on the 6 L of oxygen that he has. He is currently on 6 L of nasal cannula in the ED satting 90-94%. On arrival to the ED patient hemodynamically stable. Labs are significant for WBC count of 6.2, hemoglobin of 13.1, hematocrit 38.3, troponin of 276 increased to 462, BNP of 425 UA negative for acute infection, COVID, influenza and RSV negative. Chest x-ray shows diffuse increased markings/initial coarsening with patchy scattered opacities more pronounced on the left. Recurrent pneumonia should be considered. Hospital course # NSTEMI Likely secondary to acute RV strain from significant hypoxemia causing both elevation of troponins as well as BNP per cardiology evaluation. Finished heparin for 48 hours. echo showing normal EF w no WMA. cardiology evaluated the patient and recommended medical management only with heparin, aspirin and statin. No reported chest pain # CAP infiltrates seen on xray. treated with Azithromycin and Ceftriaxone as blood cultures remained negative. changed to Azithromycin and Ceftin PO. to finish 1 week of antibiotics. on baseline 5-6L of O2 with saturation mid 90s. # Physical deconditioning evaluated by both PT /OT, needs SNF placement Continue Azithromycin and Ceftin as prescribed Miralax for constipation To start physical therapy at facility Follow with PCP as scheduled Time Spent with Patient Time attestation: Total time managing care of this patient today ____ minutes. Discharge coordination time: Greater than 30 minutes Quality: Safe Use of Opioids Does Pt have an Active Cancer Diagnosis on the Problem List?: No Quality: Stroke Does the patient have a stroke diagnosis?: No Physical Exam Vital Signs: Vital Signs: Last Vital Signs Temp 97.2 F 10/30/22 07:31 Pulse 78 10/30/22 07:33 Resp 20 10/30/22 07:33 BP 126/57 L 10/30/22 07:31 Pulse Ox 91 L 10/30/22 07:31 O2 Del Method Nasal Cannula 10/30/22 07:31 O2 Flow Rate 2 10/30/22 07:31 BMI result Body Mass Index 21.9 Const: Other: Constitutional : Awake, interactive, not in distress Neck : Normal inspection, Supple Cardiovascular : RRR, no JVP, no lower extremity edema Respiratory : good bilateral air entry, basal fine crackles, no expiratory wheezes, on baseline 5L O2 Gastrointestinal: soft, lax, Normal bowel sounds, Non tender Skin : Warm, Dry Neurological : Alert & oriented x3, No focal deficit DS: Data Data Completed and Pending Labs on day of discharge: Laboratory Results - last 24 hr 10/29/22 10/29/22 10/29/22 11:21 15:58 20:23 POC Glucose 141 H 228 H 212 H 10/30/22 07:29 POC Glucose 96 Preliminary micro results at discharge 10/26/22 09:05 Blood Culture - Preliminary Blood - Venous No growth after 48 hours. 10/26/22 09:00 Blood Culture - Preliminary Blood - Venous No growth after 48 hours. Imaging Chest x-ray: Radiologist's impression: ITS Impressions Chest X-Ray 10/26/22 00:10 IMPRESSION: Diffuse increased markings/initial coarsening with patchy scattered opacities more pronounced on the left. A similar finding was seen previously and appears to be chronic. Recurrent pneumonia or pneumonia superimposed on chronic change should be considered. Discharge Plan Discharge Anticipated Discharge Date/Time: 10/30/22 10:54 Patient Disposition: er SNF Discharge Diagnosis: Pneumonia Ischemic heart attack Referrals: [facility] [Outside] - 1 Week (TRANSFER FOR SHORT TERM REHAB) Royal Garcia PA-C [Primary Care Provider] - 1 Week Discharge Medications: New polyethylene glycol 3350 17 gram Powder In Packet 17 g PO DAILY Qty: 14 0RF cefuroxime axetil 500 mg Tablet 500 mg PO Q12H Qty: 6 0RF azithromycin 500 mg Tablet 500 mg PO Q24H Qty: 3 0RF Continued miscellaneous medical supply Misc 1 ea miscellaneous DAILY 99 Days Qty: 1 0RF miscellaneous medical supply Misc 1 ea miscellaneous DAILY 99 Days Qty: 1 0RF mirtazapine 30 mg tablet 30 mg PO BEDTIME Qty: 30 6RF tamsulosin 0.4 mg capsule 0.4 mg PO DAILY 90 Days Qty: 90 1RF prednisone 5 mg tablet 7.5 mg PO DAILY Qty: 45 0RF primidone 50 mg tablet 150 mg PO BEDTIME 30 Days Qty: 90 4RF atorvastatin 40 mg tablet 40 mg PO BEDTIME fluticasone propion-salmeterol 55-14 mcg/actuation aerosol powdr breath activated 1 inh inhalation BID pioglitazone [Actos] 15 mg tablet 15 mg PO DAILY 90 Days Qty: 90 3RF cholecalciferol (vitamin D3) 50 mcg (2,000 unit) capsule 50 mcg PO DAILY 90 Days Qty: 90 2RF aspirin [Ecotrin Low Strength] 81 mg tablet,delayed release (DR/EC) 81 mg PO DAILY Qty: 30 0RF omeprazole 20 mg tablet,delayed release (DR/EC) 20 mg PO DAILY ipratropium bromide 21 mcg (0.03 %) spray,non-aerosol 2 spray intranasal BID 30 Days Qty: 30 3RF Rx Instructions: administer into each nostril cetirizine [Zyrtec] 10 mg tablet 10 mg PO DAILY 90 Days Qty: 90 3RF ipratropium-albuterol 0.5 mg-3 mg(2.5 mg base)/3 mL solution for nebulization 3 ml inhalation Q4-6H PRN (Reason: for wheezing) Qty: 270 6RF albuterol sulfate 90 mcg/actuation HFA aerosol inhaler 2 puff inhalation Q4-6H PRN (Reason: shortness of breath or wheezing) 30 Days Qty: 1 6RF Discharge Orders: Discharge Order (Routine); Ordered 10/30/22 Ordered By: Elio Mar Diet: Diabetic diet Activity on Discharge: As tolerated Stand Alone Forms: Patient Portal Discharge page Care Plan Goals: Read below Health Concerns: Read below Plan of Treatment: Read below Assessment: You were admitted for treatment of difficulties breathing. found to have pneumonia with evidence of heart strain with elevated enzymes. treated with IV blood thinners , IV antibiotics and nebulizers with good response over the course of hospital stay. Continue Azithromycin and Ceftin as prescribed Miralax for constipation To start physical therapy at facility Follow with PCP as scheduled Discharge Date/Time: 10/30/22 17:36
--- NOTE | 2022-10-30 11:08 | MHC.CM.PN ---
Addendum entered by Theresa Hurtado 10/30/22 15:25: INSURANCE AUTH HAS BEEN OBTAINED BY [facility]. HCP/DAUGHTER ELIZABETH UPDATED AND BLS TRANSPORT BOOKED FOR 5 PM. RM AWARE. Original Note: DP: PT HAS BEEN MEDICALLY CLEARED FOR DC TO STR. [facility] HAS STARTED AUTH PROCESS WITH ALONSO. DAUGHTER/PT BOTH ACCEPT BED OFFER AND AWARE OF PLAN. BLS TRANSPORT BOOKED WILL CALL WILL NEED INSURANCE AUTH BEFORE CAN SCHDULE A TIME. CM WILL CONTINUE TO FOLLOW AND AWAIT AUTH.
[2022-10-30 11:27] LABS: Glucose, Whole Blood 132 mg/dL (60-115)
[2022-10-30] MEDS: Lactulose 20 GM/30 ML SOLUTION PO (11:45)
[2022-10-30 12:01] VITALS: PULSE 94; RESP 20; O2SAT 92
[2022-10-30 15:43] VITALS: BP 132/64; PULSE 88; RESP 20; TEMP 36.7; O2SAT 93
[2022-10-30 15:47] VITALS: PULSE 88; RESP 20; O2SAT 92
[2022-10-30 16:30] LABS: Glucose, Whole Blood 183 mg/dL (60-115)
[2022-10-30] MEDS: Insulin Lispro 100 UNIT/ML 3 ML VIAL SUBCUT (16:55)
[2022-10-30] MEDS: Enoxaparin Sodium 40 MG/0.4 ML SYRINGE SUBCUT (16:55)
== END 2022-10-30 17:36 | disposition skilled nursing facility (03) | DRG 193 ==
LOC: HO.ED 23:19 → HO.EDOVER 10-26 03:27 → HO.S3 10-26 22:14
PROVIDERS: Admitting Provider Internal Medicine; Emergency Provider Emergency Medicine; PCP Physician Assistant; Visit Provider Student in an Organized Health Care Education/Training Program
DX: J18.9 Pneumonia, unspecified organism (principal); I21.A1 Myocardial infarction type 2; J96.21 Acute and chronic respiratory failure with hypoxia; J44.0 Chronic obstructive pulmonary disease with (acute) lower respiratory infection; Z99.81 Dependence on supplemental oxygen; I25.10 Atherosclerotic heart disease of native coronary artery without angina pectoris; E11.9 Type 2 diabetes mellitus without complications; E78.5 Hyperlipidemia, unspecified; Z20.822 Contact with and (suspected) exposure to COVID-19; Z87.891 Personal history of nicotine dependence; Z79.82 Long term (current) use of aspirin; Z79.51 Long term (current) use of inhaled steroids; Z79.52 Long term (current) use of systemic steroids; Z79.899 Other long term (current) drug therapy
CPT/HCPCS: 0241U; 36415; 71045; 80048; 80076; 81003; 82947; 83690; 83880; 84484; 85025; 85027; 85610; 85730; 87040; 93005; 93306; 94640; 97110; 97162; 99285; J0456; J0696; J1643; J1650; J1940; J2930; J3475; Q9957

== ENCOUNTER → 2022-10-26 03:22 | Outpatient (BNV) | payer MEDICARE, SELFPAY | PROVIDERS: Admitting Provider Internal Medicine; Emergency Provider Emergency Medicine; PCP Physician Assistant; Visit Provider Internal Medicine | DX: I21.4 Non-ST elevation (NSTEMI) myocardial infarction (principal); R53.1 Weakness; J18.9 Pneumonia, unspecified organism | CPT/HCPCS: 99223; 99232; 99233; 99239; 99499 ==

== ENCOUNTER → 2022-10-26 03:22 | Outpatient (BNV) | payer MEDICARE, SELFPAY | PROVIDERS: Admitting Provider Internal Medicine; Emergency Provider Emergency Medicine; PCP Physician Assistant; Visit Provider Internal Medicine Cardiovascular Disease | DX: I34.0 Nonrheumatic mitral (valve) insufficiency (principal) | CPT/HCPCS: 93306; 99222 ==

== ENCOUNTER 2022-12-13 12:57 | Outpatient (AMB) | payer MEDICARE, SELFPAY ==
--- NOTE | 2022-12-13 13:04 | A.OFFVIS_ITS ---
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 ?He continues to use albuterol MDI, duo nebs, and prednisone 7.5 mg daily to control his symptoms.? He recently was hospitalized at [facility] for COVID and pneumonia. Now he continues to slowly recover. He is interested in restarting pulmonary rehab. [facility] Medical History SIRS (systemic inflammatory response syndrome) Urinary retention with incomplete bladder emptying Acute UTI Esophagitis Chest pain Acute and chronic respiratory failure with hypoxia RSV (acute bronchiolitis due to respiratory syncytial virus) Hypoxia Pneumonia DMII (diabetes mellitus, type 2) IPF (idiopathic pulmonary fibrosis) Interstitial lung disease Impaired glucose metabolism Hyperlipidemia SOB (shortness of breath) on exertion CAD (coronary artery disease) Surgical History S/P right coronary artery (RCA) stent placement Family History Mother No problems noted. Father No problems noted. Social History Household Members: Other Household Members Other:: daughter Housing: House Do you presently have visiting nurse or other home services: Yes Alcohol intake: never Patient Tobacco Use Status: Former Tobacco user Years Smoked: 43 yrs e-Cigarette/Vaping Use: Never Used Second Hand Smoke Exposure: No Advance Directives Date on File: 07/12/21 service: No Current occupational status: retired Cognitive needs: Yes (scotter, walker, wheel chair.) Hearing needs: No Vision needs: No Review of Systems Const Denies daytime sleepiness, Denies excessive sweating, Denies fatigue, Denies fever(s), Reports lethargy, Reports malaise, Denies night sweats, Denies snoring and Denies weight loss Eyes Denies blurry vision and Denies itchy eyes ENT Denies nasal congestion, Denies post nasal drip, Denies sinus pain, Denies sinus pressure and Denies other ( Thrush) Card Denies chest pain, Denies pedal edema, Denies dyspnea, Denies orthopnea and Denies paroxysmal nocturnal dyspnea Resp Denies cough, Denies hemoptysis, Denies excessive phlegm production, Denies dyspnea, Denies snoring and Denies wheezing GI Denies abdominal pain and Denies heartburn Musc Denies myalgias, Denies arthralgias and Denies joint swelling Skin/Breast Denies rash Neuro Denies memory loss and Denies seizure-like activity Psych Denies abnormal sleep pattern, Denies anxiety and Denies memory loss Endo Denies excessive sweating, Denies fatigue and Denies heat intolerance Tony/Lymph Denies easy bruising Aller/Immun Denies itchy eyes, Denies seasonal rhinorrhea and Denies wheezing Physical Exam Vital Signs: Last Vital Signs Pulse 102 H 12/13/22 13:06 BP 112/57 L 12/13/22 13:06 Pulse Ox 90 L 12/13/22 13:06 Oxygen Delivery Method Nasal Cannula 12/13/22 13:06 Oxygen Flow Rate 6 12/13/22 13:06 BMI result Body Mass Index 22.7 Const General: no acute distress and alert Nutritional Appearance: not obese Orientation/consciousness: Other orientation findings ( oriented) HEENT Head: Yes atraumatic Eyes General: appearance normal, both eyes and all related structures Sclerae: sclerae normal EOM: EOMs intact bilaterally Neck Neck: Yes supple Lymphatic: no lymphadenopathy noted Resp Effort & Inspection: normal respiratory effort and no use of accessory muscles Auscultation: crackles bilateral ( Inspiratory) Cardio Rate: regular rate Rhythm: regular rhythm Heart sounds: no gallops, no murmurs and no rubs Skin General skin exam: other ( warm) Extrem General: No clubbing, No cyanosis and No edema Assessment & Plan Assessment & Plan (1) IPF (idiopathic pulmonary fibrosis): Code(s): J84.112 - Idiopathic pulmonary fibrosis (2) COPD (chronic obstructive pulmonary disease): Code(s): J44.9 - Chronic obstructive pulmonary disease, unspecified Qualifiers: COPD type: emphysema Emphysema type: centrilobular Qualified Code(s): J43.2 - Centrilobular emphysema (3) Supplemental oxygen dependent: Code(s): Z99.81 - Dependence on supplemental oxygen Plan Underlying advanced IPF/COPD overlap essentially on maximum medical therapy. Continue on DuoNebs and prednisone 7.5 mg daily. Restart pulmonary rehab. Orders: Orders Pulmonary Rehab Today J43.2 - Centrilobular emphysema Coding Level of Care Code Est Pt Level 4 (35225) Diagnoses IPF (idiopathic pulmonary fibrosis) J84.112 Centrilobular emphysema J43.2 COPD type: emphysema Emphysema type: centrilobular Supplemental oxygen dependent Z99.81
[2022-12-13 13:06] VITALS: BP 112/57; PULSE 102; O2SAT 90; BMI 22.7
== END 2022-12-13 13:27 | disposition home or self-care (01) ==
PROVIDERS: PCP Physician Assistant; Visit Provider Internal Medicine Pulmonary Disease
DX: J84.112 Idiopathic pulmonary fibrosis (principal); J43.2 Centrilobular emphysema; Z99.81 Dependence on supplemental oxygen
CPT/HCPCS: 99214

== ENCOUNTER → 2022-12-13 12:57 | Outpatient (BNVA) | payer MEDICARE, SELFPAY | PROVIDERS: PCP Physician Assistant; Visit Provider Internal Medicine Pulmonary Disease | DX: J84.112 Idiopathic pulmonary fibrosis (principal); J43.2 Centrilobular emphysema; Z99.81 Dependence on supplemental oxygen | CPT/HCPCS: 99212 ==

== ENCOUNTER 2023-01-31 12:54 | Outpatient (AMB) | payer MEDICARE, SELFPAY ==
[2023-01-31 13:04] VITALS: BP 116/56; PULSE 94; O2SAT 95; BMI 22.7
--- NOTE | 2023-01-31 13:04 | A.OFFPC_ITS ---
Vital Signs 01/31/23 13:04 Height 5 ft 7 in Weight 144 lb 13.499 oz BMI 22.7 BP 116/56 L Blood Pressure Location Rt brachial Position Sitting Pulse 94 Pulse Source Pulse Oximeter Pulse Oximetry (%) 95 Oxygen Delivery Method Simple Mask Oxygen Flow Rate 6 Intake Visit Reasons: f/u Intake Note: Patient is here for hospital discharge follow up. Patient was discharged from [facility] on 11/22/22 for Chronic respiratory failure with hypoxia and hypercapnia. Fly Winder Required: No Accompanied by: Daughter Allergies No Known Allergies Allergy (Verified 01/31/23 13:32) Medication List - Last Reconciled 01/31/23 by Royal Garcia PA-C albuterol sulfate 90 mcg/actuation 2 puffs inhalation Q4-6H PRN 30 days aspirin (Ecotrin Low Strength) 81 mg PO DAILY atorvastatin 40 mg PO DAILY cetirizine (Zyrtec) 10 mg PO DAILY 90 days cholecalciferol (vitamin D3) 50 mcg PO DAILY 90 days fluticasone propion-salmeterol 55-14 mcg/actuation 1 inh inhalation BID ipratropium-albuterol 0.5 mg-3 mg(2.5 mg base)/3 mL 3 mL inhalation Q4-6H PRN mirtazapine 30 mg PO BEDTIME miscellaneous medical supply 1 ea miscellaneous DAILY 99 days miscellaneous medical supply 1 ea miscellaneous DAILY 99 days omeprazole 20 mg PO DAILY pioglitazone (Actos) 15 mg PO DAILY 90 days prednisone 7.5 mg (1.5 x 5 mg) PO DAILY primidone 150 mg (3 x 50 mg) PO BEDTIME 30 days tamsulosin 0.4 mg PO DAILY 90 days Tobacco use date assessed: 02/23/22 Fall risk assessment: No Falls in past year Last assessed Fall Risk: 01/31/23 Dental Screening Dental Screen Date: 01/31/23 Did you have a dental visit in the last 12 months?: No Did you have a dental problem in the last 6 months where you did not have access to dental care?: No Was dental information given to patient?: No HPI f/u HPI Details Patient is a 82-year-old male here today for hospital discharge follow- up visit. Pmhx significant for CAD ( stent placement in 2009 in RCA), idiopathic pulmonary fibrosis/ COPD and is oxygen dependent, DMII, HLD. Concerns--> recently admitted to [facility] for acute hypoxic respiratory failure secondary to COVID and double pneumonia for he was admitted to the ICU due to hypoxia and need for high-flow O2. He has since followed up with his campus supervisor. . He now has a therapy coming to the home. .. Major depressive disorder: Family does report that Marc does seem more depressed, often not wanting to leave the house and do things he usually likes to do. Marc personally seems somewhat content with his activity. They are interested in increasing his antidepressant dose. .. Coronary artery disease:? Continues to follow a educational assistant.? Most recent LDL appropriate below 70.? Will continue anti-platelet therapy indefinitely. DMII:? Diabetes better controlled on Actos.? Continues on pioglitazone. Today's A1c acceptable (6.0) ? Interstitial lung disease --> followed by pulmonology Now on O2 ( 6lpm at rest, 8lpm on exertion) at home due to hypoxemia.? He also does have pulmonary nodules that need surveillance CTs yearly. . [facility] Medical History SIRS (systemic inflammatory response syndrome) Urinary retention with incomplete bladder emptying Acute UTI Esophagitis Chest pain Acute and chronic respiratory failure with hypoxia RSV (acute bronchiolitis due to respiratory syncytial virus) Hypoxia Pneumonia DMII (diabetes mellitus, type 2) IPF (idiopathic pulmonary fibrosis) Interstitial lung disease Impaired glucose metabolism Hyperlipidemia SOB (shortness of breath) on exertion CAD (coronary artery disease) Surgical History S/P right coronary artery (RCA) stent placement Family History Mother No problems noted. Father No problems noted. Social History Household Members: Other Household Members Other:: daughter Housing: House Do you presently have visiting nurse or other home services: Yes Alcohol intake: never Patient Tobacco Use Status: Former Tobacco user Years Smoked: 43 yrs e-Cigarette/Vaping Use: Never Used Second Hand Smoke Exposure: No Advance Directives Date on File: 07/12/21 service: No Current occupational status: retired Cognitive needs: Yes (scotter, walker, wheel chair.) Hearing needs: No Vision needs: No Questionnaire Thrive Questionnaire Date Thrive assessed: 10/26/22 FATOUMATA-7 AMB Questionnaire FATOUMATA-7 Date FATOUMATA - 7 assessed: 02/23/22 Source: Developed by Drs. Sampson Meza, Verena Vance, Hector Gonzalez and colleagues, with an educational jeffry from [employer]. Review of Systems Const Denies headache(s) Eyes Denies loss of vision ENT Denies vertigo, Denies dizziness, Denies headache(s) and Denies sore throat Card Denies chest pain, Denies leg edema and Denies lightheadedness Resp Denies cough, Denies hemoptysis and Denies wheezing GI Denies abdominal pain, Denies melena, Denies constipation, Denies diarrhea and Denies vomiting Denies dysuria, Denies urinary frequency and Denies urinary urgency Musc Denies arthralgias, Denies joint swelling, Denies numbness and Denies tingling Neuro Denies Abnormal speech present, Denies behavioral changes, Denies vertigo, Denies dizziness, Denies headache(s), Denies loss of vision, Denies memory loss, Denies numbness and Denies tingling Psych Denies anxiety, Denies behavioral changes, Denies depression, Denies memory loss and Denies panic attacks Tony/Lymph Denies easy bleeding and Denies easy bruising Aller/Immun Denies wheezing Physical exam (Primary Care) Vital Signs: Last Vital Signs Pulse 94 01/31/23 13:04 BP 116/56 L 01/31/23 13:04 Pulse Ox 95 01/31/23 13:04 Oxygen Delivery Method Simple Mask 01/31/23 13:04 Oxygen Flow Rate 6 01/31/23 13:04 BMI result Body Mass Index 22.7 Tobacco/Smoking Status: Tobacco use Status Tobacco use date assessed 02/23/22 01/31/23 13:04 Patient Tobacco Use Status Former Tobacco user 01/31/23 13:04 e-Cigarette/Vaping Use Never Used 01/31/23 13:04 Thrive Assessment: Date of Thrive Assessment Date Thrive assessed 10/26/22 01/31/23 13:04 Const Other: SITTING COMFORTABLY IN ELECTRIC SCOOTER, APPEARS THIN AND FRAIL General: healthy appearing, no acute distress, alert and awake Nutritional Appearance: well nourished Orientation/consciousness: oriented to person, oriented to place and oriented to time HENMT Ears: TM's normal bilaterally General nose exam: Normal nasal mucous membranes and turbinates present Eyes Conjunctivae: conjunctivae normal Sclerae: sclerae normal Pupils: Equal, round and reactive pupils present Neck Neck: Yes no lymphadenopathy and Yes no JVD Thyroid: Thyroid normal Carotids: no bruits Resp Other: HAS HIGH-FLOW O2 MASK Effort & Inspection: normal respiratory effort and not tachypneic Auscultation: no crackles, no rales, no rhonchi and no wheezes Cardio Rate: regular rate Rhythm: regular rhythm Heart sounds: no murmurs and normal S1 and S2 GI Palpation (GI): Soft to palpation, nontender, no hepatomegaly and no splenomegaly Auscultation: normal bowel sounds Skin General skin exam: no rashes or lesions noted and dry skin Neuro General: oriented to person, oriented to place and oriented to time Cranial nerves: Yes Equal, round and reactive pupils present Speech: No Abnormal speech present Gait exam (Neuro): Normal gait present Motor exam (neuro): no tremor noted Extrem Right upper extremity: full ROM Left upper extremity: full ROM Right lower extremity: full ROM; no edema Left lower extremity: full ROM; no edema Psych Mental Status: mental status grossly normal Speech and movement: Normal speech and movement present Affect: normal affect Attitude: cooperative Thought process: Normal thought process present Results AMB Hemoglobin A1c AMB Hemoglobin A1c 6.0 % Last Edit by PERRY Mills on 01/31/23 13:31 Results Reviewed Results Reviewed: Laboratory Last Values Hgb A1c (Clinic) 6.0 % (4.0-6.0) 01/31/23 13:03 Assessment and Plan Assessment & Plan (1) DMII (diabetes mellitus, type 2): Code(s): E11.9 - Type 2 diabetes mellitus without complications Qualifiers: Diabetes mellitus complication status: without complication Diabetes mellitus terminal press operator insulin use: without jail use Qualified Code(s): E11.9 - Type 2 diabetes mellitus without complications Plan: Patient's type 2 diabetes well controlled with current dose of Actos. Most recent A1c is 6.0. Will continue pioglitazone 15 mg. Goal A1c is to be below 7.5 due to patient's comorbidities (2) CAD (coronary artery disease): Code(s): I25.10 - Atherosclerotic heart disease of [place] coronary artery without angina pectoris Qualifiers: Associated angina: without angina Coronary Disease-Associated Artery/Lesion type: [place] artery [place] vs. transplanted heart: [place] heart Qualified Code(s): I25.10 - Atherosclerotic heart disease of [place] coronary artery without angina pectoris Plan: Patient has a history of stent placement in his coronary arteries. Continues on statin therapy with excellent control over his total cholesterol and LDL. He otherwise denies any chest discomfort recently. (3) COPD (chronic obstructive pulmonary disease): Code(s): J44.9 - Chronic obstructive pulmonary disease, unspecified Qualifiers: COPD type: emphysema Emphysema type: centrilobular Qualified Code(s): J43.2 - Centrilobular emphysema Plan: As per HPI patient has severe COPD and is O2 dependent at this time. Continues to follow pulmonology. (4) MDD (major depressive disorder), recurrent episode, moderate: Code(s): F33.1 - Major depressive disorder, recurrent, moderate Plan: As per HPI patient family does note Marc has been somewhat depressed as he has not been willing to do what he usually likes to do her leave the house at times. He is interested in increasing his dose of is mirtazapine. Will increase to 45 mg. He is not interested in cognitive behavior therapy at this time though is considering. (5) IPF (idiopathic pulmonary fibrosis): Code(s): J84.112 - Idiopathic pulmonary fibrosis Plan: Patient has severe pulmonary fibrosis and is O2 dependent at this time. Continues on 6 liters/minute of O2 at rest and 8 liters/minute on exertion. (6) Hyperlipidemia: Code(s): E78.5 - Hyperlipidemia, unspecified Qualifiers: Hyperlipidemia type: mixed hyperlipidemia Qualified Code(s): E78.2 - Mixed hyperlipidemia Plan: Continues on statin therapy without side effect. Has lost weight and is not e ating like use due. We considering lowering his statin potency. Speak to his educational assistant about this. Goal LDL to be below 70 due to his coronary artery disease. (7) Constipation: Code(s): K59.00 - Constipation, unspecified Qualifiers: Constipation type: slow transit constipation Qualified Code(s): K59.01 - Slow transit constipation Plan: Has been suffering constipation. Does it cannot regain fluids. Does use to slow softeners though has not been effective. Will start senna 2 tablets at night to help produce bowel movements. (8) Physical deconditioning: Code(s): R53.81 - Other malaise Plan: Now has electric scooter, he is fairly frail and physically deconditioned. His home physical therapy coming to help him transfer in and out of a chair. He does keep receive a lot help from his daughter. Explain to him ways to reduce falls Orders: Orders Complete Blood Count no Diff 01/31/23 J43.2 - Centrilobular emphysema Lipid Panel 01/31/23 E78.2 - Mixed hyperlipidemia Comprehensive Protivin. Panel Fast 01/31/23 E78.2 - Mixed hyperlipidemia AMB Hemoglobin A1c 01/31/23 E11.9 - Type 2 diabetes mellitus without complications Prostate Specific Antigen Scr 01/31/23 E78.2 - Mixed hyperlipidemia, Z12.5 - Encounter for screening for malignant neoplasm of prostate Medications: New sennosides (Senna Lax) 17.2 mg (2 x 8.6 mg) PO BEDTIME 15 days 30 tabs 2RF K59.01 - Slow transit constipation mirtazapine 45 mg PO BEDTIME 90 days 90 tabs 1RF F33.1 - Major depressive disorder, recurrent, moderate Discontinued mirtazapine Discontinued Reason: Doctor's Order 30 mg PO BEDTIME 30 tabs 6RF F33.1 - Major depressive disorder, recurrent, moderate Coding Level of Care Code Est Pt Level 4 (20617) Diagnoses Type 2 diabetes mellitus without complication, without long-term current use of insulin E11.9 Diabetes mellitus complication status: without complication Diabetes mellitus jail insulin use: without jail use Coronary artery disease involving [place] coronary artery of [place] heart without angina pectoris I25.10 Associated angina: without angina Coronary Disease-Associated Artery/Lesion type: [place] artery [place] vs. transplanted heart: [place] heart Centrilobular emphysema J43.2 COPD type: emphysema Emphysema type: centrilobular MDD (major depressive disorder), recurrent episode, moderate F33.1 IPF (idiopathic pulmonary fibrosis) J84.112 Mixed hyperlipidemia E78.2 Hyperlipidemia type: mixed hyperlipidemia Slow transit constipation K59.01 Constipation type: slow transit constipation Physical deconditioning R53.81
== END 2023-01-31 13:50 | disposition home or self-care (01) ==
PROVIDERS: PCP Physician Assistant; Visit Provider Physician Assistant
DX: E11.9 Type 2 diabetes mellitus without complications (principal)
CPT/HCPCS: 83036; 99214

== ENCOUNTER 2023-05-16 16:59 | Inpatient (IN) | payer MEDICARE, SELFPAY ==
--- NOTE | ~2023-05-16 | XR_ITS ---
EXAMINATION: XR CHEST CLINICAL INFORMATION: Shortness of breath COMPARISON: None available. TECHNIQUE: Frontal view of the chest was obtained. FINDINGS: The lungs are hypoexpanded with diffuse increased interstitial markings and patchy opacities in both lung bases. There is mild bilateral apical pleural thickening. Heart size and pulmonary vascularity is normal. No gross bony abnormality seen. XR/XR chest 1V IMPRESSION: 1. Diffuse increased interstitial markings and patchy opacities in both lung bases. 2. Mild bilateral apical pleural thickening.
[2023-05-16 17:11] VITALS: BP 121/54; PULSE 89; O2SAT 99
[2023-05-16 17:17] VITALS: BP 126/58; PULSE 91; RESP 26; TEMP 36.4; O2SAT 96; BMI 22.7
--- NOTE | 2023-05-16 17:18 | ED_ITS ---
HPI - General Adult General Chief complaint: Dyspnea Stated complaint: weakness x12wk, sob, hx copd, 87% RA Time Seen by Provider: 05/16/23 17:15 History of Present Illness HPI narrative: The patient is an 82-year-old male with chronic lung disease he says that he normally is on 6 L of oxygen at home. He says that he has had worsening shortness of breath over the last few days. He does not think he has had a fever. He has had no chest pain. No nausea or vomiting. He has had a bit of a cough. He says the cough has not been very productive. He has not felt feverish. No diarrhea. No peripheral edema. He does not seem to report worsening of symptoms at night. The patient received bronchodilator treatment and methylprednisolone with paramedics prior to arrival. According to the patient's daughter who showed up sometime after the patient's arrival the patient has been getting progressively weaker over the last week and a half and seemed more short of breath with exertion. Today he was too weak to change his clothes. She contacted his can intake worker, Dr. Hayward, who recommended he come to the emergency room. Related Data Home Medications Medication Instructions Recorded Confirmed omeprazole 20 mg tablet,delayed 20 mg PO DAILY 07/20/21 05/16/23 release atorvastatin 40 mg tablet 40 mg PO BEDTIME 05/16/23 05/16/23 cholecalciferol (vitamin D3) 50 50 mcg PO BEDTIME 05/16/23 05/16/23 mcg (2,000 unit) capsule ipratropium 0.5 mg-albuterol 3 mg 3 ml inhalation BID for wheezing 05/16/23 05/16/23 (2.5 mg base)/3 mL nebulization soln tamsulosin 0.4 mg capsule 0.4 mg PO BEDTIME 05/16/23 05/16/23 Previous Rx's Medication Instructions Recorded aspirin 81 mg tablet,delayed 81 mg PO DAILY #30 tabs 03/17/20 release (Ecotrin Low Strength) pioglitazone 15 mg tablet (Actos) 15 mg PO DAILY 90 days #90 tabs 02/23/22 albuterol sulfate 90 mcg/actuation 2 puff inhalation Q4-6H PRN 08/15/22 aerosol inhaler shortness of breath or wheezing 30 days #1 ea cetirizine 10 mg tablet (Zyrtec) 10 mg PO DAILY 90 days #90 tabs 08/15/22 mirtazapine 45 mg tablet 45 mg PO BEDTIME 90 days #90 tabs 01/31/23 sennosides 8.6 mg tablet (Senna 17.2 mg (2 x 8.6 mg) PO BEDTIME 15 01/31/23 Lax) days #30 tabs fluticasone 55 mcg-salmeterol 14 1 inh inhalation BID 30 days #1 02/07/23 mcg/actuation breath activated insert powder primidone 50 mg tablet 150 mg (3 x 50 mg) PO BEDTIME 30 02/26/23 days #90 tabs prednisone 5 mg tablet 7.5 mg (1.5 x 5 mg) PO DAILY #45 04/03/23 tabs Allergies Allergy/AdvReac Type Severity Reaction Status Date / Time No Known Allergies Allergy Verified 01/31/23 13:32 Review of Systems 2 Review of Systems: Yes all other systems are reviewed and are negative [facility] Past Medical History Medical History Hypoxia SIRS (systemic inflammatory response syndrome) Urinary retention with incomplete bladder emptying Acute UTI Esophagitis Chest pain Acute and chronic respiratory failure with hypoxia RSV (acute bronchiolitis due to respiratory syncytial virus) Hypoxia Pneumonia DMII (diabetes mellitus, type 2) IPF (idiopathic pulmonary fibrosis) Interstitial lung disease Impaired glucose metabolism Hyperlipidemia SOB (shortness of breath) on exertion CAD (coronary artery disease) Surgical History S/P right coronary artery (RCA) stent placement Family History Family History Mother No problems noted. Father No problems noted. Social History Social History Household Members: Family Household Members Other:: daughter Housing: House Do you presently have visiting nurse or other home services: Yes Alcohol intake: never Patient Tobacco Use Status: Former Tobacco user Years Smoked: 43 yrs Smoked in Last 30 Days: No e-Cigarette/Vaping Use: Never Used Second Hand Smoke Exposure: No Use of substances other than those prescribed or required for medical reasons: No Have you been hit, kicked, punched, or otherwise hurt by someone within the past year? If so, by whom?: No Do you feel safe in your current relationship?: No Current Relationship Is there a partner from a previous relationship who is making you feel unsafe now?: No Are you made to feel afraid or neglected: No Advance Directives: Yes Advance Directives on File: Yes Advance Directives Date on File: 07/12/21 Do you have thoughts of harming others: None Do you have a plan to hurt others: No Plan Recently lost weight without trying: Unsure Nutrition Risks: No Nutritional Risk service: No Current occupational status: retired Cognitive needs: Yes (scotter, walker, wheel chair.) Hearing needs: No Vision needs: No Physical Exam ED Vital Signs: Vital Signs - 24 hr 05/16/23 17:17 05/16/23 17:36 Temperature 97.5 F Pulse Rate 91 93 Respiratory Rate 26 H 26 H Blood Pressure 126/58 L Pulse Oximetry 96 Oxygen Delivery Method Oxymask BMI result Body Mass Index 22.7 Const Other: The patient is a chronically ill-appearing 82-year-old male who looks somewhat short of breath. He was on 6 L nasal cannula and saturating in the low 80s. He was awake and alert with a pleasant demeanor. HENMT Other: Face is symmetrical. Mucous membranes moist. Eyes Other: Pupils are round equal, extraocular movements intact Neck Other: No obvious JVD Resp Other: Mild increased work of breathing with tachypnea. Diffuse crackles throughout both lung givens. Cardio Rate: regular rate Rhythm: regular rhythm Heart sounds: S1 normal heart sound present and S2 normal heart sound present GI Other: Abdomen is soft and nontender Skin Other: Skin is pale and dry Neuro Other: The patient is awake and alert. Speech is clear. He moves his extremities symmetrically. He seems deconditioned but without focal findings. Extrem Other: No peripheral edema. No calf swelling or tenderness. No asymmetry. Medications Administered Generic Name Dose Route Start Last Admin Trade Name Freq PRN Reason Stop Dose Admin Albuterol/Ipratropium 3 ml 05/16/23 20:00 05/17/23 12:10 Albuterol/Iprat 2.5/0.5mg 3 Ml Ampul.Neb INHALE 3 ml RQ4H WHILE AWAKE CHANTALE Administration Aspirin 81 mg 05/17/23 09:00 05/17/23 10:35 Aspirin Enteric Coated 81 Mg Tablet. PO 81 mg DAILY CHANTALE Administration Atorvastatin Calcium 40 mg 05/16/23 21:00 05/16/23 21:59 Atorvastatin Calcium 40 Mg Tablet PO 40 mg BEDTIME CHANTALE Administration Enoxaparin Sodium 40 mg 05/16/23 20:00 05/16/23 21:59 Enoxaparin Sodium 40 Mg/0.4 Ml Syringe SUBCUT 40 mg Q24H CHANTALE Administration Ampicillin Sodium/Sulbactam 100 mls @ 200 mls/hr 05/16/23 20:00 05/17/23 15:44 Sodium 3 gm/ Sodium Chloride IV Infused Q6H CHANTALE Infusion Insulin Human Lispro 0 unit 05/17/23 00:00 05/17/23 12:54 Insulin Lispro 100 Unit/Ml 3 Ml Vial SUBCUT 2 unit Q6H CHANTALE Administration Protocol Loratadine 10 mg 05/17/23 09:00 05/17/23 10:35 Loratadine 10 Mg Tablet PO 10 mg DAILY CHANTALE Administration Methylprednisolone Sodium Succinate 40 mg 05/16/23 20:00 05/17/23 10:21 Methylprednisolone Sod Succ 40 Mg/Ml Vial IVPUSH 40 mg Q12H CHANTALE Administration Mirtazapine 45 mg 05/16/23 21:00 05/16/23 22:00 Mirtazapine 15 Mg Tablet PO 45 mg BEDTIME CHANTALE Administration Omeprazole 20 mg 05/17/23 06:30 05/17/23 06:08 Omeprazole 20 Mg Capsule. PO Not Given DAILY@0630 CHANTALE Primidone 150 mg 05/16/23 21:00 05/16/23 22:10 Primidone 50 Mg Tablet PO 150 mg BEDTIME CHANTALE Administration Senna 17.2 mg 05/16/23 21:00 05/16/23 21:59 Sennosides 8.6 Mg Tablet PO 17.2 mg BEDTIME CHANTALE Administration Sodium Chloride 3 ml 05/17/23 00:00 05/17/23 14:38 0.9 % Sodium Chloride Flush 3 Ml Syringe IVFLUSH 3 ml QSHIFT CHANTALE Administration Tamsulosin HCl 0.4 mg 05/16/23 21:00 05/16/23 21:59 Tamsulosin Hcl 0.4 Mg Capsule PO 0.4 mg BEDTIME CHANTALE Administration Vitamin D 50 mcg 05/16/23 21:00 05/16/23 21:59 Cholecalciferol (Vitamin D3) 25 Mcg Tablet PO 50 mcg BEDTIME CHANTALE Administration Discontinued Medications Generic Name Dose Route Start Last Admin Trade Name Michael PRN Reason Stop Dose Admin Albuterol/Ipratropium 3 ml 05/16/23 17:20 05/16/23 17:36 Albuterol/Iprat 2.5/0.5mg 3 Ml Ampul.Neb INHALE 05/16/23 17:21 3 ml ONCE ONE Administration Ceftriaxone Sodium 1 gm/ 50 mls @ 100 mls/hr 05/16/23 18:52 05/16/23 20:54 Sodium Chloride IV 05/16/23 19:21 Infused ONCE ONE Infusion Azithromycin 500 mg/ Sodium 250 mls @ 125 mls/hr 05/16/23 18:52 05/16/23 22:16 Chloride IV 05/16/23 20:51 Infused ONCE ONE Infusion Medical Decision Making Medical Decision Making [facility] Narrative: The patient is an 82-year-old male with chronic lung disease who presents with worsening shortness of breath and weakness. I suspect he has a COPD exacerbation. An occult pneumonia is also a possibility. He received IV methylprednisolone as well as IV ceftriaxone and azithromycin. He continued to look quite weak and will be admitted to the medical service for further care. Lab Data 05/17/23 07:35 05/17/23 07:35 Labs: Lab Results 05/16/23 05/16/23 Range/Units 17:42 17:49 WBC 10.1 (4.8-10.8) X10*3/uL RBC 4.25 L (4.60-5.80) X10*6/uL Hgb 12.3 L (14.0-18.0) g/dl Hct 36.7 L (42.0-52.0) % MCV 86.4 (80.0-98.0) fL MCH 28.9 (27.0-33.0) pg MCHC 33.5 (31.0-36.0) g/dl RDW 15.6 (11.0-16.0) % Plt Count 167 (160-400) X10*3/uL MPV 10.1 (9.4-12.4) fL Immature Gran % (Auto) 0.4 (0.0-0.4) % Neut % (Auto) 89.1 H (45-73) % Lymph % (Auto) 8.6 L (20-40) % [place] % (Auto) 1.6 L (2-11) % Eos % (Auto) 0.0 (0-4) % Baso % (Auto) 0.3 (0-2) % Lymph # (Auto) 0.9 L (1.2-4.9) X10*3/uL [place] # (Auto) 0.2 (0.1-1.2) X10*3/uL Eos # (Auto) 0.0 (0.0-0.4) X10*3/uL Baso # (Auto) 0.0 (0.0-0.2) X10*3/uL Abs Immat Gran (auto) 0.04 H (0.00-0.03) X10*3/uL Absolute Neuts (auto) 9.0 H (2.0-8.3) x10*3/uL Absolute Nucleated RBC 0.000 (0.0-0.012) X10*3/uL Nucleated RBC % (auto) 0.0 (0.0-0.2) /100WBC PT 13.1 (11.1-13.3) SEC INR 1.1 (0.9-1.1) VBG pH 7.41 (7.32-7.43) VBG pCO2 49 mmHg VBG pO2 53 mmHg VBG HCO3 31 H (22-26) mmol/L VBG O2 Saturation 81.0 % VBG Base Excess 6.0 mmol/L Sodium 140 (135-145) mmol/L Potassium 4.2 (3.3-5.1) mmol/L Chloride 105 (96-108) mmol/L Carbon Dioxide 28 (22-29) mmol/L Anion Gap 11 L (12-20) BUN 16 (9-16) mg/dL Creatinine 0.80 (0.5-1.4) mg/dL Estim Creat Clear Calc 66.2 Estimated GFR > 60 Random Glucose 256 H (60-115) mg/dL Lactic Acid 1.9 (0.5-2.0) mmol/L Calcium 9.3 (8.4-10.2) mg/dL Magnesium 1.8 (1.6-2.6) mg/dL Total Bilirubin 0.8 (0.0-1.0) mg/dL Direct Bilirubin 0.3 (0.0-0.5) mg/dL AST 25 (5-37) U/L ALT 42 H (0-40) U/L Alkaline Phosphatase 111 (39-117) U/L Troponin I High Sens 4.6 D (<3.5-35.0) ng/L C-Reactive Protein 3.43 H (< or = 0.50) mg/dL B-Natriuretic Peptide 39 (<100) pg/mL Total Protein 6.2 L (6.5-8.0) g/dL Albumin 3.5 (3.5-5.0) g/dL Ethyl Alcohol < 10 mg/dL Influenza Type A (PCR) NEGATIVE (Negative) Influenza Type B (PCR) NEGATIVE (Negative) RSV RNA Qual (PCR) NEGATIVE (Negative) SARS-CoV-2 RNA (RT-PCR) NEGATIVE (Negative) Independent Interpretation I performed an independent interpretation of an: EKG Interpretation: EKG at 17:21 shows normal sinus rhythm at 87 beats per minute. There are T-wave inversions anteriorly and inferiorly. EKG findings look less intense than on his previous EKG. Discharge Plan Discharge Clinical Impression: Acute exacerbation of chronic obstructive pulmonary disease Patient Disposition: Admitted As Inpatient Interventions: Admission Worksheet (ED) Last Done: 05/17/23 08:13
--- NOTE | 2023-05-16 17:19 | ECG_ITS ---
Test Reason : SOB Blood Pressure : / mmHG Vent. Rate : 087 BPM Atrial Rate : 087 BPM P-R Int : 150 ms QRS Dur : 090 ms QT Int : 366 ms P-R-T Axes : 041 -01 000 degrees QTc Int : 440 ms Normal sinus rhythm Minimal voltage criteria for LVH, may be normal variant ( R in aVL ) Nonspecific ST abnormality Abnormal ECG When compared with ECG of 25-OCT-2022 23:43, T wave inversion less evident in Anterior leads QT has shortened Referred By: Herman Macdonald Electronically Signed By:Gianluca Ho
[2023-05-16 17:36] VITALS: PULSE 93; RESP 26; O2SAT 94
[2023-05-16] MEDS: Albuterol/Iprat 2.5/0.5MG 3 ML AMPUL.NEB INHALE ×2 (17:36→19:52)
[2023-05-16 17:48] LABS: MANUAL DIFF FLAG NO
[2023-05-16 17:51] LABS: Basophils Percent Auto 0.3 % (0-2); Hematocrit 36.7 % (42.0-52.0); Hemoglobin 12.3 g/dl (14.0-18.0); Imm Gran Abs Auto 0.04 X10*3/uL (0.00-0.03); Imm Gran Pct Auto 0.4 % (0.0-0.4); Lymphocytes Absolute Auto 0.9 X10*3/uL (1.2-4.9); Lymphocytes Percent Auto 8.6 % (20-40); Mean Corpuscular HGB Conc 33.5 g/dl (31.0-36.0); Mean Corpuscular Hemoglobin 28.9 pg (27.0-33.0); Mean Corpuscular Volume 86.4 fL (80.0-98.0); Mean Platelet Volume 10.1 fL (9.4-12.4); Monocytes Absolute Auto 0.2 X10*3/uL (0.1-1.2); Monocytes Percent Auto 1.6 % (2-11); Neutrophils Percent Auto 89.1 % (45-73); Platelet Count 167 X10*3/uL (160-400); Red Blood Count 4.25 X10*6/uL (4.60-5.80); Red Cell Distribution Width 15.6 % (11.0-16.0); White Blood Count 10.1 X10*3/uL (4.8-10.8)
[2023-05-16 17:57] LABS: VBG HCO3 31 mmol/L (22-26); VBG pCO2 49 mmHg; VBG pH 7.41 (7.32-7.43); VBG pO2 53 mmHg
[2023-05-16 17:58] LABS: Venous Blood Gas Refer to POC result
[2023-05-16 17:59] LABS: INTERNATIONAL NORM RATIO 1.1 (0.9-1.1); Prothrombin Time 13.1 SEC (11.1-13.3)
[2023-05-16 18:03] LABS: Lactic Acid 1.9 mmol/L (0.5-2.0)
[2023-05-16 18:10] LABS: Alanine Aminotransferase 42 U/L (0-40); Albumin Level 3.5 g/dL (3.5-5.0); Alkaline Phosphatase 111 U/L (39-117); Anion Gap 11 (12-20); Aspartate Amino Transferase 25 U/L (5-37); Bilirubin Direct 0.3 mg/dL (0.0-0.5); Bilirubin Total 0.8 mg/dL (0.0-1.0); Blood Urea Nitrogen 16 mg/dL (9-16); C Reactive Protein 3.43 mg/dL (< or = 0.50); Calcium 9.3 mg/dL (8.4-10.2); Carbon Dioxide 28 mmol/L (22-29); Chloride 105 mmol/L (96-108); Creatinine Clr Calc Pharmacy 66.2; Estimated Glomerular Filt Rate > 60; Glucose Random 256 mg/dL (60-115); Magnesium 1.8 mg/dL (1.6-2.6); Potassium 4.2 mmol/L (3.3-5.1); Sodium 140 mmol/L (135-145); Total Protein 6.2 g/dL (6.5-8.0)
[2023-05-16 18:13] LABS: B Type Natriuretic Peptide 39 pg/mL (<100)
[2023-05-16 18:17] LABS: Troponin-I High Sensitivity 4.6 ng/L (<3.5-35.0)
--- NOTE | 2023-05-16 18:18 | PC.NURSE ---
Patient presented with EMS on 10L oxy mask, baseline 6L NC COPD/pulm fibrosis. Titrated to 4L oxymask with RT Debra, labs drawn, awaiting lab and xray results.
[2023-05-16 18:35] LABS: Influenza A PCR NEGATIVE (Negative); Influenza B PCR NEGATIVE (Negative); Resp Syncy Virus RNA Qual PCR NEGATIVE (Negative); SARS COV2 PCR INHOUSE NEGATIVE (Negative)
[2023-05-16] MEDS: cefTRIAXone sodium 1 GM in 0.9 % Sodium Chloride 50 ML IV (19:16)
--- NOTE | 2023-05-16 19:34 | P.HPHOSP_ITS ---
History of Present Illness Date of Service: 05/16/23 Chief Complaint: Dyspnea This is a 82-year-old male with pertinent history of chronic hypoxemic respiratory failure due to COPD/interstitial pulm fibrosis on baseline 6 L supplemental oxygen, coronary artery disease status post stent, BPH, [id number] diabetes mellitus who presents to the emergency department for evaluation of dyspnea. Patient states that over the last 1 week he has been having cough and worsening dyspnea. Patient states his O2 sat was in the 50s on baseline 6 L supplemental oxygen. Family member at bedside stated that patient has been coughing lately whenever he tries to eat an orange or drink water. No fevers or chills. Endorses productive cough and wheezing. The daughter also stated that patient has gotten weak over the last 1-2 weeks. Patient's esthetician makeup artist, Dr. Hayward was contacted who recommended the patient to come to the ER. No chest discomfort, palpitations, abdominal pain, changes in urinary or bowel habits. In the emergency department, patient was placed on 10 L OxyMask. Imaging concerning for pneumonia. Review of Systems 2 Constitutional: Constitutional: Reports fatigue, Reports lethargy, Reports malaise and Reports poor appetite Cardiovascular: Cardiovascular: Reports dyspnea on exertion Respiratory: Respiratory: Reports cough, Reports dyspnea on exertion and Reports wheezing Gastrointestinal: Gastrointestinal: Reports no additional gastrointestinal complaints Genitourinary: Genitourinary: Reports no additional male genitourinary complaints Endocrine: Endocrine: Reports fatigue Allergic/Immunologic: Allergic/Immunologic: Reports wheezing [facility] Medical History (Updated 05/16/23 @ 19:43 by Aldo Ruiz MD) Hypoxia SIRS (systemic inflammatory response syndrome) Urinary retention with incomplete bladder emptying Acute UTI Esophagitis Chest pain Acute and chronic respiratory failure with hypoxia RSV (acute bronchiolitis due to respiratory syncytial virus) Hypoxia Pneumonia DMII (diabetes mellitus, type 2) IPF (idiopathic pulmonary fibrosis) Interstitial lung disease Impaired glucose metabolism Hyperlipidemia SOB (shortness of breath) on exertion CAD (coronary artery disease) Family History Mother No problems noted. Father No problems noted. Surgical History S/P right coronary artery (RCA) stent placement Social History Household Members: Other Household Members Other:: daughter Housing: House Do you presently have visiting nurse or other home services: Yes Alcohol intake: never Patient Tobacco Use Status: Former Tobacco user Years Smoked: 43 yrs Smoked in Last 30 Days: No e-Cigarette/Vaping Use: Never Used Second Hand Smoke Exposure: No Use of substances other than those prescribed or required for medical reasons: No Advance Directives: Yes Advance Directives on File: Yes Advance Directives Date on File: 07/12/21 service: No Current occupational status: retired Cognitive needs: Yes (scotter, walker, wheel chair.) Hearing needs: No Vision needs: No Meds Allergies Allergy/AdvReac Type Severity Reaction Status Date / Time No Known Allergies Allergy Verified 01/31/23 13:32 Active Medications: Current Medications Azithromycin 500 mg/ Sodium (Chloride) 250 mls @ 125 mls/hr IV ONCE ONE Stop: 05/16/23 20:51 Home Medications Medication Instructions Recorded Confirmed Last Taken Type omeprazole 20 mg tablet,delayed 20 mg PO DAILY 07/20/21 05/16/23 05/16/23 History release atorvastatin 40 mg tablet 40 mg PO BEDTIME 05/16/23 05/16/23 05/15/23 History cholecalciferol (vitamin D3) 50 50 mcg PO BEDTIME 05/16/23 05/16/23 05/15/23 History mcg (2,000 unit) capsule ipratropium 0.5 mg-albuterol 3 mg 3 ml inhalation BID for wheezing 05/16/23 05/16/23 05/16/23 History (2.5 mg base)/3 mL nebulization soln tamsulosin 0.4 mg capsule 0.4 mg PO BEDTIME 05/16/23 05/16/23 05/16/23 History Physical Exam 2 Vital Signs and Narrative: Vital Signs: Last Vital Signs Temp 97.5 F 05/16/23 17:17 Pulse 93 05/16/23 17:36 Resp 26 H 05/16/23 17:36 BP 126/58 L 05/16/23 17:17 Pulse Ox 96 05/16/23 17:17 O2 Del Method Oxymask 05/16/23 17:17 Oxygen Flow Rate 10 05/16/23 17:17 BMI result Body Mass Index 22.7 Elderly male lying in bed in mild distress on supplemental oxygen Neck supple, no JVD Regular rate and rhythm, S1-S2 heard Tachypneic with bilateral wheezing and crackles Abdomen soft nontender, no guarding, no rigidity Patient is awake, alert and oriented to self, place, time and person ; no focal motor deficit Psych: Normal mood No pedal edema Results Labs 05/16/23 17:42 05/16/23 17:42 Labs: Laboratory Results - last 24 hr 05/16/23 05/16/23 17:42 17:49 MCV 86.4 MCH 28.9 MCHC 33.5 RDW 15.6 Plt Count 167 MPV 10.1 Immature Gran % (Auto) 0.4 Neut % (Auto) 89.1 H Lymph % (Auto) 8.6 L [place] % (Auto) 1.6 L Eos % (Auto) 0.0 Baso % (Auto) 0.3 Lymph # (Auto) 0.9 L [place] # (Auto) 0.2 Eos # (Auto) 0.0 Baso # (Auto) 0.0 Abs Immat Gran (auto) 0.04 H Absolute Neuts (auto) 9.0 H Absolute Nucleated RBC 0.000 Nucleated RBC % (auto) 0.0 PT 13.1 INR 1.1 VBG pH 7.41 VBG pCO2 49 VBG pO2 53 VBG HCO3 31 H VBG O2 Saturation 81.0 VBG Base Excess 6.0 Anion Gap 11 L Estim Creat Clear Calc 66.2 Estimated GFR > 60 Random Glucose 256 H Lactic Acid 1.9 Calcium 9.3 Magnesium 1.8 Total Bilirubin 0.8 Direct Bilirubin 0.3 AST 25 ALT 42 H Alkaline Phosphatase 111 Troponin I High Sens 4.6 D C-Reactive Protein 3.43 H B-Natriuretic Peptide 39 Total Protein 6.2 L Albumin 3.5 Influenza Type A (PCR) NEGATIVE Influenza Type B (PCR) NEGATIVE RSV RNA Qual (PCR) NEGATIVE SARS-CoV-2 RNA (RT-PCR) NEGATIVE Imaging Radiologist's Impressions: Impressions Chest X-Ray 05/16/23 17:51 IMPRESSION: 1. Diffuse increased interstitial markings and patchy opacities in both lung bases. 2. Mild bilateral apical pleural thickening. Assessment and Plan (1) Acute exacerbation of chronic obstructive pulmonary disease: Status: Acute (2) Pneumonia: Qualifiers: Laterality: left Lung location: lower lobe of lung Pneumonia type: due to unspecified organism Qualified Code(s): J18.9 - Pneumonia, unspecified organism Status: Acute Plan This is a 82-year-old male with pertinent history of chronic hypoxemic respiratory failure due to COPD/interstitial pulm fibrosis on baseline 6 L supplemental oxygen, coronary artery disease status post stent, BPH, [id number] diabetes mellitus who presents to the emergency department for evaluation of dyspnea. #. Acute on chronic hypoxemic respiratory failure due to aspiration pneumonia leading to acute exacerbation of COPD: Will admit patient with supplemental oxygen. Initiating empiric IV antibiotics. Will keep patient NPO and consult speech for concerns of aspiration. Initiating IV systemic steroids. Scheduled and p.r.n. DuoNebs. Continue home inhaler. #. Insulin-dependent diabetes mellitus with hyperglycemia: Initiating Accu- Cheks with sliding scale insulin every 6 hours #. Coronary artery disease status post stent: On antiplatelet agent and high- intensity statin #. BPH: On Flomax #. Generalized weakness with progressive debility: Consulting Physical therapy to evaluate and treat #. Gastroesophageal reflux disease: On PPI DVT prophylaxis: Lovenox DNR/DNI. Discussed with patient and daughter at bedside Admit as inpatient and will require two night minimum hospital stay for supplemental oxygen, IV antibiotics (as above), which is not possible in a lesser acute setting. Quality Stroke Does the patient have a stroke diagnosis?: No VTE Prior VTE?: No VTE Risk Level:: Medical - moderate - high VTE Device Contraindication: Treatment Not Indicated VTE Drug Contraindication: N/A - Med Ordered
[2023-05-16 19:53] VITALS: PULSE 84; RESP 20; O2SAT 95
--- NOTE | 2023-05-16 20:07 | PHA.MEDREC ---
Pharmacy Consult ? Medication Reconciliation Pharmacy has completed the medication reconciliation. Patient's daughter had list of medicaitons. Alejandra Ronquillo, ElinaD
[2023-05-16] MEDS: Azithromycin 500 MG in 0.9 % Sodium Chloride 250 ML 125 MG IV (20:09)
[2023-05-16 20:11] VITALS: BP 115/55; PULSE 86; RESP 20; O2SAT 93
[2023-05-16 21:42] LABS: Ethanol < 10 mg/dL
[2023-05-16] MEDS: Cholecalciferol (Vitamin D3) 25 MCG TABLET 50 MCG PO (21:59)
[2023-05-16] MEDS: Atorvastatin Calcium 40 MG TABLET PO (21:59)
[2023-05-16] MEDS: Sennosides 8.6 MG TABLET 17.2 MG PO (21:59)
[2023-05-16] MEDS: Enoxaparin Sodium 40 MG/0.4 ML SYRINGE SUBCUT (21:59)
[2023-05-16] MEDS: Tamsulosin HCL 0.4 MG CAPSULE PO (21:59)
[2023-05-16] MEDS: methylPREDNISolone Sod Succ 40 MG/ML VIAL IVPUSH (22:00)
[2023-05-16] MEDS: Mirtazapine 15 MG TABLET 45 MG PO (22:00)
[2023-05-16] MEDS: Ampicillin Sodium/Sulbactam Na 3 GM in 0.9 % Sodium Chloride 100 ML IV (22:00)
[2023-05-16 22:02] VITALS: BP 153/63; PULSE 92; RESP 20; O2SAT 90
[2023-05-16] MEDS: Primidone 50 MG TABLET 150 MG PO (22:10)
--- NOTE | 2023-05-16 22:10 | PC.NURSE ---
Patient resting quietly on this stretcher, pm medications given per apr, continues on 4L oxymask, desats with minimal activity, waiting bed assignment.
[2023-05-16 23:40] LABS: Glucose, Whole Blood 319 mg/dL (60-115)
[2023-05-17] VITALS (11 sets, daily range): BP systolic 128–163; BP diastolic 52–69; PULSE 78–89; RESP 16–20; TEMP 35.7–36.7; O2SAT 69–99; BMI 22.7
[2023-05-17 05:56] LABS: Glucose, Whole Blood 267 mg/dL (60-115)
[2023-05-17] MEDS: Ampicillin Sodium/Sulbactam Na 3 GM in 0.9 % Sodium Chloride 100 ML IV ×4 (06:04→20:04)
[2023-05-17] MEDS: Insulin Lispro 100 UNIT/ML 3 ML VIAL SUBCUT ×3 (06:05→16:57)
[2023-05-17] MEDS: 0.9 % Sodium Chloride Flush 3 ML SYRINGE IVFLUSH ×4 (06:05→20:05)
--- NOTE | 2023-05-17 07:11 | PC.NURSE ---
Assumed care of PT at 2315. Downtime from 0100 to 0600. PT medicated as per APR. VSS. Urine not collected as PT was in depends unbeknownst to t/w. Report given .
--- NOTE | 2023-05-17 07:18 | PC.NURSE ---
pt NPO insulin 6am order given
--- NOTE | 2023-05-17 07:30 | P.PNIM_ITS ---
Subjective Subjective Date of Service: 05/18/23 Interval History: f/u hypoxic respiratory failure due to aspiration pneumonia. Interval history: breathing is better, no sob at present Physical Exam 2 Vital Signs: Vital Signs: Last Vital Signs Temp 96.2 F L 05/17/23 07:23 Pulse 85 05/17/23 07:23 Resp 18 05/17/23 07:23 BP 161/66 H 05/17/23 07:23 Pulse Ox 89 L 05/17/23 07:23 O2 Del Method Oxymask 05/17/23 07:23 O2 Flow Rate 7 05/17/23 07:23 Oxygen Flow Rate 10 05/16/23 17:17 BMI result Body Mass Index 22.7 Const: Other: General: AO X3 , no acute distress Resp: brandin rhonchi, no wheee, normal effort CVS: S1,S2,RRR GI: +BS, NT, no distention Skin: No rash Neuro: motor grossly intact Psych: appropriate affect Objective Data Active Medications Acetaminophen (Acetaminophen 325 Mg Tablet) 650 mg PO Q6H PRN PRN Reason: Pain, Mild (Pain Scale 1-3) Albuterol/Ipratropium (Albuterol/Iprat 2.5/0.5mg 3 Ml Ampul.Neb) 3 ml INHALE RQ4H WHILE AWAKE [facility] Last Admin: 05/16/23 19:52 Dose: 3 ml Documented By: YUSUF Albuterol/Ipratropium (Albuterol/Iprat 2.5/0.5mg 3 Ml Ampul.Neb) 3 ml INHALE Q4H PRN PRN Reason: Wheezing Aspirin (Aspirin Enteric Coated 81 Mg Tablet.) 81 mg PO DAILY [facility] Atorvastatin Calcium (Atorvastatin Calcium 40 Mg Tablet) 40 mg PO BEDTIME [facility] Last Admin: 05/16/23 21:59 Dose: 40 mg Documented By: SUJATA Dextrose (Dextrose 50 % 25 Gm/50 Ml Syringe) 25 gm IVPUSH Q15M PRN; Protocol PRN Reason: per Hypoglycemia Standing Ord. Enoxaparin Sodium (Enoxaparin Sodium 40 Mg/0.4 Ml Syringe) 40 mg SUBCUT Q24H [facility] Last Admin: 05/16/23 21:59 Dose: 40 mg Documented By: SUJATA Glucose (Glucose Gel 15 Gm Gel..Gram.) 15 gm PO Q15M PRN; Protocol PRN Reason: per Hypoglycemia Standing Ord. Ampicillin Sodium/Sulbactam (Sodium 3 gm/ Sodium Chloride) 100 mls @ 200 mls/hr IV Q6H [facility] Last Infusion: 05/17/23 06:38 Dose: Infused Documented By: HILTON Insulin Human Lispro (Insulin Lispro 100 Unit/Ml 3 Ml Vial) 0 unit SUBCUT Q6H [facility]; Protocol Last Admin: 05/17/23 06:05 Dose: 6 unit Documented By: HILTON Loratadine (Loratadine 10 Mg Tablet) 10 mg PO DAILY [facility] Melatonin (Melatonin 3 Mg Tablet) 6 mg PO BEDTIME PRN PRN Reason: Insomnia Methylprednisolone Sodium Succinate (Methylprednisolone Sod Succ 40 Mg/Ml Vial) 40 mg IVPUSH Q12H [facility] Last Admin: 05/16/23 22:00 Dose: 40 mg Documented By: SUJATA Mirtazapine (Mirtazapine 15 Mg Tablet) 45 mg PO BEDTIME [facility] Last Admin: 05/16/23 22:00 Dose: 45 mg Documented By: SUJATA Non-Formulary Medication (Fluticasone Propion-Salmeterol) 1 inhalation INHALE BID [facility] Omeprazole (Omeprazole 20 Mg Capsule.Dr) 20 mg PO DAILY@0630 [facility] Last Admin: 05/17/23 06:08 Dose: Not Given Documented By: HILTON Non-Admin Reason: NPO Ondansetron HCl (Ondansetron Hcl 4 Mg/2 Ml Vial) 4 mg IVPUSH Q8H PRN PRN Reason: Nausea and Vomiting Primidone (Primidone 50 Mg Tablet) 150 mg PO BEDTIME [facility] Last Admin: 05/16/23 22:10 Dose: 150 mg Documented By: SUJATA Senna (Sennosides 8.6 Mg Tablet) 17.2 mg PO BEDTIME [facility] Last Admin: 05/16/23 21:59 Dose: 17.2 mg Documented By: SUJATA Sodium Chloride (0.9 % Sodium Chloride Flush 3 Ml Syringe) 3 ml IVFLUSH QSHIFT [facility] Last Admin: 05/17/23 06:05 Dose: 3 ml Documented By: HILTON Tamsulosin HCl (Tamsulosin Hcl 0.4 Mg Capsule) 0.4 mg PO BEDTIME [facility] Last Admin: 05/16/23 21:59 Dose: 0.4 mg Documented By: SUJATA Vitamin D (Cholecalciferol (Vitamin D3) 25 Mcg Tablet) 50 mcg PO BEDTIME [facility] Last Admin: 05/16/23 21:59 Dose: 50 mcg Documented By: SUJATA Labs 05/17/23 07:35 05/17/23 07:35 Labs: Laboratory Results - last 24 hr 05/16/23 05/16/23 05/16/23 17:42 17:49 23:35 MCV 86.4 MCH 28.9 MCHC 33.5 RDW 15.6 Plt Count 167 MPV 10.1 Immature Gran % (Auto) 0.4 Neut % (Auto) 89.1 H Lymph % (Auto) 8.6 L [place] % (Auto) 1.6 L Eos % (Auto) 0.0 Baso % (Auto) 0.3 Lymph # (Auto) 0.9 L [place] # (Auto) 0.2 Eos # (Auto) 0.0 Baso # (Auto) 0.0 Abs Immat Gran (auto) 0.04 H Absolute Neuts (auto) 9.0 H Absolute Nucleated RBC 0.000 Nucleated RBC % (auto) 0.0 PT 13.1 INR 1.1 VBG pH 7.41 VBG pCO2 49 VBG pO2 53 VBG HCO3 31 H VBG O2 Saturation 81.0 VBG Base Excess 6.0 Anion Gap 11 L Estim Creat Clear Calc 66.2 Estimated GFR > 60 POC Glucose 319 H Random Glucose 256 H Lactic Acid 1.9 Calcium 9.3 Magnesium 1.8 Total Bilirubin 0.8 Direct Bilirubin 0.3 AST 25 ALT 42 H Alkaline Phosphatase 111 Troponin I High Sens 4.6 D C-Reactive Protein 3.43 H B-Natriuretic Peptide 39 Total Protein 6.2 L Albumin 3.5 Ethyl Alcohol < 10 Influenza Type A (PCR) NEGATIVE Influenza Type B (PCR) NEGATIVE RSV RNA Qual (PCR) NEGATIVE SARS-CoV-2 RNA (RT-PCR) NEGATIVE 05/17/23 05:52 MCV MCH MCHC RDW Plt Count MPV Immature Gran % (Auto) Neut % (Auto) Lymph % (Auto) [place] % (Auto) Eos % (Auto) Baso % (Auto) Lymph # (Auto) [place] # (Auto) Eos # (Auto) Baso # (Auto) Abs Immat Gran (auto) Absolute Neuts (auto) Absolute Nucleated RBC Nucleated RBC % (auto) PT INR VBG pH VBG pCO2 VBG pO2 VBG HCO3 VBG O2 Saturation VBG Base Excess Anion Gap Estim Creat Clear Calc Estimated GFR POC Glucose 267 H Random Glucose Lactic Acid Calcium Magnesium Total Bilirubin Direct Bilirubin AST ALT Alkaline Phosphatase Troponin I High Sens C-Reactive Protein B-Natriuretic Peptide Total Protein Albumin Ethyl Alcohol Influenza Type A (PCR) Influenza Type B (PCR) RSV RNA Qual (PCR) SARS-CoV-2 RNA (RT-PCR) Assessment and Plan (1) Hypoxia: Status: Acute (2) Pneumonia: Status: Acute (3) Acute exacerbation of chronic obstructive pulmonary disease: Status: Acute (4) Physical deconditioning: Status: Acute Plan This is a 82-year-old male with pertinent history of chronic hypoxemic respiratory failure due to COPD/interstitial pulm fibrosis on baseline 6 L supplemental oxygen, coronary artery disease status post stent, BPH, nan-gmjtzmn-unemglnln diabetes mellitus who presents to the emergency department for evaluation of dyspnea. Acute on chronic hypoxemic respiratory failure due to aspiration pneumonia leading to acute exacerbation of COPD -treat underlying PNA and COPD exacerbation as below, Oxygen suplmentation. Aspiration PNA -NPO until swallow eval, continue Zosyn 05/15 -follow cultures -Oxygen goal 88 to 92 COPD exacerbation -Bronchodilator by Neb -IV steroid -Oxygen as above. Non Insulin dependent diabetes with hyperglycemia d/t steroid -SSI, resume actose when eating HLD--Lipitor BPH-Flomax CAD--stable, statin, ASA Gen weakness due to acute illness, PT prior to dc DVT prophylaxis: Lovenox DNR/DNI. need for inpatient: management for acute hypoxic resp failure with supplemental oxygen, IV antibiotics (as above), which is not possible in the outpatient setting Quality Stroke Does the patient have a stroke diagnosis?: No VTE Prior VTE?: No VTE Risk Level:: Medical - moderate - high VTE Device Contraindication: Treatment Not Indicated VTE Drug Contraindication: N/A - Med Ordered
[2023-05-17 07:46] LABS: Appearance Urine Clear; Color Urine Yellow; Glucose Urine UA >=1000 mg/dL (Negative); Leukocyte Esterase Urine Trace (Negative); Nitrite Urine Negative (Negative); Specific Gravity - Urine >= 1.030 (1.005-1.025); UMIC TRIGGER UACC YES; Urine Blood Negative (Negative); Urine Ketones Negative (Negative); Urine Protein Negative (Neg-Trace)
[2023-05-17] MEDS: Albuterol/Iprat 2.5/0.5MG 3 ML AMPUL.NEB INHALE ×4 (07:49→20:38)
[2023-05-17 07:59] LABS: Bacteria Urine None Seen (None Seen); Hyaline Casts Urine 0-2 /LPF (0-2); RBC Urine 0-2 /HPF (0-2); Squamous Epithelial Cell Urine 0-2 /HPF (0-2); UACC Culture Trigger YES
[2023-05-17 08:08] LABS: MANUAL DIFF FLAG NO
[2023-05-17 08:25] LABS: Anion Gap 15 (12-20); Blood Urea Nitrogen 16 mg/dL (9-16); Calcium 9.3 mg/dL (8.4-10.2); Carbon Dioxide 23 mmol/L (22-29); Chloride 106 mmol/L (96-108); Creatinine Clr Calc Pharmacy 67.9; Estimated Glomerular Filt Rate > 60; Glucose Random 262 mg/dL (60-115); Potassium 4.7 mmol/L (3.3-5.1); Sodium 139 mmol/L (135-145)
[2023-05-17 08:26] LABS: Basophils Percent Auto 0.1 % (0-2); Hematocrit 38.3 % (42.0-52.0); Hemoglobin 12.5 g/dl (14.0-18.0); Imm Gran Abs Auto 0.06 X10*3/uL (0.00-0.03); Imm Gran Pct Auto 0.8 % (0.0-0.4); Lymphocytes Absolute Auto 0.7 X10*3/uL (1.2-4.9); Lymphocytes Percent Auto 9.7 % (20-40); Mean Corpuscular HGB Conc 32.6 g/dl (31.0-36.0); Mean Corpuscular Hemoglobin 28.9 pg (27.0-33.0); Mean Corpuscular Volume 88.5 fL (80.0-98.0); Mean Platelet Volume 10.8 fL (9.4-12.4); Monocytes Absolute Auto 0.2 X10*3/uL (0.1-1.2); Monocytes Percent Auto 2.5 % (2-11); Neutrophils Absolute Auto 6.2 x10*3/uL (2.0-8.3); Neutrophils Percent Auto 86.9 % (45-73); Platelet Count 147 X10*3/uL (160-400); Red Blood Count 4.33 X10*6/uL (4.60-5.80); Red Cell Distribution Width 15.1 % (11.0-16.0); White Blood Count 7.2 X10*3/uL (4.8-10.8)
[2023-05-17] MEDS: methylPREDNISolone Sod Succ 40 MG/ML VIAL IVPUSH ×2 (10:21→20:04)
[2023-05-17] MEDS: Loratadine 10 MG TABLET PO (10:35)
[2023-05-17] MEDS: Aspirin Enteric Coated 81 MG TABLET.DR PO (10:35)
[2023-05-17 11:34] LABS: Glucose, Whole Blood 193 mg/dL (60-115)
--- NOTE | 2023-05-17 11:56 | MHC.CM.PN ---
Addendum entered by Allegra Montes RN 05/17/23 15:06: PT rec pulmonary rehab. Referrals sent to [facility] and [facility]. Addendum entered by Allegra Montes RN 05/17/23 15:02: Per [facility] - no SNF [facility] benefit Original Note: CM MET WITH PATIENT AT BEDSIDE, PT HYPOXIC AT THIS TIME. TOBACCO PACKING MACHINE OPERATOR COMPLETED WITH DAUGHTER/HCP ELIZABETH VIA TELEPHONE. IMM VERBALLY DELIVERED, COPY LEFT AT BEDSIDE PER REQUEST. PATIENT IS FROM HOME W ELIZABETH, WHO IS TEACHING MANAGER AND HCP. HE HAS EDUCATION LIAISON SERVICES: [facility] HRS[facility], 5 HRS/WK THRU [facility]. TEACHING MANAGER/EDUCATION LIAISON ASSIST W/ ALL ADLS. AMBULATES W/ [facility]. 6L HOME O2 VIA [facility]. PCP JAMIA FLOWER HCP ON FILE AND VERIFIED DP: PT EVAL PENDING. GOAL IS STR VIA BLS. PATIENT HAS BEEN TO [facility] IN THE PAST, AND DTR DOES NOT WANT PATIENT TO RETURN. NO FACILITY PREFERENCE, GEOGRAPHICAL PREFERENCE FOR [facility]. REFERRAL TO [facility]. DAUGHTER ALSO ASKING TO DISCUSS PLAN FOR EVENTUAL LTC. PATIENT CURRENTLY HAS ALONSO MCR. NO PRIVATE FUNDS AVAILABLE. TRANSFERRED HOME TO DAUGHTER'S NAME 2 YEARS AGO. DAUGHTER REQUESTING ASSISTANCE W/ [employer] [facility]. REFERRAL FAXED TO FINANCIAL SERVICES. CM ALSO LM FOR [facility], ? LTC BENEFIT.
--- NOTE | 2023-05-17 15:11 | MHC.SL.SWA ---
Speech Pathologist Impression: Risk of Aspiration Due to: History of Pneumonia Dysphasia Diet Status: Aspiration risk secondary to respiratory status. Liquid Consistency and Strategies for Safe Swallow: Liquid Intake Recommendation: Thin Liquid Intake Strategies: Small Sips Solid Food Consistency: Dietary Recommendations: Chopped/Advanced (NDD3) Additional Modifications to Solid Foods: Patient will require full supervision at meals, due to very frequent need for oxygen breaks while eating. 02 breaks at present should be after every two to three bites of food or sips of liquid. If patient is noted to be inhaling/struggling to breath with food or liquid in mouth, stop feeding, encourage 02 break. Discontinue if patient becomes fatigued, chronically hypoxic, or evidences clinical signs of aspiration (coughing, upper airway noise). Oral Medication Intake: Whole with Liquid Please contact the pharmacy regarding appropriate crushable or liquid drug formulations that are available whenever modified delivery is recommended. Compensatory Strategies and Precautions to be Taken for Safe Swallow: Supervision While Eating and Drinking for Safe Swallow: Total Supervision (1:1) Foods to Avoid: Too large pieces of food, crunchy/crumbly textures. Swallowing Recommended Treatments: Compens. Strategy Educat. Recommendation for Speech: Inpatient Speech Therapy Comment: Patient presents with swallow and oral motor function mostly WFL, however becomes SOB when eating, and may inhale with food or liquid in mouth or while attempting to swallow (creating aspiration risk). Patient will require direct supervision during all meals, with breaks on 02after every two to three bites of food or sips of liquid. If patient is noted to be inhaling/struggling to breath with food or liquid in mouth, stop feeding, encourage 02 break. CLAYTON BENTON notified of recommendation by secure text, RN in person. White board in patient's room adjusted with recommendations. VACUUM METALIZING SUPERVISOR will follow 1-2X. Frequency/Duration: Date Range for Service Req: Timeline to reassess: Investment Professional Clinican/Clinical Fellow: No Supervisory Statement: I have reviewed and agree with the student/clinical fellow's documentation: No Speech Language Pathologist: Danna Walton M.A., [facility]-VACUUM METALIZING SUPERVISOR
[2023-05-17 15:49] LABS: Glucose, Whole Blood 200 mg/dL (60-115)
[2023-05-17] MEDS: Enoxaparin Sodium 40 MG/0.4 ML SYRINGE SUBCUT (20:04)
[2023-05-17] MEDS: Mirtazapine 15 MG TABLET 45 MG PO (20:05)
[2023-05-17] MEDS: Tamsulosin HCL 0.4 MG CAPSULE PO (20:05)
[2023-05-17] MEDS: Primidone 50 MG TABLET 150 MG PO (20:05)
[2023-05-17] MEDS: Sennosides 8.6 MG TABLET 17.2 MG PO (20:05)
[2023-05-17] MEDS: Atorvastatin Calcium 40 MG TABLET PO (20:05)
[2023-05-17] MEDS: Cholecalciferol (Vitamin D3) 25 MCG TABLET 50 MCG PO (20:05)
[2023-05-17 20:50] LABS: Glucose, Whole Blood 194 mg/dL (60-115)
[2023-05-18] VITALS (9 sets, daily range): BP systolic 138–161; BP diastolic 65–74; PULSE 74–85; RESP 15–20; TEMP 36.3–36.6; O2SAT 91–97
[2023-05-18] MEDS: Ampicillin Sodium/Sulbactam Na 3 GM in 0.9 % Sodium Chloride 100 ML IV ×4 (01:39→20:19)
[2023-05-18 05:29] LABS: Glucose, Whole Blood 213 mg/dL (60-115)
[2023-05-18] MEDS: Omeprazole 20 MG CAPSULE.DR PO (06:24)
[2023-05-18] MEDS: Insulin Lispro 100 UNIT/ML 3 ML VIAL SUBCUT ×3 (06:24→16:52)
[2023-05-18] MEDS: Albuterol/Iprat 2.5/0.5MG 3 ML AMPUL.NEB INHALE ×4 (07:29→19:13)
[2023-05-18] MEDS: methylPREDNISolone Sod Succ 40 MG/ML VIAL IVPUSH ×2 (08:09→20:18)
[2023-05-18] MEDS: Aspirin Enteric Coated 81 MG TABLET.DR PO (08:09)
[2023-05-18] MEDS: Loratadine 10 MG TABLET PO (08:09)
[2023-05-18] MEDS: 0.9 % Sodium Chloride Flush 3 ML SYRINGE IVFLUSH ×3 (08:13→20:20)
[2023-05-18 11:09] LABS: Glucose, Whole Blood 172 mg/dL (60-115)
--- NOTE | 2023-05-18 15:14 | MHC.SL.SWA ---
Speech Pathologist Impression: Risk of aspiration, oropharyngeal dysphagia Risk of Aspiration Due to: History of Pneumonia Dysphasia Diet Status: Aspiration risk secondary to respiratory status. Liquid Consistency and Strategies for Safe Swallow: Liquid Intake Recommendation: Thin Liquid Intake Strategies: Small Sips No Straws Solid Food Consistency: Dietary Recommendations: Chopped/Advanced (NDD3) Additional Modifications to Solid Foods: Patient will require full supervision at meals, due to very frequent need for oxygen breaks while eating. 02 breaks at present should be after every two to three bites of food or sips of liquid. If patient is noted to be inhaling/struggling to breath with food or liquid in mouth, stop feeding, encourage 02 break. Discontinue if patient becomes fatigued, chronically hypoxic, or evidences clinical signs of aspiration (coughing, upper airway noise). Oral Medication Intake: Whole with Liquid Please contact the pharmacy regarding appropriate crushable or liquid drug formulations that are available whenever modified delivery is recommended. Compensatory Strategies and Precautions to be Taken for Safe Swallow: Sitting Upright (90 deg) Double Swallow No Straw Small Bites and Sips Rate of Ingestion Change Avoid Specific Foods Supervision While Eating and Drinking for Safe Swallow: Total Supervision (1:1) Foods to Avoid: Too large pieces of food, crunchy/crumbly textures. Swallowing Recommended Treatments: Compens. Strategy Educat. Recommendation for Speech: Inpatient Speech Therapy Comment: Patient presents with swallow and oral motor function mostly WFL, however becomes SOB when eating, and may inhale with food or liquid in mouth or while attempting to swallow (creating aspiration risk). Patient will require direct supervision during all meals, with breaks on 02after every two to three bites of food or sips of liquid. If patient is noted to be inhaling/struggling to breath with food or liquid in mouth, stop feeding, encourage [address] , [address] notified of recommendation by secure text, RN in person. White board in patient's room adjusted with recommendations. YARN PACKER will follow 1-2X. Frequency/Duration: Date Range for Service Req: Timeline to reassess: Remotely Operated Vehicle Clinican/Clinical Fellow: No Supervisory Statement: I have reviewed and agree with the student/clinical fellow's documentation: No Speech Language Pathologist: Sherrie Lewis M.A., CCC-YARN PACKER
--- NOTE | 2023-05-18 15:44 | MHC.CM.PN ---
DP: PT HAS BEEN REC. FOR PULMONARY REHAB, SPOKE WITH DAUGHTER/PT , AGREEABLE TO BED AT [facility]. [facility] LIAISON WILL GO FOR INSURANCE AUTH. CM WILL CONTINUE TO FOLLOW FOR ANY CHANGE IN DC PLAN.
[2023-05-18 16:17] LABS: Glucose, Whole Blood 194 mg/dL (60-115)
[2023-05-18] MEDS: Enoxaparin Sodium 40 MG/0.4 ML SYRINGE SUBCUT (20:18)
[2023-05-18] MEDS: Sennosides 8.6 MG TABLET 17.2 MG PO (20:19)
[2023-05-18] MEDS: Primidone 50 MG TABLET 150 MG PO (20:19)
[2023-05-18] MEDS: Mirtazapine 15 MG TABLET 45 MG PO (20:19)
[2023-05-18] MEDS: Atorvastatin Calcium 40 MG TABLET PO (20:19)
[2023-05-18] MEDS: Cholecalciferol (Vitamin D3) 25 MCG TABLET 50 MCG PO (20:19)
[2023-05-18] MEDS: Tamsulosin HCL 0.4 MG CAPSULE PO (20:19)
[2023-05-18 20:36] LABS: Glucose, Whole Blood 142 mg/dL (60-115)
[2023-05-19] MEDS: Ampicillin Sodium/Sulbactam Na 3 GM in 0.9 % Sodium Chloride 100 ML IV ×2 (01:50→08:35)
[2023-05-19 03:23] VITALS: BP 141/64; PULSE 82; RESP 16; TEMP 36.3; O2SAT 92
[2023-05-19] MEDS: Omeprazole 20 MG CAPSULE.DR PO (06:01)
[2023-05-19 07:24] VITALS: PULSE 82; RESP 16; O2SAT 95
[2023-05-19] MEDS: Albuterol/Iprat 2.5/0.5MG 3 ML AMPUL.NEB INHALE ×2 (07:24→11:38)
[2023-05-19 07:29] VITALS: BP 165/77; PULSE 81; RESP 18; TEMP 36.2; O2SAT 96
[2023-05-19 07:30] LABS: Glucose, Whole Blood 172 mg/dL (60-115)
[2023-05-19] MEDS: methylPREDNISolone Sod Succ 40 MG/ML VIAL IVPUSH (08:35)
[2023-05-19] MEDS: Loratadine 10 MG TABLET PO (08:35)
[2023-05-19] MEDS: Aspirin Enteric Coated 81 MG TABLET.DR PO (08:35)
[2023-05-19] MEDS: 0.9 % Sodium Chloride Flush 3 ML SYRINGE IVFLUSH (08:35)
[2023-05-19] MEDS: Insulin Lispro 100 UNIT/ML 3 ML VIAL SUBCUT (08:35)
--- NOTE | 2023-05-19 09:58 | PM.DS ---
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 Patient states that over the last 1 week he has been having cough and worsening dyspnea. Patient states his O2 sat was in the 50s on baseline 6 L supplemental oxygen. Family member at bedside stated that patient has been coughing lately whenever he tries to eat an orange or drink water. No fevers or chills. Endorses productive cough and wheezing. The daughter also stated that patient has gotten weak over the last 1-2 weeks. Patient's cooperative extension agent, Dr. Hayward was contacted who recommended the patient to come to the ER. No chest discomfort, palpitations, abdominal pain, changes in urinary or bowel habits. In the emergency department, patient was placed on 10 L OxyMask. Imaging concerning for pneumonia. hospital course: Patient with longstadning COPD with chronic respiratory failure on home O2 up to 6 liters, followed by Dr. Tani Hayward (cooperative extension agent). He presented with acute dyspneas with Acute on chronic hypoxemic respiratory failure with suspected aspiration PNA. He was initiated on IV Unasyn to cover for pneumonia, thus far has been treated for 4 days. He has no fever, his breathing as at baseline. Cultures have been negative. Will transition to Augmentin for 3 more days. WBC is within normal range. COPD exacerbation was treated with IV steroid and will change to PO Prednisone for for total of 5 days of steroid, his oxygen requirement is back to baseline with goal of Oxygen saturation 88 to 92%. He should continue usual chronic Prednisone 7.5 mg daily indefinately Insulin-dependent diabetes mellitus with hyperglycemia: to continue Actos, sliding scale insulin Coronary artery disease status post stent: On antiplatelet agent and high-intensity statin BPH: On Flomax Generalized weakness with progressive debility: Consulting Physical therapy to evaluate and treat Gastroesophageal reflux disease: On PPI Yeast in urine--likey chronic colonization, no urinary symptoms and therefore will not treat at this time, Blood cultures have been negative for 48 hours Time Attestation Discharge Coordination Time (in mins): 45 Quality: Safe Use of Opioids Does Pt have an Active Cancer Diagnosis on the Problem List?: No Quality: Stroke Does the patient have a stroke diagnosis?: No Physical Exam Vital Signs: Vital Signs: Last Vital Signs Temp 97.1 F 05/19/23 07:29 Pulse 81 05/19/23 07:29 Resp 18 05/19/23 07:29 BP 165/77 H 05/19/23 07:29 Pulse Ox 96 05/19/23 07:29 O2 Del Method Oxymask 05/19/23 07:29 O2 Flow Rate 7 05/19/23 07:29 Oxygen Flow Rate 10 05/16/23 17:17 BMI result Body Mass Index 22.7 DS: Data Data Completed and Pending Labs on day of discharge: Laboratory Results - last 24 hr 05/18/23 05/18/23 05/18/23 11:03 16:11 20:32 POC Glucose 172 H 194 H 142 H 05/19/23 07:22 POC Glucose 172 H Preliminary micro results at discharge 05/17/23 Unknown Urine Culture - Preliminary Urine clean catch - Urine garcia top Yeast 05/16/23 17:41 Blood Culture - Preliminary Blood - Venous No growth after 48 hours. 05/16/23 17:41 Blood Culture - Preliminary Blood - Venous No growth after 48 hours. Discharge Plan Discharge Anticipated Discharge Date/Time: 05/19/23 09:57 Patient Disposition: Xfer SNF Discharge Diagnosis: acute on chronic hypoxic respiratory failure due to pneumonia and COPD exacerbation. Referrals: [facility] [Outside] Royal Garcia PA-C [Primary Care Provider] - 1 Week Discharge Medications: New amoxicillin-pot clavulanate [Augmentin] 500-125 mg tablet 1 tab PO BID Qty: 5 0RF Rx Instructions: next dose pm today insulin lispro [Admelog U-100 Insulin lispro] 100 unit/mL Solution See Protocol subcut QIDACHS Qty: 10 0RF Protocol: Insulin Correction Scale Less than or equal to 110 ---- Give (units): 0 111 to 150 Give (units): 0 151 to 200 Give (units): 2 201 to 250 Give (units): 4 251 to 300 Give (units): 6 301 to 350 Give (units): 8 Greater than 350 Give (units): 10 Call MD if Blood Glucose > : 350 prednisone 10 mg tablet 10 mg PO BID Qty: 3 0RF Rx Instructions: next dose pm today Continued fluticasone propion-salmeterol 55-14 mcg/actuation aerosol powdr breath activated 1 inh inhalation BID 30 Days Qty: 1 6RF primidone 50 mg tablet 150 mg PO BEDTIME 30 Days Qty: 90 4RF prednisone 5 mg tablet 7.5 mg PO DAILY Qty: 45 2RF atorvastatin 40 mg tablet 40 mg PO BEDTIME ipratropium-albuterol 0.5 mg-3 mg(2.5 mg base)/3 mL solution for nebulization 3 ml inhalation BID tamsulosin 0.4 mg capsule 0.4 mg PO BEDTIME cholecalciferol (vitamin D3) 50 mcg (2,000 unit) capsule 50 mcg PO BEDTIME sennosides [Senna Lax] 8.6 mg tablet 17.2 mg PO BEDTIME 15 Days Qty: 30 2RF mirtazapine 45 mg tablet 45 mg PO BEDTIME 90 Days Qty: 90 1RF pioglitazone [Actos] 15 mg tablet 15 mg PO DAILY 90 Days Qty: 90 3RF aspirin [Ecotrin Low Strength] 81 mg tablet,delayed release (DR/EC) 81 mg PO DAILY Qty: 30 0RF omeprazole 20 mg tablet,delayed release (DR/EC) 20 mg PO DAILY cetirizine [Zyrtec] 10 mg tablet 10 mg PO DAILY 90 Days Qty: 90 3RF albuterol sulfate 90 mcg/actuation HFA aerosol inhaler 2 puff inhalation Q4-6H PRN (Reason: shortness of breath or wheezing) 30 Days Qty: 1 6RF Discharge Orders: Discharge Order (Routine); Ordered 05/19/23 Ordered By: Antonio Horvath Diet: Advance to usual diet Activity on Discharge: As tolerated Stand Alone Forms: Patient Portal Discharge page Care Plan Goals: Recovery from pneumonia, copd exacerbation and return to baseline functioning status Health Concerns: Pneumonia copd exacerbation acute on chronic hypoxic respiratory failure Plan of Treatment: take Prednisone 10 mg mg twice daily for 3 more doses for copd exacerbation in additional to baseline Prednisone 7.5 mg daily which should be continue indefinately continue use of inhalers take Augmentin for 3 more days to complete treatment for pneumonia follow up with your primary care doctor and lung doctor in 1 to 2 weeks, call for appointment Assessment: see above
--- NOTE | 2023-05-19 10:48 | MHC.CM.PN ---
PT WILL DC TO [facility] TODAY AT 1300 HOURS VIA [facility] CM SPOKE TO PTS DAUGHTER/HCP, ELIZABETH [phone] WHO IS AGREEABLE TO DCP CM MET WITH PT WHO CONTINUES TO STATE LONG ELIZABETH IS AGREEABLE TO THE DCP, HE IS TO. PT AWARE OF DC TIME
[2023-05-19 11:13] VITALS: BP 131/62; PULSE 85; RESP 20; TEMP 36.3; O2SAT 93
[2023-05-19 11:26] LABS: Glucose, Whole Blood 122 mg/dL (60-115)
[2023-05-19 11:39] VITALS: PULSE 85; RESP 20; O2SAT 94
--- NOTE | 2023-05-19 12:05 | PM.DS ---
DS: Providers Provider Date of Service: 05/19/23 Date of admission: 05/16/23 19:33 Primary care physician: Royal Garcia PA-C DS: Diagnosis Discharge Diagnosis (1) Hypoxia: Status: Resolved (2) Pneumonia: Status: Acute (3) Acute exacerbation of chronic obstructive pulmonary disease: Status: Resolved (4) Physical deconditioning: Status: Acute DS: Summary Hospital Course Hospital Course: admission hpi] Chief Complaint: Dyspnea This is a 82-year-old male with pertinent history of chronic hypoxemic respiratory failure due to COPD/interstitial pulm fibrosis on baseline 6 L supplemental oxygen, coronary artery disease status post stent, BPH, [id number] diabetes mellitus who presents to the emergency department for evaluation of dyspnea. Patient states that over the last 1 week he has been having cough and worsening dyspnea. Patient states his O2 sat was in the 50s on baseline 6 L supplemental oxygen. Family member at bedside stated that patient has been coughing lately whenever he tries to eat an orange or drink water. No fevers or chills. Endorses productive cough and wheezing. The daughter also stated that patient has gotten weak over the last 1-2 weeks. Patient's insurance sales producer, Dr. Hayward was contacted who recommended the patient to come to the ER. No chest discomfort, palpitations, abdominal pain, changes in urinary or bowel habits. In the emergency department, patient was placed on 10 L OxyMask. Imaging concerning for pneumonia. hospital course: Patient with longstadning COPD with chronic respiratory failure on home O2 up to 6 liters, followed by Dr. Tani Hayward (insurance sales producer). He presented with acute dyspneas with Acute on chronic hypoxemic respiratory failure with suspected aspiration PNA. He was initiated on IV Unasyn to cover for pneumonia, thus far has been treated for 4 days. He has no fever, his breathing as at baseline. Cultures have been negative. Will transition to Augmentin for 3 more days. WBC is within normal range. COPD exacerbation was treated with IV steroid and will change to PO Prednisone for for total of 5 days of steroid, his oxygen requirement is back to baseline with goal of Oxygen saturation 88 to 92%. He should continue usual chronic Prednisone 7.5 mg daily indefinately Insulin-dependent diabetes mellitus with hyperglycemia: to continue Actos, sliding scale insulin Coronary artery disease status post stent: On antiplatelet agent and high-intensity statin BPH: On Flomax Generalized weakness with progressive debility: Consulting Physical therapy to evaluate and treat Gastroesophageal reflux disease: On PPI Yeast in urine--likey chronic colonization, no urinary symptoms and therefore will not treat at this time, Blood cultures have been negative for 48 hours Time Attestation Discharge Coordination Time (in mins): 40 Quality: Safe Use of Opioids Does Pt have an Active Cancer Diagnosis on the Problem List?: No Quality: Stroke Does the patient have a stroke diagnosis?: No Physical Exam Vital Signs: Vital Signs: Last Vital Signs Temp 97.3 F 05/19/23 11:13 Pulse 85 05/19/23 11:39 Resp 20 05/19/23 11:39 BP 131/62 05/19/23 11:13 Pulse Ox 93 05/19/23 11:13 O2 Del Method Nasal Cannula 05/19/23 11:13 O2 Flow Rate 4 05/19/23 11:13 Oxygen Flow Rate 10 05/16/23 17:17 BMI result Body Mass Index 22.7 DS: Data Data Completed and Pending Labs on day of discharge: Laboratory Results - last 24 hr 05/18/23 05/18/23 05/19/23 16:11 20:32 07:22 POC Glucose 194 H 142 H 172 H 05/19/23 11:22 POC Glucose 122 H Preliminary micro results at discharge 05/17/23 Unknown Urine Culture - Preliminary Urine clean catch - Urine garcia top Yeast 05/16/23 17:41 Blood Culture - Preliminary Blood - Venous No growth after 48 hours. 05/16/23 17:41 Blood Culture - Preliminary Blood - Venous No growth after 48 hours. Discharge Plan Discharge Anticipated Discharge Date/Time: 05/19/23 09:57 Patient Disposition: Xfer SNF Discharge Diagnosis: acute on chronic hypoxic respiratory failure due to pneumonia and COPD exacerbation. Referrals: [facility] [Outside] Royal Garcia PA-C [Primary Care Provider] - 1 Week Discharge Medications: New amoxicillin-pot clavulanate [Augmentin] 500-125 mg tablet 1 tab PO BID Qty: 5 0RF Rx Instructions: next dose pm today insulin lispro [Admelog U-100 Insulin lispro] 100 unit/mL Solution See Protocol subcut QIDACHS Qty: 10 0RF Protocol: Insulin Correction Scale Less than or equal to 110 ---- Give (units): 0 111 to 150 Give (units): 0 151 to 200 Give (units): 2 201 to 250 Give (units): 4 251 to 300 Give (units): 6 301 to 350 Give (units): 8 Greater than 350 Give (units): 10 Call MD if Blood Glucose > : 350 prednisone 10 mg tablet 10 mg PO BID Qty: 3 0RF Rx Instructions: next dose pm today Continued fluticasone propion-salmeterol 55-14 mcg/actuation aerosol powdr breath activated 1 inh inhalation BID 30 Days Qty: 1 6RF primidone 50 mg tablet 150 mg PO BEDTIME 30 Days Qty: 90 4RF prednisone 5 mg tablet 7.5 mg PO DAILY Qty: 45 2RF atorvastatin 40 mg tablet 40 mg PO BEDTIME ipratropium-albuterol 0.5 mg-3 mg(2.5 mg base)/3 mL solution for nebulization 3 ml inhalation BID tamsulosin 0.4 mg capsule 0.4 mg PO BEDTIME cholecalciferol (vitamin D3) 50 mcg (2,000 unit) capsule 50 mcg PO BEDTIME sennosides [Senna Lax] 8.6 mg tablet 17.2 mg PO BEDTIME 15 Days Qty: 30 2RF mirtazapine 45 mg tablet 45 mg PO BEDTIME 90 Days Qty: 90 1RF pioglitazone [Actos] 15 mg tablet 15 mg PO DAILY 90 Days Qty: 90 3RF aspirin [Ecotrin Low Strength] 81 mg tablet,delayed release (DR/EC) 81 mg PO DAILY Qty: 30 0RF omeprazole 20 mg tablet,delayed release (DR/EC) 20 mg PO DAILY cetirizine [Zyrtec] 10 mg tablet 10 mg PO DAILY 90 Days Qty: 90 3RF albuterol sulfate 90 mcg/actuation HFA aerosol inhaler 2 puff inhalation Q4-6H PRN (Reason: shortness of breath or wheezing) 30 Days Qty: 1 6RF Discharge Orders: Discharge Order (Routine); Ordered 05/19/23 Ordered By: Antonio Horvath Diet: Advance to usual diet Activity on Discharge: As tolerated Stand Alone Forms: Patient Portal Discharge page Print Language: Swedish Care Plan Goals: Recovery from pneumonia, copd exacerbation and return to baseline functioning status Health Concerns: Pneumonia copd exacerbation acute on chronic hypoxic respiratory failure Plan of Treatment: take Prednisone 10 mg mg twice daily for 3 more doses for copd exacerbation in additional to baseline Prednisone 7.5 mg daily which should be continue indefinately continue use of inhalers take Augmentin for 3 more days to complete treatment for pneumonia follow up with your primary care doctor and lung doctor in 1 to 2 weeks, call for appointment Assessment: see above Discharge Date/Time: 05/19/23 13:03
== END 2023-05-19 13:03 | disposition skilled nursing facility (03) | DRG 190 ==
LOC: HO.ED 19:18 → HO.EDOVER 19:40 → HO.S3 05-17 07:34
PROVIDERS: Admitting Provider Student in an Organized Health Care Education/Training Program; Emergency Provider Emergency Medicine; PCP Physician Assistant; Visit Provider Internal Medicine
DX: J44.1 Chronic obstructive pulmonary disease with (acute) exacerbation (principal); J69.0 Pneumonitis due to inhalation of food and vomit; J96.21 Acute and chronic respiratory failure with hypoxia; I25.10 Atherosclerotic heart disease of native coronary artery without angina pectoris; Z66 Do not resuscitate; N40.0 Benign prostatic hyperplasia without lower urinary tract symptoms; E11.65 Type 2 diabetes mellitus with hyperglycemia; J84.10 Pulmonary fibrosis, unspecified; Z20.822 Contact with and (suspected) exposure to COVID-19; Z99.81 Dependence on supplemental oxygen; Z95.5 Presence of coronary angioplasty implant and graft; Z87.891 Personal history of nicotine dependence; Z79.4 Long term (current) use of insulin; Z79.51 Long term (current) use of inhaled steroids; Z79.82 Long term (current) use of aspirin; Z79.899 Other long term (current) drug therapy
CPT/HCPCS: 0241U; 36415; 71045; 80048; 80076; 80307; 81001; 82803; 82947; 83605; 83735; 83880; 84484; 85025; 85610; 86140; 87040; 87086; 87088; 92526; 92610; 93005; 94640; 97162; 99285; J0295; J0456; J0696; J1650; J2920

== ENCOUNTER → 2023-05-16 17:19 | Outpatient (BNV) | payer MEDICARE, SELFPAY | PROVIDERS: Admitting Provider Student in an Organized Health Care Education/Training Program; Emergency Provider Emergency Medicine; PCP Physician Assistant; Visit Provider Internal Medicine Cardiovascular Disease | DX: R06.02 Shortness of breath (principal); R94.31 Abnormal electrocardiogram [ECG] [EKG] | CPT/HCPCS: 93010 ==

== ENCOUNTER → 2023-05-16 19:33 | Outpatient (BNV) | payer MEDICARE, SELFPAY | PROVIDERS: Admitting Provider Student in an Organized Health Care Education/Training Program; Emergency Provider Emergency Medicine; PCP Physician Assistant; Visit Provider Student in an Organized Health Care Education/Training Program | DX: J96.21 Acute and chronic respiratory failure with hypoxia (principal); J18.9 Pneumonia, unspecified organism; J44.1 Chronic obstructive pulmonary disease with (acute) exacerbation; R53.81 Other malaise | CPT/HCPCS: 99223; 99232; 99239 ==